=== PATIENT | female | born 1950 | race African-American/Black ===

== ENCOUNTER 2017-02-22 17:07 | Observation (INO) | payer MEDICAID ==
[~2017-02-22] VITALS: Ht 157.5 cm; Wt 71.4 kg
[~2017-02-22 17:07] MED LIST: IBUP-232 PO; LORT5TAB PO; PENI500T PO; Z.0.NO CURRENT MEDS
[2017-02-22 17:16] VITALS: BP 234/112; PULSE 64; RESP 14; TEMP 98.4; O2SAT 97
--- NOTE | 2017-02-22 17:51 | PD ---
HPI Chief Complaint: Neuro Symptoms/ Deficits Time Seen by Provider: 17:42 Travel History International Travel<30 days: No Contact w/Intl Traveler<30days: No Traveled to known affect area: No History of Present Illness HPI 66-year-old female came to the emergency room with history of various unrelated complaints. She speaks [place] only and her family member is giving the translated history. Patient since past 4 days has been experiencing some abdominal pain, on and off chest pain and left eye difficulty blinking when the wind blows along with some blurred vision from the left eye. Patient was hypertensive in triage. No history of vomiting or diarrhea. No history of fever or chills. Patient is concerned that she is having a stroke. Currently there is no pain from my understanding. The triage nurse's note says that patient fell down 4 days ago while she was working in her yard. This history has not been given to me by the family. PFSH Past Medical History Narrative Medical List of her past medical, surgical, social and family history is reviewed from the nursing note. Cardiovascular Problems: Yes (HTN) Diabetes: Yes Social History Tobacco Use: No Allergies-Medications (Allergen,Severity, Reaction): Coded Allergies: No Known Allergies (Verified Allergy, Unknown, 02/23/17) Comments No known drug allergies. Reported Meds & Prescriptions Reported Meds & Active Scripts Active Narrative Medication List of her home medications reviewed from the nursing note. Review of Systems Except as stated in HPI: all other systems reviewed are Neg Eyes: Positive: Drainage, Pain HENT: Positive: Headaches Cardiovascular: Positive: Chest Pain or Discomfort Physical Exam Narrative GENERAL: Awake, alert, moderate distress SKIN: Focused skin assessment warm/dry. HEAD: Atraumatic. Normocephalic. EYES: Pupils equal and round. No scleral icterus. No injection or drainage. ENT: No nasal bleeding or discharge. Mucous membranes pink and moist. NECK: Trachea midline. No JVD. CARDIOVASCULAR: Regular rate and rhythm. No murmur appreciated. RESPIRATORY: No accessory muscle use. Clear to auscultation. Breath sounds equal bilaterally. GASTROINTESTINAL: Abdomen soft, non-tender, nondistended. Hepatic and splenic margins not palpable. MUSCULOSKELETAL: No obvious deformities. No clubbing. No cyanosis. No edema. NEUROLOGICAL: Awake and alert. No obvious cranial nerve deficits. Motor grossly within normal limits. Normal speech. PSYCHIATRIC: Appropriate mood and affect; insight and judgment normal. Data Data Last Documented VS Orders Orders Electrocardiogram (02/22/17:) Prothrombin Time / Inr (Pt) (02/22/17:) Act Partial Throm Time (Ptt) (02/22/17) Complete Blood Count With Diff (02/22/17:) Comprehensive Metabolic Panel (02/22/17:) Creatine Kinase (Cpk) (02/22/17:) Troponin I (02/22/17) Urinalysis - C+S If Indicated (02/22/17) Ct Brain W/O Iv Contrast(Rout) (02/22/17:) Chest, Single Ap (02/22/17) Urine Culture (02/22/17 19:20) Aspirin (Aspirin) (02/22/17 21:00) Sodium Chlor 0.9% 1000 Ml Inj (Ns 1000 M (02/22/17 21:00) [place] (02/22/17 20:58) Admit Order (Ed Use Only) (02/22/17 21:19) Labs Laboratory Tests Test 02/22/17 19:05 02/22/17 19:20 White Blood Count 6.1 TH/MM3 Red Blood Count 5.17 MIL/MM3 Hemoglobin 14.9 GM/DL Hematocrit 43.5 % Mean Corpuscular Volume 84.2 FL Mean Corpuscular Hemoglobin 28.8 PG Mean Corpuscular Hemoglobin Concent 34.2 % Red Cell Distribution Width 13.4 % Platelet Count 197 TH/MM3 Mean Platelet Volume 9.7 FL Neutrophils (%) (Auto) 40.9 % Lymphocytes (%) (Auto) 47.2 % Monocytes (%) (Auto) 6.0 % Eosinophils (%) (Auto) 4.9 % Basophils (%) (Auto) 1.0 % Neutrophils # (Auto) 2.5 TH/MM3 Lymphocytes # (Auto) 2.9 TH/MM3 Monocytes # (Auto) 0.4 TH/MM3 Eosinophils # (Auto) 0.3 TH/MM3 Basophils # (Auto) 0.1 TH/MM3 CBC Comment DIFF FINAL Differential Comment Prothrombin Time 10.3 SEC Prothromb Time International Ratio 0.9 RATIO Activated Partial Thromboplast Time 28.7 SEC Blood Urea Nitrogen 13 MG/DL Creatinine 0.58 MG/DL Random Glucose 164 MG/DL Total Protein 7.1 GM/DL Albumin 3.6 GM/DL Calcium Level 9.1 MG/DL Alkaline Phosphatase 135 U/L Aspartate Amino Transf (AST/SGOT) 26 U/L Alanine Aminotransferase (ALT/SGPT) 41 U/L Total Bilirubin 0.3 MG/DL Sodium Level 139 MEQ/L Potassium Level 3.8 MEQ/L Chloride Level 105 MEQ/L Carbon Dioxide Level 25.6 MEQ/L Anion Gap 8 MEQ/L Estimat Glomerular Filtration Rate 126 ML/MIN Total Creatine Kinase 94 U/L Troponin I LESS THAN 0.02 NG/ML Urine Color LIGHT-YELLOW Urine Turbidity CLEAR Urine pH 5.5 Urine Specific [place] 1.004 Urine Protein NEG mg/dL Urine Glucose (UA) NEG mg/dL Urine Ketones NEG mg/dL Urine Occult Blood NEG Urine Nitrite NEG Urine Bilirubin NEG Urine Urobilinogen LESS THAN 2.0 MG/DL Urine Leukocyte Esterase SMALL Urine RBC LESS THAN 1 /hpf Urine WBC 2 /hpf Urine Squamous Epithelial Cells 1 /hpf Urine Bacteria OCC /hpf Microscopic Urinalysis Comment CATH-CULTURE IND MDM Medical Decision Making Medical Screen Exam Complete: Yes Emergency Medical Condition: Yes Medical Record Reviewed: Yes Interpretation(s) Lead EKG was reviewed by me. Normal sinus rhythm, normal axis, nonspecific ST- T wave changes. Heart rate of 69 bpm. Differential Diagnosis Intracranial bleed, ACS, non-STEMI Narrative Course 7:[address] scan of the head and chest x-ray that was ordered from the triage was done and resulted as normal. Awaiting for the blood test results. Case has been signed over to the oncoming ER physician. The current blood pressure is 162 systolic. Procedures EKG Prior to Arrival: No Scripts Ibuprofen (Ibuprofen) 600 Mg Tab 600 MG PO Q8HR Y for PAIN, #20 TAB 0 Refills Prov: Alejandro Shanks DO 02/25/17 Lxxfldqjih-Czvxody-Gpdbfjuw (Fiorinal) 50-325-40 Mg Cap 1 CAP PO Q4H Y for HEADACHE, #10 CAP 0 Refills Do not exceed 6 capsules/day. Prov: Alejandro Shanks DO 02/25/17 Divalproex ER (Depakote ER) 250 Mg [place] 250 MG PO DAILY for Headaches, #30 TAB Prov: Alejandro Shanks DO 02/25/17 Aspirin (Px Aspirin) 325 Mg Tab 325 MG PO DAILY for Weakness, #30 TAB Prov: Alejandro Shanks DO 02/25/17 Lisinopril (Lisinopril) 20 Mg Tab 20 MG PO DAILY for Blood Pressure Management, #30 TAB 0 Refills Prov: Alejandro Shanks DO 02/25/17 Glipizide (Glipizide) 5 Mg Tab 5 MG PO DAILY for Blood Sugar Management, #30 TAB 0 Refills Take 30 minutes before a meal Prov: Alejandro Shanks DO 02/25/17 Metformin (Metformin) 500 Mg Tab 500 MG PO QID for Blood Sugar Management, #30 TAB 0 Refills With a meal Prov: Alejandro Shanks DO 02/25/17 Kat Vaz MD Feb 22, 2017 17:51
--- NOTE | 2017-02-22 17:54 | RADRPT ---
EXAM DATE/TIME: 02/22/2017 17:40 [facility] COMPARISON: No previous studies available for comparison. INDICATIONS : Chest pain, CVA. MEDICAL HISTORY : None. SURGICAL HISTORY : None. ENCOUNTER: Initial ACUITY: 1 day PAIN SCORE: 5/10 LOCATION: Left chest FINDINGS: The lungs are under aerated but clear. There is no pneumothorax.. The cardiomediastinal contours ar e unremarkable. Osseous structures are intact. Mild degenerative changes about both EC joints. CONCLUSION: Under aerated but clear. Dejan Linn MD FACR on February 22, 2017 at 17:52 Board Certified Radiologist. This report was verified electronically.
--- NOTE | 2017-02-22 17:55 | RADRPT ---
EXAM DATE/TIME: 02/22/2017 17:43 [facility] COMPARISON: No previous studies available for comparison. INDICATIONS : Trauma; fall five days ago. RADIATION DOSE: 29.37 CTDIvol (mGy) MEDICAL HISTORY : Hypertension. SURGICAL HISTORY : None. ENCOUNTER: Initial ACUITY: 4 - 6 days PAIN SCALE: 4/10 LOCATION: cranial TECHNIQUE: Multiple contiguous axial images were obtained of the head. Using automated exposure control and adj ustment of the mA and/or kV according to patient size, radiation dose was kept as low as reasonably a chievable to obtain optimal diagnostic quality images. DICOM format image data is available electro nically for review and comparison. FINDINGS: CEREBRUM: The ventricles are normal for age. No evidence of midline shift, mass lesion, hemorrhage or acute in farction. No extra-axial fluid collections are seen. POSTERIOR FOSSA: The cerebellum and brainstem are intact. The 4th ventricle is midline. The cerebellopontine angle i s unremarkable. EXTRACRANIAL: The visualized portion of the orbits is intact. SKULL: The calvaria is intact. No evidence of skull fracture. CONCLUSION: Negative. Dejan Linn MD FACR on February 22, 2017 at 17:52 Board Certified Radiologist. This report was verified electronically.
[2017-02-22] MEDS ORDERED: LISI-515 PO (18:11)
[2017-02-22] MEDS ORDERED: GLIP5TAB8 PO (18:11)
[2017-02-22] MEDS ORDERED: METF500T PO (18:11)
[2017-02-22 19:00] VITALS: BP 163/78; PULSE 69; RESP 16; O2SAT 99
--- NOTE | 2017-02-22 19:36 | PD ---
Physical Exam Narrative General: The patient is a well-developed well-nourished female in no acute distress. Head and Neck exam: Head is normocephalic atraumatic. Eyes: EOMI, pupils are equal round and reactive to light. Nose: Midline septum with pink mucous membranes Mouth: Dentition unremarkable. Moist mucus membranes. Posterior oropharynx is not erythematous. No tonsillar hypertrophy. Uvula midline. Airway patent. Neck: No palpable lymphadenopathy. No nuchal rigidity. No thyromegaly. Cardiovascular: Regular rate and rhythm without murmurs, gallops, or rubs. Lungs: Clear to auscultation bilaterally. No wheezes, rhonchi, or rales. Abdomen: Soft, without tenderness to palpation in all 4 quadrants of the abdomen. No guarding, rebound, or rigidity. Normal bowel sounds are audible. No tenderness on palpation of McBurney's point. Extremities: No clubbing, cyanosis, or edema. 2+ pulses in all 4 extremities. Back: No spinous process tenderness to palpation. No costovertebral angle tenderness to palpation. Neurologic Exam: Cranial nerves 2-12 were intact on exam. Strength is 5/5 in all 4 extremities. No sensory deficits noted. Skin Exam: No rash noted. Intact skin that is warm and dry. Data Data Last Documented VS Vital Signs Date Time Temp Pulse Resp B/P (MAP) Pulse Ox O2 Delivery O2 Flow Rate FiO2 02/22/17 19:00 69 16 163/78 (106) 99 Room Air 02/22/17 17:16 98.4 Orders Orders Electrocardiogram (02/22/17 17:26) Prothrombin Time / Inr (Pt) (02/22/17 17:26) Act Partial Throm Time (Ptt) (02/22/17 17:26) Complete Blood Count With Diff (02/22/17 17:) Comprehensive Metabolic Panel (02/22/17 17:) Creatine Kinase (Cpk) (02/22/17 17:) Troponin I (02/22/17:) Urinalysis - C+S If Indicated (02/22/17 17:) Ct Brain W/O Iv Contrast(Rout) (02/22/17 17:26) Chest, Single Ap (02/22/17 17:26) Urine Culture (02/22/17 19:20) Aspirin (Aspirin) (02/22/17 21:00) Sodium Chlor 0.9% 1000 Ml Inj (Ns 1000 M (02/22/17 21:00) [place] (02/22/17 20:58) Admit Order (Ed Use Only) (02/22/17 21:19) Labs Laboratory Tests Test 02/22/17 19:05 02/22/17 19:20 White Blood Count 6.1 TH/MM3 Red Blood Count 5.17 MIL/MM3 Hemoglobin 14.9 GM/DL Hematocrit 43.5 % Mean Corpuscular Volume 84.2 FL Mean Corpuscular Hemoglobin 28.8 PG Mean Corpuscular Hemoglobin Concent 34.2 % Red Cell Distribution Width 13.4 % Platelet Count 197 TH/MM3 Mean Platelet Volume 9.7 FL Neutrophils (%) (Auto) 40.9 % Lymphocytes (%) (Auto) 47.2 % Monocytes (%) (Auto) 6.0 % Eosinophils (%) (Auto) 4.9 % Basophils (%) (Auto) 1.0 % Neutrophils # (Auto) 2.5 TH/MM3 Lymphocytes # (Auto) 2.9 TH/MM3 Monocytes # (Auto) 0.4 TH/MM3 Eosinophils # (Auto) 0.3 TH/MM3 Basophils # (Auto) 0.1 TH/MM3 CBC Comment DIFF FINAL Differential Comment Prothrombin Time 10.3 SEC Prothromb Time International Ratio 0.9 RATIO Activated Partial Thromboplast Time 28.7 SEC Blood Urea Nitrogen 13 MG/DL Creatinine 0.58 MG/DL Random Glucose 164 MG/DL Total Protein 7.1 GM/DL Albumin 3.6 GM/DL Calcium Level 9.1 MG/DL Alkaline Phosphatase 135 U/L Aspartate Amino Transf (AST/SGOT) 26 U/L Alanine Aminotransferase (ALT/SGPT) 41 U/L Total Bilirubin 0.3 MG/DL Sodium Level 139 MEQ/L Potassium Level 3.8 MEQ/L Chloride Level 105 MEQ/L Carbon Dioxide Level 25.6 MEQ/L Anion Gap 8 MEQ/L Estimat Glomerular Filtration Rate 126 ML/MIN Total Creatine Kinase 94 U/L Troponin I LESS THAN 0.02 NG/ML Urine Color LIGHT-YELLOW Urine Turbidity CLEAR Urine pH 5.5 Urine Specific [place] 1.004 Urine Protein NEG mg/dL Urine Glucose (UA) NEG mg/dL Urine Ketones NEG mg/dL Urine Occult Blood NEG Urine Nitrite NEG Urine Bilirubin NEG Urine Urobilinogen LESS THAN 2.0 MG/DL Urine Leukocyte Esterase SMALL Urine RBC LESS THAN 1 /hpf Urine WBC 2 /hpf Urine Squamous Epithelial Cells 1 /hpf Urine Bacteria OCC /hpf Microscopic Urinalysis Comment CATH-CULTURE IND MDM Medical Record Reviewed: Yes Supervised Visit with NITIN: No Interpretation(s) Last Impressions Head CT 02/22/176 Signed Impressions: Service Date/Time: Wednesday, February 22, 2017 17:43 - CONCLUSION: Negative. Dejan Linn MD FACR Chest X-Ray 02/22/176 Signed Impressions: Service Date/Time: Wednesday, February 22, 2017 17:40 - CONCLUSION: Under aerated but clear. Dejan Linn MD FACR Carotid Artery Ultrasound 02/22/17 0000 Signed Impressions: Service Date/Time: Wednesday, February 22, 2017 21:47 - CONCLUSION: 1. No significant atherosclerotic disease or stenosis is identified within either internal carotid artery. 2. There is antegrade flow within both vertebral arteries. Dennys Moreau MD Narrative Course During the course of the patients emergency department visit, the patients history, examination, and differential diagnosis were reviewed with the patient. The patient was placed on a patient monitor with oximetry and frequent blood pressure monitoring. The patient had IV access obtained and blood work sent for analysis. The patient's case was checked out to me by Dr. Vaz. Please see her initial history and physical. The patient's case was checked out to me at the conclusion of her shift. The patient reports a history of having left-sided upper and lower extremity weakness with difficulty ambulating since Wednesday, 2 days ago. The patient was seen by her chiropractor today and was sent to the emergency department for evaluation. The patient reports having an associated headache. The patient reports having a history of hypertension and diabetes mellitus. The patient is on losartan and metformin. The patient reports that her primary care physician is in [place], [place]. She denies having any prior history of stroke. She denies taking any aspirin daily. The patient was initially provided normal saline at 70 mL per hour, aspirin 325 mg by mouth 1. The patient was placed with the head of the bed flat. The patients laboratory studies were reviewed and remarkable for a CMP that is remarkable for glucose of 164, alkaline phosphatase 135, CPK 94, troponin I less than 0.02, CBC is remarkable for a white count of 6.1, hemoglobin 14.9, platelets 197 with 47.2 lymphocytes, eosinophils 4.9, PT PTT within normal limits. Urinalysis is unremarkable Radiology studies were reviewed and remarkable for a chest x-ray that shows no cardiopulmonary disease, under aerated x-ray. CT scan of the brain shows no acute abnormality. The Patient was given aspirin 325 mg by mouth 1. The patient will be admitted to the hospital for evaluation of TIA versus CVA. The patients results were discussed with the patient, including the plan of care. I explained that further testing and/ or monitoring is indicated based on the patients history, examination, and/ or laboratory findings. Therefore, I recommended admission for additional evaluation. The patient expressed understanding and was agreeable with this plan. The patient was admitted to the hospital in stable condition and sent to a bed under the care of the [facility] service. Physician Communication Physician Communication The patient's case including history, pertinent physical examination findings, and laboratory studies were discussed with Dr. Gonzalez. It was agreed that the patient would be admitted to the [facility] service. Diagnosis Primary Impression: Neurological symptoms Admitting Information Admitting Physician Requests: Observation Mandy Triana MD Feb 22, 2017 19:36
[2017-02-22 19:43] LABS: AUTOMATED NEUTROPHIL # 2.5 TH/MM3 (1.8-7.7); BASOPHIL # 0.1 TH/MM3 (0-0.2); EOSINOPHIL # 0.3 TH/MM3 (0-0.4); EOSINOPHIL % 4.9 % (0.0-4.0); HEMATOCRIT 43.5 % (35.0-46.0); HEMO FLAGS DIFF FINAL; LYMPH % 47.2 % (9.0-44.0); LYMPHOCYTE # 2.9 TH/MM3 (1.0-4.8); MEAN CELL VOLUME 84.2 FL (80.0-100.0); MEAN CORPUSCULAR HEMOGLOBIN 28.8 PG (27.0-34.0); MEAN CORPUSCULAR HGB CONC 34.2 % (32.0-36.0); NEUT % 40.9 % (16.0-70.0); PLATELET COUNT 197 TH/MM3 (150-450); RED BLOOD COUNT 5.17 MIL/MM3 (4.00-5.30); RED CELL DISTRIBUTION WIDTH 13.4 % (11.6-17.2); WHITE BLOOD COUNT 6.1 TH/MM3 (4.0-11.0)
[2017-02-22 20:06] LABS: BACTERIA, URINE OCC /hpf; BLOOD, URINE NEG (NEG); GLUCOSE,URINE NEG (NEG); KETONE, URINE NEG (NEG); NITRITE,URINE NEG (NEG); PH, URINE 5.5 (5.0-8.5); SQUAMOUS EPITHELIAL CELL URINE 1 /hpf (0-5); URINE COLOR LIGHT-YELLOW (YELLW/STRAW)
[2017-02-22 20:10] LABS: ALKALINE PHOSPHATASE 135 U/L (45-117); ALT (GPT) 41 U/L (10-53); ANION GAP 8 MEQ/L (5-15); AST (GOT) 26 U/L (15-37); BICARBONATE 25.6 MEQ/L (21.0-32.0); BLOOD UREA NITROGEN 13 MG/DL (7-18); CHLORIDE 105 MEQ/L (98-107); GLOMERULAR FILTRATION RATE 126 ML/MIN (>89); POTASSIUM 3.8 MEQ/L (3.5-5.1); SODIUM (NA) 139 MEQ/L (136-145); TOTAL BILIRUBIN ADULT 0.3 MG/DL (0.2-1.0)
[2017-02-22 20:19] LABS: COMMENT (UR) CATH-CULTURE IND; CULTURE IF INDICATED CATH CULTURE IND
[2017-02-22 20:24] LABS: CREATINE KINASE 94 U/L (26-192)
[2017-02-22 20:48] LABS: APTT (PATIENT) 28.7 SEC (24.3-30.1); INTERNATIONAL NORMALIZED RATIO 0.9 RATIO; PROTHROMBIN TIME - PATIENT 10.3 SEC (9.8-11.6)
[2017-02-22] MEDS ORDERED: ASPIRIN 325 MG TAB PO ONE (21:00)
[2017-02-22] MEDS: SODIUM CHLOR 0.9% 1000 ML INJ 1,000 ML IV SCH (21:17)
[2017-02-22] MEDS ORDERED: GADODIAMIDE PF 287 MG/ML 20 ML VIAL (for RAD MRI) IV PUSH ONE (21:21)
--- NOTE | 2017-02-22 22:54 | RADRPT ---
EXAM DATE/TIME: 02/22/2017 21:47 [facility] COMPARISON: No previous studies available for comparison. INDICATIONS : Transient ischemic attack. MEDICAL HISTORY : Hypertension. Diabetes. SURGICAL HISTORY : None. ENCOUNTER: Initial ACUITY: 1 day PAIN SCORE: 0/10 LOCATION: Bilateral neck PEAK SYSTOLIC VELOCITIES (cm/sec): ICA/CCA RATIO: Right: 0.9 Left: 1.2 ICA: Right: 72 Left: 111 CCA: Right: 83 Left: 94 ECA: Right: 106 Left: 79 VERTEBRAL: Right: 68 antegrade Left: 56 antegrade Elevated flow velocities and ICA/CCA ratios have been found to correlate with increased degrees of vessel stenosis, calculated as percentage of diameter relative to a normal segment of distal ICA/CCA FINDINGS: RIGHT CAROTID: No significant stenosis is visualized. The waveforms are within normal limits. LEFT CAROTID: No significant stenosis is visualized. The distal left internal carotid artery is not visualized. Th e waveforms are within normal limits. VERTEBRAL ARTERIES: Antegrade flow is seen in both vertebral arteries. MISCELLANEOUS: None. CONCLUSION: 1. No significant atherosclerotic disease or stenosis is identified within either internal carotid ar delvin. 2. There is antegrade flow within both vertebral arteries. Dennys Moreau MD on February 22, 2017 at 22:50 Board Certified Radiologist. This report was verified electronically.
[2017-02-23] VITALS (7 sets, daily range): BP systolic 146–183; BP diastolic 67–79; PULSE 60–72; RESP 16–18; TEMP 98–98.5; O2SAT 92–97
[2017-02-23] MEDS: ACETAMINOPHEN 325 MG TAB PO PRN ×2 (01:18→10:47)
[2017-02-23 08:01] LABS: AUTOMATED NEUTROPHIL # 1.9 TH/MM3 (1.8-7.7); BASOPHIL # 0.1 TH/MM3 (0-0.2); BASOPHIL % 1.1 % (0.0-2.0); EOSINOPHIL # 0.3 TH/MM3 (0-0.4); EOSINOPHIL % 5.6 % (0.0-4.0); HEMATOCRIT 42.5 % (35.0-46.0); HEMO FLAGS DIFF FINAL; LYMPH % 47.3 % (9.0-44.0); LYMPHOCYTE # 2.3 TH/MM3 (1.0-4.8); MEAN CELL VOLUME 84.7 FL (80.0-100.0); MEAN CORPUSCULAR HEMOGLOBIN 28.5 PG (27.0-34.0); MEAN CORPUSCULAR HGB CONC 33.7 % (32.0-36.0); PLATELET COUNT 194 TH/MM3 (150-450); RED BLOOD COUNT 5.01 MIL/MM3 (4.00-5.30); RED CELL DISTRIBUTION WIDTH 13.3 % (11.6-17.2); WHITE BLOOD COUNT 4.8 TH/MM3 (4.0-11.0)
[2017-02-23 08:25] LABS: BICARBONATE 24.5 MEQ/L (21.0-32.0); POTASSIUM 3.9 MEQ/L (3.5-5.1)
[2017-02-23 08:36] LABS: LDL CHOLESTEROL 60 MG/DL (0-99)
[2017-02-23] MEDS ORDERED: LISINOPRIL 20 MG TAB PO SCH (10:00)
[2017-02-23] MEDS ORDERED: ENALAPRILAT 1.25 MG/ML VIAL IV PUSH PRN (10:15)
[2017-02-23] MEDS ORDERED: GLUCAGON 1 MG/ML VIAL OTHER PRN (10:15)
[2017-02-23] MEDS ORDERED: DEXTROSE 50% IN WATER 50 ML VIAL(D50) IV PUSH PRN (10:15)
--- NOTE | 2017-02-23 10:18 | HHI.HP ---
[facility] Primary [facility] Physician Unknown Admission Diagnosis TIA versus CVA Diagnoses: Chief Complaint: Weakness, left eye pain, chest pain Travel History International Travel<30 Days: No Contact w/Intl Traveler <30 Da: No Traveled to Known Affected Are: No History of Present Illness The patient is a 66-year-old female with a past medical history of hypertension and diabetes who is presenting to the hospital with multiple complaints including weakness, headache, eye pain and chest pain. The patient said that on Wednesday she started to develop a headache and left eye pain. She said that she also had chest pain. She described the chest pain as a sensation of her heart puffing up. She also says it's like a stabbing/stinging sensation. She went to the chiropractor yesterday and the chiropractor asked how she was feeling. The patient said that she had all of the aforementioned symptoms. The chiropractor checked her eye pressure and recommended she come to the emergency department to be evaluated for a possible stroke. The patient says that her symptoms continue. She also describes some abdominal discomfort. She says she is currently nauseous. She does want to eat something. She denies any shortness of breath. She says she goes to a chiropractor because she recently fell on her back after tripping over something. Review of Systems Except as stated in HPI: all other systems reviewed are Neg Past Family Social History Past Medical History Diabetes Hypertension Past Surgical History Appendectomy Allergies: Coded Allergies: No Known Allergies (Verified Allergy, Unknown, 02/23/17) Active Ordered Medications Current Medications Medications (Trade) Dose Ordered Sig/Aguila Route Start Time Stop Time Status Last Admin Sodium Chloride 1,000 ml @ 70 mls/hr [id number] IV 02/22/17 21:00 02/22/17 21:17 (Tylenol) 650 mg Q4H PRN PO 02/23/17 00:15 02/23/17 01:18 (NovoLOG SUPPLEMENTAL SCALE) 1 ACHS SLIDING SCALE SQ 02/23/17 12:00 (D50w (Vial) Inj) 50 ml UNSCH PRN IV PUSH 02/23/17 10:15 (Glucagon Inj) 1 mg UNSCH PRN OTHER 02/23/17 10:15 Family History Hypertension Cardiac arrest Social History The patient does not smoke or drink Physical Exam Vital Signs Vital Signs Date Time Temp Pulse Resp B/P (MAP) Pulse Ox O2 Delivery O2 Flow Rate FiO2 02/23/17 08:05 98.2 60 16 146/71 (96) 94 02/23/17 02:53 18 02/23/17 02:19 98.1 67 18 149/67 (94) 96 02/22/17 22:37 02/22/17 19:00 69 16 163/78 (106) 99 Room Air 02/22/17 17:16 98.4 64 14 234/112 (152) 97 Physical Exam GENERAL: Resting comfortably. SKIN: Focused skin assessment warm/dry. HEAD: Atraumatic. Normocephalic. EYES: Pupils equal and round. No scleral icterus. No injection or drainage. ENT: No nasal bleeding or discharge. Mucous membranes pink and moist. NECK: Trachea midline. No JVD. CARDIOVASCULAR: Regular rate and rhythm. No murmur appreciated. RESPIRATORY: No accessory muscle use. Clear to auscultation. Breath sounds equal bilaterally. GASTROINTESTINAL: Abdomen soft, slightly tender in the left lower quadrant. Hepatic and splenic margins not palpable. MUSCULOSKELETAL: Chest wall tender to palpation. No obvious deformities. No clubbing. No cyanosis. No edema. NEUROLOGICAL: Awake and alert. No obvious cranial nerve deficits. Motor 5 out of 5 on the right side, 4 out of 5 on the left side. Pupils are equal and reactive. Normal speech. Laboratory Laboratory Tests Test 02/22/17 19:05 02/22/17 19:20 02/23/17 06:15 White Blood Count 6.1 4.8 Red Blood Count 5.17 5.01 Hemoglobin 14.9 14.3 Hematocrit 43.5 42.5 Mean Corpuscular Volume 84.2 84.7 Mean Corpuscular Hemoglobin 28.8 28.5 Mean Corpuscular Hemoglobin Concent 34.2 33.7 Red Cell Distribution Width 13.4 13.3 Platelet Count 197 194 Mean Platelet Volume 9.7 10.0 Neutrophils (%) (Auto) 40.9 40.0 Lymphocytes (%) (Auto) 47.2 47.3 Monocytes (%) (Auto) 6.0 6.0 Eosinophils (%) (Auto) 4.9 5.6 Basophils (%) (Auto) 1.0 1.1 Neutrophils # (Auto) 2.5 1.9 Lymphocytes # (Auto) 2.9 2.3 Monocytes # (Auto) 0.4 0.3 Eosinophils # (Auto) 0.3 0.3 Basophils # (Auto) 0.1 0.1 CBC Comment DIFF FINAL DIFF FINAL Differential Comment Prothrombin Time 10.3 Prothromb Time International Ratio 0.9 Activated Partial Thromboplast Time 28.7 Blood Urea Nitrogen 13 13 Creatinine 0.58 0.61 Random Glucose 164 242 Total Protein 7.1 Albumin 3.6 Calcium Level 9.1 9.3 Alkaline Phosphatase 135 Aspartate Amino Transf (AST/SGOT) 26 Alanine Aminotransferase (ALT/SGPT) 41 Total Bilirubin 0.3 Sodium Level 139 138 Potassium Level 3.8 3.9 Chloride Level 105 104 Carbon Dioxide Level 25.6 24.5 Anion Gap 8 10 Estimat Glomerular Filtration Rate 126 119 Total Creatine Kinase 94 Troponin I LESS THAN 0.02 Urine Color LIGHT-YELLOW Urine Turbidity CLEAR Urine pH 5.5 Urine Specific [place] 1.004 Urine Protein NEG Urine Glucose (UA) NEG Urine Ketones NEG Urine Occult Blood NEG Urine Nitrite NEG Urine Bilirubin NEG Urine Urobilinogen LESS THAN 2.0 Urine Leukocyte Esterase SMALL Urine RBC LESS THAN 1 Urine WBC 2 Urine Squamous Epithelial Cells 1 Urine Bacteria OCC Microscopic Urinalysis Comment CATH-CULTURE IND Triglycerides Level 206 Cholesterol Level 149 LDL Cholesterol 60 HDL Cholesterol 48.0 Cholesterol/HDL Ratio 3.10 Date/Time Source Procedure Growth Status 02/22/17 19:20 Urine Catheterized Urine Urine Culture Pending Received Result Diagram: 02/23/1761402/23/17614 Imaging Last Impressions Head CT 02/22/171725 Signed Impressions: Service Date/Time: Wednesday, February 22, 2017 17:43 - CONCLUSION: Negative. Dejan Linn MD FACR Chest X-Ray 02/22/171725 Signed Impressions: Service Date/Time: Wednesday, February 22, 2017 17:40 - CONCLUSION: Under aerated but clear. Dejan Linn MD FACR Carotid Artery Ultrasound 02/22/17 0000 Signed Impressions: Service Date/Time: Wednesday, February 22, 2017 21:47 - CONCLUSION: 1. No significant atherosclerotic disease or stenosis is identified within either internal carotid artery. 2. There is antegrade flow within both vertebral arteries. Dennys Moreau MD Caprini VTE Risk Assessment Caprini VTE Risk Assessment: Mod/High Risk (score >= 2) Caprini Risk Assessment Model Point Value = 1 Point Value = 2 Point Value = 3 Point Value = 5 Age 41-60 Minor surgery BMI > 25 kg/m2 Swollen legs Varicose veins or History of unexplained or recurrent spontaneous Oral contraceptives or hormone replacement Sepsis (< 1 month) Serious lung disease, including pneumonia (< 1 month) Abnormal pulmonary function Acute myocardial infarction Congestive heart failure (< 1 month) History of inflammatory bowel disease Medical patient at bed rest Age 61-74 Arthroscopic surgery Major open surgery (> 45 min) Laparoscopic surgery (> 45 min) Malignancy Confined to bed (> 72 hours) Immobilizing plaster cast Central venous access Age >= 75 History of VTE Family history of VTE Factor V Leiden Prothrombin [id number] Lupus anticoagulant Anticardiolipin antibodies Elevated serum homocysteine Heparin-induced thrombocytopenia Other congenital or acquired thrombophilia Stroke (< 1 month) Elective arthroplasty Hip, pelvis, or leg fracture Acute spinal cord injury (< 1 month) Prophylaxis Regimen Total Risk Factor Score Risk Level Prophylaxis Regimen 0-1 Low Early ambulation 2 Moderate Order ONE of the following: *Sequential Compression Device (SCD) *Heparin 5000 units SQ BID 3-4 Higher Order ONE of the following medications: *Heparin 5000 units SQ TID *Enoxaparin/Lovenox 40 mg SQ daily (WT < 150 kg, CrCl > 30 mL/min) *Enoxaparin/Lovenox 30 mg SQ daily (WT < 150 kg, CrCl > 10-29 mL/min) *Enoxaparin/Lovenox 30 mg SQ BID (WT < 150 kg, CrCl > 30 mL/min) AND/OR *Sequential Compression Device (SCD) 5 or more Highest Order ONE of the following medications: *Heparin 5000 units SQ TID (Preferred with Epidurals) *Enoxaparin/Lovenox 40 mg SQ daily (WT < 150 kg, CrCl > 30 mL/min) *Enoxaparin/Lovenox 30 mg SQ daily (WT < 150 kg, CrCl > 10-29 mL/min) *Enoxaparin/Lovenox 30 mg SQ BID (WT < 150 kg, CrCl > 30 mL/min) AND *Sequential Compression Device (SCD) Assessment and Plan Assessment and Plan Left sided weakness The patient has weakness in the left upper and lower extremities. CT of the brain was unremarkable. Carotid ultrasound without significant abnormality. - MRI of the brain and echocardiogram pending. - Neurology consult requested. - Monitor on telemetry. - Neuro checks. - PT/OT/ST. Accelerated hypertension Blood pressure was 234/112 on admission. August because of many of her symptoms. - Permissive hypertension for now. - Vasotec as needed. - Resume lisinopril in the morning. Chest pain Chest wall is tender to palpation. Likely costochondritis. EKG was normal sinus rhythm. Initial troponin negative. - Trend troponins and EKGs. - Pain control as needed. - Telemetry. Left eye pain Exam is unremarkable. Possibly secondary to uncontrolled high blood pressure. - MRI of the brain pending. Diabetes The patient is on metformin as an outpatient. - Hold metformin and place on an insulin sliding scale. - Diabetic diet. PPx: Adonis Discussed Condition With Pt, pt's family Alejandro Shanks DO Feb 23, 2017 10:18
[2017-02-23] MEDS: ENOXAPARIN SODIUM 40 MG/0.4 ML SYRINGE SQ SCH (10:48)
[2017-02-23] MEDS: SODIUM CHLOR 0.9% 1000 ML INJ 1,000 ML IV SCH (10:48)
--- NOTE | 2017-02-23 13:00 | RADRPT ---
EXAM DATE/TIME: 02/23/2017 12:24 [facility] COMPARISON: CT BRAIN W/O CONTRAST, February 22, 2017, 17:43. INDICATIONS : Left sided weakness. MEDICAL HISTORY : Diabetes mellitus type 2. SURGICAL HISTORY : Appendectomy. ENCOUNTER: Subsequent ACUITY: 2 day PAIN SCORE: 0/10 LOCATION: cranial TECHNIQUE: Multiplanar, multisequence MRI of the brain was performed without contrast. FINDINGS: CEREBRUM: The ventricles are normal for age. No evidence of midline shift, mass lesion, hemorrhage or acute in farction. No extraaxial fluid collections are seen. The pituitary gland and suprasellar cistern are normal in configuration. WHITE MATTER: No significant signal abnormalities are seen in the white matter. POSTERIOR FOSSA: The cerebellum and brainstem are intact. The 4th ventricle is midline. The cerebellopontine angle is unremarkable. The cerebellar tonsils are normal in position. DIFFUSION IMAGING: No focal areas of restricted diffusion are seen. No evidence of acute infarction. EXTRACRANIAL: The visualized portions of the orbits and paranasal sinuses are unremarkable. CONCLUSION: Negative exam. Mariano Miranda MD on February 23, 2017 at 12:55 Board Certified Radiologist. This report was verified electronically.
[2017-02-23] MEDS: INSULIN ASPART SUPPLEMENTAL SCALE SQ SCH ×3 (13:19→21:16)
--- NOTE | 2017-02-23 16:03 | PD.CONS ---
History of Present Illness Service Neurology Consult Requested By medical Reason for Consult weakness Primary Care Physician Unknown History of Present Illness 66-year-old female admitted for c/o of headache, vision changes? feels left eye vision a little blurry but able to watch t.v. pt with photophobia/phonophobia, throbbing headache better this afternoon. maria r po. has had it before several years ago. denies fever, jaw claudication. not on any meds 2/2 insurance. noted to have elevated glucose. Review of Systems Except as stated in HPI: and per admit hp Past Family Social History Past Medical History Diabetes Hypertension Past Surgical History Appendectomy Allergies: Coded Allergies: No Known Allergies (Verified Allergy, Unknown, 02/23/17) Family History Hypertension Cardiac arrest Social History The patient does not smoke or drink Review of Systems All other ROS: ROS reviewed as documented in chart Past Family Social History Allergies: Coded Allergies: No Known Allergies (Verified Allergy, Unknown, 02/23/17) Active Ordered Medications Current Medications Medications (Trade) Dose Ordered Sig/Aguila Route Start Time Stop Time Status Last Admin Sodium Chloride 1,000 ml @ 70 mls/hr [id number] IV 02/22/17 21:00 02/22/17 21:17 (Tylenol) 650 mg Q4H PRN PO 02/23/17 00:15 02/23/17 10:47 (NovoLOG SUPPLEMENTAL SCALE) 1 ACHS SLIDING SCALE SQ 02/23/17 12:00 02/23/17 13:19 (D50w (Vial) Inj) 50 ml UNSCH PRN IV PUSH 02/23/17 10:15 (Glucagon Inj) 1 mg UNSCH PRN OTHER 02/23/17 10:15 (Vasotec Inj) 1.25 mg Q6H PRN IV PUSH 02/23/17 10:15 (Lovenox Inj) 40 mg Q24H SQ 02/23/17 11:00 02/23/17 10:48 Exam I&O / VS 02/23/17 02/23/17 02/24/17 15:00 23:00 07:00 Intake Total 240 ml Balance 240 ml Intake Oral 240 ml Vital Signs Date Time Temp Pulse Resp B/P (MAP) Pulse Ox O2 Delivery O2 Flow Rate FiO2 02/23/17 15:46 98.5 68 16 155/72 (99) 96 02/23/17 15:05 68 11/7/17 13:50 98.0 72 183/79 (113) 96 02/23/17 08:05 98.2 60 16 146/71 (96) 94 02/23/17 02:53 18 02/23/17 02:19 98.1 67 18 149/67 (94) 96 02/22/17 22:37 02/22/17 19:00 69 16 163/78 (106) 99 Room Air 02/22/17 17:16 98.4 64 14 234/112 (152) 97 General: Alert and Oriented, No acute distress Eye: EOMI Respiratory: Non-labored respirations Neurologic: Alert, Oriented, Normal motor, No focal defects, CN II-XII intact, Normal DTR's Psychiatric: Cooperative Exam Comments alert, neck supple, no temporal tenderness, ox 3, spoke with gas fitter helper , eomi, vff ou 3-2mm, able to name objects and see time on watch, no apd, face sym, no focal weakness, no drift Review/Management Diagnosis/Plan: (1) Migraines ICD Codes: G43.909 - Migraine, unspecified, not intractable, without status migrainosus Status: Acute Plan: possible migraine vs hyperglycemia mri brain nml rec check mra/mrv esr/crp f/u hba1c suggest optho eval d/c planning after above (2) Neurological symptoms ICD Codes: R29.90 - Unspecified symptoms and signs involving the nervous system Status: Acute Abel Weston MD Feb 23, 2017 16:03
[2017-02-23 16:38] LABS: HEMOGLOBIN A1b 2.6 %; HEMOGLOBIN Ao 78.2 %; HEMOGLOBIN LA1C 3.2 %; HEMOGLOBIN P3 4.7 %
--- NOTE | 2017-02-23 18:40 | EKG ---
Date Performed: 02/22/2017 Time Performed: 18:08:59 PTAGE: 66 years EKG: Sinus rhythm NORMAL ECG NO PREVIOUS TRACING DOCTOR: [place] Interpretating Date/Time 02/23/2017 18:35:58
--- NOTE | 2017-02-23 20:00 | RADRPT ---
EXAM DATE/TIME: 02/23/2017 18:58 [facility] COMPARISON: MRI BRAIN W/O CONTRAST, February 23, 2017, 12:24. INDICATIONS : CVA. MEDICAL HISTORY : Diabetes mellitus type 2. SURGICAL HISTORY : Appendectomy. ENCOUNTER: Subsequent ACUITY: 2 day PAIN SCORE: 3/10 LOCATION: cranial Please note a normal MRA of the brain does not entirely exclude the possibility of a small aneurysm, nor the possibility of distal intracranial vessel disease. TECHNIQUE: 3D time of flight MRA was performed. Source images, multiplanar STS MIP, and 3D volume MIP reconstru ctions were reviewed. FINDINGS: There is excellent visualization of the major intracranial arteries out to the second-order branch ve ssels. There is variant anatomy with persistent circulation on the left. There is no evidence f or aneurysm, vessel truncation or stenosis, and no evidence for vascular malformation. CONCLUSION: No acute disease. Wing Armando Jr., MD on February 23, 2017 at 19:56 Board Certified Radiologist. This report was verified electronically.
--- NOTE | 2017-02-23 21:02 | RADRPT ---
EXAM DATE/TIME: 02/23/2017 18:58 COMPARISON: No previous studies available for comparison. INDICATIONS : CVA. CONTRAST: 20 cc Omniscan (gadodiamide) IV MEDICAL HISTORY : Diabetes mellitus type 2. SURGICAL HISTORY : Appendectomy. ENCOUNTER: Subsequent ACUITY: 2 day PAIN SCORE: 3/10 LOCATION: cranial FINDINGS: The major venous structures show normal signal. No filling defects appreciated. CONCLUSION: Normal exam. Wing Armando Jr., MD on February 23, 2017 at 20:58 Board Certified Radiologist. This report was verified electronically.
[2017-02-23] MEDS: INSULIN DETEMIR 100 UNITS/ML VIAL SQ SCH (21:16)
[2017-02-24] VITALS (11 sets, daily range): BP systolic 124–172; BP diastolic 66–74; PULSE 58–84; RESP 16–20; TEMP 97.7–98.6; O2SAT 94–99
[2017-02-24] MEDS: SODIUM CHLOR 0.9% 1000 ML INJ 1,000 ML IV SCH (03:35)
--- NOTE | 2017-02-24 07:52 | HHI.PR ---
Review/Management Diagnosis/Plan: (1) Migraines ICD Codes: G43.909 - Migraine, unspecified, not intractable, without status migrainosus Status: Acute Plan: probable migraine vs hyperglycemia-related, dm retinopathy hba1c 10 mri brain nml rec neuro stable uncontrolled DM- per medical/pcp/pt compliance mra/mrv-nml esr/crp-pending suggest optho eval-can be done outpatient d/c planning today from neuro outpatient f/u (2) Neurological symptoms ICD Codes: R29.90 - Unspecified symptoms and signs involving the nervous system Status: Acute Subjective Subjective Comments No acute events reported mild headache; feels better, slept well, ready for breakfast No chest pain No dyspnea Active Medications Current Medications Medications (Trade) Dose Ordered Sig/Aguila Route Start Time Stop Time Status Last Admin Sodium Chloride 1,000 ml @ 70 mls/hr [id number] IV 02/22/17 21:00 02/24/17 03:35 (Tylenol) 650 mg Q4H PRN PO 02/23/17 00:15 02/23/17 10:47 (NovoLOG SUPPLEMENTAL SCALE) 1 ACHS SLIDING SCALE SQ 02/23/17 12:00 02/23/17 21:16 (D50w (Vial) Inj) 50 ml UNSCH PRN IV PUSH 02/23/17 10:15 (Glucagon Inj) 1 mg UNSCH PRN OTHER 02/23/17 10:15 (Vasotec Inj) 1.25 mg Q6H PRN IV PUSH 02/23/17 10:15 (Lovenox Inj) 40 mg Q24H SQ 02/23/17 11:00 02/23/17 10:48 (Aspirin) 325 mg DAILY PO 02/24/17 09:00 (Levemir Inj) 10 units BID SQ 02/23/17 21:00 02/23/17 21:16 Allergies Allergies Coded Allergies No Known Allergies (Verified Allergy, Unknown, 02/23/17) Review of Systems All other ROS: ROS reviewed as documented in chart Exam I&O / VS 02/24/17 02/24/17 02/25/17 15:00 23:00 07:00 Intake Total 200 ml Balance 200 ml Intake Oral 200 ml Vital Signs Date Time Temp Pulse Resp B/P (MAP) Pulse Ox O2 Delivery O2 Flow Rate FiO2 02/24/17 07:19 98.1 63 18 163/73 (103) 95 02/24/17 05:11 77 02/24/17 05:10 58 02/24/17 03:10 98.0 84 18 169/70 (103) 99 02/23/17 23:27 98.5 60 18 147/67 (93) 97 02/23/17 21:04 98.1 70 18 171/77 (108) 92 02/23/17 15:46 98.5 68 16 155/72 (99) 96 02/23/17 15:05 68 02/23/17 13:50 98.0 72 183/79 (113) 96 02/23/17 08:05 98.2 60 16 146/71 (96) 94 General: Alert and Oriented, No acute distress Eye: EOMI Respiratory: Non-labored respirations Neurologic: Alert, Oriented, Normal motor, No focal defects, CN II-XII intact, Normal DTR's Psychiatric: Cooperative Exam Comments alert, neck supple, no temporal tenderness, ox 3, eomi, vff ou 3-2mm, , no apd, face sym, no focal weakness, no drift Objective Micro and Labs Laboratory Tests Test 02/23/17 11:00 02/23/17 15:40 02/24/17 07:30 Troponin I LESS THAN 0.02 LESS THAN 0.02 Date/Time Source Procedure Growth Status 02/22/17 19:20 Urine Catheterized Urine Urine Culture - Preliminary IMMATURE GROWTH - REINCUBATE Resulted Abel Weston MD Feb 24, 2017 07:52
[2017-02-24] MEDS ORDERED: ACETAMIN 325 MG/BUTALBITAL 50 MG/CAFFEINE 40 MG TAB PO PRN (08:00)
[2017-02-24] MEDS: INSULIN ASPART SUPPLEMENTAL SCALE SQ SCH ×4 (09:49→22:29)
[2017-02-24] MEDS: INSULIN DETEMIR 100 UNITS/ML VIAL SQ SCH ×2 (09:49→22:30)
[2017-02-24] MEDS: ASPIRIN 325 MG TAB PO SCH (09:49)
[2017-02-24] MEDS: DIVALPROEX SODIUM E.R. 250 MG TAB PO SCH (09:53)
--- NOTE | 2017-02-24 10:04 | EKG ---
Date Performed: 02/23/2017 Time Performed: 12:12:10 PTAGE: 66 years EKG: Sinus rhythm WITH FIRST DEGREE AV BLOCK NONSPECIFIC T-WAVE ABNORMALITY ABNORMAL ECG PREVIOUS TRACING : 02/22/2017 18.08 DOCTOR: Maco Carreno Interpretating Date/Time 02/24/2017 10:02:57
[2017-02-24] MEDS: ENOXAPARIN SODIUM 40 MG/0.4 ML SYRINGE SQ SCH (11:00)
--- NOTE | 2017-02-24 13:39 | HHI.PR ---
Subjective Remarks The pt was complaining of chest pain. She said there was a dull ache and sharp pain. She said she had a headache. Discussed with nursing. Objective Vitals Vital Signs Date Time Temp Pulse Resp B/P (MAP) Pulse Ox O2 Delivery O2 Flow Rate FiO2 02/24/17 11:16 97.7 67 20 152/73 (99) 96 02/24/17 09:50 70 02/24/17 07:19 98.1 63 18 163/73 (103) 95 02/24/17 05:11 77 02/24/17 05:10 58 02/24/17 03:10 98.0 84 18 169/70 (103) 99 02/23/17 23:27 98.5 60 18 147/67 (93) 97 02/23/17 21:04 98.1 70 18 171/77 (108) 92 02/23/17 15:46 98.5 68 16 155/72 (99) 96 02/23/17 15:05 68 02/23/17 13:50 98.0 72 183/79 (113) 96 I/O 02/23/17 02/23/17 02/23/17 02/24/17 02/24/17 02/24/17 06:59 14:59 22:59 06:59 14:59 22:59 Intake Total 200 ml 240 ml 785 ml 1160 ml Balance 200 ml 240 ml 785 ml 1160 ml Intake Oral 200 ml 240 ml 785 ml 1160 ml # Voids 3 # Bowel Movements 0 Result Diagram: 02/23/17 0615 02/23/17 0615 Imaging Last Impressions Head/Brain Mag Res Venography 02/23/17 0000 Signed Impressions: Service Date/Time: Thursday, February 23, 2017 18:58 - CONCLUSION: Normal exam. Wing Armando Jr., MD Head Magnetic Resonance Angiography 02/23/17 0000 Signed Impressions: Service Date/Time: Thursday, February 23, 2017 18:58 - CONCLUSION: No acute disease. Wing Armando Jr., MD Brain MRI 02/23/17 0000 Signed Impressions: Service Date/Time: Thursday, February 23, 2017 12:24 - CONCLUSION: Negative exam. Mariano Miranda MD Head CT 02/22/17 [id number] Signed Impressions: Service Date/Time: Wednesday, February 22, 2017 17:43 - CONCLUSION: Negative. Dejan Linn MD FACR Chest X-Ray 02/22/17 1726 Signed Impressions: Service Date/Time: Wednesday, February 22, 2017 17:40 - CONCLUSION: Under aerated but clear. Dejan Linn MD FACR Carotid Artery Ultrasound 02/22/17 0000 Signed Impressions: Service Date/Time: Wednesday, February 22, 2017 21:47 - CONCLUSION: 1. No significant atherosclerotic disease or stenosis is identified within either internal carotid artery. 2. There is antegrade flow within both vertebral arteries. Dennys Moreau MD Objective Remarks GENERAL: Resting comfortably. SKIN: Focused skin assessment warm/dry. HEAD: Atraumatic. Normocephalic. EYES: Pupils equal and round. No scleral icterus. No injection or drainage. ENT: No nasal bleeding or discharge. Mucous membranes pink and moist. NECK: Trachea midline. No JVD. CARDIOVASCULAR: Regular rate and rhythm. No murmur appreciated. RESPIRATORY: No accessory muscle use. Clear to auscultation. Breath sounds equal bilaterally. GASTROINTESTINAL: Abdomen soft, slightly tender in the left lower quadrant. Hepatic and splenic margins not palpable. MUSCULOSKELETAL: No obvious deformities. No clubbing. No cyanosis. No edema. NEUROLOGICAL: Awake and alert. No obvious cranial nerve deficits. Motor 5 out of 5 on the right side, 4 out of 5 on the left side. Pupils are equal and reactive. Normal speech. PSYCH: Mood and affect appropriate. Medications and IVs Current Medications Medications (Trade) Dose Ordered Sig/Aguila Route Start Time Stop Time Status Last Admin (Tylenol) 650 mg Q4H PRN PO 02/23/17 00:15 02/23/17 10:47 (NovoLOG SUPPLEMENTAL SCALE) 1 ACHS SLIDING SCALE SQ 02/23/17 12:00 02/24/17 13:20 (D50w (Vial) Inj) 50 ml UNSCH PRN IV PUSH 02/23/17 10:15 (Glucagon Inj) 1 mg UNSCH PRN OTHER 02/23/17 10:15 (Vasotec Inj) 1.25 mg Q6H PRN IV PUSH 02/23/17 10:15 (Lovenox Inj) 40 mg Q24H SQ 02/23/17 11:00 02/23/17 10:48 (Aspirin) 325 mg DAILY PO 02/24/17 09:00 02/24/17 09:49 (Levemir Inj) 10 units BID SQ 02/23/17 21:00 02/24/17 09:49 (Fioricet 325-50-40) 1 tab Q8H PRN PO 02/24/17 08:00 02/24/17 09:48 (Depakote Er) 250 mg DAILY PO 02/24/17 09:00 02/24/17 09:53 (Prinivil) 20 mg DAILY PO 02/24/17 13:15 UNV A/P Assessment and Plan Left sided weakness/ Migraine The patient has weakness in the left upper and lower extremities. CT of the brain was unremarkable. Carotid ultrasound without significant abnormality. LDL 60. Neurology consult appreciated. MRI/MRA negative. Likely migraine. - echocardiogram pending. - Neurology following. - divalproex, Fioricet. - Monitor on telemetry. - Neuro checks. - PT/OT/ST. Accelerated hypertension Blood pressure was 234/112 on admission. May be cause of many of her symptoms. Improved. - Vasotec as needed. - Resume lisinopril. Chest pain EKG was normal sinus rhythm. Troponins were negative. Chest wall no longer tender to palpation. - Pain control as needed. - Telemetry. - cardiology consult requested. Left eye pain Exam is unremarkable. Possibly secondary to uncontrolled high blood pressure. - ophthalmology consult placed. Diabetes The patient is on metformin as an outpatient. A1c 10%. - Hold metformin and place on an insulin sliding scale. Add Levemir. - Diabetic diet. PPx: Lovenox Discharge Planning D/c home following cardiology eval. Alejandro Shanks DO Feb 24, 2017 13:39
--- NOTE | 2017-02-24 15:25 | MB ---
cc: OLYA NASCIMENTO DATE OF CONSULTATION: 02/24/2017 HISTORY OF PRESENT ILLNESS Ms. García is a pleasant 66-year-old female with history of hypertension, diabetes mellitus. She presented with headache, eye pain and weakness. She was evaluated for possible stroke. She complains of left upper and lower extremity weakness. She is being evaluated by neurology. She has been severely hypertensive. She complains of sharp anterior chest discomfort for the last 4 or 5 days. Cardiac enzymes have been unremarkable. PAST MEDICAL HISTORY Past medical history is positive for: 1. Diabetes mellitus. 2. Hypertension. No history of dyslipidemia, coronary artery disease or previous CVA. MEDICATIONS Medications include: 1. Lisinopril. 2. Aspirin. 3. Depakote. 4. Insulin. 5. Lovenox. ALLERGIES None. SOCIAL HISTORY The patient smokes. She does not drink alcohol. FAMILY HISTORY Negative for coronary disease. Positive for hypertension. REVIEW OF SYSTEMS Otherwise negative. PHYSICAL EXAMINATION VITAL SIGNS: Blood pressure 172/74, pulse 69 and regular. HEENT: Negative. NECK: 2+ carotid upstrokes. No bruits. LUNGS: Clear. HEART: Regular with no murmur, gallop or rub. ABDOMEN: Soft, no bruits. EXTREMITIES: Without edema. 2+ distal pulses. NEUROLOGIC: Grossly nonfocal. EKG EKG was reviewed and showed normal sinus rhythm with normal axis intervals, no acute changes. LABORATORY DATA Hemoglobin 14.3, potassium 3.9, creatinine 0.6 and cardiac enzymes negative. AST and ALT normal. DIAGNOSIS 1. Unspecified angina. 2. Hypertension. 3. Diabetes mellitus. 4. Left-sided weakness. 5. Migraine headache. DISPOSITION Ms. García will be monitored on telemetry. We will obtain echocardiogram to evaluate her left ventricular function. She will be scheduled for adenosine myocardial perfusion study tomorrow to evaluate for ischemia. She is evaluated by neurology for possible migraine. Her MRI of the brain was normal. I recommend to continue therapy for hypertension and diabetes mellitus. I will follow her for cardiology during her hospitalization. Olya Nascimento MD OQ/TLL /2:55 PM /3:16 PM KATELIN
[2017-02-24] MEDS: LISINOPRIL 20 MG TAB PO SCH (15:59)
--- NOTE | 2017-02-24 19:03 | ECHRPT ---
Indication: cva/tia CONCLUSIONS Normal left ventricular size. Wall thickness is normal. The left ventricular systolic function is normal with an estimated ejection fraction in the range of 55-60%. BP: / HR: Rhythm: MEASUREMENTS (Male / Female) Normal Values Technical Quality:Good 2D ECHO LV Diastolic Diameter PLAX 4.1 cm 4.2 - 5.9 / 3.9 - 5.3 cm LV Systolic Diameter PLAX 3.1 cm IVS Diastolic Thickness 0.9 cm 0.6 - 1.0 / 0.6 - 0.9 cm LVPW Diastolic Thickness 0.8 cm 0.6 - 1.0 / 0.6 - 0.9 cm LV Relative Wall Thickness 0.4 LA Systolic Diameter LX 3.1 cm 3.0 - 4.0 / 2.7 - 3.8 cm M-MODE Aortic Root Diameter MM 2.7 cm AV Cusp Separation MM 2.0 cm DOPPLER Mitral E Point Velocity 83.4 cm/s Mitral A Point Velocity 71.1 cm/s Mitral E to A Ratio 1.2 TR Peak Velocity 190.0 cm/s TR Peak Gradient 14.4 mmHg FINDINGS LEFT VENTRICLE Normal left ventricular size. Wall thickness is normal. The left ventricular systolic function is normal with an estimated ejection fraction in the range of 55-60%. RIGHT VENTRICLE Normal right ventricular size and systolic function. LEFT ATRIUM The left atrial size is normal. RIGHT ATRIUM The right atrial size is normal. ATRIAL SEPTUM Normal atrial septal thickness without atrial level shunting by limited color doppler interrogation. AORTA The aortic root and proximal ascending aorta are normal in size on limited imaging. MITRAL VALVE Structurally normal mitral valve. No mitral valve stenosis or regurgitation. AORTIC VALVE Trileaflet aortic valve. No aortic valve stenosis or regurgitation. TRICUSPID VALVE Structurally normal tricuspid valve. No tricuspid valve stenosis or regurgitation. PULMONARY VALVE The pulmonary valve is not well visualized. VESSELS The inferior vena cava is normal in size. PERICARDIUM No pericardial effusion. Olya Nascimento MD, FACC (Electronically Signed) Final Date:24 February 2017 19:02
[2017-02-25 00:30] VITALS: PULSE 62
[2017-02-25 03:28] VITALS: BP 140/74; PULSE 60; RESP 17; TEMP 98.7; O2SAT 94
[2017-02-25 04:03] VITALS: PULSE 61
[2017-02-25 07:17] VITALS: BP 132/68; PULSE 71; RESP 20; TEMP 96; O2SAT 95
[2017-02-25] MEDS: INSULIN ASPART SUPPLEMENTAL SCALE SQ SCH ×2 (08:00→12:00)
--- NOTE | 2017-02-25 08:51 | HHI.PR ---
Review/Management Diagnosis/Plan: (1) Migraines ICD Codes: G43.909 - Migraine, unspecified, not intractable, without status migrainosus Status: Acute Plan: probable migraine vs hyperglycemia-related, dm retinopathy hba1c 10 mri brain nml esr nml rec neuro stable uncontrolled DM- per medical/pcp/pt compliance d/w pt/granddaughter to get pcp and dm control suggest optho eval-can be done outpatient (2) Neurological symptoms ICD Codes: R29.90 - Unspecified symptoms and signs involving the nervous system Status: Acute Subjective Subjective Comments No acute events reported reduced headache No chest pain No dyspnea Active Medications Current Medications Medications (Trade) Dose Ordered Sig/Aguila Route Start Time Stop Time Status Last Admin (Tylenol) 650 mg Q4H PRN PO 02/23/17 00:15 02/23/17 10:47 (NovoLOG SUPPLEMENTAL SCALE) 1 ACHS SLIDING SCALE SQ 02/23/17 12:00 02/24/17 22:29 (D50w (Vial) Inj) 50 ml UNSCH PRN IV PUSH 02/23/17 10:15 (Glucagon Inj) 1 mg UNSCH PRN OTHER 02/23/17 10:15 (Vasotec Inj) 1.25 mg Q6H PRN IV PUSH 02/23/17 10:15 (Lovenox Inj) 40 mg Q24H SQ 02/23/17 11:00 02/23/17 10:48 (Aspirin) 325 mg DAILY PO 02/24/17 09:00 02/24/17 09:49 (Levemir Inj) 10 units BID SQ 02/23/17 21:00 02/24/17 22:30 (Fioricet 325-50-40) 1 tab Q8H PRN PO 02/24/17 08:00 02/24/17 09:48 (Depakote Er) 250 mg DAILY PO 02/24/17 09:00 02/24/17 09:53 (Prinivil) 20 mg DAILY PO 02/24/17 13:15 02/24/17 15:59 Allergies Allergies Coded Allergies No Known Allergies (Verified Allergy, Unknown, 02/23/17) Review of Systems All other ROS: ROS reviewed as documented in chart Exam I&O / VS Vital Signs Date Time Temp Pulse Resp B/P (MAP) Pulse Ox O2 Delivery O2 Flow Rate FiO2 02/25/17 07:17 96.0 71 20 132/68 (89) 95 02/25/17 04:03 61 02/25/17 03:28 98.7 60 17 140/74 (96) 94 02/25/17 00:30 62 02/24/17 23:56 98.6 67 16 124/66 (85) 94 02/24/17 21:52 98.6 64 16 163/74 (103) 95 02/24/17 20:00 73 02/24/17 18:00 68 02/24/17 14:38 97.7 69 20 172/74 (106) 96 02/24/17 11:16 97.7 67 20 152/73 (99) 96 02/24/17 09:50 70 General: Alert and Oriented, No acute distress Eye: EOMI Respiratory: Non-labored respirations Neurologic: Alert, Oriented, Normal motor, No focal defects, CN II-XII intact, Normal DTR's Psychiatric: Cooperative Exam Comments alert, neck supple, no temporal tenderness, ox 3, eomi, vff ou 3-2mm, , no apd, face sym, no focal weakness, no drift Objective Micro and Labs Laboratory Tests Test 02/24/17 21:05 Total Triiodothyronine 121 Date/Time Source Procedure Growth Status 02/22/17 19:20 Urine Catheterized Urine Urine Culture - Final 50-100,000 CFU/ML MIXED ELIN... Complete Abel Weston MD Feb 25, 2017 08:51
[2017-02-25] MEDS: INSULIN DETEMIR 100 UNITS/ML VIAL SQ SCH (09:00)
[2017-02-25] MEDS: ASPIRIN 325 MG TAB PO SCH (09:54)
[2017-02-25] MEDS: LISINOPRIL 20 MG TAB PO SCH (09:54)
[2017-02-25] MEDS: DIVALPROEX SODIUM E.R. 250 MG TAB PO SCH (09:54)
[2017-02-25] MEDS: ENOXAPARIN SODIUM 40 MG/0.4 ML SYRINGE SQ SCH (11:00)
[2017-02-25] MEDS ORDERED: REGADENOSON INJ 0.4 MG/5 ML SYR ONE (12:26)
[2017-02-25 13:39] VITALS: BP 122/58; PULSE 69; RESP 21; TEMP 98.2; O2SAT 93
--- NOTE | 2017-02-25 13:51 | RADRPT ---
EXAM DATE/TIME: 02/25/2017 11:12 [facility] COMPARISON: No previous studies available for comparison. INDICATIONS : Chest pain. Angina. DOSE: 25.5 mCi Tc99m Myoview at stress. 8.3 mCi Tc99m Myoview at rest. 0.4 mg Lexiscan STRESS SYMPTOMS: None noted. EJECTION FRACTION: > 70% MEDICAL HISTORY : Hypertension. Diabetes mellitus type 2. SURGICAL HISTORY : Appendectomy. ENCOUNTER: Initial ACUITY: 4 - 6 days PAIN SCALE: 4/10 LOCATION: Bilateral chest TECHNIQUE: The patient underwent pharmacologic stress with infusion of prescribed dose. Continuous ECG tracing was monitored during stress. Gated SPECT imaging was performed after stress and conventional SPECT i maging was performed at rest. The examination was performed on a SPECT/CT scanner, both attenuation and non-corrected datasets were reviewed. FINDINGS: DISTRIBUTION: The maximum perfused segment at stress is in the posterobasal wall. PERFUSION STUDY: The pattern of perfusion at stress is within normal limits. GATED STUDY: There is intact wall motion and thickening without hypokinetic or dyskinetic segments. CONCLUSION: Normal examination. RISK CATEGORY: Low (<1% Annual Mortality Rate) Dennys Wilkinson MD on February 25, 2017 at 13:48 Board Certified Radiologist. This report was verified electronically.
[2017-02-25] MEDS ORDERED: GLIP5TAB8 PO (14:17)
[2017-02-25] MEDS ORDERED: LISI-515 PO (14:17)
[2017-02-25] MEDS ORDERED: DIVA250ER PO (14:17)
[2017-02-25] MEDS ORDERED: FIORINAL2 PO (14:17)
[2017-02-25] MEDS ORDERED: ASA325 PO (14:17)
[2017-02-25] MEDS ORDERED: IBUP-232 PO (14:17)
[2017-02-25] MEDS ORDERED: METF500T PO (14:17)
--- NOTE | 2017-02-25 14:18 | HHI.DCPOC ---
Discharge Care Plan Diagnosis: (1) Angina pectoris, unspecified (2) HTN (hypertension) (3) Diabetes (4) Migraines (5) Neurological symptoms Goals to Promote Your Health * To prevent worsening of your condition and complications * To maintain your health at the optimal level Directions to Meet Your Goals Take your medications as prescribed Follow your dietary instruction Follow activity as directed Keep your appointments as scheduled Take your immunizations and boosters as scheduled If your symptoms worsen call your PCP, if no PCP go to Urgent Care Center or Emergency Room Smoking is Dangerous to Your Health. Avoid second hand smoke Call the 24-hour hour crisis hotline for domestic abuse at Alejandro Shanks DO Feb 25, 2017 14:18
--- NOTE | 2017-02-25 14:18 | PD.CARD.PN ---
Subjective Subjective Remarks No CP or SOB today, feels better, c/o FERNANDEZ Objective Medications Current Medications Medications (Trade) Dose Ordered Sig/Aguila Route Start Time Stop Time Status Last Admin (Tylenol) 650 mg Q4H PRN PO 02/23/17 00:15 02/23/17 10:47 (NovoLOG SUPPLEMENTAL SCALE) 1 ACHS SLIDING SCALE SQ 02/23/17 12:00 02/24/17 22:29 (D50w (Vial) Inj) 50 ml UNSCH PRN IV PUSH 02/23/17 10:15 (Glucagon Inj) 1 mg UNSCH PRN OTHER 02/23/17 10:15 (Vasotec Inj) 1.25 mg Q6H PRN IV PUSH 02/23/17 10:15 (Lovenox Inj) 40 mg Q24H SQ 02/23/17 11:00 02/23/17 10:48 (Aspirin) 325 mg DAILY PO 02/24/17 09:00 02/25/17 09:54 (Levemir Inj) 10 units BID SQ 02/23/17 21:00 02/25/17 09:00 (Fioricet 325-50-40) 1 tab Q8H PRN PO 02/24/17 08:00 02/24/17 09:48 (Depakote Er) 250 mg DAILY PO 02/24/17 09:00 02/25/17 09:54 (Prinivil) 20 mg DAILY PO 02/24/17 13:15 02/25/17 09:54 Vital Signs / I&O Vital Signs Date Time Temp Pulse Resp B/P (MAP) Pulse Ox O2 Delivery O2 Flow Rate FiO2 02/25/17 13:39 98.2 69 21 122/58 (79) 93 02/25/17 07:17 96.0 71 20 132/68 (89) 95 02/25/17 04:03 61 02/25/17 03:28 98.7 60 17 140/74 (96) 94 02/25/17 00:30 62 02/24/17 23:56 98.6 67 16 124/66 (85) 94 02/24/17 21:52 98.6 64 16 163/74 (103) 95 02/24/17 20:00 73 02/24/17 18:00 68 02/24/17 14:38 97.7 69 20 172/74 (106) 96 I/O 02/24/17 02/24/17 02/24/17 02/25/17 02/25/17 02/25/17 07:00 15:00 23:00 07:00 15:00 23:00 Intake Total 1885 ml 825 ml Balance 1885 ml 825 ml Intake Oral 1160 ml 825 ml IV Total 725 ml # Voids 3 # Bowel Movements 0 Physical Exam GENERAL: In NAD SKIN: Warm and dry. HEAD: Normocephalic. EYES: No scleral icterus. No injection or drainage. NECK: Supple, trachea midline. No JVD or lymphadenopathy. CARDIOVASCULAR: Regular rate and rhythm without murmurs, gallops, or rubs. RESPIRATORY: Breath sounds equal bilaterally. No accessory muscle use. GASTROINTESTINAL: Abdomen soft, non-tender, nondistended. MUSCULOSKELETAL: No cyanosis, or edema. Laboratory Laboratory Tests Test 02/24/17 21:05 Total Triiodothyronine 121 NG/DL Imaging Last 24 hours Impressions Myocardial Perfusion Scan Nuc Med 02/25/17 0800 Signed Impressions: Service Date/Time: February 11:12 - CONCLUSION: Normal examination. RISK CATEGORY: Low (<1%% Annual Mortality Rate) Dennys Wilkinson MD Assessment and Plan Problem List: (1) Angina pectoris, unspecified ICD Codes: I20.9 - Angina pectoris, unspecified (2) Diabetes ICD Codes: E11.9 - Type 2 diabetes mellitus without complications (3) HTN (hypertension) ICD Codes: I10 - Essential (primary) hypertension (4) Migraines ICD Codes: G43.909 - Migraine, unspecified, not intractable, without status migrainosus Status: Acute (5) Neurological symptoms ICD Codes: R29.90 - Unspecified symptoms and signs involving the nervous system Status: Acute Assessment and Plan Adenosine stress test normal, no evidence of ischemia. Echo with nl LV systolic fx. Chest pain is likely of noncardiac origin. Neurology eval in progress. Olya Nascimento MD Feb 25, 2017 14:18
--- NOTE | 2017-02-25 14:20 | HHI.FF ---
Face to Face Verification Diagnosis: (1) Neurological symptoms (2) Migraines (3) Diabetes (4) HTN (hypertension) (5) Angina pectoris, unspecified Physical Therapy Order: Evaluate and Treat, Improve ambulation, Strength and gait training Occupational Therapy Order: Evaluate and Treat, Improve ADL, Gross motor coordination, Fine motor coordination Home Health Nursing Order: Medical education Signs/symptoms of disease process Diabetic education Medication education-adverse effect Nursing assessment with vital signs I have seen patient Julianna García on 02/25/17. My clinical findings support the need for the requested home health care services because: Deconditioned w/ increased weakness High risk of falls I certify that my clinical findings support that this patient is homebound because: Unsafe to leave home unassisted Alejandro Shanks DO Feb 25, 2017 14:20
--- NOTE | 2017-02-25 14:25 | HHI.DS ---
Discharge Summary Admission Date Feb 22, 2017 at 21:20 Discharge Date: Feb 25, 2017 Admitting Diagnosis TIA versus CVA (1) Neurological symptoms ICD Code: R29.90 - Unspecified symptoms and signs involving the nervous system Diagnosis: Principal Status: Acute (2) Migraines ICD Code: G43.909 - Migraine, unspecified, not intractable, without status migrainosus Diagnosis: Principal Status: Acute (3) Diabetes ICD Code: E11.9 - Type 2 diabetes mellitus without complications (4) HTN (hypertension) ICD Code: I10 - Essential (primary) hypertension (5) Angina pectoris, unspecified ICD Code: I20.9 - Angina pectoris, unspecified Diagnosis: Principal Procedures None Brief History - From Admission The patient is a 66-year-old female with a past medical history of hypertension and diabetes who is presenting to the hospital with multiple complaints including weakness, headache, eye pain and chest pain. The patient said that on Wednesday she started to develop a headache and left eye pain. She said that she also had chest pain. She described the chest pain as a sensation of her heart puffing up. She also says it's like a stabbing/stinging sensation. She went to the chiropractor yesterday and the chiropractor asked how she was feeling. The patient said that she had all of the aforementioned symptoms. The chiropractor checked her eye pressure and recommended she come to the emergency department to be evaluated for a possible stroke. The patient says that her symptoms continue. She also describes some abdominal discomfort. She says she is currently nauseous. She does want to eat something. She denies any shortness of breath. She says she goes to a chiropractor because she recently fell on her back after tripping over something. CBC/BMP: 02/23/17 0615 02/23/17 0615 Significant Findings Laboratory Tests Test 02/22/17 19:05 02/22/17 19:20 02/23/17 06:15 02/23/17 11:00 Lymphocytes (%) (Auto) 47.2 % (9.0-44.0) 47.3 % (9.0-44.0) Eosinophils (%) (Auto) 4.9 % (0.0-4.0) 5.6 % (0.0-4.0) Random Glucose 164 MG/DL (74-106) 242 MG/DL (74-106) Alkaline Phosphatase 135 U/L (45-117) Troponin I LESS THAN 0.02 NG/ML LESS THAN 0.02 NG/ML Urine Leukocyte Esterase SMALL (NEG) Urine Bacteria OCC /hpf (NONE) Hemoglobin A1c 10.0 % (4.3-6.0) Triglycerides Level 206 MG/DL (42-150) Test 02/23/17 15:40 02/24/17 07:30 02/24/17 21:05 Troponin I LESS THAN 0.02 NG/ML C-Reactive Protein 0.36 MG/DL (0.00-0.30) Thyroid Stimulating Hormone 3rd Gen 0.267 uIU/ML (0.358-3.740) Imaging Last Impressions Myocardial Perfusion Scan Nuc Med 02/25/17 0800 Signed Impressions: Service Date/Time: February 11:12 - CONCLUSION: Normal examination. RISK CATEGORY: Low (<1%% Annual Mortality Rate) Dennys Wilkinson MD Head/Brain Mag Res Venography 02/23/17 0000 Signed Impressions: Service Date/Time: Thursday, February 23, 2017 18:58 - CONCLUSION: Normal exam. Wing Armando Jr., MD Head Magnetic Resonance Angiography 02/23/17 0000 Signed Impressions: Service Date/Time: Thursday, February 23, 2017 18:58 - CONCLUSION: No acute disease. Wing Armando Jr., MD Brain MRI 02/23/17 0000 Signed Impressions: Service Date/Time: Thursday, February 23, 2017 12:24 - CONCLUSION: Negative exam. Mariano Miranda MD Head CT 02/22/17 1726 Signed Impressions: Service Date/Time: Wednesday, February 22, 2017 17:43 - CONCLUSION: Negative. Dejan Linn MD FACR Chest X-Ray 02/22/17 1726 Signed Impressions: Service Date/Time: Wednesday, February 22, 2017 17:40 - CONCLUSION: Under aerated but clear. Dejan Linn MD FACR Carotid Artery Ultrasound 02/22/17 0000 Signed Impressions: Service Date/Time: Wednesday, February 22, 2017 21:47 - CONCLUSION: 1. No significant atherosclerotic disease or stenosis is identified within either internal carotid artery. 2. There is antegrade flow within both vertebral arteries. Dennys Moreau MD PE at Discharge GENERAL: Resting comfortably. SKIN: Focused skin assessment warm/dry. HEAD: Atraumatic. Normocephalic. EYES: Pupils equal and round. No scleral icterus. No injection or drainage. ENT: No nasal bleeding or discharge. Mucous membranes pink and moist. NECK: Trachea midline. No JVD. CARDIOVASCULAR: Regular rate and rhythm. No murmur appreciated. RESPIRATORY: No accessory muscle use. Clear to auscultation. Breath sounds equal bilaterally. GASTROINTESTINAL: Abdomen soft, slightly tender in the left lower quadrant. Hepatic and splenic margins not palpable. MUSCULOSKELETAL: No obvious deformities. No clubbing. No cyanosis. No edema. NEUROLOGICAL: Awake and alert. No obvious cranial nerve deficits. Motor 5 out of 5 on the right side, 4 out of 5 on the left side. Pupils are equal and reactive. Normal speech. PSYCH: Mood and affect appropriate. Pt update on day of discharge The pt was feeling well and wanted to go home. No acute concerns. Discussed with family. Hospital Course Left sided weakness/ Migraine The patient had weakness in the left upper and lower extremities. CT of the brain was unremarkable. Carotid ultrasound without significant abnormality. LDL 60. Neurology was consulted. MRI/MRA negative. Echo with normal EF. Started on ASA and divalproex by neurology. She received Fioricet as needed. She worked with PT/OT/ST. She will be discharged with home health care services. She will follow up with neurology. Accelerated hypertension Blood pressure was 234/112 on admission. Improved with home lisinopril and Vasotec as needed. Chest pain EKG was normal sinus rhythm. Troponins were negative. Echo with normal EF. She was monitored on telemetry. Cardiology was consulted. Stress test was negative. Chest pain resolved. She will follow up with her PCP. She will continue ASA. Left eye pain Exam is unremarkable. She will follow up with ophthalmology as an outpt. Diabetes A1c 10%. The pt will resume her home metformin and glipizide upon discharge and will follow up with her PCP. Pt Condition on Discharge: Stable Discharge Disposition: Disch w/ Home Health Serv Discharge Time: > 30 minutes Discharge Instructions DIET: Follow Instructions for: Diabetic Diet Speech Therapy-Diet Recommends: Regular Activities you can perform: Weight Bearing as Horacio Follow up Referrals: Neurology - 1 Week Ophthalmology - 2-3 Days with Miley Ferrer MD PCP Follow-up - 1 Week New Medications: Jpoqidbntx-Qeqjypk-Ddhomvzc (Fiorinal) 50-325-40 Mg Cap 1 CAP PO Q4H PRN for HEADACHE, #10 CAP 0 Refills Do not exceed 6 capsules/day. Ibuprofen (Ibuprofen) 600 Mg Tab 600 MG PO Q8HR PRN for PAIN, #20 TAB 0 Refills Aspirin (Px Aspirin) 325 Mg Tab 325 MG PO DAILY for Weakness, #30 TAB Divalproex ER (Depakote ER) 250 Mg Hansa 250 MG PO DAILY for Headaches, #30 TAB Continued Medications: Glipizide (Glipizide) 5 Mg Tab 5 MG PO DAILY for Blood Sugar Management, #30 TAB 0 Refills (This prescription has been renewed) Take 30 minutes before a meal Lisinopril (Lisinopril) 20 Mg Tab 20 MG PO DAILY for Blood Pressure Management, #30 TAB 0 Refills (This prescription has been renewed) Metformin (Metformin) 500 Mg Tab 500 MG PO QID for Blood Sugar Management, #30 TAB 0 Refills (This prescription has been renewed) With a meal Alejandro Shanks DO Feb 25, 2017 14:25
--- NOTE | 2017-02-25 14:39 | HHI.FF ---
Face to Face Verification Diagnosis: (1) Neurological symptoms (2) Migraines (3) Diabetes (4) HTN (hypertension) (5) Angina pectoris, unspecified Home Health Nursing Order: Medical education Signs/symptoms of disease process Diabetic education Medication education-adverse effect Nursing assessment with vital signs I have seen patient Julianna García on 02/25/17. My clinical findings support the need for the requested home health care services because: Deconditioned w/ increased weakness Limited ability to care for self I certify that my clinical findings support that this patient is homebound because: Unsteady gait/balance Unsafe to leave home unassisted Alejandro Shanks DO Feb 25, 2017 14:39
== END 2017-02-25 16:52 | disposition home or self-care (01) ==
LOC: NEPC 17:07 → NEDA 21:20 → NEPGCP 22:31
PROVIDERS: ADMIT Hospitalist; ATTEND Hospitalist
DX: R53.1 Weakness (principal); R07.89 Other chest pain; H57.12 Ocular pain, left eye; R51 Headache; R10.9 Unspecified abdominal pain; H53.8 Other visual disturbances; I44.0 Atrioventricular block, first degree; R94.31 Abnormal electrocardiogram [ECG] [EKG]; E11.65 Type 2 diabetes mellitus with hyperglycemia; E11.319 Type 2 diabetes mellitus with unspecified diabetic retinopathy without macular edema; I10 Essential (primary) hypertension; I20.9 Angina pectoris, unspecified; G43.909 Migraine, unspecified, not intractable, without status migrainosus; F17.200 Nicotine dependence, unspecified, uncomplicated; Z79.899 Other long term (current) drug therapy; Z79.84 Long term (current) use of oral hypoglycemic drugs; Z79.82 Long term (current) use of aspirin
CPT/HCPCS: 70450; 70544; 70546; 70551; 71010; 78452; 80048; 80053; 80061; 81001; 82140; 82550; 82607; 82948; 83036; 84439; 84443; 84480; 84484; 85025; 85610; 85652; 85730; 86140; 87086; 93005; 93017; 93306; 93880; 96360; 96361; 96372; A9502; A9579; G0378; G8987-GO; G8987-GP; G8988-GO; G8988-GP; G8996-GN; G8997-GN; G8998-GN; J1650; J1815; J2785; J7030

== ENCOUNTER 2017-05-12 18:02 | Emergency (ER) | payer MEDICAID, OTHER ==
[~2017-05-12] VITALS: Ht 152.4 cm; Wt 78.2 kg
[~2017-05-12 18:02] MED LIST changes: +ASA325 PO; +DIVA250ER PO; +FIORINAL2 PO; +GLIP5TAB8 PO; +LISI-515 PO; -LORT5TAB PO; +METF500T PO; -PENI500T PO; -Z.0.NO CURRENT MEDS
[2017-05-12 18:03] VITALS: BP 162/100; PULSE 97; RESP 16; TEMP 100; O2SAT 95
--- NOTE | 2017-05-12 18:45 | RADRPT ---
EXAM DATE/TIME: 05/12/2017 18:25 [facility] COMPARISON: No previous studies available for comparison. INDICATIONS : Fever, cough, flu-like symptoms for 2 days MEDICAL HISTORY : None. SURGICAL HISTORY : None. ENCOUNTER: Initial ACUITY: 2 days PAIN SCORE: 5/10 LOCATION: Bilateral chest FINDINGS: There is patchy basilar perihilar airspace disease with peribronchial thickening. No effusion. No pne umothorax. CONCLUSION: 1. Bronchitis with mild bronchopneumonia bilaterally. No effusion. Chavo Turner MD on May 12, 2017 at 18:41 Board Certified Radiologist. This report was verified electronically.
[2017-05-12] MEDS ORDERED: GABA300C5 PO (20:07)
[2017-05-12] MEDS ORDERED: CYCL10TA PO (20:07)
[2017-05-12] MEDS ORDERED: MELO15TA20 PO (20:07)
[2017-05-12] MEDS ORDERED: cefTRIAXone INJ 1,000 MG in SODIUM CHLORIDE 0.9% INJ 100 ML IV ONE (20:15)
[2017-05-12] MEDS ORDERED: ACETAMINOPHEN 325 MG TAB PO ONE (20:15)
[2017-05-12] MEDS ORDERED: RESP: ALBUTEROL 2.5 MG/IPRATROPIUM 0.5 MG NEB (SCH) INH ONE (20:15)
[2017-05-12] MEDS ORDERED: SODIUM CHLORIDE 0.9% FLUSH 10 ML FLUSH IVF PRN (20:15)
[2017-05-12] MEDS ORDERED: AZITHROMYCIN INJ 500 MG in SODIUM CHLOR 0.9% 250 ML INJ 250 ML IV ONE (20:15)
[2017-05-12 20:25] LABS: AUTOMATED NEUTROPHIL # 1.4 TH/MM3 (1.8-7.7); EOSINOPHIL # 0.1 TH/MM3 (0-0.4); EOSINOPHIL % 2.3 % (0.0-4.0); HEMOGLOBIN 14.8 GM/DL (11.6-15.3); LYMPHOCYTE # 1.1 TH/MM3 (1.0-4.8); MEAN CELL VOLUME 84.1 FL (80.0-100.0); MEAN CORPUSCULAR HEMOGLOBIN 28.9 PG (27.0-34.0); MEAN CORPUSCULAR HGB CONC 34.4 % (32.0-36.0); MEAN PLATELET VOLUME 9.6 FL (7.0-11.0); MONOCYTE # 0.3 TH/MM3 (0-0.9); NEUT % 47.7 % (16.0-70.0); PLATELET COUNT 160 TH/MM3 (150-450); RED BLOOD COUNT 5.12 MIL/MM3 (4.00-5.30)
--- NOTE | 2017-05-12 20:26 | PD ---
HPI Chief Complaint: Cold / Flu Symptoms Time Seen by Provider: 19:59 Travel History International Travel<30 days: No Contact w/Intl Traveler<30days: No Traveled to known affect area: No History of Present Illness HPI Patient comes in to see department complaining: Flulike symptoms ongoing for approximately 48 hours. Patient grandson was sick with influenza and got better. Patient denies any known sick contacts. Patient reports occasionally productive cough, chest tightness, abdominal pain, subjective fevers, sore throat, and generalized body aches. Patient's been using home remedies for symptomatic relief. Denies anything making symptoms better or worse. Denies any radiation of pain. Denies any nausea, vomiting, diarrhea, loss or change in bowel or bladder, or numbness or tingling anywhere. H&P was obtained with the assistance of David Santo PA-C as patient is primarily Venezuelan-speaking. PFSH Past Medical History Asthma: No Blood Disorders: No Anxiety: No Depression: No Heart Rhythm Problems: No Cancer: No Cardiovascular Problems: Yes (HTN) High Cholesterol: No Chemotherapy: No Chest Pain: No Congestive Heart Failure: No COPD: No Diabetes: Yes Patient Takes Glucophage: Yes Endocrine: No Genitourinary: No Immune Disorder: No Musculoskeletal: Yes (right toes tingling today) Neurologic: No Psychiatric: No Reproductive: No Respiratory: No Radiation Therapy: No Sleep Apnea: No Thyroid Disease: No Past Surgical History Other Surgery: Yes (appendix removed in past) Social History Alcohol Use: No Tobacco Use: No Substance Use: No Allergies-Medications (Allergen,Severity, Reaction): Coded Allergies: No Known Allergies (Verified Allergy, Unknown, 05/14/17) Reported Meds & Prescriptions Reported Meds & Active Scripts Active Zofran Odt (Ondansetron Odt) 4 Mg Tab 4 Mg SL Q6HR PRN Cipro (Ciprofloxacin HCl) 500 Mg Tab 500 Mg PO BID 5 Days Reported Metformin (Metformin HCl) 500 Mg Tab 500 Mg PO BIDPC Review of Systems Except as stated in HPI: all other systems reviewed are Neg Physical Exam Narrative GENERAL: Well-developed, overly nourished, in no acute distress, and non-ill appearing. SKIN: Focused skin assessment warm and dry. HEAD: Atraumatic. Normocephalic. EYES: Pupils equal and round. EOMI. No scleral icterus. No injection or drainage. ENT: No nasal bleeding or discharge. Mucous membranes pink and moist. NECK: Trachea midline. Supple. No nuclear rigidity. CARDIOVASCULAR: Regular rate and rhythm. No murmur appreciated. RESPIRATORY: No accessory muscle use. No respiratory distress. Rhonchi noted throughout. Breath sounds equal bilaterally. Dry cough noted on exam. Patient speaking in full sentences without difficulty. GASTROINTESTINAL: Abdomen soft, non-tender, nondistended, and no guarding. Hepatic and splenic margins not palpable. Normal bowel sounds 4. No pulsatile mass. MUSCULOSKELETAL: No obvious deformities. No clubbing. No cyanosis. No edema. Full range of motion. NEUROLOGICAL: Awake and alert. No obvious cranial nerve deficits. Motor grossly within normal limits. Normal speech. PSYCHIATRIC: Appropriate mood and affect; insight and judgment normal. Data Data Last Documented VS Vital Signs Date Time Temp Pulse Resp B/P (MAP) Pulse Ox O2 Delivery O2 Flow Rate FiO2 05/12/17 23:12 05/12/17 19:56 20 96 Room Air 05/12/17 18:03 100.0 97 Orders Orders Electrocardiogram (05/12/17 18:09) Complete Blood Count With Diff (05/12/17 18:09) Comprehensive Metabolic Panel (05/12/17 18:09) Prothrombin Time / Inr (Pt) (05/12/17 18:09) Act Partial Throm Time (Ptt) (05/12/17 18:09) Lactic Acid Sepsis Protocol (05/12/17 18:09) Magnesium (Mg) (05/12/17 18:09) Lipase (05/12/17 18:09) Ckmb (Isoenzyme) Profile (05/12/17 18:09) Troponin I (05/12/17 18:09) Urinalysis - C+S If Indicated (05/12/17 18:09) Influenzae A/B Antigen (05/12/17 18:09) Chest, Pa & Lat (05/12/17 18:09) Blood Culture (05/12/17 20:15) Sodium Chloride 0.9% Flush (Ns Flush) (05/12/17 20:15) Ceftriaxone Inj (Rocephin Inj) (05/12/17 20:15) Azithromycin Inj (Zithromax Inj) (05/12/17 20:15) Acetaminophen (Tylenol) (05/12/17 20:15) Albuterol-Ipratropium Neb (Duoneb Neb) (05/12/17 20:15) Sodium Chlor 0.9% 1000 Ml Inj (Ns 1000 M (05/12/17 20:30) CKMB (05/12/17 19:45) CKMB% (05/12/17 19:45) Urine Culture (05/12/17 19:47) Oseltamivir (Tamiflu) (05/12/17 21:00) Ed Discharge Order (05/12/17 21:45) Resp Mdi/Instruction (05/12/17 21:45) Labs Laboratory Tests Test 05/12/17 19:45 05/12/17 19:47 White Blood Count 3.0 TH/MM3 Red Blood Count 5.12 MIL/MM3 Hemoglobin 14.8 GM/DL Hematocrit 43.0 % Mean Corpuscular Volume 84.1 FL Mean Corpuscular Hemoglobin 28.9 PG Mean Corpuscular Hemoglobin Concent 34.4 % Red Cell Distribution Width 14.0 % Platelet Count 160 TH/MM3 Mean Platelet Volume 9.6 FL Neutrophils (%) (Auto) 47.7 % Lymphocytes (%) (Auto) 38.0 % Monocytes (%) (Auto) 11.0 % Eosinophils (%) (Auto) 2.3 % Basophils (%) (Auto) 1.0 % Neutrophils # (Auto) 1.4 TH/MM3 Lymphocytes # (Auto) 1.1 TH/MM3 Monocytes # (Auto) 0.3 TH/MM3 Eosinophils # (Auto) 0.1 TH/MM3 Basophils # (Auto) 0.0 TH/MM3 CBC Comment DIFF FINAL Differential Comment Prothrombin Time 10.5 SEC Prothromb Time International Ratio 1.0 RATIO Activated Partial Thromboplast Time 32.3 SEC Blood Urea Nitrogen 9 MG/DL Creatinine 0.60 MG/DL Random Glucose 135 MG/DL Total Protein 7.8 GM/DL Albumin 3.9 GM/DL Calcium Level 8.7 MG/DL Magnesium Level 1.8 MG/DL Alkaline Phosphatase 99 U/L Aspartate Amino Transf (AST/SGOT) 63 U/L Alanine Aminotransferase (ALT/SGPT) 59 U/L Total Bilirubin 0.3 MG/DL Sodium Level 136 MEQ/L Potassium Level 3.9 MEQ/L Chloride Level 102 MEQ/L Carbon Dioxide Level 27.4 MEQ/L Anion Gap 7 MEQ/L Estimat Glomerular Filtration Rate 121 ML/MIN Lactic Acid Level 1.1 mmol/L Total Creatine Kinase 343 U/L Creatine Kinase MB 1.6 NG/ML Creatine Kinase MB % 0.5 % Troponin I LESS THAN 0.02 NG/ML Lipase 171 U/L Urine Color YELLOW Urine Turbidity HAZY Urine pH 5.5 Urine Specific [place] 1.020 Urine Protein TRACE mg/dL Urine Glucose (UA) NEG mg/dL Urine Ketones NEG mg/dL Urine Occult Blood NEG Urine Nitrite NEG Urine Bilirubin NEG Urine Urobilinogen LESS THAN 2.0 MG/DL Urine Leukocyte Esterase MOD Urine RBC 5 /hpf Urine WBC 17 /hpf Urine Squamous Epithelial Cells 30 /hpf Urine Bacteria FEW /hpf Urine Mucus FEW /lpf Microscopic Urinalysis Comment CATH-CULTURE IND MDM Medical Decision Making Medical Screen Exam Complete: Yes Emergency Medical Condition: Yes Interpretation(s) EKG reviewed by Dr. Rasmussen shows sinus rhythm with ventricular rate of 85. No STEMI. Last Impressions Chest X-Ray 05/12/17 1312 Signed Impressions: Service Date/Time: Friday, May 12, 2017 18:25 - CONCLUSION: 1. Bronchitis with mild bronchopneumonia bilaterally. No effusion. Chavo Turner MD Differential Diagnosis Influenza, URI, viral syndrome, pneumonia, bronchitis Narrative Course Patient looks great. Patients symptom complex is consistent with Influenza, or flu-like illness. The patient is tolerating fluids and is well hydrated. There is no evidence to suggest secondary infection (pneumonia, sepsis/bacteremia, etc.) at this time. I discussed with the patient, diagnosis, and plan of care and to follow up with the patients primary physician. Flu prep is positive. I discussed with the patient initiating Tamiflu and the patient agreed with plan. The patient was instructed to return if the worsens in anyway, especially if not tolerating fluids, increased pain or swelling, difficulty swallowing or breathing, or as needed. The patient agreed with plan. Chest x-ray showed bronchial pneumonia with bronchitis will treat patient for this as well. This was discussed with the patient. Patient in no obvious distress upon re-evaluation. All pertinent laboratory/ Radiology result(s) discussed with patient. Discussed patient with Dr. Rasmussen prior to discharge, who is in agreement with plan of care and disposition. Any questions/concerns in reference to patient diagnosis/condition discussed and clarified prior to patient's discharge. Reinforced sheer importance of close follow up with patient's primary physician or primary care clinic. Instructed patient to return to ED immediately, if symptoms return/worsen. Patient showed understanding of above instructions. Further instructions and recommendations were detailed in discharge paperwork. Patient ambulated without difficulty out of ED at discharge. Diagnosis Primary Impression: Influenza A Additional Impression: Bronchial pneumonia Referrals: [facility] Patient Instructions: Acute Bronchitis (GEN), Community Acquired Pneumonia (DC) , General Instructions, Influenza (ED) Additional Instructions: Follow-up with your primary care physician in 3-5 days for reevaluation. Take all medication as prescribed. Use [id number] Tylenol as needed for pain and/or fevers. Follow instructions on the packaging. Drink plenty of non- caffeinated and nonalcoholic fluids. Return to the emergency department if symptoms get worse. Med/Other Pt SpecificInfo: Prescription(s) given Disposition: 01 DISCHARGE HOME Condition: Stable Antoine Christianson May 12, 2017 20:26
[2017-05-12] MEDS ORDERED: SODIUM CHLOR 0.9% 1000 ML INJ 1,000 ML IV ONE (20:30)
[2017-05-12 20:38] LABS: ALBUMIN 3.9 GM/DL (3.4-5.0); ALT (GPT) 59 U/L (10-53); AST (GOT) 63 U/L (15-37); BICARBONATE 27.4 MEQ/L (21.0-32.0); BLOOD UREA NITROGEN 9 MG/DL (7-18); CALCIUM 8.7 MG/DL (8.5-10.1); CHLORIDE 102 MEQ/L (98-107); GLOMERULAR FILTRATION RATE 121 ML/MIN (>89); GLUCOSE,RANDOM 135 MG/DL (74-106); LIPASE 171 U/L (73-393); MAGNESIUM 1.8 MG/DL (1.5-2.5); SODIUM (NA) 136 MEQ/L (136-145)
[2017-05-12 20:43] LABS: ALKALINE PHOSPHATASE 99 U/L (45-117); TOTAL BILIRUBIN ADULT 0.3 MG/DL (0.2-1.0); TOTAL PROTEIN 7.8 GM/DL (6.4-8.2); TROPONIN I LESS THAN 0.02 NG/ML (0.02-0.05)
--- NOTE | 2017-05-12 20:47 | PD ---
Physical Exam Date Seen by Provider: May 12, 2017 Narrative This patient presents with cough and fever. Data Data Last Documented VS Vital Signs Date Time Temp Pulse Resp B/P (MAP) Pulse Ox O2 Delivery O2 Flow Rate FiO2 05/12/17 19:56 20 96 Room Air 05/12/17 18:03 100.0 97 162/100 (120) Orders Orders Electrocardiogram (05/12/17 18:09) Complete Blood Count With Diff (05/12/17 18:09) Comprehensive Metabolic Panel (05/12/17 18:09) Prothrombin Time / Inr (Pt) (05/12/17 18:09) Act Partial Throm Time (Ptt) (05/12/17 18:09) Lactic Acid Sepsis Protocol (05/12/17 18:09) Magnesium (Mg) (05/12/17 18:09) Lipase (05/12/17 18:09) Ckmb (Isoenzyme) Profile (05/12/17 18:09) Troponin I (05/12/17 18:09) Urinalysis - C+S If Indicated (05/12/17 18:09) Influenzae A/B Antigen (05/12/17 18:09) Chest, Pa & Lat (05/12/17 18:09) Blood Culture (05/12/17 20:15) Sodium Chloride 0.9% Flush (Ns Flush) (05/12/17 20:15) Ceftriaxone Inj (Rocephin Inj) (05/12/17 20:15) Azithromycin Inj (Zithromax Inj) (05/12/17 20:15) Acetaminophen (Tylenol) (05/12/17 20:15) Albuterol-Ipratropium Neb (Duoneb Neb) (05/12/17 20:15) Sodium Chlor 0.9% 1000 Ml Inj (Ns 1000 M (05/12/17 20:30) CKMB (05/12/17 19:45) CKMB% (05/12/17 19:45) Labs Laboratory Tests Test 05/12/17 19:45 05/12/17 19:47 White Blood Count 3.0 TH/MM3 Red Blood Count 5.12 MIL/MM3 Hemoglobin 14.8 GM/DL Hematocrit 43.0 % Mean Corpuscular Volume 84.1 FL Mean Corpuscular Hemoglobin 28.9 PG Mean Corpuscular Hemoglobin Concent 34.4 % Red Cell Distribution Width 14.0 % Platelet Count 160 TH/MM3 Mean Platelet Volume 9.6 FL Neutrophils (%) (Auto) 47.7 % Lymphocytes (%) (Auto) 38.0 % Monocytes (%) (Auto) 11.0 % Eosinophils (%) (Auto) 2.3 % Basophils (%) (Auto) 1.0 % Neutrophils # (Auto) 1.4 TH/MM3 Lymphocytes # (Auto) 1.1 TH/MM3 Monocytes # (Auto) 0.3 TH/MM3 Eosinophils # (Auto) 0.1 TH/MM3 Basophils # (Auto) 0.0 TH/MM3 CBC Comment DIFF FINAL Differential Comment Blood Urea Nitrogen 9 MG/DL Creatinine 0.60 MG/DL Random Glucose 135 MG/DL Total Protein 7.8 GM/DL Albumin 3.9 GM/DL Calcium Level 8.7 MG/DL Magnesium Level 1.8 MG/DL Alkaline Phosphatase 99 U/L Aspartate Amino Transf (AST/SGOT) 63 U/L Alanine Aminotransferase (ALT/SGPT) 59 U/L Total Bilirubin 0.3 MG/DL Sodium Level 136 MEQ/L Potassium Level 3.9 MEQ/L Chloride Level 102 MEQ/L Carbon Dioxide Level 27.4 MEQ/L Anion Gap 7 MEQ/L Estimat Glomerular Filtration Rate 121 ML/MIN Lactic Acid Level 1.1 mmol/L Total Creatine Kinase 343 U/L Troponin I LESS THAN 0.02 NG/ML Lipase 171 U/L MDM Supervised Visit with NITIN: Yes Narrative Course I, Dr. Rasmussen, have reviewed the advance practice practitioner's documentation and am in agreement, met with the patient face to face, made the diagnosis, and the medical decision making was done by me. *My assessment and Findings: Patient is lying on the stretcher receiving a nebulizer treatment. She had full and equal breath sounds. She did have coarse rhonchi throughout. Please see Hayden Christianson PA-C's note for results of laboratory and radiographic evaluation, ED course, final diagnosis and disposition Lana Rasmussen MD May 12, 2017 20:47
[2017-05-12 20:50] LABS: BACTERIA, URINE FEW /hpf; BILIRUBIN, URINE NEG (NEG); BLOOD, URINE NEG (NEG); GLUCOSE,URINE NEG (NEG); KETONE, URINE NEG (NEG); MUCUS URINE FEW /lpf (OCC); NITRITE,URINE NEG (NEG); PH, URINE 5.5 (5.0-8.5); SQUAMOUS EPITHELIAL CELL URINE 30 /hpf (0-5); URINE COLOR YELLOW (YELLW/STRAW); URINE LEUKOCYTE ESTERASE MOD (NEG)
[2017-05-12 20:55] LABS: PROTHROMBIN TIME - PATIENT 10.5 SEC (9.8-11.6)
[2017-05-12] MEDS ORDERED: OSELTAMIVIR PHOSPHATE 75 MG CAP PO ONE (21:00)
[2017-05-12] MEDS ORDERED: ZITH250T PO (21:47)
[2017-05-12] MEDS ORDERED: VENTAER INH (21:47)
[2017-05-12] MEDS ORDERED: OSEL75 PO (21:47)
--- NOTE | 2017-05-13 00:29 | EKG ---
Date Performed: 05/12/2017 Time Performed: 19:20:07 PTAGE: 66 years EKG: Sinus rhythm NORMAL ECG Compared to prior tracing, no significant change DOCTOR: Margarito Galindo Interpretating Date/Time 05/13/2017 00:27:36
== END 2017-05-12 23:13 | disposition home or self-care (01) ==
LOC: NEPC 18:02
DX: J09.X2 Influenza due to identified novel influenza A virus with other respiratory manifestations (principal); J18.0 Bronchopneumonia, unspecified organism; I10 Essential (primary) hypertension; E11.9 Type 2 diabetes mellitus without complications; Z79.899 Other long term (current) drug therapy
CPT/HCPCS: 71046; 80053; 81001; 82550; 82552; 83605; 83690; 83735; 84484; 85025; 85610; 85730; 87040; 87086; 87804; 93005; 94664; 96365; 96366; 96367; 99285; J0456; J0696; J7030; J7050

== ENCOUNTER 2017-05-14 07:25 | Emergency (ER) | payer OTHER ==
[~2017-05-14] VITALS: Ht 152.4 cm; Wt 74.0 kg
[~2017-05-14 07:25] MED LIST changes: +CYCL10TA PO; +GABA300C5 PO; +MELO15TA20 PO; +OSEL75 PO; +VENTAER INH; +ZITH250T PO
[2017-05-14 07:27] VITALS: BP 157/73; PULSE 71; RESP 18; TEMP 98.5; O2SAT 96
[2017-05-14] MEDS ORDERED: METF500T PO (07:49)
[2017-05-14] MEDS ORDERED: CIPR-9 PO (07:57)
[2017-05-14] MEDS ORDERED: ZOFR4TAB3 SL (07:57)
--- NOTE | 2017-05-14 07:57 | PD ---
HPI Chief Complaint: Cold / Flu Symptoms Time Seen by Provider: 07:43 Travel History International Travel<30 days: No Contact w/Intl Traveler<30days: No Traveled to known affect area: No History of Present Illness HPI patient is a ukrainian speaking lady who was here on may 12 when she presented with similar symptoms of cough/runny nose/body aches and was diagnosed with flu and pneumonia. placed on tamiflu, zpak and d/c home....patient now returns because she developed nausea/vomiting and occasional diarrhea which is new today , she previously was not prescribed any anti emetic....also patient made me aware that since her son went to work, she has not filled any of her prescriptions. PFSH Past Medical History Asthma: No Blood Disorders: No Anxiety: No Depression: No Heart Rhythm Problems: No Cancer: No Cardiovascular Problems: Yes (HTN) High Cholesterol: No Chemotherapy: No Chest Pain: No Congestive Heart Failure: No COPD: No Diabetes: Yes Patient Takes Glucophage: No Endocrine: No Genitourinary: No Immune Disorder: No Musculoskeletal: Yes (right toes tingling today) Neurologic: No Psychiatric: No Reproductive: No Respiratory: No Radiation Therapy: No Sleep Apnea: No Thyroid Disease: No Tetanus Vaccination: Unknown Influenza Vaccination: No ?: Not Past Surgical History Appendectomy: Yes Other Surgery: Yes (appendix removed in past) Social History Alcohol Use: No Tobacco Use: No Substance Use: No Allergies-Medications (Allergen,Severity, Reaction): Coded Allergies: No Known Allergies (Verified Allergy, Unknown, 05/14/17) Reported Meds & Prescriptions Reported Meds & Active Scripts Active Zofran Odt (Ondansetron Odt) 4 Mg Tab 4 Mg SL Q6HR PRN Cipro (Ciprofloxacin HCl) 500 Mg Tab 500 Mg PO BID 5 Days Reported Metformin (Metformin HCl) 500 Mg Tab 500 Mg PO BIDPC Review of Systems General / Constitutional: Positive: Fever Eyes: No: Visual changes HENT: Positive: Rhinorrhea Cardiovascular: No: Chest Pain or Discomfort Respiratory: Positive: Cough Gastrointestinal: Positive: Nausea, Vomiting, Diarrhea Genitourinary: No: Dysuria Musculoskeletal: No: Pain Skin: No Rash Neurologic: No: Weakness Psychiatric: No: Depression Endocrine: No: Polydipsia Hematologic/Lymphatic: No: Easy Bruising Physical Exam Narrative GENERAL: SKIN: Warm and dry. HEAD: Atraumatic. Normocephalic. EYES: Pupils equal and round. No scleral icterus. No injection or drainage. ENT: No nasal bleeding or discharge. Mucous membranes pink and moist. NECK: Trachea midline. No JVD. CARDIOVASCULAR: Regular rate and rhythm. RESPIRATORY: No accessory muscle use. Clear to auscultation. Breath sounds equal bilaterally. GASTROINTESTINAL: Abdomen soft, non-tender, nondistended. MUSCULOSKELETAL: Extremities without clubbing, cyanosis, or edema. No obvious deformities. NEUROLOGICAL: Awake and alert. No obvious cranial nerve deficits. Motor grossly within normal limits. Five out of 5 muscle strength in the arms and legs. Normal speech. PSYCHIATRIC: Appropriate mood and affect; insight and judgment normal. Data Data Last Documented VS Vital Signs Date Time Temp Pulse Resp B/P (MAP) Pulse Ox O2 Delivery O2 Flow Rate FiO2 05/14/17 07:27 98.5 71 18 157/73 (101) 96 Orders Orders Influenzae A/B Antigen (05/14/17 08:01) Ketorolac Inj (Toradol Inj) (05/14/17 08:45) Ondansetron Odt (Zofran Odt) (05/14/17 08:45) Oseltamivir (Tamiflu) (05/14/17 08:45) Ciprofloxacin (Cipro) (05/14/17 08:45) MDM Medical Decision Making Medical Screen Exam Complete: Yes Emergency Medical Condition: Yes Medical Record Reviewed: Yes Differential Diagnosis progression of flu with gi sx v viral gastroenteritis v uti Narrative Course during last visit patient also had ua c/w uti, that was not listed on diagnosis , although patient on zpak, it does not cover urine elaine as well.....so today i will switch to cipro and add zofran rx, patient tolerated po challenge...patient and son were educated as to the change in abx, and also about tamiflu helping to shortened course of flu but it will not make it go away. Diagnosis Primary Impression: vomiting (due to flu) Additional Impression: UTI Patient Instructions: General Instructions, Influenza (DC), Urinary Tract Infection in Women (DC) Scripts Ondansetron Odt (Zofran Odt) 4 Mg Tab 4 MG SL Q6HR Y for Nausea/Vomiting, #20 TAB 0 Refills Prov: Darryl Clemente MD 05/14/17 Ciprofloxacin (Cipro) 500 Mg Tab 500 MG PO BID for Infection for 5 Days, #10 TAB 0 Refills Prov: Darryl Clemente MD 05/14/17 Disposition: 01 DISCHARGE HOME Condition: Stable Darryl Clemente MD May 14, 2017 07:57
[2017-05-14] MEDS ORDERED: ONDANSETRON ODT 4 MG TAB PO ONE (08:45)
[2017-05-14] MEDS ORDERED: OSELTAMIVIR PHOSPHATE 75 MG CAP PO ONE (08:45)
[2017-05-14] MEDS ORDERED: CIPROFLOXACIN 500 MG TAB PO ONE (08:45)
[2017-05-14] MEDS ORDERED: KETOROLAC TROMETHAMINE 60 MG/2 ML (IM) VIAL IM ONE (08:45)
[2017-05-14 09:49] VITALS: BP 134/64; PULSE 70; RESP 18; O2SAT 95
== END 2017-05-14 10:45 | disposition home or self-care (01) ==
LOC: NEPC 07:25
DX: J11.1 Influenza due to unidentified influenza virus with other respiratory manifestations (principal); R11.2 Nausea with vomiting, unspecified; R19.7 Diarrhea, unspecified; I10 Essential (primary) hypertension; E11.9 Type 2 diabetes mellitus without complications
CPT/HCPCS: 87804; 96372; 99284; J1885

== ENCOUNTER → 2017-06-29 | Outpatient (CLI) | payer OTHER ==
[~2017-06-29] MED LIST changes: -ASA325 PO; +CIPR-9 PO; -CYCL10TA PO; -DIVA250ER PO; -FIORINAL2 PO; -GABA300C5 PO; -GLIP5TAB8 PO; -IBUP-232 PO; -LISI-515 PO; -MELO15TA20 PO; -OSEL75 PO; -VENTAER INH; -ZITH250T PO; +ZOFR4TAB3 SL
--- NOTE | 2017-06-29 17:20 | RADRPT ---
EXAM DATE/TIME: 06/29/2017 16:47 [place] COMPARISON: None. INDICATIONS : <<Right shoulder pain.>> MEDICAL HISTORY : Hypertension. Diabetes mellitus type 2. SURGICAL HISTORY : Appendectomy. ENCOUNTER: Initial ACUITY: 2 months PAIN SCORE: 7/10 LOCATION: Right Shoulder. TECHNIQUE: Multiplanar, multisequence MRI examination was performed without contrast. FINDINGS: There is moderate osteoarthritis at the shoulder joint with articular cartilage thinning and early os teophytes. Also moderate osteoarthritis of the a.c. joint with hypertrophic change. No full-thickness rotator cuff tear is identified. There is a partial-thickness tear distal supraspin atus tendon near the insertion site. Non-attending rupture. No significant joint effusion. Small amou nt of fluid in subacromial/subdeltoid bursa and subcoracoid bursa. CONCLUSION: 1. Moderate osteoarthritis of the shoulder joint and acromioclavicular joint with hypertrophic change s at the a.c. joint. 2. Small partial-thickness distal supraspinatus tendon insertion. No full-thickness rotator cuff tear identified. 3. Small amount fluid in the subcoracoid bursa and to a lesser extent the sub-deltoid bursa. Chavo Turner MD on June 29, 2017 at 17:14 Board Certified Radiologist. This report was verified electronically.
== END ==
LOC: HRAD 16:03
PROVIDERS: ATTEND Family Medicine
DX: M25.511 Pain in right shoulder (principal)
CPT/HCPCS: 73221

== ENCOUNTER 2018-01-21 09:56 | Inpatient (IN) ==
[2018-01-21] MEDS ORDERED: Azithromycin Inj 500 MG in Sodium Chlor 0.9% Inj 250 ML IV.SIG STA (10:37)
[2018-01-21 11:33] LABS: Baso # (Auto) 0.1 th/mm3 (0.0-0.2); Baso % (Auto) 0.9 % (0.0-2.0); Eos # (Auto) 0.5 th/mm3 (0.0-0.4); Eos % (Auto) 7.6 % (0.0-4.0); Hematocrit 41.4 % (35.0-46.0); Hemoglobin 14.1 gm/dL (11.6-15.3); Lymph # (Auto) 3.2 th/mm3 (1.0-4.8); Mean Corpuscular Hemoglobin 29.2 pg (27.0-34.0); Mean Corpuscular Volume 85.9 fL (80.0-100.0); Mean Platelet Volume 9.9 fL (7.0-11.0); Mono # (Auto) 0.4 th/mm3 (0.0-0.9); Mono % (Auto) 5.9 % (0.0-8.0); Neut # (Auto) 2.8 th/mm3 (1.8-7.7); Neut % (Auto) 39.6 % (16.0-70.0); Platelet Count 203 th/mm3 (150-450); Red Blood Count 4.83 mil/mm3 (4.00-5.30); Red Cell Distribution Width 13.6 % (11.6-17.2)
--- NOTE | 2018-01-21 11:45 | XR ---
EXAM DATE: 01/21/2018 10:37 AM EDT AGE/SEX: 67 years / Female INDICATIONS: . Cough. CLINICAL DATA: This is the patient's initial encounter. Patient reports that signs and symptoms have been present for 4 - 6 days and indicates a pain score of 0/10. MEDICAL/SURGICAL HISTORY: Diabetes mellitus type II. Hypertension. Appendectomy. COMPARISON: [facility] [place], CHEST PA & LAT, 05/12/2017. . FINDINGS: Heart is enlarged. Mild interstitial prominence is evident. Minimal parental changes right base There is no, pleural effusion or pneumothorax. Degenerative changes are present about both shoulders. CONCLUSION: Cardiomegaly with mild interstitial prominence. Failure would be a consideration. Very minimal parenchymal changes right base new from comparison study. Electronically signed by: Dejan Linn MD 01/21/2018 11:43 AM EDT
[2018-01-21 11:57] LABS: Alanine Aminotransferase 26 U/L (10-53); Albumin 3.5 g/dL (3.4-5.0); Anion Gap 8 meq/L (5-15); Aspartate Aminotransferase 17 U/L (15-37); Blood Urea Nitrogen 16 mg/dL (7-18); Calcium 8.1 mg/dL (8.5-10.1); Carbon Dioxide 25.9 meq/L (21.0-32.0); Chloride 109 meq/L (98-107); Glomerular Filtration Rate 89 mL/min (>89); Glucose,Random 204 mg/dL (74-106); Sodium 143 meq/L (136-145)
[2018-01-21 12:01] LABS: Alkaline Phosphatase 107 U/L (45-117); Creatine Kinase 112 U/L (26-192)
[2018-01-21 12:14] LABS: Creatine Kinase MB 2.1 ng/mL (0.5-3.6)
--- NOTE | 2018-01-21 12:50 | ED ---
HPI General Chief Complaint: Respiratory Symptoms Stated Complaint: cough Time Seen by Provider: 01/21/18 10:24 Source: patient and RN notes reviewed Mode of arrival: ambulatory Limitations: no limitations History of Present Illness HPI Narrative: The patient is a 67-year-old female with diabetes and hypertension presenting with complaint of cough and congestion since mid December. She stated that her shortness of breath has been increasing and she has been experiencing chest wall pain with coughing. Patient stated that she was on Cipro oral for the past 10 days without any improvement. MD Complaint: Reports cough, sore throat and nasal congestion Onset (ago): week(s) (3) Duration: progressively worsening Severity: moderate Relieving factors: nothing Exacerbating factors: exertion Description of mucous: Reports clear Able to tolerate fluids by mouth: Yes Associated symptoms: Reports chills, myalgias, nasal congestion, sore throat and shortness of breath Treatments prior to arrival: Reports none Related Data Home Medications Medication Instructions Recorded Confirmed amitriptyline 25 mg PO DAILY 01/21/18 01/21/18 gabapentin 300 mg PO DAILY 01/21/18 01/21/18 lisinopril [Prinivil] 20 mg PO DAILY 01/21/18 01/21/18 meloxicam 15 mg PO DAILY 01/21/18 01/21/18 Allergies Allergy/AdvReac Type Severity Reaction Status Date / Time No Known Allergies Allergy Unverified 01/21/18 10:55 Review of Systems ROS: all other systems reviewed are negative [facility] Medical History Medical History Diabetes (Acute) Hypertension (Acute) Surgical History Surgical History History of appendectomy (Acute) Social History Social History Substance History: No History of Abuse Smoking Status: Former smoker How Often Do You Have a Drink Containing Alcohol: Never Recent Travel in [facility] within the Last 8 Weeks: No Recent Out of Country Travel within the Last 8 Weeks: No Immunization History Tetanus Immunization: Unsure Exam Narrative Exam Narrative: GENERAL: Alert and oriented in no distress SKIN: Focused skin assessment warm/dry. HEAD: Atraumatic. Normocephalic. EYES: Pupils equal and round. No scleral icterus. No injection or drainage. ENT: No nasal bleeding or discharge. Mucous membranes pink and moist. NECK: Trachea midline. No JVD. CARDIOVASCULAR: Regular rate and rhythm. No murmur appreciated. RESPIRATORY: No accessory muscle use. Crackles and inspiratory expiratory wheezing throughout all lung long coarse. GASTROINTESTINAL: Abdomen soft, non-tender, nondistended. Hepatic and splenic margins not palpable. MUSCULOSKELETAL: No obvious deformities. No clubbing. No cyanosis. No edema. NEUROLOGICAL: Awake and alert. No obvious cranial nerve deficits. Motor grossly within normal limits. Normal speech. PSYCHIATRIC: Appropriate mood and affect; insight and judgment normal. Course Hospital Course: Patient with symptoms suggestive of a URI negative serologies and WBC with in normal limits. She does have a lactic acidosis of 2.5. Received fluids and IV antibiotics as well as SL NTG for elevated BP and possible pulmonary congestion. . Will cover with Rocephin and Zithromax for community-acquired pneumonia. She has failed outpatient treatment markedly elevated blood pressure that improved with nitroglycerin. No signs of CHF with p.o. as well as nitro sublingual for elevated BP Reevaluation(s) Reevaluation #1: pt recieving Breathing Treatment at this time. Still hypertensive. No neurologic symptoms. No chest pain Time: 12:15 Time: 13:38 Reevaluation #3: Patient still hypertensive 180/98. Nitroglycerin has not been given yet. Will reassess after is administered. She does feel better. Time: 14:29 Additional Reevaluation(s): Blood pressure is improving 163/84 the patient states she feels much better at this time. Will be admitted for upper respiratory infection likely left upper lobe pneumonia failed outpatient treatment. Initial Documented Vital Signs Temperature 98.4 F 01/21/18 10:01 Pulse Rate 88 01/21/18 10:01 Respiratory Rate 20 01/21/18 10:01 Blood Pressure 221/92 H 01/21/18 10:01 Pulse Oximetry 96 01/21/18 10:01 Last Documented Vital Signs Temperature 97.8 F 01/21/18 11:08 Pulse Rate 78 01/21/18 13:00 Respiratory Rate 20 01/21/18 13:00 Blood Pressure 163/84 H 01/21/18 13:00 Pulse Oximetry 98 01/21/18 13:00 Critical Care Time Critical Care Time: Yes Total Critical Care Time: 30 Attestation: Aggregate critical care time was 30 minutes. Time to perform other separately billable procedures was not included in the critical care time. My time did not include minutes spent treating any other patients simultaneously or on activities that did not directly contribute to the patient's treatment. The services I provided to this patient were to treat and/or prevent clinically significant deterioration that could result in: respiratory failure, I provided critical care services requiring my management, as noted below: Chart data review, documentation time, medication orders and management, vital sign assessments/reviewing monitor data, ordering and reviewing lab tests, ordering and interpreting/reviewing x-rays and diagnostic studies, care of the patient and discussion of the patient with the admitting physicians. Medical Decision Making MDM Narrative Medical decision making narrative: Patient with equivocal findings on chest x- ray that may suggest a right lower lobe pneumonia. She does have respiratory symptoms for several weeks now and has failed outpatient treatment with Oral antibiotics. BNP is not elevated she does have a history of COPD. She did receive Duonebs with marked improvement, IV antibiotics and fluids per sepsis protocol and she will be admitted for further evaluation. Medical Screen Exam Complete: Yes Emergency Medical Condition: Yes Medical Records Medical records reviewed: Yes I reviewed the patient's medical records. Lab Data Lab results reviewed: Yes I reviewed the patient's lab results. Result diagrams: 01/21/18 11:12 01/21/18 11:12 Lab Results 01/21/18 01/21/18 01/21/18 Range/Units 11:00 11:03 11:12 WBC 7.0 (4.0-11.0) th/mm3 RBC 4.83 (4.00-5.30) mil/mm3 Hgb 14.1 (11.6-15.3) gm/dL Hct 41.4 (35.0-46.0) % MCV 85.9 (80.0-100.0) fL MCH 29.2 (27.0-34.0) pg MCHC 34.0 (32.0-36.0) % RDW 13.6 (11.6-17.2) % Plt Count 203 (150-450) th/mm3 MPV 9.9 (7.0-11.0) fL Neut % (Auto) 39.6 (16.0-70.0) % Lymph % (Auto) 46.0 H (9.0-44.0) % [place] % (Auto) 5.9 (0.0-8.0) % Eos % (Auto) 7.6 H (0.0-4.0) % Baso % (Auto) 0.9 (0.0-2.0) % Neut # (Auto) 2.8 (1.8-7.7) th/mm3 Lymph # (Auto) 3.2 (1.0-4.8) th/mm3 [place] # (Auto) 0.4 (0.0-0.9) th/mm3 Eos # (Auto) 0.5 H (0.0-0.4) th/mm3 Baso # (Auto) 0.1 (0.0-0.2) th/mm3 WBC Differential . Differential Comment Auto diff final Sodium (136-145) meq/L Potassium (3.5-5.1) meq/L Chloride (98-107) meq/L Carbon Dioxide (21.0-32.0) meq/L Anion Gap (5-15) meq/L BUN (7-18) mg/dL Creatinine (0.50-1.00) mg/dL Estimated GFR (>89) mL/min POC Glucose 207 H (68-110) mg/dl Random Glucose (74-106) mg/dL Lactic Acid 2.5 H (0.4-2.0) mmol/L Calcium (8.5-10.1) mg/dL Total Bilirubin (0.2-1.0) mg/dL AST (15-37) U/L ALT (10-53) U/L Alkaline Phosphatase (45-117) U/L Total Creatine Kinase (26-192) U/L CK-MB (CK-2) (0.5-3.6) ng/mL Troponin I (0.02-0.05) ng/mL B-Natriuretic Peptide (0-100) pg/mL Total Protein (6.4-8.2) g/dL Albumin (3.4-5.0) g/dL 01/21/18 01/21/18 Range/Units 11:12 11:12 WBC (4.0-11.0) th/mm3 RBC (4.00-5.30) mil/mm3 Hgb (11.6-15.3) gm/dL Hct (35.0-46.0) % MCV (80.0-100.0) fL MCH (27.0-34.0) pg MCHC (32.0-36.0) % RDW (11.6-17.2) % Plt Count (150-450) th/mm3 MPV (7.0-11.0) fL Neut % (Auto) (16.0-70.0) % Lymph % (Auto) (9.0-44.0) % [place] % (Auto) (0.0-8.0) % Eos % (Auto) (0.0-4.0) % Baso % (Auto) (0.0-2.0) % Neut # (Auto) (1.8-7.7) th/mm3 Lymph # (Auto) (1.0-4.8) th/mm3 [place] # (Auto) (0.0-0.9) th/mm3 Eos # (Auto) (0.0-0.4) th/mm3 Baso # (Auto) (0.0-0.2) th/mm3 WBC Differential Differential Comment Sodium 143 (136-145) meq/L Potassium 4.0 (3.5-5.1) meq/L Chloride 109 H (98-107) meq/L Carbon Dioxide 25.9 (21.0-32.0) meq/L Anion Gap 8 (5-15) meq/L BUN 16 (7-18) mg/dL Creatinine 0.78 (0.50-1.00) mg/dL Estimated GFR 89 (>89) mL/min POC Glucose (68-110) mg/dl Random Glucose 204 H (74-106) mg/dL Lactic Acid (0.4-2.0) mmol/L Calcium 8.1 L (8.5-10.1) mg/dL Total Bilirubin 0.4 (0.2-1.0) mg/dL AST 17 (15-37) U/L ALT 26 (10-53) U/L Alkaline Phosphatase 107 (45-117) U/L Total Creatine Kinase 112 (26-192) U/L CK-MB (CK-2) 2.1 (0.5-3.6) ng/mL Troponin I Less than 0.02 L (0.02-0.05) ng/mL B-Natriuretic Peptide 66 (0-100) pg/mL Total Protein 7.0 (6.4-8.2) g/dL Albumin 3.5 (3.4-5.0) g/dL Imaging Data Radiologist's impression: Chest X-Ray 01/21/18 10:37 CONCLUSION: Cardiomegaly with mild interstitial prominence. Failure would be a consideration. Very minimal parenchymal changes right base new from comparison study. ECG Data Interpretation: Normal sinus rhythm 70 bpm OH interval [address]-T wave abnormalities no signs of acute ischemia Discharge Plan Physicians Team ED Provider: Silver Mendes Primary Care Provider: Primary Care Physici,Yesy Rxs /Orders / Referrals /Forms Prescriptions: No Action meloxicam 15 mg Tablet 15 mg PO DAILY RF: 0 lisinopril [Prinivil] 20 mg Tablet 20 mg PO DAILY RF: 0 gabapentin 300 mg Capsule 300 mg PO DAILY RF: 0 amitriptyline 25 mg Tablet 25 mg PO DAILY RF: 0 Discharge Interventions Interventions: Vital Signs Last Done: 01/21/18 11:08 Status ED Status: With Doctor
[2018-01-21] MEDS ORDERED: Bisacodyl 10 MG Supp RECTAL PRN (13:06)
[2018-01-21] MEDS: amLODIPine 10 MG Tablet PO SCH (13:58)
[2018-01-21] MEDS: predniSONE 20 MG Tablet PO SCH (14:44)
[2018-01-21] MEDS ORDERED: guaiFENesin/Dextromethorphan 200 MG/20 MG 10 ML UDC PO PRN (17:48)
--- NOTE | 2018-01-21 17:58 | P.HP ---
History of Present Illness Service: [facility] Primary Care Physician: No Primary Care Physician Chief Complaint: cough History of Present Illness: Mrs Ricky Keating is a pleasant 67-year-old female of [place] descent, significant past medical history hypertension, diabetes, TIA, peripheral neuropathy. Presents with complaint of cough and congestion since January 01. She went to see her primary care physician who prescribed her Cipro 750 mg p.o. twice daily for 10 days/ She completed antibiotics. Indicates that her symptoms have continued to worsen, she has had increased cough with gamez sputum associated with wheezing, chest pain secondary to coughing. She has had some shortness of breath, denies any nasal congestion, complains of a sore throat. Indicates that the cough is keeping her up at night. She has had chills and subjective fevers. Patient was evaluated in the emergency room, CBC was unremarkable. BMP essentially unremarkable. Lactic acid was 2.5. Troponin was negative. B natruretic peptide 66. Chest x-ray with findings concerning for pneumonia. Blood pressure was noted elevated, 221/92. She was given nitroglycerin, blood pressure has been trending down. She received IV fluids, cultures were obtained and she was started on Rocephin and Zithromax. Patient is now examined, continues to cough. Denies any chest pain at this time. She is complaining of left bicep pain, denies any injury. Feels that there is a bulge on the left bicep. She complains of pain when lifting her arm, more on the bicep than joint. Denies any nausea, no vomiting, has some constipation at this time. No urinary symptoms. Patient is admitted for further evaluation and treatment. - Diagnosis (1) Pneumonia (2) Acidosis, lactic (3) Hypertensive crisis (4) Left arm pain (5) Peripheral neuropathy (6) Diabetes 1.5, managed as type 2 (7) COPD (chronic obstructive pulmonary disease) with acute bronchitis Inpatient Certification: I certify that the inpatient services were ordered in accordance with Medicare regulations governing the order. This includes certification that hospital inpatient services are reasonable and necessary and in the case of services not specified as inpatient-only under 42 CFR 419.22(n), that they are appropriately provided as inpatient services in accordance to with the 2-midnight benchmark under 43 CFR 412.3(e) Review of Systems All other systems reviewed negative except as stated in HPI [facility] - History History Provided By: Patient - Medical History Medical History: Medical History (Last Reviewed 01/21/18 @ 17:57 by SG Bryant) Diabetes Hypertension Peripheral neuropathy Stroke - Surgical History Surgical History: Surgical History (Last Reviewed 01/21/18 @ 17:57 by SG Bryant) History of appendectomy - Family History Family History: Family History (Last Updated 01/21/18 @ 17:58 by SG Bryant) Other Family history non-contributory - Tobacco History Second Hand Smoke Exposure: No Smoking Status: Former smoker (as a teenager, very little.) - Alcohol History How Often Do You Have a Drink Containing Alcohol: Never - Substance Use History Substance History: No History of Abuse - Travel History Recent Travel in the [place] Within the Last 8 Weeks: No Recent Travel Out of the Country Within the Last 8 Weeks: No - Immunization History Tetanus Immunization: Unsure Medications and Allergies Active Medications: Active Medications Al Hydroxide/Mg Hydroxide (Milk Of Magnesia Liq) 30 ml PO Q12H PRN PRN Reason: Mild Constipation Albuterol (Duoneb Neb (Aguila)) 1 ampul NEB Q6HR NEB [facility] Amitriptyline HCl (Elavil) 25 mg PO DAILY [facility] Amlodipine Besylate (Norvasc) 10 mg PO DAILY [facility] Last Admin: 01/21/18 13:58 Dose: 10 mg Bisacodyl (Dulcolax Supp) 10 mg RECTAL DAILY PRN PRN Reason: SEVERE CONSITIPATION Budesonide/Formoterol Fumarate (Symbicort 160/4.5 Mcg Inh) 2 puff INH BID [facility] Enalaprilat (Vasotec Inj) 1.25 mg IV.PUSH Q6H PRN PRN Reason: SBP>180, DBP>100, HR>65 Gabapentin (Neurontin) 300 mg PO DAILY [facility] Guaifenesin/Dextromethorphan (Robitussin Dm 200/20 Mg/10 Ml Liq) 10 ml PO Q6H PRN PRN Reason: COUGH Azithromycin 500 mg/ Sodium (Chloride) 250 mls @ 250 mls/hr IV.SIG Q24H AGUILA Ceftriaxone Sodium 1,000 mg/ (Sodium Chloride) 100 mls @ 200 mls/hr IV.SIG Q24H AGUILA Lactulose (Lactulose Liq) 30 ml PO DAILY PRN PRN Reason: SEVERE CONSITIPATION Lisinopril (Prinivil) 20 mg PO DAILY [facility] Prednisone (Deltasone) 40 mg PO DAILY [facility] Last Admin: 01/21/18 14:44 Dose: 40 mg Sennosides (Senokot) 17.2 mg PO Q12H PRN PRN Reason: Moderate Constipation Sodium Chloride (Ns Flush) 2 ml IV.FLUSH BID AGUILA Sodium Chloride (Ns Flush) 2 ml IV.FLUSH PRN PRN PRN Reason: FLUSH AFTER USING IV ACCESS Allergies Allergy/AdvReac Type Severity Reaction Status Date / Time No Known Allergies Allergy Unverified 01/21/18 10:55 Home Medications Medication Instructions Recorded Confirmed Type amitriptyline 25 mg PO DAILY 01/21/18 01/21/18 History gabapentin 300 mg PO DAILY 01/21/18 01/21/18 History lisinopril [Prinivil] 20 mg PO DAILY 01/21/18 01/21/18 History meloxicam 15 mg PO DAILY 01/21/18 01/21/18 History Exam Vital signs: Vital Signs 01/21/18 10:01 01/21/18 10:20 01/21/18 10:37 Temperature 98.4 F Pulse Rate 88 85 83 Respiratory Rate 20 22 Blood Pressure 221/92 H 196/88 H Pulse Oximetry 96 95 98 01/21/18 10:48 01/21/18 11:08 01/21/18 12:51 Temperature 97.8 F Pulse Rate 81 74 74 Respiratory Rate 18 20 17 Blood Pressure 188/72 H Pulse Oximetry 99 01/21/18 13:00 01/21/18 15:00 01/21/18 16:27 Temperature 97.7 F Pulse Rate 78 77 68 Respiratory Rate 20 18 18 Blood Pressure 163/84 H 170/88 H 143/65 H Pulse Oximetry 98 96 97 Intake & Output 01/20/18 01/21/18 01/21/18 18:59 06:59 18:59 Intake Total 350 / 350 Balance 350 / 350 Weight 72.575 kg Intake: IV 350 / 350 Azithromycin Inj 500 MG In NS 250 / 250 Inj 250 ML @ 250 mls/hr IV.SIG STAT STA Rx#:[id number] Rocephin Inj 2,000 MG In NS Inj 100 / 100 100 ML @ 200 mls/hr IV.SIG STAT STA Rx#:[id number] Other: Weight On Admission 72.575 kg Narrative: GENERAL: Well-nourished, well-developed patient in no apparent distress. SKIN: Warm and dry. HEAD: Atraumatic. Normocephalic. EYES: Pupils equal and round. No scleral icterus. No injection or drainage. ENT: No nasal bleeding or discharge. Mucous membranes pink and moist. NECK: Trachea midline. No JVD. CARDIOVASCULAR: Regular rate and rhythm. RESPIRATORY: Diffuse expiratory wheezing and rhonchi. No productive cough GASTROINTESTINAL: Abdomen soft, non-tender, nondistended. Hepatic and splenic margins not palpable. MUSCULOSKELETAL: Extremities without clubbing, cyanosis, or edema. No obvious deformities. Pedal pulses 2+ bilateral. Left bicep tenderness, no erythema noted. Complains of pain with lifting left arm. No crepitus noted to shoulder joint NEUROLOGICAL: Awake and alert. No obvious cranial nerve deficits. Motor grossly within normal limits. Five out of 5 muscle strength in the arms and legs. Normal speech. PSYCHIATRIC: Appropriate mood and affect; insight and judgment normal. Results - Labs CBC & Chem 7: 01/21/18 11:12 01/21/18 11:12 Labs: Laboratory Results - last 24 hr 01/21/18 01/21/18 01/21/18 11:00 11:03 11:12 WBC 7.0 RBC 4.83 Hgb 14.1 Hct 41.4 MCV 85.9 MCH 29.2 MCHC 34.0 RDW 13.6 Plt Count 203 MPV 9.9 Neut % (Auto) 39.6 Lymph % (Auto) 46.0 H [place] % (Auto) 5.9 Eos % (Auto) 7.6 H Baso % (Auto) 0.9 Neut # (Auto) 2.8 Lymph # (Auto) 3.2 [place] # (Auto) 0.4 Eos # (Auto) 0.5 H Baso # (Auto) 0.1 WBC Differential . Differential Comment Auto diff final Sodium Potassium Chloride Carbon Dioxide Anion Gap BUN Creatinine Estimated GFR POC Glucose 207 H Random Glucose Lactic Acid 2.5 H Calcium Total Bilirubin AST ALT Alkaline Phosphatase Total Creatine Kinase CK-MB (CK-2) Troponin I B-Natriuretic Peptide Total Protein Albumin 01/21/18 01/21/18 01/21/18 11:12 11:12 15:00 WBC RBC Hgb Hct MCV MCH MCHC RDW Plt Count MPV Neut % (Auto) Lymph % (Auto) [place] % (Auto) Eos % (Auto) Baso % (Auto) Neut # (Auto) Lymph # (Auto) [place] # (Auto) Eos # (Auto) Baso # (Auto) WBC Differential Differential Comment Sodium 143 Potassium 4.0 Chloride 109 H Carbon Dioxide 25.9 Anion Gap 8 BUN 16 Creatinine 0.78 Estimated GFR 89 POC Glucose Random Glucose 204 H Lactic Acid Calcium 8.1 L Total Bilirubin 0.4 AST 17 ALT 26 Alkaline Phosphatase 107 Total Creatine Kinase 112 CK-MB (CK-2) 2.1 Troponin I Less than 0.02 L Less than 0.02 L B-Natriuretic Peptide 66 Total Protein 7.0 Albumin 3.5 01/21/18 15:00 WBC RBC Hgb Hct MCV MCH MCHC RDW Plt Count MPV Neut % (Auto) Lymph % (Auto) [place] % (Auto) Eos % (Auto) Baso % (Auto) Neut # (Auto) Lymph # (Auto) [place] # (Auto) Eos # (Auto) Baso # (Auto) WBC Differential Differential Comment Sodium Potassium Chloride Carbon Dioxide Anion Gap BUN Creatinine Estimated GFR POC Glucose Random Glucose Lactic Acid 2.5 H Calcium Total Bilirubin AST ALT Alkaline Phosphatase Total Creatine Kinase CK-MB (CK-2) Troponin I B-Natriuretic Peptide Total Protein Albumin - Imaging Impressions Chest X-Ray 01/21/18 10:37 CONCLUSION: Cardiomegaly with mild interstitial prominence. Failure would be a consideration. Very minimal parenchymal changes right base new from comparison study. Caprini VTE Risk Assessment Caprini VTE Risk Assessment: Moderate/High Risk (score >= 2) Caprini Risk Assessment Model: Point Value = 1 Point Value = 2 Point Value = 3 Point Value = 5 Age 41-60 Minor surgery BMI > 25 kg/m2 Swollen legs Varicose veins or History of unexplained or recurrent spontaneous Oral contraceptives or hormone replacement Sepsis (< 1 month) Serious lung disease, including pneumonia (< 1 month) Abnormal pulmonary function Acute myocardial infarction Congestive heart failure (< 1 month) History of inflammatory bowel disease Medical patient at bed rest Age 61-74 Arthroscopic surgery Major open surgery (> 45 min) Laparoscopic surgery (> 45 min) Malignancy Confined to bed (> 72 hours) Immobilizing plaster cast Central venous access Age >= 75 History of VTE Family history of VTE Factor V Leiden Prothrombin [id number] Lupus anticoagulant Anticardiolipin antibodies Elevated serum homocysteine Heparin-induced thrombocytopenia Other congenital or acquired thrombophilia Stroke (< 1 month) Elective arthroplasty Hip, pelvis, or leg fracture Acute spinal cord injury (< 1 month) Prophylaxis Regimen: Total Risk Factor Score Risk Level Prophylaxis Regimen 0-1 Low Early ambulation 2 Moderate Order ONE of the following: *Sequential Compression Device (SCD) *Heparin 5000 units SQ BID 3-4 Higher Order ONE of the following medications: *Heparin 5000 units SQ TID *Enoxaparin/Lovenox 40 mg SQ daily (WT < 150 kg, CrCl > 30 mL/min) *Enoxaparin/Lovenox 30 mg SQ daily (WT < 150 kg, CrCl > 10-29 mL/min) *Enoxaparin/Lovenox 30 mg SQ BID (WT < 150 kg, CrCl > 30 mL/min) AND/OR *Sequential Compression Device (SCD) 5 or more Highest Order ONE of the following medications: *Heparin 5000 units SQ TID (Preferred with Epidurals) *Enoxaparin/Lovenox 40 mg SQ daily (WT < 150 kg, CrCl > 30 mL/min) *Enoxaparin/Lovenox 30 mg SQ daily (WT < 150 kg, CrCl > 10-29 mL/min) *Enoxaparin/Lovenox 30 mg SQ BID (WT < 150 kg, CrCl > 30 mL/min) AND *Sequential Compression Device (SCD) Assessment and Plan - Assessment (1) Pneumonia Code(s): J18.9 - Pneumonia, unspecified organism Status: Acute (2) Acidosis, lactic Code(s): E87.2 - Acidosis Status: Acute (3) Hypertensive crisis Code(s): I16.9 - Hypertensive crisis, unspecified Status: Acute (4) Left arm pain Code(s): M79.602 - Pain in left arm Status: Acute (5) Peripheral neuropathy Code(s): G62.9 - Polyneuropathy, unspecified Status: Chronic (6) Diabetes 1.5, managed as type 2 Code(s): E10.9 - Type 1 diabetes mellitus without complications Status: Chronic (7) COPD (chronic obstructive pulmonary disease) with acute bronchitis Code(s): J44.0 - Chronic obstructive pulmonary disease with acute lower respiratory infection; J20.9 - Acute bronchitis, unspecified Status: Acute - Plan 67-year-old female presented to the emergency room with complaints of cough, subjective fever, chills, wheezing, increased chest congestion. Symptoms have been ongoing since January 01, was given Cipro 750 mg p.o. twice daily for 10 days which she completed. Symptoms have been worsening. Pneumonia, community-acquired Failure of outpatient therapy Lactic acid 2.5 -Received IV fluids in the emergency room -Continue with Zithromax and ceftriaxone -follow cultures COPD exacerbation Continue with DuoNeb's as needed Continue with Symbicort 2 puffs twice daily -Continue prednisone 40 mg p.o. daily Antitussives as needed Accelerated hypertension, will pressure initially 221/92, most recent blood pressure 143/65 Patient does not appear to be in overt heart failure. Was given nitroglycerin in the emergency room -Continue Prinivil 20 mg p.o. daily -Norvasc 10 mg p.o. daily -Vasotec 1.25 mg IVP q 6 as needed for systolic greater than 180 and diastolic greater than 100 Left bicep pain, c/o pain to palpation -we will check ultrasound rule out DVT Type 2 diabetes Patient on metformin and glipizide at home, does not know dosages. Accu-Cheks before meals and at bedtime with insulin therapy Peripheral neuropathy, complains of significant pain Continue with Elavil 25 mg p.o. daily Continue with gabapentin 300 mg p.o. daily Constipation Patient will be put on bowel regimen SCDs for DVT prophylaxis Plan of care discussed with patient and family, RN. Further management of the patient will be dependent on hospital course Code Status: Full code Discussed Condition With: Patient and family, senior professional services consultant Planning: Discharge planning, likely home in 2 days. (1) Pneumonia Qualifiers: Pneumonia type: due to unspecified organism Laterality: right (5) Peripheral neuropathy Qualifiers: Peripheral neuropathy type: polyneuropathy, unspecified Qualified Code(s): G62.9 - Polyneuropathy, unspecified
[2018-01-21] MEDS ORDERED: Dextrose 50% in Water 50 ML Vial IV.PUSH PRN (18:00)
--- NOTE | 2018-01-21 19:02 | US ---
EXAM DATE: 01/21/2018 12:00 AM EDT AGE/SEX: 67 years / Female INDICATIONS: Left arm pain. CLINICAL DATA: This is the patient's initial encounter. Patient reports that signs and symptoms have been present for 1 day and indicates a pain score of 9/10. MEDICAL/SURGICAL HISTORY: Diabetes. Hypertension. Stroke. Peripheral neuropathy. Appendecto my. COMPARISON: No prior exams available for comparison. FINDINGS: The vessels are compressible and augmentation response is documented. No filling defects a re seen. The flow is phasic with respiration. Other: None. CONCLUSION: 1. No venous thrombosis of the left upper extremity. Electronically signed by: Dennys Her MD 01/21/2018 7:00 PM EDT
[2018-01-21] MEDS: Insulin NovoLOG Aspart Correctional Sugar Inj SQ SCH (20:22)
[2018-01-21] MEDS: Budesonide-Formoterol 160/4.5 MCG 6 GM Inhaler INH SCH (20:25)
[2018-01-22 00:04] LABS: Amphetamine Screen,Urine Neg (Neg); Barbiturate Screen,Urine Neg (Neg); Cannabinoid Screen,Urine Neg (Neg); Cocaine Screen,Urine Neg (Neg)
[2018-01-22 00:22] LABS: Opiate Screen,Urine Neg (Neg)
[2018-01-22] MEDS: Sod Chloride 0.9% Inj 1,000 ML IV.CONT SCH ×3 (06:09→22:51)
[2018-01-22 07:57] LABS: Baso # (Auto) 0.1 th/mm3 (0.0-0.2); Baso % (Auto) 0.9 % (0.0-2.0); Eos # (Auto) 0.1 th/mm3 (0.0-0.4); Eos % (Auto) 1.5 % (0.0-4.0); Hematocrit 40.2 % (35.0-46.0); Hemoglobin 13.6 gm/dL (11.6-15.3); Lymph # (Auto) 2.1 th/mm3 (1.0-4.8); Lymph % (Auto) 30.4 % (9.0-44.0); Mean Corpuscular HGB Conc 33.8 % (32.0-36.0); Mean Corpuscular Hemoglobin 29.1 pg (27.0-34.0); Mean Corpuscular Volume 86.1 fL (80.0-100.0); Mean Platelet Volume 10.7 fL (7.0-11.0); Mono # (Auto) 0.4 th/mm3 (0.0-0.9); Mono % (Auto) 6.4 % (0.0-8.0); Neut # (Auto) 4.2 th/mm3 (1.8-7.7); Neut % (Auto) 60.8 % (16.0-70.0); Platelet Count 201 th/mm3 (150-450); Red Blood Count 4.67 mil/mm3 (4.00-5.30); Red Cell Distribution Width 13.6 % (11.6-17.2)
[2018-01-22 08:48] LABS: Alanine Aminotransferase 24 U/L (10-53); Albumin 3.4 g/dL (3.4-5.0); Alkaline Phosphatase 92 U/L (45-117); Anion Gap 12 meq/L (5-15); Aspartate Aminotransferase 12 U/L (15-37); Blood Urea Nitrogen 10 mg/dL (7-18); Carbon Dioxide 21.3 meq/L (21.0-32.0); Chloride 110 meq/L (98-107); Glomerular Filtration Rate Greater Than 89 mL/min (>89); Glucose,Random 189 mg/dL (74-106); Potassium 3.6 meq/L (3.5-5.1); Sodium 143 meq/L (136-145)
[2018-01-22] MEDS: Insulin NovoLOG Aspart Correctional Sugar Inj SQ SCH ×5 (09:43→20:31)
[2018-01-22] MEDS: Amitriptyline 25 MG Tablet PO SCH (09:45)
[2018-01-22] MEDS: Gabapentin 300 MG Capsule PO SCH (09:45)
[2018-01-22] MEDS: predniSONE 20 MG Tablet PO SCH (09:45)
[2018-01-22] MEDS: amLODIPine 10 MG Tablet PO SCH (09:46)
[2018-01-22] MEDS: Lisinopril 20 MG Tablet PO SCH (09:46)
--- NOTE | 2018-01-22 10:46 | P.PNIM ---
Subjective Interval history: f/u; copd exacerbation/ pneumonia in no acute distress. but still with cough and pleuritic chest pain. no fever. has some pain to the left arm. Physical Exam Vital signs: Vital Signs 01/21/18 10:48 01/21/18 11:08 01/21/18 12:51 Temperature 97.8 F Pulse Rate 81 74 74 Respiratory Rate 18 20 17 Blood Pressure 188/72 H Pulse Oximetry 99 01/21/18 13:00 01/21/18 15:00 01/21/18 16:27 Temperature 97.7 F Pulse Rate 78 77 68 Respiratory Rate 20 18 18 Blood Pressure 163/84 H 170/88 H 143/65 H Pulse Oximetry 98 96 97 01/21/18 20:00 01/22/18 00:00 01/22/18 03:24 Temperature 97.7 F 97.9 F Pulse Rate 86 81 74 Respiratory Rate 16 15 18 Blood Pressure 175/79 H 167/74 H Pulse Oximetry 95 95 01/22/18 04:00 01/22/18 07:49 01/22/18 08:00 Temperature 97.8 F 98.2 F Pulse Rate 73 61 60 Respiratory Rate 16 14 16 Blood Pressure 164/73 H 136/71 Pulse Oximetry 94 L 95 Intake & Output 01/21/18 01/22/18 01/22/18 18:59 06:59 18:59 Intake Total 1030 / 1030 Balance 1030 / 1030 Weight 72.575 kg 72.575 kg Intake: IV 350 / 350 Azithromycin Inj 500 MG In NS 250 / 250 Inj 250 ML @ 250 mls/hr IV.SIG STAT STA Rx#:[id number] Rocephin Inj 2,000 MG In NS Inj 100 / 100 100 ML @ 200 mls/hr IV.SIG STAT STA Rx#:[id number] Oral 680 / 680 Other: # Voids 1 # Bowel Movements 0 Weight On Admission 72.575 kg - Constitutional no acute distress - Routine Respiratory Exam Present: CTA bilaterally, wheezes (bilaterally.) - Routine Cardiovascular Exam Present: RRR - Routine Abdominal Exam Present: soft - Routine Extremities Exam Comments: no pedal edema. - Routine Neurological Exam Present: alert, oriented X3 Results - Labs CBC & Chem 7: 01/22/18 05:40 01/22/18 05:40 Laboratory Results - last 24 hr 01/21/18 01/21/18 01/21/18 11:00 11:03 11:12 WBC 7.0 RBC 4.83 Hgb 14.1 Hct 41.4 MCV 85.9 MCH 29.2 MCHC 34.0 RDW 13.6 Plt Count 203 MPV 9.9 Neut % (Auto) 39.6 Lymph % (Auto) 46.0 H Becker % (Auto) 5.9 Eos % (Auto) 7.6 H Baso % (Auto) 0.9 Neut # (Auto) 2.8 Lymph # (Auto) 3.2 Becker # (Auto) 0.4 Eos # (Auto) 0.5 H Baso # (Auto) 0.1 WBC Differential . Differential Comment Auto diff final Sodium Potassium Chloride Carbon Dioxide Anion Gap BUN Creatinine Estimated GFR POC Glucose 207 H Random Glucose Lactic Acid 2.5 H Calcium Total Bilirubin AST ALT Alkaline Phosphatase Total Creatine Kinase CK-MB (CK-2) Troponin I B-Natriuretic Peptide Total Protein Albumin Urine Opiates Screen Ur Barbiturates Screen Ur Amphetamines Screen U Benzodiazepines Scrn Urine Cocaine Screen U Cannabinoids Screen 01/21/18 01/21/18 01/21/18 11:12 11:12 15:00 WBC RBC Hgb Hct MCV MCH MCHC RDW Plt Count MPV Neut % (Auto) Lymph % (Auto) Becker % (Auto) Eos % (Auto) Baso % (Auto) Neut # (Auto) Lymph # (Auto) Becker # (Auto) Eos # (Auto) Baso # (Auto) WBC Differential Differential Comment Sodium 143 Potassium 4.0 Chloride 109 H Carbon Dioxide 25.9 Anion Gap 8 BUN 16 Creatinine 0.78 Estimated GFR 89 POC Glucose Random Glucose 204 H Lactic Acid Calcium 8.1 L Total Bilirubin 0.4 AST 17 ALT 26 Alkaline Phosphatase 107 Total Creatine Kinase 112 CK-MB (CK-2) 2.1 Troponin I Less than 0.02 L Less than 0.02 L B-Natriuretic Peptide 66 Total Protein 7.0 Albumin 3.5 Urine Opiates Screen Ur Barbiturates Screen Ur Amphetamines Screen U Benzodiazepines Scrn Urine Cocaine Screen U Cannabinoids Screen 01/21/18 01/21/18 01/21/18 15:00 17:16 20:10 WBC RBC Hgb Hct MCV MCH MCHC RDW Plt Count MPV Neut % (Auto) Lymph % (Auto) Becker % (Auto) Eos % (Auto) Baso % (Auto) Neut # (Auto) Lymph # (Auto) Becker # (Auto) Eos # (Auto) Baso # (Auto) WBC Differential Differential Comment Sodium Potassium Chloride Carbon Dioxide Anion Gap BUN Creatinine Estimated GFR POC Glucose 110 305 H Random Glucose Lactic Acid 2.5 H Calcium Total Bilirubin AST ALT Alkaline Phosphatase Total Creatine Kinase CK-MB (CK-2) Troponin I B-Natriuretic Peptide Total Protein Albumin Urine Opiates Screen Ur Barbiturates Screen Ur Amphetamines Screen U Benzodiazepines Scrn Urine Cocaine Screen U Cannabinoids Screen 01/21/18 01/21/18 01/21/18 23:20 23:20 23:20 WBC RBC Hgb Hct MCV MCH MCHC RDW Plt Count MPV Neut % (Auto) Lymph % (Auto) Becker % (Auto) Eos % (Auto) Baso % (Auto) Neut # (Auto) Lymph # (Auto) Becker # (Auto) Eos # (Auto) Baso # (Auto) WBC Differential Differential Comment Sodium Potassium Chloride Carbon Dioxide Anion Gap BUN Creatinine Estimated GFR POC Glucose Random Glucose Lactic Acid 3.1 H Calcium Total Bilirubin AST ALT Alkaline Phosphatase Total Creatine Kinase CK-MB (CK-2) Troponin I Less than 0.02 L B-Natriuretic Peptide Total Protein Albumin Urine Opiates Screen Neg Ur Barbiturates Screen Neg Ur Amphetamines Screen Neg U Benzodiazepines Scrn Neg Urine Cocaine Screen Neg U Cannabinoids Screen Neg 01/22/18 01/22/18 01/22/18 03:55 05:40 05:40 WBC 7.0 RBC 4.67 Hgb 13.6 Hct 40.2 MCV 86.1 MCH 29.1 MCHC 33.8 RDW 13.6 Plt Count 201 MPV 10.7 Neut % (Auto) 60.8 Lymph % (Auto) 30.4 Becker % (Auto) 6.4 Eos % (Auto) 1.5 Baso % (Auto) 0.9 Neut # (Auto) 4.2 Lymph # (Auto) 2.1 Becker # (Auto) 0.4 Eos # (Auto) 0.1 Baso # (Auto) 0.1 WBC Differential . Differential Comment Auto diff final Sodium 143 Potassium 3.6 Chloride 110 H Carbon Dioxide 21.3 Anion Gap 12 BUN 10 Creatinine 0.52 Estimated GFR Greater than 89 POC Glucose 172 H Random Glucose 189 H Lactic Acid Calcium 9.0 D Total Bilirubin 0.4 AST 12 L ALT 24 Alkaline Phosphatase 92 Total Creatine Kinase CK-MB (CK-2) Troponin I B-Natriuretic Peptide Total Protein 7.0 Albumin 3.4 Urine Opiates Screen Ur Barbiturates Screen Ur Amphetamines Screen U Benzodiazepines Scrn Urine Cocaine Screen U Cannabinoids Screen 01/22/18 01/22/18 07:50 09:38 WBC RBC Hgb Hct MCV MCH MCHC RDW Plt Count MPV Neut % (Auto) Lymph % (Auto) Becker % (Auto) Eos % (Auto) Baso % (Auto) Neut # (Auto) Lymph # (Auto) Becker # (Auto) Eos # (Auto) Baso # (Auto) WBC Differential Differential Comment Sodium Potassium Chloride Carbon Dioxide Anion Gap BUN Creatinine Estimated GFR POC Glucose 104 Random Glucose Lactic Acid 2.1 H Calcium Total Bilirubin AST ALT Alkaline Phosphatase Total Creatine Kinase CK-MB (CK-2) Troponin I B-Natriuretic Peptide Total Protein Albumin Urine Opiates Screen Ur Barbiturates Screen Ur Amphetamines Screen U Benzodiazepines Scrn Urine Cocaine Screen U Cannabinoids Screen Microbiology 01/21/18 10:53 Sputum - Expectorated Sputum Gram Stain - Final 01/21/18 10:53 Nasal Wash Influenza Types A,B Antigen - Final Negative for FLU A and B antigen Infection due to influenza A or B cannot be ruled out since the antigen present in the sample may be below the detection limit of the test. - Imaging Impressions Venous Doppler Study 01/21/18 00:00 CONCLUSION: 1. No venous thrombosis of the left upper extremity. Chest X-Ray 01/21/18 10:37 CONCLUSION: Cardiomegaly with mild interstitial prominence. Failure would be a consideration. Very minimal parenchymal changes right base new from comparison study. Assessment and Plan - Assessment (1) Pneumonia Code(s): J18.9 - Pneumonia, unspecified organism Status: Acute (2) Acidosis, lactic Code(s): E87.2 - Acidosis Status: Acute (3) Hypertensive crisis Code(s): I16.9 - Hypertensive crisis, unspecified Status: Acute (4) Left arm pain Code(s): M79.602 - Pain in left arm Status: Acute (5) Peripheral neuropathy Code(s): G62.9 - Polyneuropathy, unspecified Status: Chronic (6) Diabetes 1.5, managed as type 2 Code(s): E10.9 - Type 1 diabetes mellitus without complications Status: Chronic (7) COPD (chronic obstructive pulmonary disease) with acute bronchitis Code(s): J44.0 - Chronic obstructive pulmonary disease with acute lower respiratory infection; J20.9 - Acute bronchitis, unspecified Status: Acute - Plan Pneumonia, community-acquired Failure of outpatient therapy -Received IV fluids in the emergency room -Continue with Zithromax and ceftriaxone -follow cultures COPD exacerbation Continue with neb treatment; scheduled and prn. Continue with Symbicort 2 puffs twice daily -stop prednisone and start on IV Solumedrol Antitussives as needed Accelerated hypertension- BP improved. Patient does not appear to be in overt heart failure. Was given nitroglycerin in the emergency room -Continue Prinivil 20 mg p.o. daily -Norvasc 10 mg p.o. daily -Vasotec 1.25 mg IVP q 6 as needed for systolic greater than 180 and diastolic greater than 100 Left bicep pain, c/o pain to palpation -venous doppler negative for DVT Type 2 diabetes Patient on metformin and glipizide at home, does not know dosages. Accu-Cheks before meals and at bedtime with insulin therapy Peripheral neuropathy, complains of significant pain Continue with Elavil 25 mg p.o. daily Continue with gabapentin 300 mg p.o. daily Constipation laxatives as needed. SCDs for DVT prophylaxis Discharge Planning: in one-two days if improves. (1) Pneumonia Qualifiers: Pneumonia type: due to unspecified organism Laterality: right (5) Peripheral neuropathy Qualifiers: Peripheral neuropathy type: polyneuropathy, unspecified Qualified Code(s): G62.9 - Polyneuropathy, unspecified
[2018-01-22] MEDS: Budesonide-Formoterol 160/4.5 MCG 6 GM Inhaler INH SCH ×2 (12:40→20:28)
--- NOTE | 2018-01-22 13:07 | ECG ---
Date Performed: 01/22/2018 Time Performed: 05:08:05 PTAGE: 67 years EKG: Sinus rhythm NONSPECIFIC T-WAVE ABNORMALITY BORDERLINE ECG PREVIOUS TRACING : 01/21/2018 15.11 DOCTOR: Brandie Mixon Interpretating Date/Time 01/22/2018 13:04:11
--- NOTE | 2018-01-22 13:19 | ECG ---
Date Performed: 01/21/2018 Time Performed: 15:11:14 PTAGE: 67 years EKG: Sinus rhythm NONSPECIFIC T-WAVE ABNORMALITY BORDERLINE ECG PREVIOUS TRACING : 01/21/2018 11.00 DOCTOR: Brandie Mixon Interpretating Date/Time 01/22/2018 13:13:19
--- NOTE | 2018-01-22 13:28 | ECG ---
Date Performed: 01/21/2018 Time Performed: 11:00:08 PTAGE: 67 years EKG: Sinus rhythm NORMAL ECG PREVIOUS TRACING : 05/12/2017 19.20 DOCTOR: Brandie Mixon Interpretating Date/Time 01/22/2018 13:17:18
[2018-01-22] MEDS: MethylPREDNISolone Sod Succinate Inj 40 MG/ML Vial IV.PUSH SCH ×2 (16:26→22:48)
[2018-01-22] MEDS: Azithromycin Inj 500 MG in Sodium Chlor 0.9% Inj 250 ML IV.SIG SCH (18:38)
[2018-01-22] MEDS: Acetaminophen 325 MG Tablet PO PRN (20:28)
[2018-01-23] MEDS: Sod Chloride 0.9% Inj 1,000 ML IV.CONT SCH ×4 (04:07→21:16)
[2018-01-23] MEDS: MethylPREDNISolone Sod Succinate Inj 40 MG/ML Vial IV.PUSH SCH ×2 (05:08→14:41)
[2018-01-23] MEDS: Lisinopril 20 MG Tablet PO SCH (08:07)
[2018-01-23] MEDS: Amitriptyline 25 MG Tablet PO SCH (08:12)
[2018-01-23] MEDS: Insulin NovoLOG Aspart Correctional Sugar Inj SQ SCH ×3 (08:14→18:16)
[2018-01-23] MEDS: amLODIPine 10 MG Tablet PO SCH (08:15)
[2018-01-23] MEDS: Gabapentin 300 MG Capsule PO SCH (08:15)
[2018-01-23] MEDS: Budesonide-Formoterol 160/4.5 MCG 6 GM Inhaler INH SCH ×3 (08:16→21:28)
[2018-01-23] MEDS: Acetaminophen 325 MG Tablet PO PRN ×2 (08:21→21:28)
--- NOTE | 2018-01-23 09:55 | ECG ---
Date Performed: 01/22/2018 Time Performed: 21:59:56 PTAGE: 67 years EKG: SINUS TACHYCARDIA NONSPECIFIC ST & T-WAVE ABNORMALITY ABNORMAL RHYTHM ECG NO PREVIOUS TRACING DOCTOR: Brandie Mixon Interpretating Date/Time 01/23/2018 09:53:23
--- NOTE | 2018-01-23 11:34 | P.PNIM ---
Subjective Interval history: f/u; copd exacerbation in no acute distress. says that she's overall improving however still with cough and wheezing. no fever. Physical Exam Vital signs: Vital Signs 01/22/18 12:00 01/22/18 16:00 01/22/18 16:48 Temperature 98.0 F 98.5 F Pulse Rate 73 98 H 60 Respiratory Rate 18 15 14 Blood Pressure 150/66 H 143/67 H Pulse Oximetry 93 L 94 L 01/22/18 20:00 01/22/18 20:15 01/22/18 23:52 Temperature 98.3 F Pulse Rate 110 H 106 H 106 H Respiratory Rate 16 20 16 Blood Pressure 147/64 H 135/63 Pulse Oximetry 96 96 94 L 01/23/18 03:59 01/23/18 06:48 01/23/18 08:00 Temperature 98.1 F 99.1 F 98 F Pulse Rate 87 88 81 Respiratory Rate 16 17 20 Blood Pressure 136/64 187/84 H 171/69 H Pulse Oximetry 94 L 97 93 L 01/23/18 08:22 Temperature Pulse Rate 84 Respiratory Rate 16 Blood Pressure Pulse Oximetry 93 L Intake & Output 01/22/18 01/23/18 01/23/18 18:59 06:59 18:59 Intake Total 1800 / 1800 2350 / 2350 Output Total 840 / 840 Balance 1800 / 1800 1510 / 1510 Weight 72.586 kg Intake: IV 1000 / 1000 2350 / 2350 NS Inj 1,000 ML @ 125 mls/hr IV 1000 / 1000 2000 / 2000 .CONT .Q8H BRIAN Rx#:[id number] Azithromycin Inj 500 MG In NS 250 / 250 Inj 250 ML @ 250 mls/hr IV.SIG Q24H BRIAN Rx#:[id number] Rocephin Inj 1,000 MG In NS Inj 100 / 100 100 ML @ 200 mls/hr IV.SIG Q24H BRIAN Rx#:[id number] Oral 800 / 800 Output: Urine 840 / 840 - Constitutional no acute distress - Routine Respiratory Exam Present: prolonged expiratory phase, wheezes - Routine Cardiovascular Exam Present: RRR - Routine Abdominal Exam Present: soft - Routine Extremities Exam Comments: no pedal edema. - Routine Neurological Exam Present: alert, oriented X3 Results - Labs CBC & Chem 7: 01/22/18 05:40 01/22/18 05:40 Laboratory Results - last 24 hr 01/22/18 01/22/18 01/23/18 18:19 20:11 04:16 POC Glucose 298 H 367 H 269 H 01/23/18 07:44 POC Glucose 242 H Microbiology 01/21/18 10:41 Blood - Peripheral Aerobic Blood Culture - Preliminary No growth in 2 days 01/21/18 10:41 Blood - Peripheral Anaerobic Blood Culture - Preliminary No growth in 2 days 01/21/18 11:00 Blood - Peripheral Aerobic Blood Culture - Preliminary No growth in 2 days 01/21/18 11:00 Blood - Peripheral Anaerobic Blood Culture - Preliminary No growth in 2 days 01/21/18 10:53 Sputum - Expectorated Sputum Gram Stain - Final 01/21/18 10:53 Sputum - Expectorated Sputum Sputum Culture - Preliminary Heavy growth normal respiratory elaine at 24 hours Assessment and Plan - Assessment (1) Pneumonia Code(s): J18.9 - Pneumonia, unspecified organism Status: Acute (2) Acidosis, lactic Code(s): E87.2 - Acidosis Status: Acute (3) Hypertensive crisis Code(s): I16.9 - Hypertensive crisis, unspecified Status: Acute (4) Left arm pain Code(s): M79.602 - Pain in left arm Status: Acute (5) Peripheral neuropathy Code(s): G62.9 - Polyneuropathy, unspecified Status: Chronic (6) Diabetes 1.5, managed as type 2 Code(s): E10.9 - Type 1 diabetes mellitus without complications Status: Chronic (7) COPD (chronic obstructive pulmonary disease) with acute bronchitis Code(s): J44.0 - Chronic obstructive pulmonary disease with acute lower respiratory infection; J20.9 - Acute bronchitis, unspecified Status: Acute - Plan Pneumonia, community-acquired Failure of outpatient therapy -Received IV fluids in the emergency room -Continue with Zithromax and ceftriaxone -blood cultures negative so far and sputum culture with normal respiratory elaine. COPD exacerbation Continue with neb treatment; scheduled and prn. Continue with Symbicort 2 puffs twice daily -continue IV Solumedrol Antitussives as needed Accelerated hypertension- BP improved. Patient does not appear to be in overt heart failure. Was given nitroglycerin in the emergency room -Continue Prinivil 20 mg p.o. daily -Norvasc 10 mg p.o. daily -Vasotec 1.25 mg IVP q 6 as needed for systolic greater than 180 and diastolic greater than 100 -will check echo Left bicep pain, c/o pain to palpation -venous doppler negative for DVT -continue with pain control Type 2 diabetes Patient on metformin and glipizide at home, does not know dosages. will add levemir and continue with Accu-Cheks before meals and at bedtime with insulin therapy Peripheral neuropathy, complains of significant pain Continue with Elavil 25 mg p.o. daily Continue with gabapentin 300 mg p.o. daily Constipation laxatives as needed. SCDs for DVT prophylaxis Discharge Planning: dc planning; home within the next couple of days if clinically improves. will consult PT. (1) Pneumonia Qualifiers: Pneumonia type: due to unspecified organism Laterality: right (5) Peripheral neuropathy Qualifiers: Peripheral neuropathy type: polyneuropathy, unspecified Qualified Code(s): G62.9 - Polyneuropathy, unspecified
[2018-01-23] MEDS ORDERED: Morphine Inj 4 MG/ML Vial IV.PUSH PRN (15:34)
--- NOTE | 2018-01-23 16:00 | P.PNADD ---
Addendum to Inpatient Note Reason for Addendum: Additional Documentation (was notified by the RN that the patient started to have chest pain and later on left sided weakness.patient was reexamined. she was complaining of weakness to left upper and lower extremities - but more on the left leg- stroke alert was called; CT head along with serial troponin ordered- awaiting neurology evaluation. EKG was reviewed at the time which showed sinus tachycardia with no acute ST-T changes. patient will be taken to radiology and later to ICU for close monitoring.d/w the RN and Delmy nurse at the bedside; plan was d/w the patient as well.)
--- NOTE | 2018-01-23 16:09 | CT ---
EXAM DATE: 01/23/2018 3:48 PM EDT AGE/SEX: 67 years / Female INDICATIONS: Stroke alert, left lower extremity weakness. CLINICAL DATA: This is the patient's initial encounter. Patient reports that signs and symptoms have been present for 1 day and indicates a pain score of 0/10. MEDICAL/SURGICAL HISTORY: Cerebrovascular disease. Hypertension. Diabetes. Appendectomy. RADIATION DOSE: 33.98 CTDI (mGy) COMPARISON: No prior exams available for comparison. TECHNIQUE: CT of the head without contrast. Using automated exposure control and adjustment of the mA and/or kV according to patient size, radiation dose was kept as low as reasonably achievable to ob tain optimal diagnostic quality images. DICOM format image data is available electronically for revi ew and comparison. FINDINGS: Cerebrum: The ventricles are normal for age. No evidence of midline shift, mass lesion, hemorrhage or acute infarction. No extraaxial fluid collections are seen. Posterior Fossa: The cerebellum and brainstem are intact. The 4th ventricle is midline. The cerebe llopontine angle is unremarkable. Extracranial: The visualized portion of the orbits is intact. Skull: The calvaria is intact. No evidence of skull fracture. CONCLUSION: 1. Negative stroke alert CT brain. Report was called to Dr. Lees at 4:05 pm. The number provided went to voicemail and the results were provided. A critical value was also initiated in case the number provided for the stroke alert physic rubens is incorrect. Electronically signed by: Wing Mccauley MD 01/23/2018 4:08 PM EDT
[2018-01-23 16:16] LABS: Baso % (Auto) 0.1 % (0.0-2.0); Hematocrit 41.2 % (35.0-46.0); Hemoglobin 13.9 gm/dL (11.6-15.3); Lymph % (Auto) 8.4 % (9.0-44.0); Mean Corpuscular HGB Conc 33.7 % (32.0-36.0); Mean Corpuscular Hemoglobin 29.3 pg (27.0-34.0); Mean Corpuscular Volume 86.8 fL (80.0-100.0); Mono # (Auto) 0.3 th/mm3 (0.0-0.9); Mono % (Auto) 2.8 % (0.0-8.0); Neut # (Auto) 10.9 th/mm3 (1.8-7.7); Neut % (Auto) 88.7 % (16.0-70.0); Platelet Count 209 th/mm3 (150-450); Red Blood Count 4.75 mil/mm3 (4.00-5.30); Red Cell Distribution Width 13.8 % (11.6-17.2); White Blood Count 12.3 th/mm3 (4.0-11.0)
[2018-01-23 16:26] LABS: Activated Partial Thrombo Time 27.1 sec (24.3-30.1); INR 1.1 Ratio; Prothrombin Time 10.8 sec (9.8-11.6)
[2018-01-23 16:37] LABS: Troponin I 0.06 ng/mL (0.02-0.05)
--- NOTE | 2018-01-23 17:04 | CT ---
EXAM DATE: 01/23/2018 4:30 PM EDT AGE/SEX: 67 years / Female INDICATIONS: Stroke alert, left leg weakness. CLINICAL DATA: This is the patient's initial encounter. Patient reports that signs and symptoms have been present for 1 day and indicates a pain score of Nonresponsive. MEDICAL/SURGICAL HISTORY: Non-responsive. Non-responsive. RADIATION DOSE: 26.45 CTDI (mGy) ; Combined studies COMPARISON: [facility] [place], CT HEAD W/O CONTRAST, 01/23/2018. . TECHNIQUE: Volumetric scanning was performed using a multi-row detector CT scanner during bolus infu marshall of 75 ml Visipaque 320 (iodixanol) nonionic water-soluble contrast as a cumulative dose for mul tiple exams. The data was post processed with a variety of visualization algorithms including full volume maximum intensity projection, multi-planar sliding thin slab reformation, curved planar reform ation, and surface rendering techniques. Using automated exposure control and adjustment of the mA a nd/or kV according to patient size, radiation dose was kept as low as reasonably achievable to obtain optimal diagnostic quality images. DICOM format image data is available electronically for review a nd comparison. FINDINGS: There is excellent visualization of the major intracranial arteries out to the second-order branch ve ssels. There is no evidence for aneurysm, vessel truncation or stenosis, and no evidence for vascula r malformation. CONCLUSION: 1. Negative CTA of the elem of [place]. Electronically signed by: Wing Mccauley MD 01/23/2018 5:02 PM EDT
--- NOTE | 2018-01-23 17:20 | CT ---
EXAM DATE: 01/23/2018 4:42 PM EDT AGE/SEX: 67 years / Female INDICATIONS: Stroke alert, left leg weakness. CLINICAL DATA: This is the patient's initial encounter. Patient reports that signs and symptoms have been present for 1 day and indicates a pain score of Nonresponsive. MEDICAL/SURGICAL HISTORY: Non-responsive. Non-responsive. RADIATION DOSE: 26.45 CTDI (mGy) ; Combined studies COMPARISON: No prior exams available for comparison. TECHNIQUE: Volumetric scanning was performed using a multirow detector CT scanner during bolus infus ion of 75 ml Visipaque 320 (iodixanol) nonionic water-soluble contrast as a cumulative dose for mult iple exams. The data was postprocessed with a variety of visualization algorithms including full-vo lume maximum intensity projection, multiplanar sliding thin-slab reformation, curved-planar reformati on, and surface-rendering techniques. Using automated exposure control and adjustment of the mA and/ or kV according to patient size, radiation dose was kept as low as reasonably achievable to obtain op timal diagnostic quality images. DICOM format image data is available electronically for review and comparison. FINDINGS: Aortic Arch: There is a three-vessel origin of the great vessels from the aorta. No evidence of ost ial narrowing. There is some mild apical scarring plaquing along the thoracic aortic arch. Right Carotid: The common carotid artery is intact. The carotid bulb has a normal configuration wit hout ulceration or narrowing. The internal carotid artery lumen is smooth without stenosis. The ext ernal carotid artery is intact. Left Carotid: The common carotid artery is intact. The carotid bulb has a normal configuration with out ulceration or narrowing. The internal carotid artery lumen is smooth without stenosis. The exte rnal carotid artery is intact. Vertebrals: The vertebral arteries have a symmetric diameter. No stenotic lesions are seen. Percent stenosis is calculated using the diameter of the stenotic region over the diameter of the nor mal distal internal carotid artery. CONCLUSION: 1. Unremarkable CTA of the carotids for patient's age. Electronically signed by: Jeff Mai MD 01/23/2018 5:19 PM EDT
[2018-01-23] MEDS: Azithromycin Inj 500 MG in Sodium Chlor 0.9% Inj 250 ML IV.SIG SCH (17:33)
[2018-01-23] MEDS ORDERED: Aspirin 325 MG Tablet PO ONE (18:15)
--- NOTE | 2018-01-23 20:05 | MR ---
EXAM DATE: 01/23/2018 7:06 PM EDT AGE/SEX: 67 years / Female INDICATIONS: Left sided weakness. CLINICAL DATA: This is the patient's initial encounter. Patient reports that signs and symptoms have been present for 1 day and indicates a pain score of 0/10. MEDICAL/SURGICAL HISTORY: Diabetes mellitus type II. Hypertension. Appendectomy. [place] [facility] [place]2017. [facility] [place]. . TECHNIQUE: Multiplanar, multisequence examination of the brain was performed without contrast. FINDINGS: Cerebrum: The ventricles are normal for age. No evidence of midline shift, mass lesion, hemorrhage or acute infarction. No extraaxial fluid collections are seen. The pituitary gland and suprasellar cistern are normal in configuration. White Matter: No significant signal abnormalities are seen in the white matter. Posterior Fossa: The cerebellum and brainstem are intact. The 4th ventricle is midline. The cerebel lopontine angle is unremarkable. The cerebellar tonsils are normal in position. Diffusion Imaging: No focal areas of restricted diffusion are seen. No evidence of acute infarction . Extracranial: The visualized portions of the orbits and paranasal sinuses are unremarkable. CONCLUSION: 1. Negative noncontrast MRI of the brain. No evidence of acute stroke. Electronically signed by: Wing Mccauley MD 01/23/2018 8:04 PM EDT
[2018-01-23] MEDS ORDERED: Insulin Detemir Inj 1,000 UNIT/10 ML Vial SQ SCH (21:00)
--- NOTE | 2018-01-23 22:17 | MB ---
cc: Nick Lees MD DATE: 01/23/2018 REASON FOR CONSULTATION: Stroke code. HISTORY OF PRESENT ILLNESS: The patient is a [place]-speaking person and a stroke code was called on the medical jefferson. History is obtained from registered nurse, injection maintenance technician who speaks [place]adian and from medical records. This is a 67-year-old female of [place] descent with a past medical history of hypertension, diabetes, TIA, peripheral neuropathy, who presented with a complaint of cough and congestion since 01/01/2018. The symptoms continued to worsen with wheezes in the chest, shortness of breath and congestion. Admitted for treatment of pneumonia. During the rounds today, the nurse found the patient with a sudden change in status, weakness of the left lower extremity and a stroke code was called. I evaluated the patient in the head CT scan unit and there was significant weakness of the left lower extremity with slight movement of the lower extremity of 1+ throughout with plantar flexion and dorsiflexion of 2+. Other extremities with full range of movement. Cranials were intact. No facial asymmetry was noted. No nystagmus. No sensory changes. Thus, NIH stroke scale was 3. However, a CTA head and neck was ordered which came back inconclusive. The patient was deemed not a candidate for tPA because of a low NIH score stroke scale. I reassessed the patient in the intensive care unit. The same symptoms persist. No new change in her neurologic status. REVIEW OF SYSTEMS: A 12-point review of system was negative except for as stated in the HPI. PAST MEDICAL HISTORY: Diabetes, hypertension, peripheral neuropathy and stroke. PAST SURGICAL HISTORY: Appendectomy. FAMILY HISTORY: Noncontributory. SOCIAL HISTORY: Former smoker, never alcohol, never drug abuse. ALLERGIES: NO KNOWN ALLERGIES. MEDICATIONS: 1. Albuterol. 2. Amitriptyline. 3. Amlodipine. 5. Bisacodyl. 5. Enalaprilat. 6. Gabapentin. 7. Azithromycin. 8. Lactulose. 9. Lisinopril. 10. Prednisone. LABORATORY INVESTIGATIONS: Blood work revealed hemoglobin 13.6, white BC 7, platelets 201. Sodium 143, potassium 3.6, glucose 110. RADIOLOGIC INVESTIGATIONS: Head CT scan without contrast done stat was negative for an acute intracranial abnormality. CTA head and neck was unremarkable for intracranial or extracranial stenosis. ASSESSMENT: 1. Stroke code. 2. Uniplegia, left lower extremity. 3. NIH stroke scale is low. The patient is not a candidate for intravenous tPA. 4. Hypertension. 5. Peripheral neuropathy. 6. Diabetes mellitus. 7. Chronic obstructive pulmonary disease. 8. Pneumonia. PLAN: 1. Neuro checks q.1 hourly in the ICU. 2. Aspirin 325 mg tonight. 3. Aspirin 81 mg starting tomorrow. 4. Carotid ultrasound. 5. Cardiac echo. 6. MRI of the brain. 7. DVT prophylaxis. 8. GI prophylaxis. 9. Bedside swallow evaluation. The case was discussed with the registered nurse and plan of care was set. Thank you for the pleasure to participate in the care of your patient. MD PZA Stroud/nathalia , 09:39 PM , 09:49 PM
[2018-01-24] MEDS: Insulin NovoLOG Aspart Correctional Sugar Inj SQ SCH ×5 (01:39→22:34)
[2018-01-24] MEDS: MethylPREDNISolone Sod Succinate Inj 40 MG/ML Vial IV.PUSH SCH ×4 (01:40→22:12)
[2018-01-24] MEDS: Heparin Drip 25,000 UNIT/250 ML BAG IV.CONT PRN (02:55)
[2018-01-24 03:44] LABS: Activated Partial Thrombo Time 23.2 sec (24.3-30.1); INR 1.1 Ratio; Prothrombin Time 11.1 sec (9.8-11.6)
[2018-01-24] MEDS: Sod Chloride 0.9% Inj 1,000 ML IV.CONT SCH ×6 (04:18→22:27)
[2018-01-24 06:07] LABS: Hematocrit 37.7 % (35.0-46.0); Hemoglobin 12.9 gm/dL (11.6-15.3); Mean Corpuscular HGB Conc 34.1 % (32.0-36.0); Mean Corpuscular Hemoglobin 29.2 pg (27.0-34.0); Mean Corpuscular Volume 85.7 fL (80.0-100.0); Platelet Count 189 th/mm3 (150-450); Red Cell Distribution Width 13.7 % (11.6-17.2); White Blood Count 12.6 th/mm3 (4.0-11.0)
--- NOTE | 2018-01-24 08:03 | P.PNIM ---
Subjective Interval history: f/u; stroke alert/ NSTEMI in no acute distress. looks and feels much more comfortable today. denies chest pain and sob is better. still with some left-sided weakness. Physical Exam Vital signs: Vital Signs 01/23/18 08:00 01/23/18 08:22 01/23/18 12:00 Temperature 98 F 98.0 F Pulse Rate 81 84 82 Respiratory Rate 20 16 18 Blood Pressure 171/69 H 143/66 H Pulse Oximetry 93 L 93 L 93 L 01/23/18 14:38 01/23/18 17:52 01/23/18 20:00 Temperature 98.2 F 98.4 F Pulse Rate 98 H 108 H 96 H Respiratory Rate 16 21 Blood Pressure 147/65 H 149/70 H Pulse Oximetry 96 96 01/24/18 00:00 01/24/18 04:00 Temperature 98.3 F 98.6 F Pulse Rate 69 64 Respiratory Rate 17 Blood Pressure 121/60 130/65 Pulse Oximetry 95 98 Intake & Output 01/23/18 01/24/18 01/24/18 18:59 06:59 18:59 Intake Total 1700 / 1700 2060 / 2060 Output Total 1100 / 1100 Balance 1700 / 1700 960 / 960 Weight 76.3 kg Intake: IV 1100 / 1100 1999 / 1999 NS Inj 1,000 ML @ 70 mls/hr IV. 1000 / 1000 1999 / 2000 CONT .[id number] [facility] Rx#:[id number] Rocephin Inj 1,000 MG In NS Inj 100 / 100 100 ML @ 200 mls/hr IV.SIG Q24H [facility] Rx#:[id number] Oral 600 / 600 60 / 60 Output: Urine 1000 / 1000 Stool 0 / 0 Urine Amount (Catheter) 100 / 100 Female External 100 / 100 Other: # Voids 2 3 # Incontinent Voids 3 # Urine Diapers 3 - Constitutional no acute distress - Routine Respiratory Exam Present: CTA bilaterally (improved wheezing.) - Routine Cardiovascular Exam Present: RRR - Routine Abdominal Exam Present: soft - Routine Extremities Exam Comments: no pedal edema. - Routine Neurological Exam Present: alert, oriented X3 (left sided weakness; left lower extremity more then left upper extremity.) - Urinary Catheter Management Female External Cath placed during this visit: no Results - Labs CBC & Chem 7: 01/24/18 05:32 01/22/18 05:40 Laboratory Results - last 24 hr 01/23/18 01/23/18 01/23/18 07:44 11:19 15:26 WBC RBC Hgb POC Hgb (Calc) Hct POC Hct MCV MCH MCHC RDW Plt Count MPV Neut % (Auto) Lymph % (Auto) [place] % (Auto) Eos % (Auto) Baso % (Auto) Neut # (Auto) Lymph # (Auto) [place] # (Auto) Eos # (Auto) Baso # (Auto) WBC Differential Differential Comment PT INR APTT Fibrinogen POC Sodium POC Potassium POC Chloride POC BUN POC Creatinine POC Glucose 242 H 347 H Total Creatine Kinase Troponin I 0.06 H Nasal Screen MRSA (PCR) Blood Type Blood Type Recheck Antibody Screen 01/23/18 01/23/18 01/23/18 15:41 15:52 15:52 WBC 12.3 H RBC 4.75 Hgb 13.9 POC Hgb (Calc) Hct 41.2 POC Hct MCV 86.8 MCH 29.3 MCHC 33.7 RDW 13.8 Plt Count 209 MPV 10.0 Neut % (Auto) 88.7 H Lymph % (Auto) 8.4 L [place] % (Auto) 2.8 Eos % (Auto) 0.0 Baso % (Auto) 0.1 Neut # (Auto) 10.9 H Lymph # (Auto) 1.0 [place] # (Auto) 0.3 Eos # (Auto) 0.0 Baso # (Auto) 0.0 WBC Differential . Differential Comment Auto diff final PT 10.8 INR 1.1 APTT 27.1 Fibrinogen 232 POC Sodium POC Potassium POC Chloride POC BUN POC Creatinine POC Glucose 330 H Total Creatine Kinase Troponin I Nasal Screen MRSA (PCR) Blood Type Blood Type Recheck Antibody Screen 01/23/18 01/23/18 01/23/18 15:52 15:52 18:56 WBC RBC Hgb POC Hgb (Calc) 13.9 Hct POC Hct 41.0 MCV MCH MCHC RDW Plt Count MPV Neut % (Auto) Lymph % (Auto) [place] % (Auto) Eos % (Auto) Baso % (Auto) Neut # (Auto) Lymph # (Auto) [place] # (Auto) Eos # (Auto) Baso # (Auto) WBC Differential Differential Comment PT INR APTT Fibrinogen POC Sodium 140 POC Potassium 3.7 POC Chloride 106 POC BUN 18 POC Creatinine 0.6 POC Glucose 345 H Total Creatine Kinase 101 Troponin I 0.06 H 0.08 H Nasal Screen MRSA (PCR) Blood Type O Positive Blood Type Recheck Required Antibody Screen Negative 01/23/18 01/23/18 01/24/18 21:20 21:57 00:47 WBC RBC Hgb POC Hgb (Calc) Hct POC Hct MCV MCH MCHC RDW Plt Count MPV Neut % (Auto) Lymph % (Auto) [place] % (Auto) Eos % (Auto) Baso % (Auto) Neut # (Auto) Lymph # (Auto) [place] # (Auto) Eos # (Auto) Baso # (Auto) WBC Differential Differential Comment PT INR APTT Fibrinogen POC Sodium POC Potassium POC Chloride POC BUN POC Creatinine POC Glucose 293 H Total Creatine Kinase Troponin I 0.95 H* D Nasal Screen MRSA (PCR) Not detected Blood Type Blood Type Recheck Antibody Screen 01/24/18 01/24/18 01/24/18 03:15 03:17 05:32 WBC 12.6 H RBC 4.40 Hgb 12.9 POC Hgb (Calc) Hct 37.7 POC Hct MCV 85.7 MCH 29.2 MCHC 34.1 RDW 13.7 Plt Count 189 MPV 10.0 Neut % (Auto) Lymph % (Auto) [place] % (Auto) Eos % (Auto) Baso % (Auto) Neut # (Auto) Lymph # (Auto) [place] # (Auto) Eos # (Auto) Baso # (Auto) WBC Differential Differential Comment PT 11.1 INR 1.1 APTT 23.2 L Fibrinogen POC Sodium POC Potassium POC Chloride POC BUN POC Creatinine POC Glucose 262 H Total Creatine Kinase Troponin I Nasal Screen MRSA (PCR) Blood Type Blood Type Recheck Antibody Screen Microbiology 01/21/18 10:53 Sputum - Expectorated Sputum Gram Stain - Final 01/21/18 10:53 Sputum - Expectorated Sputum Sputum Culture - Preliminary gram negative rods 01/21/18 10:41 Blood - Peripheral Aerobic Blood Culture - Preliminary No growth in 2 days 01/21/18 10:41 Blood - Peripheral Anaerobic Blood Culture - Preliminary No growth in 2 days 01/21/18 11:00 Blood - Peripheral Aerobic Blood Culture - Preliminary No growth in 2 days 01/21/18 11:00 Blood - Peripheral Anaerobic Blood Culture - Preliminary No growth in 2 days - Imaging Impressions Head CT 01/23/18 00:00 CONCLUSION: 1. Negative stroke alert CT brain. Report was called to Dr. Lees at 4:05 pm. The number provided went to voicemail and the results were provided. A critical value was also initiated in case the number provided for the stroke alert physician is incorrect. Head CTA 01/23/18 00:00 CONCLUSION: 1. Negative CTA of the [place]. Head MRI 01/23/18 00:00 CONCLUSION: 1. Negative noncontrast MRI of the brain. No evidence of acute stroke. Neck CTA 01/23/18 00:00 CONCLUSION: 1. Unremarkable CTA of the carotids for patient's age. Assessment and Plan - Assessment (1) Pneumonia Code(s): J18.9 - Pneumonia, unspecified organism Status: Acute (2) Acidosis, lactic Code(s): E87.2 - Acidosis Status: Acute (3) Hypertensive crisis Code(s): I16.9 - Hypertensive crisis, unspecified Status: Acute (4) Left arm pain Code(s): M79.602 - Pain in left arm Status: Acute (5) Peripheral neuropathy Code(s): G62.9 - Polyneuropathy, unspecified Status: Chronic (6) Diabetes 1.5, managed as type 2 Code(s): E10.9 - Type 1 diabetes mellitus without complications Status: Chronic (7) COPD (chronic obstructive pulmonary disease) with acute bronchitis Code(s): J44.0 - Chronic obstructive pulmonary disease with acute lower respiratory infection; J20.9 - Acute bronchitis, unspecified Status: Acute - Plan Pneumonia, community-acquired Failure of outpatient therapy -Received IV fluids in the emergency room -Continue with Zithromax and ceftriaxone -blood cultures negative so far and sputum culture with normal respiratory elaine. COPD exacerbation- improving. Continue with neb treatment; scheduled and prn. Continue with Symbicort 2 puffs twice daily -continue IV Solumedrol; will start to taper down. Antitussives as needed Accelerated hypertension- BP improved. Patient does not appear to be in overt heart failure. Was given nitroglycerin in the emergency room -Continue Prinivil 20 mg p.o. daily -Norvasc 10 mg p.o. daily -Vasotec 1.25 mg IVP q 6 as needed for systolic greater than 180 and diastolic greater than 100 -will check echo Stroke alert ( 01/23) - imaging studies including MRI brain/ CTA neck and CTA head with no acute abnormality - echo pending - continue aspirin. -neurology following. -PT/ST consulted. NSTEMI - currently chest pain free - started on Heparin drip- continue Aspirin -check lipid panel and echo pending. -will consult Cardiology. Left bicep pain, c/o pain to palpation -venous doppler negative for DVT -continue with pain control Type 2 diabetes Patient on metformin and glipizide at home, does not know dosages. continue with Accu-Cheks before meals and at bedtime with insulin therapy -will resume Levemir- when back on diet - blood sugar levels expected to improve as steroids being tapered off. Peripheral neuropathy, complains of significant pain Continue with Elavil 25 mg p.o. daily Continue with gabapentin 300 mg p.o. daily Constipation laxatives as needed. DVT prophylaxis; Heparin Drip GI prophylaxis with Protonix will keep in ICU today for close monitoring; awaiting cardiology/ neurology evaluation. Discharge Planning: transfer to telemetry tomorrow if stable. (1) Pneumonia Qualifiers: Pneumonia type: due to unspecified organism Laterality: right (5) Peripheral neuropathy Qualifiers: Peripheral neuropathy type: polyneuropathy, unspecified Qualified Code(s): G62.9 - Polyneuropathy, unspecified
[2018-01-24] MEDS: amLODIPine 10 MG Tablet PO SCH (09:30)
[2018-01-24] MEDS: Gabapentin 300 MG Capsule PO SCH (09:30)
[2018-01-24] MEDS: Lisinopril 20 MG Tablet PO SCH (09:30)
[2018-01-24] MEDS: Amitriptyline 25 MG Tablet PO SCH (09:30)
[2018-01-24] MEDS: Pantoprazole Inj 40 MG Vial IV.PUSH SCH (09:30)
[2018-01-24] MEDS: Budesonide-Formoterol 160/4.5 MCG 6 GM Inhaler INH SCH ×2 (09:31→22:27)
[2018-01-24] MEDS: Acetaminophen 325 MG Tablet PO PRN (09:31)
--- NOTE | 2018-01-24 10:56 | P.PN ---
Subjective Interval history: still coughing ?mild left leg weakness some low back pain. Physical Exam Vital signs: Vital Signs 01/23/18 12:00 01/23/18 14:38 01/23/18 17:52 Temperature 98.0 F 98.2 F Pulse Rate 82 98 H 108 H Respiratory Rate 18 16 21 Blood Pressure 143/66 H 147/65 H Pulse Oximetry 93 L 96 01/23/18 20:00 01/24/18 00:00 01/24/18 04:00 Temperature 98.4 F 98.3 F 98.6 F Pulse Rate 96 H 69 64 Respiratory Rate 17 Blood Pressure 149/70 H 121/60 130/65 Pulse Oximetry 96 95 98 01/24/18 08:39 Temperature Pulse Rate 82 Respiratory Rate 20 Blood Pressure Pulse Oximetry 94 L Intake & Output 01/23/18 01/24/18 01/24/18 18:59 06:59 18:59 Intake Total 1700 / 1700 2060 / 2060 Output Total 1100 / 1100 Balance 1700 / 1700 960 / 960 Weight 76.3 kg Intake: IV 1100 / 1100 1999 / 1999 NS Inj 1,000 ML @ 70 mls/hr IV. 1000 / 1000 1999 / 2000 CONT .[id number] [facility] Rx#:[id number] Rocephin Inj 1,000 MG In NS Inj 100 / 100 100 ML @ 200 mls/hr IV.SIG Q24H [facility] Rx#:[id number] Oral 600 / 600 60 / 60 Output: Urine 1000 / 1000 Stool 0 / 0 Urine Amount (Catheter) 100 / 100 Female External 100 / 100 Other: # Voids 2 3 # Incontinent Voids 3 # Urine Diapers 3 Narrative: awake alert no facial droop speech intact motor ue nl lle ?mild weakness with possible pain referred to lower back toe down bilaterally. - Urinary Catheter Management Female External Cath placed during this visit: no Results - Labs CBC & Chem 7: 01/24/18 05:32 01/22/18 05:40 Laboratory Results - last 24 hr 01/23/18 01/23/18 01/23/18 11:19 15:26 15:41 WBC RBC Hgb POC Hgb (Calc) Hct POC Hct MCV MCH MCHC RDW Plt Count MPV Neut % (Auto) Lymph % (Auto) [place] % (Auto) Eos % (Auto) Baso % (Auto) Neut # (Auto) Lymph # (Auto) [place] # (Auto) Eos # (Auto) Baso # (Auto) WBC Differential Differential Comment PT INR APTT Fibrinogen POC Sodium POC Potassium POC Chloride POC BUN POC Creatinine POC Glucose 347 H 330 H Total Creatine Kinase Troponin I 0.06 H Nasal Screen MRSA (PCR) Blood Type Blood Type Recheck Antibody Screen 01/23/18 01/23/18 01/23/18 15:52 15:52 15:52 WBC 12.3 H RBC 4.75 Hgb 13.9 POC Hgb (Calc) 13.9 Hct 41.2 POC Hct 41.0 MCV 86.8 MCH 29.3 MCHC 33.7 RDW 13.8 Plt Count 209 MPV 10.0 Neut % (Auto) 88.7 H Lymph % (Auto) 8.4 L [place] % (Auto) 2.8 Eos % (Auto) 0.0 Baso % (Auto) 0.1 Neut # (Auto) 10.9 H Lymph # (Auto) 1.0 [place] # (Auto) 0.3 Eos # (Auto) 0.0 Baso # (Auto) 0.0 WBC Differential . Differential Comment Auto diff final PT 10.8 INR 1.1 APTT 27.1 Fibrinogen 232 POC Sodium 140 POC Potassium 3.7 POC Chloride 106 POC BUN 18 POC Creatinine 0.6 POC Glucose 345 H Total Creatine Kinase 101 Troponin I 0.06 H Nasal Screen MRSA (PCR) Blood Type Blood Type Recheck Antibody Screen 01/23/18 01/23/18 01/23/18 15:52 18:56 21:20 WBC RBC Hgb POC Hgb (Calc) Hct POC Hct MCV MCH MCHC RDW Plt Count MPV Neut % (Auto) Lymph % (Auto) [place] % (Auto) Eos % (Auto) Baso % (Auto) Neut # (Auto) Lymph # (Auto) [place] # (Auto) Eos # (Auto) Baso # (Auto) WBC Differential Differential Comment PT INR APTT Fibrinogen POC Sodium POC Potassium POC Chloride POC BUN POC Creatinine POC Glucose Total Creatine Kinase Troponin I 0.08 H Nasal Screen MRSA (PCR) Not detected Blood Type O Positive Blood Type Recheck Required Antibody Screen Negative 01/23/18 01/24/18 01/24/18 21:57 00:47 03:15 WBC RBC Hgb POC Hgb (Calc) Hct POC Hct MCV MCH MCHC RDW Plt Count MPV Neut % (Auto) Lymph % (Auto) [place] % (Auto) Eos % (Auto) Baso % (Auto) Neut # (Auto) Lymph # (Auto) [place] # (Auto) Eos # (Auto) Baso # (Auto) WBC Differential Differential Comment PT 11.1 INR 1.1 APTT 23.2 L Fibrinogen POC Sodium POC Potassium POC Chloride POC BUN POC Creatinine POC Glucose 293 H Total Creatine Kinase Troponin I 0.95 H* D Nasal Screen MRSA (PCR) Blood Type Blood Type Recheck Antibody Screen 01/24/18 01/24/18 01/24/18 03:17 05:32 09:40 WBC 12.6 H RBC 4.40 Hgb 12.9 POC Hgb (Calc) Hct 37.7 POC Hct MCV 85.7 MCH 29.2 MCHC 34.1 RDW 13.7 Plt Count 189 MPV 10.0 Neut % (Auto) Lymph % (Auto) [place] % (Auto) Eos % (Auto) Baso % (Auto) Neut # (Auto) Lymph # (Auto) [place] # (Auto) Eos # (Auto) Baso # (Auto) WBC Differential Differential Comment PT INR APTT Fibrinogen POC Sodium POC Potassium POC Chloride POC BUN POC Creatinine POC Glucose 262 H 246 H Total Creatine Kinase Troponin I Nasal Screen MRSA (PCR) Blood Type Blood Type Recheck Antibody Screen Microbiology 01/21/18 10:53 Sputum - Expectorated Sputum Gram Stain - Final 01/21/18 10:53 Sputum - Expectorated Sputum Sputum Culture - Preliminary gram negative rods 01/21/18 10:41 Blood - Peripheral Aerobic Blood Culture - Preliminary No growth in 2 days 01/21/18 10:41 Blood - Peripheral Anaerobic Blood Culture - Preliminary No growth in 2 days 01/21/18 11:00 Blood - Peripheral Aerobic Blood Culture - Preliminary No growth in 2 days 01/21/18 11:00 Blood - Peripheral Anaerobic Blood Culture - Preliminary No growth in 2 days - Imaging Impressions Head CT 01/23/18 00:00 CONCLUSION: 1. Negative stroke alert CT brain. Report was called to Dr. Lees at 4:05 pm. The number provided went to voicemail and the results were provided. A critical value was also initiated in case the number provided for the stroke alert physician is incorrect. Head CTA 01/23/18 00:00 CONCLUSION: 1. Negative CTA of the [place]. Head MRI 01/23/18 00:00 CONCLUSION: 1. Negative noncontrast MRI of the brain. No evidence of acute stroke. Neck CTA 01/23/18 00:00 CONCLUSION: 1. Unremarkable CTA of the carotids for patient's age. Assessment and Plan - Plan cont heparin and baby asa w/u per cardiology eval. oob chair as able if stable check flp risk factor control.
--- NOTE | 2018-01-24 10:59 | ECG ---
Date Performed: 01/23/2018 Time Performed: 15:14:09 PTAGE: 67 years EKG: SINUS TACHYCARDIA NONSPECIFIC ST & T-WAVE ABNORMALITY ABNORMAL RHYTHM ECG Since the PREVIOUS TRACING , no significant change noted PREVIOUS TRACIN01/22/2018 21.59 DOCTOR: [place] Interpretating Date/Time 01/24/2018 10:57:06
--- NOTE | 2018-01-24 10:59 | ECG ---
Date Performed: 01/23/2018 Time Performed: 19:06:15 PTAGE: 67 years EKG: Sinus rhythm NONSPECIFIC T-WAVE ABNORMALITY Compared to previous tracing the patient is no longer tachycardic BOR DERLINE ECG PREVIOUS TRACING : 01/23/2018 15.14 DOCTOR: [place] Interpretating Date/Time 01/24/2018 10:57:24
--- NOTE | 2018-01-24 10:59 | ECG ---
Date Performed: 01/23/2018 Time Performed: 22:51:23 PTAGE: 67 years EKG: Sinus rhythm NONSPECIFIC T-WAVE ABNORMALITY BORDERLINE ECG Since the PREVIOUS TRACING , no significant change noted PREVIOUS TRACIN01/23/2018 19.06 DOCTOR: [place] Interpretating Date/Time 01/24/2018 10:57:32
[2018-01-24 12:27] LABS: Chol/HDL Ratio 2.94 Ratio; HDL Cholesterol 48.9 mg/dL (40.0-60.0)
--- NOTE | 2018-01-24 13:24 | ECHRPT ---
Indication: Heart Failure CONCLUSIONS Normal left ventricular size. Mild concentric left ventricular hypertrophy. The left ventricular systolic function is normal with an estimated ejection fraction in the range of 55-60%. Trace mitral valve regurgitation. There is trace tricuspid valve regurgitation. The estimated pulmonary arterial pressure is 46 mmHg. BP: / HR: Rhythm: MEASUREMENTS (Male / Female) Normal Values Technical Quality:Fair 2D ECHO LV Diastolic Diameter PLAX 4.6 cm 4.2 - 5.9 / 3.9 - 5.3 cm LV Systolic Diameter PLAX 3.1 cm IVS Diastolic Thickness 1.2 cm 0.6 - 1.0 / 0.6 - 0.9 cm LVPW Diastolic Thickness 1.2 cm 0.6 - 1.0 / 0.6 - 0.9 cm LV Relative Wall Thickness 0.5 RV Internal Dim ED PLAX 2.5 cm LVOT Diameter 2.0 cm Aortic Root Diameter 2.4 cm LA Systolic Diameter LX 3.6 cm 3.0 - 4.0 / 2.7 - 3.8 cm M-MODE AV Cusp Separation MM 2.0 cm DOPPLER AV Peak Velocity 150.0 cm/s AV Peak Gradient 9.0 mmHg LVOT Peak Velocity 128.0 cm/s LVOT Peak Gradient 6.6 mmHg AV Area Cont Eq pk 2.7 cm Mitral E Point Velocity 109.0 cm/s Mitral A Point Velocity 77.5 cm/s Mitral E to A Ratio 1.4 LV E' Lateral Velocity 10.1 cm/s Mitral E to LV E' Lateral Ratio 10.8 LV E' Septal Velocity 6.5 cm/s Mitral E to LV E' Septal Ratio 16.7 TR Peak Velocity 299.0 cm/s TR Peak Gradient 35.8 mmHg Right Atrial Pressure 10.0 mmHg Pulmonary Artery Systolic Pressu 45.8 mmHg Right Ventricular Systolic Press 45.8 mmHg PV Peak Velocity 99.1 cm/s PV Peak Gradient 3.9 mmHg FINDINGS LEFT VENTRICLE Normal left ventricular size. Mild concentric left ventricular hypertrophy. The left ventricular systolic function is normal with an estimated ejection fraction in the range of 55-60%. RIGHT VENTRICLE Normal right ventricular size and systolic function. LEFT ATRIUM The left atrial size is normal. RIGHT ATRIUM The right atrial size is normal. ATRIAL SEPTUM Normal atrial septal thickness without atrial level shunting by limited color doppler interrogation. AORTA The aortic root and proximal ascending aorta are normal in size on limited imaging. MITRAL VALVE Trace mitral valve regurgitation. AORTIC VALVE Trileaflet aortic valve. TRICUSPID VALVE There is trace tricuspid valve regurgitation. The estimated pulmonary arterial pressure is 46 mmHg. PULMONARY VALVE No pulmonary valve regurgitation or stenosis. VESSELS The inferior vena cava is normal in size. PERICARDIUM No pericardial effusion. Leah Ferrer MD (Electronically Signed) Final Date:24 January 2018 13:22
[2018-01-24] MEDS: Azithromycin Inj 500 MG in Sodium Chlor 0.9% Inj 250 ML IV.SIG SCH (13:28)
[2018-01-25] MEDS: Acetaminophen 325 MG Tablet PO PRN (03:26)
[2018-01-25] MEDS: Sod Chloride 0.9% Inj 1,000 ML IV.CONT SCH ×4 (05:21→22:02)
[2018-01-25] MEDS: Heparin Drip 25,000 UNIT/250 ML BAG IV.CONT PRN (05:22)
[2018-01-25 06:24] LABS: Baso % (Auto) 0.1 % (0.0-2.0); Hematocrit 39.5 % (35.0-46.0); Hemoglobin 13.2 gm/dL (11.6-15.3); Lymph # (Auto) 0.8 th/mm3 (1.0-4.8); Mean Corpuscular HGB Conc 33.3 % (32.0-36.0); Mean Corpuscular Hemoglobin 29.3 pg (27.0-34.0); Mean Corpuscular Volume 87.9 fL (80.0-100.0); Mean Platelet Volume 10.9 fL (7.0-11.0); Mono # (Auto) 0.2 th/mm3 (0.0-0.9); Mono % (Auto) 2.5 % (0.0-8.0); Neut # (Auto) 8.3 th/mm3 (1.8-7.7); Neut % (Auto) 88.4 % (16.0-70.0); Platelet Count 176 th/mm3 (150-450); Red Blood Count 4.49 mil/mm3 (4.00-5.30); Red Cell Distribution Width 13.7 % (11.6-17.2); White Blood Count 9.4 th/mm3 (4.0-11.0)
[2018-01-25 06:52] LABS: Anion Gap 8 meq/L (5-15); Blood Urea Nitrogen 22 mg/dL (7-18); Calcium 8.5 mg/dL (8.5-10.1); Chloride 106 meq/L (98-107); Chol/HDL Ratio 2.56 Ratio; Cholesterol 150 mg/dL (120-200); Glomerular Filtration Rate Greater Than 89 mL/min (>89); Glucose,Random 294 mg/dL (74-106); HDL Cholesterol 58.5 mg/dL (40.0-60.0); LDL Cholesterol,Calculated 76 mg/dL (0-99); Potassium 4.2 meq/L (3.5-5.1); Sodium 139 meq/L (136-145); Triglycerides 77 mg/dL (42-150)
--- NOTE | 2018-01-25 06:55 | P.CONCA ---
History of Present Illness Service: Cardiology Primary Care Provider: No Primary Care Physician Family Provider: No Primary Care Physician Chief Complaint: cough History of Present Illness: Pleasant 67 year old female. I obtained the history via a lighthouse keeper. She has been experiencing a cough and shortness of breath. Associated factors would include fatigue. Aside from HTN and DM2, no CV risk factors. She had sharp chest pain last night that self resolved. She reports this same occasional sensation at rest. No PND/Orhtopnea/LE/Syncope. Review of Systems All other systems reviewed negative except as stated in HPI [facility] - History History Provided By: Patient - Medical History Medical History: Medical History (Last Reviewed 01/24/18 @ 08:59 by Jacqui Bishop Functional Architect, LIDAR SCIENTIST) Diabetes Hypertension Peripheral neuropathy Stroke - Surgical History Surgical History: Surgical History (Last Reviewed 01/24/18 @ 07:52 by Lupe Trinidad) History of appendectomy - Family History Family History: Family History (Last Updated 01/21/18 @ 17:58 by SG Bryant) Other Family history non-contributory - Tobacco History Second Hand Smoke Exposure: No Smoking Status: Former smoker (as a teenager, very little.) - Alcohol History How Often Do You Have a Drink Containing Alcohol: Never - Substance Use History Substance History: No History of Abuse - Travel History Recent Travel in the [place] Within the Last 8 Weeks: No Recent Travel Out of the Country Within the Last 8 Weeks: No - Immunization History Tetanus Immunization: Unsure Medications and Allergies Active Medications: Active Medications Acetaminophen (Tylenol) 650 mg PO Q4H PRN PRN Reason: temp > 100.4/FERNANDEZ Last Admin: 01/25/18 03:26 Dose: 650 mg Al Hydroxide/Mg Hydroxide (Milk Of Magnitalo Liq) 30 ml PO Q12H PRN PRN Reason: Mild Constipation Albuterol (Albuterol Neb (Prn)) 1.25 mg NEB Q2HR NEB PRN PRN Reason: sob Albuterol (Duoneb Neb (Aguila)) 1 ampul NEB Q6HR WHILE AWAKE NEB [facility] Last Admin: 01/24/18 20:19 Dose: 1 ampul Amitriptyline HCl (Elavil) 25 mg PO DAILY [facility] Last Admin: 01/24/18 09:30 Dose: 25 mg Amlodipine Besylate (Norvasc) 10 mg PO DAILY [facility] Last Admin: 01/24/18 09:30 Dose: 10 mg Aspirin (Aspirin Chew) 81 mg PO DAILY [facility] Last Admin: 01/24/18 09:30 Dose: 81 mg Bisacodyl (Dulcolax Supp) 10 mg RECTAL DAILY PRN PRN Reason: SEVERE CONSITIPATION Budesonide/Formoterol Fumarate (Symbicort 160/4.5 Mcg Inh) 2 puff INH BID [facility] Last Admin: 01/24/18 22:27 Dose: 2 puff Dextrose (D50w Vial) 50 ml IV.PUSH UNSCH PRN PRN Reason: PER HYPOGLYCEMIA PROTOCOL Enalaprilat (Vasotec Inj) 1.25 mg IV.PUSH Q6H PRN PRN Reason: SBP>180, DBP>100, HR>65 Gabapentin (Neurontin) 300 mg PO DAILY [facility] Last Admin: 01/24/18 09:30 Dose: 300 mg Glucagon (Glucagon Inj) 1 mg OTHER PRN PRN PRN Reason: for Hypoglycemia Protocol Guaifenesin/Dextromethorphan (Robitussin Dm 200/20 Mg/10 Ml Liq) 10 ml PO Q6H PRN PRN Reason: COUGH Last Admin: 01/22/18 03:54 Dose: 10 ml Azithromycin 500 mg/ Sodium (Chloride) 250 mls @ 250 mls/hr IV.SIG Q24H [facility] Last Infusion: 01/24/18 14:28 Dose: Infused Ceftriaxone Sodium 1,000 mg/ (Sodium Chloride) 100 mls @ 200 mls/hr IV.SIG Q24H [facility] Last Infusion: 01/24/18 14:29 Dose: Infused Sodium Chloride (Ns Inj) 1,000 mls @ 125 mls/hr IV.CONT .Q8H [facility] Last Admin: 01/25/18 05:21 Dose: Not Given Sodium Chloride (Ns Inj) 1,000 mls @ 70 mls/hr IV.CONT .[id number] [facility] Last Admin: 01/24/18 22:13 Dose: 70 mls/hr Heparin Sodium/Dextrose (Heparin/D5w 25,000 U/250 Ml) 25,000 unit in 250 mls @ 9 mls/hr IV.CONT TITRATE PRN; Protocol PRN Reason: Per Protocol Last Admin: 01/25/18 05:22 Dose: 900 units/hr, 9 mls/hr Insulin Aspart (Novolog Insulin Correctional Sugar Inj) 0 unit SQ ACHS [facility]; Protocol Last Admin: 01/24/18 22:34 Dose: 7 unit Insulin Detemir (Levemir Inj) 5 unit SQ [facility] Lactulose (Lactulose Liq) 30 ml PO DAILY PRN PRN Reason: SEVERE CONSITIPATION Lisinopril (Prinivil) 20 mg PO DAILY [facility] Last Admin: 01/24/18 09:30 Dose: 20 mg Methylprednisolone Sodium Succinate (Solumedrol Inj) 40 mg IV.PUSH Q12H [facility] Last Admin: 01/24/18 22:12 Dose: 40 mg Morphine Sulfate (Morphine Inj) 2 mg IV.PUSH Q4H PRN PRN Reason: PAIN SCALE 1 TO 10 Pantoprazole Sodium (Protonix Inj) 40 mg IV.PUSH Q24H [facility] Last Admin: 01/24/18 09:30 Dose: 40 mg Sennosides (Senokot) 17.2 mg PO Q12H PRN PRN Reason: Moderate Constipation Sodium Chloride (Ns Flush) 2 ml IV.FLUSH BID [facility] Last Admin: 01/24/18 22:12 Dose: 2 ml Sodium Chloride (Ns Flush) 2 ml IV.FLUSH PRN PRN PRN Reason: FLUSH AFTER USING IV ACCESS Allergies Allergy/AdvReac Type Severity Reaction Status Date / Time No Known Allergies Allergy Unverified 01/21/18 10:55 Home Medications Medication Instructions Recorded Confirmed Type amitriptyline 25 mg PO DAILY 01/21/18 01/21/18 History gabapentin 300 mg PO DAILY 01/21/18 01/21/18 History lisinopril [Prinivil] 20 mg PO DAILY 01/21/18 01/21/18 History meloxicam 15 mg PO DAILY 01/21/18 01/21/18 History Exam Vital signs: Vital Signs 01/24/18 08:00 01/24/18 08:39 01/24/18 12:00 Temperature 98.5 F 98.7 F Pulse Rate 84 82 92 H Respiratory Rate 22 20 20 Blood Pressure 149/74 H 164/73 H Pulse Oximetry 96 94 L 96 01/24/18 13:41 01/24/18 14:00 01/24/18 16:00 Temperature 98.5 F Pulse Rate 76 106 H 100 H Respiratory Rate 20 20 Blood Pressure 126/58 L Pulse Oximetry 95 01/24/18 18:00 01/24/18 18:56 01/24/18 20:00 Temperature 98.5 F Pulse Rate 86 76 Respiratory Rate 23 Blood Pressure 134/63 Pulse Oximetry 98 95 01/24/18 20:19 01/24/18 22:00 01/25/18 00:00 Temperature 98.8 F Pulse Rate 72 107 H 66 Respiratory Rate 16 18 Blood Pressure 142/64 H Pulse Oximetry 95 95 01/25/18 02:00 01/25/18 04:00 01/25/18 06:00 Temperature 98.5 F Pulse Rate 66 65 65 Respiratory Rate 18 Blood Pressure 147/67 H Pulse Oximetry 95 Intake & Output 01/24/18 01/24/18 01/25/18 06:59 18:59 06:59 Intake Total 2060 / 2060 900 / 900 1730 / 1730 Output Total 1100 / 1100 800 / 800 Balance 960 / 960 900 / 900 930 / 930 Weight 76.3 kg 76.8 kg Intake: IV 1999 350 / 350 1250 / 1250 Heparin/D5W 25,000 U/250 mL 25, 250 / 250 000 unit In 250 ml @ 900 UNITS/ HR 9 mls/hr IV.CONT TITRATE PRN Rx#:[id number] NS Inj 1,000 ML @ 70 mls/hr IV. 1999 1000 / 1000 CONT .[id number] [facility] Rx#:[id number] Azithromycin Inj 500 MG In NS 250 / 250 Inj 250 ML @ 250 mls/hr IV.SIG Q24H [facility] Rx#:[id number] Rocephin Inj 1,000 MG In NS Inj 100 / 100 100 ML @ 200 mls/hr IV.SIG Q24H [facility] Rx#:[id number] Oral 60 / 60 550 / 550 480 / 480 Output: Urine 1000 / 1000 800 / 800 Stool 0 / 0 Urine Amount (Catheter) 100 / 100 Female External 100 / 100 Other: # Voids 3 3 2 # Incontinent Voids 3 # Urine Diapers 3 Date of Last Bowel Movement 01/24/18 01/24/18 # Bowel Movements 1 - Constitutional no acute distress - Routine Neck Exam Present: supple. Absent: JVD - Routine Respiratory Exam Absent: CTA bilaterally - Routine Cardiovascular Exam Present: RRR, S1, S2 - Routine Abdominal Exam Present: soft, normoactive bowel sounds - Routine Extremities Exam Absent: cyanosis - Routine Skin Exam Present: intact - Routine Neurological Exam Present: alert, oriented X3 - Routine Psychiatric Exam Present: normal affect Results 01/25/18 05:09 01/22/18 05:40 Cardiac Enzymes 01/23/18 01/23/18 01/23/18 Range/Units 15:26 15:52 18:56 Troponin I 0.06 H 0.06 H 0.08 H (0.02-0.05) ng/mL 01/24/18 Range/Units 00:47 Troponin I 0.95 H* D (0.02-0.05) ng/mL Coagulation 01/23/18 01/24/18 01/24/18 Range/Units 15:52 03:15 11:05 PT 10.8 11.1 (9.8-11.6) sec APTT 27.1 23.2 L 39.5 H D (24.3-30.1) sec 01/24/18 Range/Units 18:00 PT (9.8-11.6) sec APTT 59.4 H D (24.3-30.1) sec Lipids 01/24/18 Range/Units 11:47 Triglycerides 81 (42-150) mg/dL Cholesterol 144 (120-200) mg/dL HDL Cholesterol 48.9 (40.0-60.0) mg/dL Cholesterol/HDL Ratio 2.94 Ratio CBC 01/23/18 01/24/18 01/25/18 Range/Units 15:52 05:32 05:09 WBC 12.3 H 12.6 H 9.4 (4.0-11.0) th/mm3 RBC 4.75 4.40 4.49 (4.00-5.30) mil/mm3 Hgb 13.9 12.9 13.2 (11.6-15.3) gm/dL Hct 41.2 37.7 39.5 (35.0-46.0) % Plt Count 209 189 176 (150-450) th/mm3 Neut # (Auto) 10.9 H 8.3 H (1.8-7.7) th/mm3 Lymph # (Auto) 1.0 0.8 L (1.0-4.8) th/mm3 [place] # (Auto) 0.3 0.2 (0.0-0.9) th/mm3 Eos # (Auto) 0.0 0.0 (0.0-0.4) th/mm3 Baso # (Auto) 0.0 0.0 (0.0-0.2) th/mm3 Intake and Output 01/24/18 01/24/18 01/25/18 14:59 22:59 06:59 Intake Total 350 / 350 1550 / 1550 730 / 730 Output Total 800 / 800 Balance 350 / 350 1550 / 1550 -70 / -70 Intake: IV 350 / 350 1000 / 1000 250 / 250 Heparin/D5W 25,000 U/250 mL 25, 250 / 250 000 unit In 250 ml @ 900 UNITS/ HR 9 mls/hr IV.CONT TITRATE PRN Rx#:[id number] NS Inj 1,000 ML @ 70 mls/hr IV. 1000 / 1000 CONT .[id number] [facility] Rx#:[id number] Azithromycin Inj 500 MG In NS 250 / 250 Inj 250 ML @ 250 mls/hr IV.SIG Q24H [facility] Rx#:[id number] Rocephin Inj 1,000 MG In NS Inj 100 / 100 100 ML @ 200 mls/hr IV.SIG Q24H [facility] Rx#:[id number] Oral 550 / 550 480 / 480 Output: Urine 800 / 800 Other: # Voids 3 2 Date of Last Bowel Movement 01/24/18 01/24/18 01/24/18 # Bowel Movements 1 Weight 76.8 kg Patient Weight 01/25/18 06:59 Weight 76.8 kg - Imaging and Cardiology Imaging: Impressions Head CT 01/23/18 00:00 CONCLUSION: 1. Negative stroke alert CT brain. Report was called to Dr. Lees at 4:05 pm. The number provided went to voicemail and the results were provided. A critical value was also initiated in case the number provided for the stroke alert physician is incorrect. Head CTA 01/23/18 00:00 CONCLUSION: 1. Negative CTA of the [place]. Head MRI 01/23/18 00:00 CONCLUSION: 1. Negative noncontrast MRI of the brain. No evidence of acute stroke. Neck CTA 01/23/18 00:00 CONCLUSION: 1. Unremarkable CTA of the carotids for patient's age. Assessment and Plan - Plan Type 2 NSTEMI No RWMA on echo. Treat underlying PNA. Continue current meds. Thank you for allowing me participate. Call with any questions.
[2018-01-25] MEDS: amLODIPine 10 MG Tablet PO SCH (09:45)
[2018-01-25] MEDS: Gabapentin 300 MG Capsule PO SCH (09:45)
[2018-01-25] MEDS: Lisinopril 20 MG Tablet PO SCH (09:45)
[2018-01-25] MEDS: MethylPREDNISolone Sod Succinate Inj 40 MG/ML Vial IV.PUSH SCH ×2 (09:46→22:02)
[2018-01-25] MEDS: Amitriptyline 25 MG Tablet PO SCH (09:46)
[2018-01-25] MEDS: Pantoprazole Inj 40 MG Vial IV.PUSH SCH (09:46)
[2018-01-25] MEDS: Budesonide-Formoterol 160/4.5 MCG 6 GM Inhaler INH SCH ×2 (09:47→22:01)
[2018-01-25] MEDS: Insulin NovoLOG Aspart Correctional Sugar Inj SQ SCH ×4 (09:52→22:22)
[2018-01-25] MEDS: Azithromycin Inj 500 MG in Sodium Chlor 0.9% Inj 250 ML IV.SIG SCH (13:53)
--- NOTE | 2018-01-25 18:08 | P.PN ---
Subjective Interval history: complains of left sided headache, good po, n nausea or vomiting parosymal cough-sputum- "nanci" confirmed by staff afebrile left sided weakness- per patient same from admission exam with few expiratory wheezes Physical Exam Vital signs: Vital Signs 01/24/18 18:56 01/24/18 20:00 01/24/18 20:19 Temperature 98.5 F Pulse Rate 76 72 Respiratory Rate 23 16 Blood Pressure 134/63 Pulse Oximetry 98 95 95 01/24/18 22:00 01/25/18 00:00 01/25/18 02:00 Temperature 98.8 F Pulse Rate 107 H 66 66 Respiratory Rate 18 Blood Pressure 142/64 H Pulse Oximetry 95 01/25/18 04:00 01/25/18 06:00 01/25/18 08:13 Temperature 98.5 F Pulse Rate 65 65 74 Respiratory Rate 18 18 Blood Pressure 147/67 H Pulse Oximetry 95 95 01/25/18 13:33 Temperature Pulse Rate 67 Respiratory Rate 22 Blood Pressure Pulse Oximetry Intake & Output 01/24/18 01/25/18 01/25/18 18:59 06:59 18:59 Intake Total 900 / 900 1730 / 1730 Output Total 800 / 800 Balance 900 / 900 930 / 930 Weight 76.8 kg Intake: IV 350 / 350 1250 / 1250 Heparin/D5W 25,000 U/250 mL 25, 250 / 250 000 unit In 250 ml @ 900 UNITS/ HR 9 mls/hr IV.CONT TITRATE PRN Rx#:[id number] NS Inj 1,000 ML @ 70 mls/hr IV. 1000 / 1000 CONT .[id number] [facility] Rx#:[id number] Azithromycin Inj 500 MG In NS 250 / 250 Inj 250 ML @ 250 mls/hr IV.SIG Q24H [facility] Rx#:[id number] Rocephin Inj 1,000 MG In NS Inj 100 / 100 100 ML @ 200 mls/hr IV.SIG Q24H [facility] Rx#:[id number] Oral 550 / 550 480 / 480 Output: Urine 800 / 800 Other: # Voids 3 2 Date of Last Bowel Movement 01/24/18 01/24/18 01/24/18 # Bowel Movements 1 Narrative: awake alert no facial droop speech intact lungs- with few exopiratory wheezes regular rhythm abdomensoft nontender extremities- no edema, no calf tenderness motor- left sided weakness 3-4/5 grossly no sensory deficits - Urinary Catheter Management Female External Cath placed during this visit: no Results - Labs CBC & Chem 7: 01/25/18 05:09 01/25/18 05:09 Laboratory Results - last 24 hr 01/24/18 01/24/18 01/24/18 18:00 18:01 22:25 WBC RBC Hgb Hct MCV MCH MCHC RDW Plt Count MPV Neut % (Auto) Lymph % (Auto) [place] % (Auto) Eos % (Auto) Baso % (Auto) Neut # (Auto) Lymph # (Auto) [place] # (Auto) Eos # (Auto) Baso # (Auto) WBC Differential Differential Comment APTT 59.4 H D Sodium Potassium Chloride Carbon Dioxide Anion Gap BUN Creatinine Estimated GFR POC Glucose 333 H 310 H Random Glucose Calcium Triglycerides Cholesterol LDL Cholesterol, Calc HDL Cholesterol Cholesterol/HDL Ratio 01/25/18 01/25/18 01/25/18 03:18 05:09 05:09 WBC 9.4 RBC 4.49 Hgb 13.2 Hct 39.5 MCV 87.9 MCH 29.3 MCHC 33.3 RDW 13.7 Plt Count 176 MPV 10.9 Neut % (Auto) 88.4 H Lymph % (Auto) 9.0 [place] % (Auto) 2.5 Eos % (Auto) 0.0 Baso % (Auto) 0.1 Neut # (Auto) 8.3 H Lymph # (Auto) 0.8 L [place] # (Auto) 0.2 Eos # (Auto) 0.0 Baso # (Auto) 0.0 WBC Differential . Differential Comment Auto diff final APTT Sodium 139 Potassium 4.2 Chloride 106 Carbon Dioxide 25.0 Anion Gap 8 BUN 22 H Creatinine 0.66 Estimated GFR Greater than 89 POC Glucose 255 H Random Glucose 294 H Calcium 8.5 Triglycerides 77 Cholesterol 150 LDL Cholesterol, Calc 76 HDL Cholesterol 58.5 Cholesterol/HDL Ratio 2.56 01/25/18 01/25/18 01/25/18 05:09 08:42 09:04 WBC RBC Hgb Hct MCV MCH MCHC RDW Plt Count MPV Neut % (Auto) Lymph % (Auto) [place] % (Auto) Eos % (Auto) Baso % (Auto) Neut # (Auto) Lymph # (Auto) [place] # (Auto) Eos # (Auto) Baso # (Auto) WBC Differential Differential Comment APTT 126.2 H* D 80.1 H D Sodium Potassium Chloride Carbon Dioxide Anion Gap BUN Creatinine Estimated GFR POC Glucose 274 H Random Glucose Calcium Triglycerides Cholesterol LDL Cholesterol, Calc HDL Cholesterol Cholesterol/HDL Ratio 01/25/18 01/25/18 12:53 17:48 WBC RBC Hgb Hct MCV MCH MCHC RDW Plt Count MPV Neut % (Auto) Lymph % (Auto) [place] % (Auto) Eos % (Auto) Baso % (Auto) Neut # (Auto) Lymph # (Auto) [place] # (Auto) Eos # (Auto) Baso # (Auto) WBC Differential Differential Comment APTT Sodium Potassium Chloride Carbon Dioxide Anion Gap BUN Creatinine Estimated GFR POC Glucose 270 H 324 H Random Glucose Calcium Triglycerides Cholesterol LDL Cholesterol, Calc HDL Cholesterol Cholesterol/HDL Ratio Microbiology 01/21/18 10:41 Blood - Peripheral Aerobic Blood Culture - Preliminary No growth in 4 days 01/21/18 10:41 Blood - Peripheral Anaerobic Blood Culture - Preliminary No growth in 4 days 01/21/18 11:00 Blood - Peripheral Aerobic Blood Culture - Preliminary No growth in 4 days 01/21/18 11:00 Blood - Peripheral Anaerobic Blood Culture - Preliminary No growth in 4 days Assessment and Plan - Assessment (1) Pneumonia Code(s): J18.9 - Pneumonia, unspecified organism Status: Acute (2) Acidosis, lactic Code(s): E87.2 - Acidosis Status: Acute (3) Hypertensive crisis Code(s): I16.9 - Hypertensive crisis, unspecified Status: Acute (4) Left arm pain Code(s): M79.602 - Pain in left arm Status: Acute (5) Peripheral neuropathy Code(s): G62.9 - Polyneuropathy, unspecified Status: Chronic (6) Diabetes 1.5, managed as type 2 Code(s): E10.9 - Type 1 diabetes mellitus without complications Status: Chronic (7) COPD (chronic obstructive pulmonary disease) with acute bronchitis Code(s): J44.0 - Chronic obstructive pulmonary disease with acute lower respiratory infection; J20.9 - Acute bronchitis, unspecified Status: Acute - Plan 67 yers old right handed female Pneumonia, community-acquired Failure of outpatient therapy -Received IV fluids in the emergency room -Continue with Zithromax and ceftriaxone -blood cultures negative so far and sputum culture with normal respiratory elaine. COPD exacerbation- improving.- but still with wheezes Continue with neb treatment; scheduled and prn. Continue with Symbicort 2 puffs twice daily -continue IV Solumedrol 40 mg q 12 Antitussives as needed Accelerated hypertension- BP improved. Patient does not appear to be in overt heart failure. Was given nitroglycerin in the emergency room -Continue Prinivil 20 mg p.o. daily -Norvasc 10 mg p.o. daily -Vasotec 1.25 mg IVP q 6 as needed for systolic greater than 180 and diastolic greater than 100 -will check echo Stroke alert ( 01/23) with left sided weakness - imaging studies including MRI brain/ CTA neck and CTA head with no acute abnormality - echo pending - continue aspirin. -neurology following. -PT/ST daily NSTEMI - currently chest pain free - started on Heparin drip- continue Aspirin -check lipid panel and echo pending. - seen by Cardiology Left bicep pain, c/o pain to palpation- improved but weakness on exam -venous doppler negative for DVT -continue with pain control Type 2 diabetes Patient on metformin and glipizide at home, does not know dosages. continue with Accu-Cheks before meals and at bedtime with insulin therapy -will resume Levemir- at 10 units hs and adjust - blood sugar levels expected to improve as steroids being tapered off. Peripheral neuropathy, complains of significant pain Continue with Elavil 25 mg p.o. daily Continue with gabapentin 300 mg p.o. daily Constipation laxatives as needed. DVT prophylaxis; Heparin Drip GI prophylaxis with Protonix Increae activity- out of bed to [facility]hab (1) Pneumonia Qualifiers: Pneumonia type: due to unspecified organism Laterality: right (5) Peripheral neuropathy Qualifiers: Peripheral neuropathy type: polyneuropathy, unspecified Qualified Code(s): G62.9 - Polyneuropathy, unspecified
[2018-01-25] MEDS ORDERED: Insulin Detemir Inj 1,000 UNIT/10 ML Vial SQ SCH (21:00)
[2018-01-26] MEDS: Sod Chloride 0.9% Inj 1,000 ML IV.CONT SCH ×4 (02:50→18:59)
[2018-01-26] MEDS: Insulin NovoLOG Aspart Correctional Sugar Inj SQ SCH ×5 (03:00→21:50)
[2018-01-26 05:06] LABS: Hematocrit 40.8 % (35.0-46.0); Hemoglobin 13.7 gm/dL (11.6-15.3); Mean Corpuscular HGB Conc 33.5 % (32.0-36.0); Mean Corpuscular Hemoglobin 29.3 pg (27.0-34.0); Mean Corpuscular Volume 87.5 fL (80.0-100.0); Mean Platelet Volume 10.7 fL (7.0-11.0); Platelet Count 173 th/mm3 (150-450); Red Blood Count 4.66 mil/mm3 (4.00-5.30); Red Cell Distribution Width 13.7 % (11.6-17.2); White Blood Count 8.6 th/mm3 (4.0-11.0)
[2018-01-26] MEDS: Pantoprazole Inj 40 MG Vial IV.PUSH SCH (09:31)
[2018-01-26] MEDS: Lisinopril 20 MG Tablet PO SCH (09:31)
[2018-01-26] MEDS: amLODIPine 10 MG Tablet PO SCH (09:32)
[2018-01-26] MEDS: Gabapentin 300 MG Capsule PO SCH (09:32)
[2018-01-26] MEDS: MethylPREDNISolone Sod Succinate Inj 40 MG/ML Vial IV.PUSH SCH ×3 (09:32→22:56)
[2018-01-26] MEDS: Budesonide-Formoterol 160/4.5 MCG 6 GM Inhaler INH SCH ×2 (09:32→22:55)
[2018-01-26] MEDS: Amitriptyline 25 MG Tablet PO SCH (09:32)
[2018-01-26] MEDS ORDERED: Naproxen 250 MG Tablet PO ONE ×2 (10:51→12:00)
--- NOTE | 2018-01-26 10:59 | P.PNIM ---
Subjective Interval history: Patient still has a productive cough. She still has complaints of left-sided lower extremity weakness. She also complains of a burning sensation at the left occipital scalp and eye. Physical Exam Vital signs: Vital Signs 01/25/18 12:00 01/25/18 13:33 01/25/18 14:00 Temperature 98.7 F Pulse Rate 68 67 92 H Respiratory Rate 17 22 Blood Pressure 150/68 H Pulse Oximetry 91 L 01/25/18 16:00 01/25/18 18:00 01/25/18 20:00 Temperature 98.7 F 98.0 F Pulse Rate 75 86 91 H Respiratory Rate 18 28 H Blood Pressure 125/59 L 163/79 H Pulse Oximetry 94 L 95 01/25/18 20:37 01/25/18 22:00 01/26/18 00:00 Temperature 98.9 F Pulse Rate 84 103 H 84 Respiratory Rate 36 H 24 Blood Pressure 177/79 H Pulse Oximetry 96 93 L 01/26/18 02:00 01/26/18 04:00 01/26/18 06:00 Temperature 98.7 F Pulse Rate 72 71 63 Respiratory Rate 22 Blood Pressure 173/74 H Pulse Oximetry 94 L 01/26/18 08:04 01/26/18 08:06 Temperature Pulse Rate 65 Respiratory Rate 14 Blood Pressure Pulse Oximetry 97 Intake & Output 01/25/18 01/26/18 01/26/18 18:59 06:59 18:59 Intake Total 480 / 480 1720 / 1720 Output Total 1200 / 1200 2000 / 2000 Balance -720 / -720 -280 / -280 Weight 76.5 kg Intake: IV 1000 / 1000 NS Inj 1,000 ML @ 70 mls/hr IV. 1000 / 1000 CONT .[id number] [facility] Rx#:[id number] Oral 480 / 480 720 / 720 Output: Urine 1200 / 1200 2000 / 2000 Other: # Voids 3 # Incontinent Voids 1 Date of Last Bowel Movement 01/24/18 01/24/18 Narrative: GENERAL: NAD, A&Ox3 HEAD: Normocephalic. NECK: Supple, trachea midline. No lymphadenopathy. EYES: No scleral icterus. No injection or drainage. CARDIOVASCULAR: Regular rate and rhythm without murmurs, gallops, or rubs. RESPIRATORY: Breath sounds equal bilaterally. No accessory muscle use. GASTROINTESTINAL: Abdomen soft, non-tender, nondistended. MUSCULOSKELETAL: No cyanosis, or edema. SKIN: Warm and dry. NEURO: No focal neurological deficits. Left leg weak compared to right. - Urinary Catheter Management Female External Cath placed during this visit: no Results - Labs CBC & Chem 7: 01/26/18 03:36 01/25/18 05:09 Laboratory Results - last 24 hr 01/25/18 01/25/18 01/25/18 12:53 17:48 20:31 WBC RBC Hgb Hct MCV MCH MCHC RDW Plt Count MPV APTT 43.3 H D POC Glucose 270 H 324 H 01/25/18 01/26/18 01/26/18 22:05 03:33 03:36 WBC 8.6 RBC 4.66 Hgb 13.7 Hct 40.8 MCV 87.5 MCH 29.3 MCHC 33.5 RDW 13.7 Plt Count 173 MPV 10.7 APTT POC Glucose 330 H 284 H 01/26/18 01/26/18 03:36 08:51 WBC RBC Hgb Hct MCV MCH MCHC RDW Plt Count MPV APTT 40.4 H POC Glucose 276 H Microbiology 01/21/18 10:41 Blood - Peripheral Aerobic Blood Culture - Preliminary No growth in 4 days 01/21/18 10:41 Blood - Peripheral Anaerobic Blood Culture - Preliminary No growth in 4 days 01/21/18 11:00 Blood - Peripheral Aerobic Blood Culture - Preliminary No growth in 4 days 01/21/18 11:00 Blood - Peripheral Anaerobic Blood Culture - Preliminary No growth in 4 days Assessment and Plan - Assessment (1) Pneumonia Code(s): J18.9 - Pneumonia, unspecified organism Status: Acute (2) Acidosis, lactic Code(s): E87.2 - Acidosis Status: Acute (3) Hypertensive crisis Code(s): I16.9 - Hypertensive crisis, unspecified Status: Acute (4) Left arm pain Code(s): M79.602 - Pain in left arm Status: Acute (5) Peripheral neuropathy Code(s): G62.9 - Polyneuropathy, unspecified Status: Chronic (6) Diabetes 1.5, managed as type 2 Code(s): E10.9 - Type 1 diabetes mellitus without complications Status: Chronic (7) COPD (chronic obstructive pulmonary disease) with acute bronchitis Code(s): J44.0 - Chronic obstructive pulmonary disease with acute lower respiratory infection; J20.9 - Acute bronchitis, unspecified Status: Acute - Plan 67 yers old right handed female admitted secondary to pneumonia with left-sided weakness. Pneumonia, community-acquired Failure of outpatient therapy Continue azithromycin Continue Rocephin COPD exacerbation Improving Follow clinically Wean steroids slowly Continue Symbicort Continue duo nebs Continue as needed albuterol Continue antitussives Accelerated hypertension BP improved. Continue to monitor blood pressures Continue Prinivil Continue Norvasc Continue visit Patient does not appear to be in overt heart failure. Was given nitroglycerin in the emergency room Left-sided weakness Slightly improved Negative CVA workup Etiology may be inflammatory or reactive, such as peripheral neuritis Continue aspirin Physical therapy Continue speech therapy NSAIDs Anticipate intermediate facility at discharge NSTEMI (type II) Continue aspirin Stop heparin drip Follow clinically next on cardiology following Left bicep pain, c/o pain to palpation Pain control Negative DVT workup Diabetes mellitus type 2 Follow blood sugars Insulin sliding scale Diabetic diet Levemir Wean steroids Peripheral neuropathy Continue with Elavil 25 mg p.o. daily Continue with gabapentin 300 mg p.o. daily Constipation As needed laxatives DVT prophylaxis Heparin Discharge planning [facility] evaluation pending (1) Pneumonia Qualifiers: Pneumonia type: due to unspecified organism Laterality: right (5) Peripheral neuropathy Qualifiers: Peripheral neuropathy type: polyneuropathy, unspecified Qualified Code(s): G62.9 - Polyneuropathy, unspecified
[2018-01-26] MEDS: Azithromycin Inj 500 MG in Sodium Chlor 0.9% Inj 250 ML IV.SIG SCH (18:59)
[2018-01-26] MEDS: Heparin - SQ 10,000 UNITS/ML Vial SQ SCH (21:48)
[2018-01-26] MEDS: Naproxen 250 MG Tablet PO SCH (21:49)
[2018-01-27] MEDS: Sod Chloride 0.9% Inj 1,000 ML IV.CONT SCH ×4 (04:25→13:10)
[2018-01-27] MEDS: Acetaminophen 325 MG Tablet PO PRN ×2 (04:32→22:00)
[2018-01-27] MEDS: Insulin NovoLOG Aspart Correctional Sugar Inj SQ SCH ×4 (08:44→22:02)
[2018-01-27] MEDS: Heparin - SQ 10,000 UNITS/ML Vial SQ SCH ×2 (08:45→22:00)
[2018-01-27] MEDS: Pantoprazole Inj 40 MG Vial IV.PUSH SCH (08:45)
[2018-01-27] MEDS: Budesonide-Formoterol 160/4.5 MCG 6 GM Inhaler INH SCH ×2 (08:47→22:09)
[2018-01-27] MEDS: Gabapentin 300 MG Capsule PO SCH (08:47)
[2018-01-27] MEDS: Naproxen 250 MG Tablet PO SCH ×2 (08:47→22:00)
[2018-01-27] MEDS: Amitriptyline 25 MG Tablet PO SCH (08:47)
[2018-01-27] MEDS: Lisinopril 20 MG Tablet PO SCH (08:47)
[2018-01-27] MEDS: amLODIPine 10 MG Tablet PO SCH (08:47)
[2018-01-27] MEDS: MethylPREDNISolone Sod Succinate Inj 40 MG/ML Vial IV.PUSH SCH ×2 (10:39→22:09)
[2018-01-27] MEDS: Azithromycin Inj 500 MG in Sodium Chlor 0.9% Inj 250 ML IV.SIG SCH (13:11)
--- NOTE | 2018-01-27 13:36 | P.PNIM ---
Subjective Interval history: Complaint of flank pain today. Etiology for this could be related to the neuropathic symptoms she is having at her head and left leg. No other complaints. Physical Exam Vital signs: Vital Signs 01/26/18 14:00 01/26/18 16:00 01/26/18 16:01 Temperature Pulse Rate 90 99 H 104 H Respiratory Rate 17 33 H Blood Pressure 133/58 L Pulse Oximetry 86 L 01/26/18 20:00 01/26/18 20:45 01/27/18 00:00 Temperature 98.3 F 98.1 F Pulse Rate 70 64 Respiratory Rate 24 21 Blood Pressure 168/76 H 153/72 H Pulse Oximetry 94 L 96 93 L 01/27/18 04:00 01/27/18 08:00 01/27/18 08:17 Temperature 98.4 F 98.5 F Pulse Rate 60 66 Respiratory Rate 18 Blood Pressure 170/88 H 179/77 H Pulse Oximetry 93 L 94 L 98 Intake & Output 01/26/18 01/27/18 01/27/18 18:59 06:59 18:59 Intake Total 1480 / 1480 1830 / 1830 Output Total 2350 / 2350 2100 / 2100 Balance -870 / -870 -270 / -270 Weight 75.5 kg Intake: IV 1000 / 1000 1350 / 1350 NS Inj 1,000 ML @ 70 mls/hr IV. 1000 / 1000 1000 / 1000 CONT .[id number] [facility] Rx#:[id number] Azithromycin Inj 500 MG In NS 250 / 250 Inj 250 ML @ 250 mls/hr IV.SIG Q24H [facility] Rx#:[id number] Rocephin Inj 1,000 MG In NS Inj 100 / 100 100 ML @ 200 mls/hr IV.SIG Q24H [facility] Rx#:[id number] Oral 480 / 480 480 / 480 Output: Urine 2350 / 2350 2100 / 2100 Stool 0 / 0 Other: # Voids 3 Date of Last Bowel Movement 01/24/18 01/24/18 01/24/18 # Bowel Movements 0 0 Narrative: GENERAL: NAD, A&Ox3 HEAD: Normocephalic. NECK: Supple, trachea midline. No lymphadenopathy. EYES: No scleral icterus. No injection or drainage. CARDIOVASCULAR: Regular rate and rhythm without murmurs, gallops, or rubs. RESPIRATORY: Breath sounds equal bilaterally. No accessory muscle use. GASTROINTESTINAL: Abdomen soft, non-tender, nondistended. MUSCULOSKELETAL: No cyanosis, or edema. SKIN: Warm and dry. NEURO: No focal neurological deficits. Left leg weak compared to right. - Urinary Catheter Management Female External Cath placed during this visit: no Results - Labs CBC & Chem 7: 01/26/18 03:36 01/25/18 05:09 Laboratory Results - last 24 hr 01/26/18 01/26/18 01/26/18 14:04 18:49 21:19 POC Glucose 294 H 342 H 322 H 01/27/18 01/27/18 01/27/18 04:13 08:28 12:56 POC Glucose 254 H 245 H 274 H Microbiology 01/21/18 10:41 Blood - Peripheral Aerobic Blood Culture - Final No growth in 5 days 01/21/18 10:41 Blood - Peripheral Anaerobic Blood Culture - Final No growth in 5 days 01/21/18 11:00 Blood - Peripheral Aerobic Blood Culture - Final No growth in 5 days 01/21/18 11:00 Blood - Peripheral Anaerobic Blood Culture - Final No growth in 5 days Assessment and Plan - Assessment (1) Pneumonia Code(s): J18.9 - Pneumonia, unspecified organism Status: Acute (2) Acidosis, lactic Code(s): E87.2 - Acidosis Status: Acute (3) Hypertensive crisis Code(s): I16.9 - Hypertensive crisis, unspecified Status: Acute (4) Left arm pain Code(s): M79.602 - Pain in left arm Status: Acute (5) Peripheral neuropathy Code(s): G62.9 - Polyneuropathy, unspecified Status: Chronic (6) Diabetes 1.5, managed as type 2 Code(s): E10.9 - Type 1 diabetes mellitus without complications Status: Chronic (7) COPD (chronic obstructive pulmonary disease) with acute bronchitis Code(s): J44.0 - Chronic obstructive pulmonary disease with acute lower respiratory infection; J20.9 - Acute bronchitis, unspecified Status: Acute - Plan 67 yers old right handed female admitted secondary to pneumonia with left-sided weakness. Discontinue IV fluids. Change Protonix to p.o. Workup flank pain as below. Continue pain management. Continue following clinically. Continue physical therapy. Flank pain Obtain urinalysis Obtain kidney ultrasound Follow clinically Pneumonia, community-acquired Failure of outpatient therapy Continue azithromycin Continue Rocephin COPD exacerbation Improving Follow clinically Wean steroids slowly Continue Symbicort Continue duo nebs Continue as needed albuterol Continue antitussives Accelerated hypertension BP improved. Continue to monitor blood pressures Continue Prinivil Continue Norvasc Continue visit Patient does not appear to be in overt heart failure. Was given nitroglycerin in the emergency room Left-sided weakness Slightly improved Negative CVA workup Etiology may be inflammatory or reactive, such as peripheral neuritis Continue aspirin Physical therapy Continue speech therapy NSAIDs Anticipate long-term facility at discharge NSTEMI (type II) Continue aspirin Stop heparin drip Follow clinically next on cardiology following Left bicep pain, c/o pain to palpation Pain control Negative DVT workup Diabetes mellitus type 2 Follow blood sugars Insulin sliding scale Diabetic diet Levemir Wean steroids Peripheral neuropathy Continue with Elavil 25 mg p.o. daily Continue with gabapentin 300 mg p.o. daily Constipation As needed laxatives DVT prophylaxis Heparin Discharge planning [facility] evaluation pending (1) Pneumonia Qualifiers: Pneumonia type: due to unspecified organism Laterality: right (5) Peripheral neuropathy Qualifiers: Peripheral neuropathy type: polyneuropathy, unspecified Qualified Code(s): G62.9 - Polyneuropathy, unspecified
--- NOTE | 2018-01-27 14:47 | US ---
EXAM DATE: 01/27/2018 12:00 AM EDT AGE/SEX: 67 years / Female INDICATIONS: Flank pain. CLINICAL DATA: This is the patient's initial encounter. Patient reports that signs and symptoms have been present for 1 day and indicates a pain score of 2/10. MEDICAL/SURGICAL HISTORY: Hypertension. Diabetes. Chronic obstructive pulmonary disease. Pne umonia. Peripheral neuropathy. Stoke. Appendectomy. COMPARISON: No prior exams available for comparison. MEASUREMENTS: Right Kidney:__10.1 x 5.8 x 5.3 cm Left Kidney:__11.1 x 5.4 x 6.3 cm FINDINGS: Right Kidney: Normal echotexture and cortical thickness. No mass or hydronephrosis. Left Kidney: Normal echotexture and cortical thickness. No mass or hydronephrosis. Bladder: Within normal limits given the degree of distension. Other: None. CONCLUSION: 1. Normal renal sonogram. Electronically signed by: Noel Hardy MD 01/27/2018 2:45 PM EDT
--- NOTE | 2018-01-27 16:02 | P.HPIM ---
History of Present Illness Primary Care Physician: No Primary Care Physician History of Present Illness: Mrs Ricky Keating is a pleasant 67-year-old female of [place] descent, significant past medical history hypertension, diabetes, TIA, peripheral neuropathy. Presents with complaint of cough and congestion since January 01. She went to see her primary care physician who prescribed her Cipro 750 mg p.o. twice daily for 10 days/ She completed antibiotics. Indicates that her symptoms have continued to worsen, she has had increased cough with gamez sputum associated with wheezing, chest pain secondary to coughing. She has had some shortness of breath, denies any nasal congestion , complains of a sore throat. Indicates that the cough is keeping her up at night. She has had chills and subjective fevers. Patient was evaluated in the emergency room, CBC was unremarkable. BMP essentially unremarkable. Lactic acid was 2.5. Troponin was negative. B natruretic peptide 66. Chest x-ray with findings concerning for pneumonia. Blood pressure was noted elevated, 221/ 92. She was given nitroglycerin, blood pressure has been trending down. She received IV fluids, cultures were obtained and she was started on Rocephin and Zithromax. Patient is now examined, continues to cough. Denies any chest pain at this time. She is complaining of left bicep pain, denies any injury. Feels that there is a bulge on the left bicep. She complains of pain when lifting her arm, more on the bicep than joint. Denies any nausea, no vomiting, has some constipation at this time. No urinary symptoms. Patient is admitted for further evaluation and treatment. Diagnosis (1) Pneumonia: (2) Acidosis, lactic: (3) Hypertensive crisis: (4) Left arm pain: (5) Peripheral neuropathy: (6) Diabetes 1.5, managed as type 2: (7) COPD (chronic obstructive pulmonary disease) with acute bronchitis: Inpatient Certification Inpatient Certification: I certify that the inpatient services were ordered in accordance with Medicare regulations governing the order. This includes certification that hospital inpatient services are reasonable and necessary and in the case of services not specified as inpatient-only under 42 CFR 419.22(n), that they are appropriately provided as inpatient services in accordance to with the 2-midnight benchmark under 43 CFR 412.3(e) Estimated Total Length of Stay (Days): 2 Plans for Post Hospital Care: Home Medications and Allergies Allergies Allergy/AdvReac Type Severity Reaction Status Date / Time No Known Allergies Allergy Unverified 01/21/18 10:55 Home Medications Medication Instructions Recorded Confirmed Type amitriptyline 25 mg PO DAILY 01/21/18 01/21/18 History gabapentin 300 mg PO DAILY 01/21/18 01/21/18 History lisinopril [Prinivil] 20 mg PO DAILY 01/21/18 01/21/18 History meloxicam 15 mg PO DAILY 01/21/18 01/21/18 History Active Medications: Active Medications Acetaminophen (Tylenol) 650 mg PO Q4H PRN PRN Reason: temp > 100.4/FERNANDEZ Last Admin: 01/27/18 04:32 Dose: 650 mg Al Hydroxide/Mg Hydroxide (Milk Of [place]i [place]) 30 ml PO Q12H PRN PRN Reason: Mild Constipation Last Admin: 01/26/18 19:16 Dose: 30 ml Albuterol (Albuterol Neb (Prn)) 1.25 mg NEB Q2HR NEB PRN PRN Reason: sob Amitriptyline HCl (Elavil) 25 mg PO DAILY [facility] Last Admin: 01/27/18 08:47 Dose: 25 mg Amlodipine Besylate (Norvasc) 10 mg PO DAILY [facility] Last Admin: 01/27/18 08:47 Dose: 10 mg Aspirin (Aspirin Chew) 81 mg PO DAILY [facility] Last Admin: 01/27/18 08:47 Dose: 81 mg Bisacodyl (Dulcolax Supp) 10 mg RECTAL DAILY PRN PRN Reason: SEVERE CONSITIPATION Budesonide/Formoterol Fumarate (Symbicort 160/4.5 Mcg Inh) 2 puff INH BID [facility] Last Admin: 01/27/18 08:47 Dose: 2 puff Dextrose (D50w Vial) 50 ml IV.PUSH UNSCH PRN PRN Reason: PER HYPOGLYCEMIA PROTOCOL Enalaprilat (Vasotec Inj) 1.25 mg IV.PUSH Q6H PRN PRN Reason: SBP>180, DBP>100, HR>65 Last Admin: 01/27/18 10:37 Dose: 1.25 mg Gabapentin (Neurontin) 300 mg PO DAILY [facility] Last Admin: 01/27/18 08:47 Dose: 300 mg Glucagon (Glucagon Inj) 1 mg OTHER PRN PRN PRN Reason: for Hypoglycemia Protocol Guaifenesin/Dextromethorphan (Robitussin Dm 200/20 Mg/10 Ml Liq) 10 ml PO Q6H PRN PRN Reason: COUGH Last Admin: 01/22/18 03:54 Dose: 10 ml Heparin Sodium (Porcine) (Heparin Inj) 5,000 units SQ Q12HR [facility] Last Admin: 01/27/18 08:45 Dose: 5,000 units Azithromycin 500 mg/ Sodium (Chloride) 250 mls @ 250 mls/hr IV.SIG Q24H [facility] Last Admin: 01/27/18 13:11 Dose: 250 mls/hr Ceftriaxone Sodium 1,000 mg/ (Sodium Chloride) 100 mls @ 200 mls/hr IV.SIG Q24H [facility] Last Admin: 01/27/18 13:10 Dose: 200 mls/hr Insulin Aspart (Novolog Insulin Correctional Sugar Inj) 0 unit SQ ACHS [facility]; Protocol Last Admin: 01/27/18 13:19 Dose: 5 unit Insulin Detemir (Levemir Inj) 10 unit SQ HS [facility] Lactulose (Lactulose Liq) 30 ml PO DAILY PRN PRN Reason: SEVERE CONSITIPATION Lisinopril (Prinivil) 20 mg PO DAILY [facility] Last Admin: 01/27/18 08:47 Dose: 20 mg Methylprednisolone Sodium Succinate (Solumedrol Inj) 20 mg IV.PUSH Q12H [facility] Last Admin: 01/27/18 10:39 Dose: 20 mg Morphine Sulfate (Morphine Inj) 2 mg IV.PUSH Q4H PRN PRN Reason: PAIN SCALE 1 TO 10 Naproxen (Naprosyn) 250 mg PO BID [facility] Last Admin: 01/27/18 08:47 Dose: 250 mg Pantoprazole Sodium (Protonix) 40 mg PO DAILY [facility] Sennosides (Senokot) 17.2 mg PO Q12H PRN PRN Reason: Moderate Constipation Sodium Chloride (Ns Flush) 2 ml IV.FLUSH BID [facility] Last Admin: 01/27/18 08:45 Dose: 2 ml Sodium Chloride (Ns Flush) 2 ml IV.FLUSH PRN PRN PRN Reason: FLUSH AFTER USING IV ACCESS Physical Exam Vital signs: Last Vital Signs Temp 98.6 F 01/27/18 12:00 Pulse 64 01/27/18 12:00 Resp 19 01/27/18 12:00 BP 149/71 H 01/27/18 12:00 Pulse Ox 95 01/27/18 12:00 Results Labs CBC & Chem 7: 01/26/18 03:36 01/25/18 05:09 Dwaine VTE Risk Assessment Dwaine VTE Risk Assessment: Moderate/High Risk (score >= 2) Dwaine Risk Assessment Model: Point Value = 1 Point Value = 2 Point Value = 3 Point Value = 5 Age 41-60 Minor surgery BMI > 25 kg/m2 Swollen legs Varicose veins or History of unexplained or recurrent spontaneous Oral contraceptives or hormone replacement Sepsis (< 1 month) Serious lung disease, including pneumonia (< 1 month) Abnormal pulmonary function Acute myocardial infarction Congestive heart failure (< 1 month) History of inflammatory bowel disease Medical patient at bed rest Age 61-74 Arthroscopic surgery Major open surgery (> 45 min) Laparoscopic surgery (> 45 min) Malignancy Confined to bed (> 72 hours) Immobilizing plaster cast Central venous access Age >= 75 History of VTE Family history of VTE Factor V Leiden Prothrombin [id number] Lupus anticoagulant Anticardiolipin antibodies Elevated serum homocysteine Heparin-induced thrombocytopenia Other congenital or acquired thrombophilia Stroke (< 1 month) Elective arthroplasty Hip, pelvis, or leg fracture Acute spinal cord injury (< 1 month) Prophylaxis Regimen: Total Risk Factor Score Risk Level Prophylaxis Regimen 0-1 Low Early ambulation 2 Moderate Order ONE of the following: *Sequential Compression Device (SCD) *Heparin 5000 units SQ BID 3-4 Higher Order ONE of the following medications: *Heparin 5000 units SQ TID *Enoxaparin/Lovenox 40 mg SQ daily (WT < 150 kg, CrCl > 30 mL/min) *Enoxaparin/Lovenox 30 mg SQ daily (WT < 150 kg, CrCl > 10-29 mL/min) *Enoxaparin/Lovenox 30 mg SQ BID (WT < 150 kg, CrCl > 30 mL/min) AND/OR *Sequential Compression Device (SCD) 5 or more Highest Order ONE of the following medications: *Heparin 5000 units SQ TID (Preferred with Epidurals) *Enoxaparin/Lovenox 40 mg SQ daily (WT < 150 kg, CrCl > 30 mL/min) *Enoxaparin/Lovenox 30 mg SQ daily (WT < 150 kg, CrCl > 10-29 mL/min) *Enoxaparin/Lovenox 30 mg SQ BID (WT < 150 kg, CrCl > 30 mL/min) AND *Sequential Compression Device (SCD) Assessment and Plan Assessment (1) Pneumonia: Code(s): J18.9 - Pneumonia, unspecified organism Status: Acute (2) Acidosis, lactic: Code(s): E87.2 - Acidosis Status: Acute (3) Hypertensive crisis: Code(s): I16.9 - Hypertensive crisis, unspecified Status: Acute (4) Left arm pain: Code(s): M79.602 - Pain in left arm Status: Acute (5) Peripheral neuropathy: Code(s): G62.9 - Polyneuropathy, unspecified Status: Chronic (6) Diabetes 1.5, managed as type 2: Code(s): E10.9 - Type 1 diabetes mellitus without complications Status: Chronic (7) COPD (chronic obstructive pulmonary disease) with acute bronchitis: Code(s): J44.0 - Chronic obstructive pulmonary disease with acute lower respiratory infection; J20.9 - Acute bronchitis, unspecified Status: Acute H&P: Quality VTE Deep Vein Thrombosis/Pulmonary Embolism Present on Admission: No _ (1) Pneumonia Qualifiers: Pneumonia type: due to unspecified organism Aspiration pneumonia type: Laterality: right Lung location: (2) Peripheral neuropathy Qualifiers: Peripheral neuropathy type: polyneuropathy, unspecified Qualified Code(s): G62.9 - Polyneuropathy, unspecified
[2018-01-28] MEDS: Acetaminophen 325 MG Tablet PO PRN ×2 (04:36→21:37)
[2018-01-28 05:07] LABS: Bilirubin,Urine Negative (Negative); Clarity,Urine Clear (Clear); Color,Urine Yellow (Yellw/Straw); Glucose,Urine (UA) 500 or Greater mg/dL (Negative); Leukocyte Esterase,Urine Negative (Negative); Nitrite,Urine Negative (Negative); Specific Gravity,Urine 1.027 (1.002-1.035); Squamous Epithelial Cell,Urine 1 /hpf (0-5)
[2018-01-28] MEDS: Heparin - SQ 10,000 UNITS/ML Vial SQ SCH ×2 (08:32→21:36)
[2018-01-28] MEDS: Lisinopril 20 MG Tablet PO SCH (08:32)
[2018-01-28] MEDS: Gabapentin 300 MG Capsule PO SCH (08:33)
[2018-01-28] MEDS: Naproxen 250 MG Tablet PO SCH ×2 (08:33→21:37)
[2018-01-28] MEDS: Amitriptyline 25 MG Tablet PO SCH (08:33)
[2018-01-28] MEDS: amLODIPine 10 MG Tablet PO SCH (08:33)
[2018-01-28] MEDS: Budesonide-Formoterol 160/4.5 MCG 6 GM Inhaler INH SCH ×2 (08:40→21:39)
[2018-01-28] MEDS: Insulin NovoLOG Aspart Correctional Sugar Inj SQ SCH ×4 (08:42→21:38)
[2018-01-28] MEDS ORDERED: Influenza (Quadrivalent) Vaccine 0.5 ML Syringe IM ONE (09:30)
[2018-01-28] MEDS: MethylPREDNISolone Sod Succinate Inj 40 MG/ML Vial IV.PUSH SCH ×2 (10:17→23:38)
[2018-01-28] MEDS: Azithromycin Inj 500 MG in Sodium Chlor 0.9% Inj 250 ML IV.SIG SCH (13:00)
--- NOTE | 2018-01-28 15:38 | P.PN ---
Subjective Interval history: The patient is in bed she is sleeping appears tired. Has a nonproductive cough. No fever or chills. No chest pain. Physical Exam Vital signs: Vital Signs 01/27/18 16:00 01/27/18 18:36 01/27/18 20:00 Temperature 98.2 F 98.4 F 97.3 F L Pulse Rate 69 71 68 Respiratory Rate 21 22 18 Blood Pressure 176/79 H 185/90 H 189/84 H Pulse Oximetry 98 97 01/27/18 23:29 01/27/18 23:40 01/28/18 00:00 Temperature 98.6 F Pulse Rate 60 65 56 L Respiratory Rate 18 Blood Pressure 151/73 H Pulse Oximetry 98 01/28/18 04:00 01/28/18 08:55 01/28/18 12:00 Temperature 97.6 F 97.7 F 97.4 F L Pulse Rate 58 L 62 65 Respiratory Rate 18 16 17 Blood Pressure 163/80 H 157/79 H 156/74 H Pulse Oximetry 94 L 98 100 Intake & Output 01/27/18 01/28/18 01/28/18 18:59 06:59 18:59 Intake Total 1770 / 1770 350 / 350 Output Total 1800 / 1800 1700 / 1700 Balance -30 / -30 -1700 / -1700 350 / 350 Weight 76.9 kg 76.8 kg Intake: IV 1050 / 1050 350 / 350 NS Inj 1,000 ML @ 70 mls/hr IV. 700 / 700 CONT .[id number] [facility] Rx#:[id number] Azithromycin Inj 500 MG In NS 250 / 250 250 / 250 Inj 250 ML @ 250 mls/hr IV.SIG Q24H [facility] Rx#:[id number] Rocephin Inj 1,000 MG In NS Inj 100 / 100 100 / 100 100 ML @ 200 mls/hr IV.SIG Q24H [facility] Rx#:[id number] Oral 720 / 720 Output: Urine 1800 / 1800 1700 / 1700 Other: # Voids 1 Date of Last Bowel Movement 01/24/18 # Bowel Movements 0 Narrative: GENERAL: Pleasant female, obese, appears in NAD, A&Ox3 HEAD: Normocephalic. NECK: Supple, trachea midline. No lymphadenopathy. EYES: No scleral icterus. No injection or drainage. CARDIOVASCULAR: Regular rate and rhythm without murmurs, gallops, or rubs. RESPIRATORY: Breath sounds equal bilaterally. No accessory muscle use. GASTROINTESTINAL: Abdomen soft, non-tender, nondistended. MUSCULOSKELETAL: No cyanosis, or edema. SKIN: Warm and dry. NEURO: No focal neurological deficits. Left leg weak compared to right. - Urinary Catheter Management Female External Cath placed during this visit: no Results - Labs CBC & Chem 7: 01/26/18 03:36 01/25/18 05:09 Laboratory Results - last 24 hr 01/27/18 01/27/18 01/28/18 16:05 20:52 04:45 POC Glucose 332 H 236 H Urine Color Yellow Urine Clarity Clear Urine pH 6.0 Ur Specific [place] 1.027 Urine Protein Negative Urine Glucose (UA) 500 or greater Urine Ketones Trace H Urine Occult Blood Negative Urine Nitrate Negative Urine Bilirubin Negative Urine Urobilinogen Less than 2 Ur Leukocyte Esterase Negative Urine RBC Less than 1 Urine WBC 1 Ur Squamous Epith Cells 1 Micro UA Comment Culture not ind Ur Microscopic Review Not Reportable Urine Culture Comments Culture not ind 01/28/18 07:38 POC Glucose 273 H Urine Color Urine Clarity Urine pH Ur Specific [place] Urine Protein Urine Glucose (UA) Urine Ketones Urine Occult Blood Urine Nitrate Urine Bilirubin Urine Urobilinogen Ur Leukocyte Esterase Urine RBC Urine WBC Ur Squamous Epith Cells Micro UA Comment Ur Microscopic Review Urine Culture Comments Assessment and Plan - Assessment (1) Pneumonia Code(s): J18.9 - Pneumonia, unspecified organism Status: Acute (2) Acidosis, lactic Code(s): E87.2 - Acidosis Status: Acute (3) Hypertensive crisis Code(s): I16.9 - Hypertensive crisis, unspecified Status: Acute (4) Left arm pain Code(s): M79.602 - Pain in left arm Status: Acute (5) Peripheral neuropathy Code(s): G62.9 - Polyneuropathy, unspecified Status: Chronic (6) Diabetes 1.5, managed as type 2 Code(s): E10.9 - Type 1 diabetes mellitus without complications Status: Chronic (7) COPD (chronic obstructive pulmonary disease) with acute bronchitis Code(s): J44.0 - Chronic obstructive pulmonary disease with acute lower respiratory infection; J20.9 - Acute bronchitis, unspecified Status: Acute - Plan 67 years old right handed female admitted secondary to pneumonia with left- sided weakness. Discontinue IV fluids. Change Protonix to p.o. Workup flank pain as below. Continue pain management. Continue following clinically. Continue physical therapy. [place] [facility] evaluating patient for [place] Flank pain Obtain urinalysis Obtain kidney ultrasound Follow clinically Pneumonia, community-acquired Failure of outpatient therapy Continue azithromycin Continue Rocephin COPD exacerbation Improving Follow clinically Wean steroids slowly Continue Symbicort Continue duo nebs Continue as needed albuterol Continue antitussives Accelerated hypertension BP improved. Continue to monitor blood pressures Continue Prinivil Continue Norvasc Continue visit Patient does not appear to be in overt heart failure. Was given nitroglycerin in the emergency room Left-sided weakness Slightly improved Negative CVA workup Etiology may be inflammatory or reactive, such as peripheral neuritis Continue aspirin Physical therapy Continue speech therapy NSAIDs Anticipate [facility] facility at discharge NSTEMI (type II) Continue aspirin Stop heparin drip Follow clinically next on cardiology following Left bicep pain, c/o pain to palpation Pain control Negative DVT workup Diabetes mellitus type 2 Follow blood sugars Insulin sliding scale Diabetic diet Levemir Wean steroids Peripheral neuropathy Continue with Elavil 25 mg p.o. daily Continue with gabapentin 300 mg p.o. daily Constipation As needed laxatives DVT prophylaxis Heparin Discharge planning [place] evaluation pending Needs rehab at [place] Discussed with the patient, nurse. (1) Pneumonia Qualifiers: Pneumonia type: due to unspecified organism Laterality: right (5) Peripheral neuropathy Qualifiers: Peripheral neuropathy type: polyneuropathy, unspecified Qualified Code(s): G62.9 - Polyneuropathy, unspecified
[2018-01-29] MEDS: amLODIPine 10 MG Tablet PO SCH (09:12)
[2018-01-29] MEDS: Heparin - SQ 10,000 UNITS/ML Vial SQ SCH ×2 (09:12→21:26)
[2018-01-29] MEDS: Gabapentin 300 MG Capsule PO SCH (09:12)
[2018-01-29] MEDS: Amitriptyline 25 MG Tablet PO SCH (09:12)
[2018-01-29] MEDS: Naproxen 250 MG Tablet PO SCH ×2 (09:12→21:26)
[2018-01-29] MEDS: Lisinopril 20 MG Tablet PO SCH (09:13)
[2018-01-29] MEDS: Budesonide-Formoterol 160/4.5 MCG 6 GM Inhaler INH SCH ×2 (09:14→21:27)
[2018-01-29] MEDS: Insulin NovoLOG Aspart Correctional Sugar Inj SQ SCH ×4 (09:16→21:15)
[2018-01-29] MEDS: Acetaminophen 325 MG Tablet PO PRN ×2 (10:18→21:26)
[2018-01-29] MEDS: MethylPREDNISolone Sod Succinate Inj 40 MG/ML Vial IV.PUSH SCH ×2 (10:19→22:23)
--- NOTE | 2018-01-29 10:46 | P.PN ---
Subjective Interval history: The patient is in the chair she is still with some shortness of breath and coughing nonproductive cough. With wheezing on and off however improving. No fever or chills overnight. No nausea or vomiting no diarrhea. Complains of constipation. Physical Exam Vital signs: Vital Signs 01/28/18 12:00 01/28/18 16:00 01/28/18 20:00 Temperature 97.4 F L 98.6 F 98.2 F Pulse Rate 69 64 73 Respiratory Rate 17 18 21 Blood Pressure 156/74 H 146/71 H 184/79 H Pulse Oximetry 100 95 94 L 01/29/18 00:00 01/29/18 04:00 01/29/18 08:00 Temperature 98.2 F 98 F 98.2 F Pulse Rate 63 55 L 60 Respiratory Rate 18 17 16 Blood Pressure 166/76 H 162/75 H 155/74 H Pulse Oximetry 95 95 99 Intake & Output 01/28/18 01/29/18 01/29/18 18:59 06:59 18:59 Intake Total 830 / 830 980 / 980 Output Total 1075 / 1075 Balance 830 / 830 -95 / -95 Intake: IV 350 / 350 Azithromycin Inj 500 MG In NS 250 / 250 Inj 250 ML @ 250 mls/hr IV.SIG Q24H [facility] Rx#:[id number] Rocephin Inj 1,000 MG In NS Inj 100 / 100 100 ML @ 200 mls/hr IV.SIG Q24H [facility] Rx#:[id number] Oral 480 / 480 980 / 980 Output: Urine 1075 / 1075 Other: # Voids 3 Narrative: GENERAL: Pleasant female, obese, appears in NAD, A&Ox3 HEAD: Normocephalic. NECK: Supple, trachea midline. No lymphadenopathy. EYES: No scleral icterus. No injection or drainage. CARDIOVASCULAR: Regular rate and rhythm without murmurs, gallops, or rubs. RESPIRATORY: Breath sounds equal bilaterally. No accessory muscle use. GASTROINTESTINAL: Abdomen soft, non-tender, nondistended. MUSCULOSKELETAL: No cyanosis, or edema. SKIN: Warm and dry. NEURO: No focal neurological deficits. Left leg weak compared to right. - Urinary Catheter Management Female External Cath placed during this visit: no Results - Labs CBC & Chem 7: 01/26/18 03:36 10/09/18 05:09 Laboratory Results - last 24 hr 01/28/18 01/28/18 01/29/18 17:19 21:24 09:11 POC Glucose 343 H 297 H 260 H Assessment and Plan - Assessment (1) Pneumonia Code(s): J18.9 - Pneumonia, unspecified organism Status: Acute (2) Acidosis, lactic Code(s): E87.2 - Acidosis Status: Acute (3) Hypertensive crisis Code(s): I16.9 - Hypertensive crisis, unspecified Status: Acute (4) Left arm pain Code(s): M79.602 - Pain in left arm Status: Acute (5) Peripheral neuropathy Code(s): G62.9 - Polyneuropathy, unspecified Status: Chronic (6) Diabetes 1.5, managed as type 2 Code(s): E10.9 - Type 1 diabetes mellitus without complications Status: Chronic (7) COPD (chronic obstructive pulmonary disease) with acute bronchitis Code(s): J44.0 - Chronic obstructive pulmonary disease with acute lower respiratory infection; J20.9 - Acute bronchitis, unspecified Status: Acute - Plan 67 years old right handed female admitted secondary to pneumonia with left- sided weakness. Discontinue IV fluids. Change Protonix to p.o. Workup flank pain as below. Continue pain management. Continue following clinically. Continue physical therapy. [place] inpatient [facility] evaluating patient for DC Flank pain Obtain urinalysis Obtain kidney ultrasound Follow clinically Pneumonia, community-acquired Failure of outpatient therapy Continue azithromycin Continue Rocephin COPD exacerbation Improving Follow clinically Wean steroids slowly Continue Symbicort Continue duo nebs Continue as needed albuterol Continue antitussives Accelerated hypertension BP improved. Continue to monitor blood pressures Continue Prinivil Continue Norvasc Continue visit Patient does not appear to be in overt heart failure. Was given nitroglycerin in the emergency room Left-sided weakness Slightly improved Negative CVA workup Etiology may be inflammatory or reactive, such as peripheral neuritis Continue aspirin Physical therapy Continue speech therapy NSAIDs Anticipate [facility] facility at discharge NSTEMI (type II) Continue aspirin Stop heparin drip Follow clinically next on cardiology following Left bicep pain, c/o pain to palpation Pain control Negative DVT workup Diabetes mellitus type 2 Follow blood sugars Insulin sliding scale Diabetic diet Levemir Wean steroids Peripheral neuropathy Continue with Elavil 25 mg p.o. daily Continue with gabapentin 300 mg p.o. daily Constipation As needed laxatives DVT prophylaxis Heparin Discharge planning [facility] evaluation pending Needs rehab at [place] Discussed with the patient, nurse. poss DC to inpatient rehab (1) Pneumonia Qualifiers: Pneumonia type: due to unspecified organism Laterality: right (5) Peripheral neuropathy Qualifiers: Peripheral neuropathy type: polyneuropathy, unspecified Qualified Code(s): G62.9 - Polyneuropathy, unspecified
[2018-01-29] MEDS: Azithromycin Inj 500 MG in Sodium Chlor 0.9% Inj 250 ML IV.SIG SCH (13:57)
[2018-01-30] MEDS: amLODIPine 10 MG Tablet PO SCH (09:58)
[2018-01-30] MEDS: Amitriptyline 25 MG Tablet PO SCH (09:58)
[2018-01-30] MEDS: Gabapentin 300 MG Capsule PO SCH (09:58)
[2018-01-30] MEDS: Insulin NovoLOG Aspart Correctional Sugar Inj SQ SCH ×5 (09:58→20:34)
[2018-01-30] MEDS: Budesonide-Formoterol 160/4.5 MCG 6 GM Inhaler INH SCH ×2 (10:02→20:35)
[2018-01-30] MEDS: MethylPREDNISolone Sod Succinate Inj 40 MG/ML Vial IV.PUSH SCH ×2 (10:07→23:19)
[2018-01-30] MEDS: Naproxen 250 MG Tablet PO SCH ×2 (10:08→20:33)
[2018-01-30] MEDS: Lisinopril 20 MG Tablet PO SCH (10:08)
[2018-01-30] MEDS: Heparin - SQ 10,000 UNITS/ML Vial SQ SCH ×2 (10:08→20:33)
[2018-01-30] MEDS: Azithromycin Inj 500 MG in Sodium Chlor 0.9% Inj 250 ML IV.SIG SCH (14:21)
--- NOTE | 2018-01-30 16:36 | P.PN ---
Subjective Interval history: The patient is in bed says she has some left lower quadrant abdominal pain patient complains of constipation did not receive any medications for constipation. Discussed with the nurse. Otherwise no fever or chills. She also complains of headaches and pain in her left eye. Denies chest pain or shortness of breath at this time. She is saturating fairly well on 2 L by nasal cannula. No nausea or vomiting. Physical Exam Vital signs: Vital Signs 01/29/18 20:00 01/30/18 00:00 01/30/18 03:59 Temperature 98.1 F 98.4 F 98 F Pulse Rate 80 64 70 Respiratory Rate 18 17 15 Blood Pressure 150/68 H 155/70 H 146/67 H Pulse Oximetry 97 94 L 93 L 01/30/18 04:00 01/30/18 08:00 01/30/18 12:00 Temperature 97.5 F L 98.5 F Pulse Rate 68 67 64 Respiratory Rate 21 22 Blood Pressure 135/67 140/60 Pulse Oximetry 98 98 Intake & Output 01/29/18 01/30/18 01/30/18 18:59 06:59 18:59 Intake Total 1310 / 1310 240 / 240 Output Total 900 / 900 850 / 850 Balance 410 / 410 -610 / -610 Weight 77.1 kg Intake: IV 350 / 350 Azithromycin Inj 500 MG In NS 250 / 250 Inj 250 ML @ 250 mls/hr IV.SIG Q24H [facility] Rx#:[id number] Rocephin Inj 1,000 MG In NS Inj 100 / 100 100 ML @ 200 mls/hr IV.SIG Q24H [facility] Rx#:[id number] Oral 960 / 960 240 / 240 Output: Urine 900 / 900 850 / 850 Other: # Voids 1 # Bowel Movements 0 Narrative: GENERAL: Pleasant female, obese, appears in NAD, A&Ox3 HEAD: Normocephalic. NECK: Supple, trachea midline. No lymphadenopathy. EYES: No scleral icterus. No injection or drainage. CARDIOVASCULAR: Regular rate and rhythm without murmurs, gallops, or rubs. RESPIRATORY: Breath sounds equal bilaterally. No accessory muscle use. GASTROINTESTINAL: Abdomen soft, mild tenderness to palpation left lower quadrant , nondistended. MUSCULOSKELETAL: No cyanosis, or edema. SKIN: Warm and dry. NEURO: No focal neurological deficits. Left leg weak compared to right. - Urinary Catheter Management Female External Cath placed during this visit: no Results - Labs CBC & Chem 7: 01/26/18 03:36 01/25/18 05:09 Laboratory Results - last 24 hr 01/29/18 01/29/18 01/30/18 17:29 20:37 04:57 POC Glucose 279 H 297 H 316 H 01/30/18 01/30/18 08:02 12:52 POC Glucose 293 H 265 H Assessment and Plan - Assessment (1) Pneumonia Code(s): J18.9 - Pneumonia, unspecified organism Status: Acute (2) Acidosis, lactic Code(s): E87.2 - Acidosis Status: Acute (3) Hypertensive crisis Code(s): I16.9 - Hypertensive crisis, unspecified Status: Acute (4) Left arm pain Code(s): M79.602 - Pain in left arm Status: Acute (5) Peripheral neuropathy Code(s): G62.9 - Polyneuropathy, unspecified Status: Chronic (6) Diabetes 1.5, managed as type 2 Code(s): E10.9 - Type 1 diabetes mellitus without complications Status: Chronic (7) COPD (chronic obstructive pulmonary disease) with acute bronchitis Code(s): J44.0 - Chronic obstructive pulmonary disease with acute lower respiratory infection; J20.9 - Acute bronchitis, unspecified Status: Acute - Plan 67 years old right handed female admitted secondary to pneumonia with left- sided weakness. Discontinue IV fluids. Change Protonix to p.o. Workup flank pain as below. Continue pain management. Continue following clinically. Continue physical therapy. [place] inpatient [facility] evaluating patient for DC Flank pain Obtain urinalysis Obtain kidney ultrasound Follow clinically Pneumonia, community-acquired Failure of outpatient therapy Continue azithromycin Continue Rocephin COPD exacerbation Improving Follow clinically Wean steroids slowly Continue Symbicort Continue duo nebs Continue as needed albuterol Continue antitussives Accelerated hypertension BP improved. Continue to monitor blood pressures Continue Prinivil Continue Norvasc Continue visit Patient does not appear to be in overt heart failure. Was given nitroglycerin in the emergency room Left-sided weakness Slightly improved Negative CVA workup Etiology may be inflammatory or reactive, such as peripheral neuritis Continue aspirin Physical therapy Continue speech therapy NSAIDs Anticipate care home facility at discharge NSTEMI (type II) Continue aspirin Stop heparin drip Follow clinically next on cardiology following Left bicep pain, c/o pain to palpation Pain control Negative DVT workup Diabetes mellitus type 2 Follow blood sugars Insulin sliding scale Diabetic diet Levemir Wean steroids Peripheral neuropathy Continue with Elavil 25 mg p.o. daily Continue with gabapentin 300 mg p.o. daily Constipation As needed laxatives DVT prophylaxis Heparin Discharge planning [facility] evaluation pending Needs rehab at [facility] Discussed with the patient, nurse. poss DC to inpatient rehab Case management following for discharge plan (1) Pneumonia Qualifiers: Pneumonia type: due to unspecified organism Laterality: right (5) Peripheral neuropathy Qualifiers: Peripheral neuropathy type: polyneuropathy, unspecified Qualified Code(s): G62.9 - Polyneuropathy, unspecified
[2018-01-31] MEDS: amLODIPine 10 MG Tablet PO SCH (09:29)
[2018-01-31] MEDS: Lisinopril 20 MG Tablet PO SCH (09:29)
[2018-01-31] MEDS: Naproxen 250 MG Tablet PO SCH ×2 (09:29→21:50)
[2018-01-31] MEDS: Gabapentin 300 MG Capsule PO SCH (09:30)
[2018-01-31] MEDS: Amitriptyline 25 MG Tablet PO SCH (09:30)
[2018-01-31] MEDS: Insulin NovoLOG Aspart Correctional Sugar Inj SQ SCH ×4 (09:31→21:50)
[2018-01-31] MEDS: Heparin - SQ 10,000 UNITS/ML Vial SQ SCH ×2 (09:32→22:19)
[2018-01-31] MEDS: Budesonide-Formoterol 160/4.5 MCG 6 GM Inhaler INH SCH ×2 (09:34→21:44)
--- NOTE | 2018-01-31 10:27 | P.PN ---
Subjective Interval history: Patient is resting comfortably in bed. She says that her breathing is much better today. No other concerns. Denies nausea, vomiting, fever, chest pain, SOB. Physical Exam Vital signs: Vital Signs 01/30/18 12:00 01/30/18 16:00 01/30/18 20:00 Temperature 98.5 F 97.6 F 98.1 F Pulse Rate 92 H 80 65 Respiratory Rate 22 22 14 Blood Pressure 140/60 145/70 H 121/62 Pulse Oximetry 98 97 93 L 01/31/18 00:00 01/31/18 04:00 01/31/18 08:00 Temperature 98.7 F 97.9 F 98.1 F Pulse Rate 74 59 L 68 Respiratory Rate 18 16 17 Blood Pressure 128/61 132/70 150/72 H Pulse Oximetry 97 95 99 Intake & Output 01/30/18 01/31/18 01/31/18 18:59 06:59 18:59 Intake Total 810 / 810 240 / 240 Output Total 850 / 850 Balance 810 / 810 -610 / -610 Weight 76.1 kg Intake: IV 350 / 350 Azithromycin Inj 500 MG In NS 250 / 250 Inj 250 ML @ 250 mls/hr IV.SIG Q24H [facility] Rx#:[id number] Rocephin Inj 1,000 MG In NS Inj 100 / 100 100 ML @ 200 mls/hr IV.SIG Q24H [facility] Rx#:[id number] Oral 460 / 460 240 / 240 Output: Urine 850 / 850 Other: # Voids 4 1 # Bowel Movements 1 Narrative: GENERAL: Pleasant 67 year old female in NAD, alert and oriented x3 HEAD: Normocephalic. NECK: Supple, trachea midline. No lymphadenopathy. EYES: No scleral icterus. No injection or drainage. CARDIOVASCULAR: Regular rate and rhythm without murmurs, gallops, or rubs. RESPIRATORY: Breath sounds equal bilaterally. No accessory muscle use. GASTROINTESTINAL: Abdomen soft, mild tenderness to palpation left lower quadrant , nondistended. MUSCULOSKELETAL: No cyanosis, or edema. SKIN: Warm and dry. NEURO: CNII - XII grossly intact. No focal neurological deficits. 4/5 LLE strength compared to 5/5 on RLE. - Urinary Catheter Management Female External Cath placed during this visit: no Results - Labs CBC & Chem 7: 01/26/18 03:36 01/25/18 05:09 Laboratory Results - last 24 hr 01/30/18 01/30/18 01/30/18 12:52 18:06 20:05 POC Glucose 265 H 305 H 336 H 01/31/18 01/31/18 02:18 09:28 POC Glucose 286 H 282 H Assessment and Plan - Assessment (1) Acidosis, lactic Code(s): E87.2 - Acidosis Status: Acute (2) COPD (chronic obstructive pulmonary disease) with acute bronchitis Code(s): J44.0 - Chronic obstructive pulmonary disease with acute lower respiratory infection; J20.9 - Acute bronchitis, unspecified Status: Acute (3) Hypertensive crisis Code(s): I16.9 - Hypertensive crisis, unspecified Status: Acute (4) Hypertensive crisis without congestive heart failure Code(s): I16.9 - Hypertensive crisis, unspecified Status: Acute (5) Left arm pain Code(s): M79.602 - Pain in left arm Status: Acute (6) Pneumonia Code(s): J18.9 - Pneumonia, unspecified organism Status: Acute (7) URI (upper respiratory infection) Code(s): J06.9 - Acute upper respiratory infection, unspecified Status: Acute (8) Diabetes 1.5, managed as type 2 Code(s): E10.9 - Type 1 diabetes mellitus without complications Status: Chronic (9) Peripheral neuropathy Code(s): G62.9 - Polyneuropathy, unspecified Status: Chronic - Plan The patient is a 67 years old right-handed female who was admitted secondary to pneumonia with left-sided weakness on 01/21. Flank pain UA - negative Kidney ultrasound - normal Follow clinically Pneumonia, community-acquired Failure of outpatient therapy d/c IV azithromycin, Rocephin, switch to PO abx COPD exacerbation Improving Follow clinically Wean steroids slowly, d/c today Continue Symbicort Continue duo nebs Continue as needed albuterol Continue antitussives Accelerated hypertension BP improved. Continue to monitor blood pressures Continue Prinivil Continue Norvasc Continue visit Patient does not appear to be in overt heart failure. Was given nitroglycerin in the emergency room Left-sided weakness Slightly improved Negative CVA workup Etiology may be inflammatory or reactive, such as peripheral neuritis Continue aspirin Physical therapy Continue speech therapy NSAIDs [facility] NSTEMI (type II) Continue aspirin D/Pal heparin drip Follow clinically next on cardiology following Left bicep pain, c/o pain to palpation Pain control Negative DVT workup Diabetes mellitus type 2 Follow blood sugars Insulin sliding scale Diabetic diet Levemir Wean steroids Peripheral neuropathy Continue with Elavil 25 mg p.o. daily Continue with gabapentin 300 mg p.o. daily Constipation As needed laxatives DVT prophylaxis SCD's/Heparin Discharge planning Discontinue IV fluids. Change Protonix to p.o. [facility] evaluation pending Needs rehab at [facility] to inpatient rehab Case management following for discharge plan (9) Peripheral neuropathy Qualifiers: Qualified Code(s): G62.9 - Polyneuropathy, unspecified
--- NOTE | 2018-01-31 11:50 | P.PN ---
Subjective Interval history: Feels cold patient with chills. No fever Some cough and also with chest pain intermittent. Complaints of headache. No change in vision or motor deficit. Had a BM Physical Exam Vital signs: Vital Signs 01/30/18 12:00 01/30/18 16:00 01/30/18 20:00 Temperature 98.5 F 97.6 F 98.1 F Pulse Rate 92 H 80 65 Respiratory Rate 22 22 14 Blood Pressure 140/60 145/70 H 121/62 Pulse Oximetry 98 97 93 L 01/31/18 00:00 01/31/18 04:00 01/31/18 08:00 Temperature 98.7 F 97.9 F 98.1 F Pulse Rate 74 59 L 68 Respiratory Rate 18 16 17 Blood Pressure 128/61 132/70 150/72 H Pulse Oximetry 97 95 99 Intake & Output 01/30/18 01/31/18 01/31/18 18:59 06:59 18:59 Intake Total 810 / 810 240 / 240 Output Total 850 / 850 Balance 810 / 810 -610 / -610 Weight 76.1 kg Intake: IV 350 / 350 Azithromycin Inj 500 MG In NS 250 / 250 Inj 250 ML @ 250 mls/hr IV.SIG Q24H [facility] Rx#:[id number] Rocephin Inj 1,000 MG In NS Inj 100 / 100 100 ML @ 200 mls/hr IV.SIG Q24H [facility] Rx#:[id number] Oral 460 / 460 240 / 240 Output: Urine 850 / 850 Other: # Voids 4 1 # Bowel Movements 1 Narrative: GENERAL: Pleasant 67 year old female in NAD, alert and oriented x3 HEAD: Normocephalic. CARDIOVASCULAR: Regular rate and rhythm without murmurs, gallops, or rubs. RESPIRATORY: Breath sounds equal bilaterally. No accessory muscle use. GASTROINTESTINAL: Abdomen soft, mild tenderness to palpation left lower quadrant , nondistended. MUSCULOSKELETAL: No cyanosis, or edema. SKIN: Warm and dry. NEURO: CNII - XII grossly intact. No focal neurological deficits. 4/5 LLE strength compared to 5/5 on RLE. - Urinary Catheter Management Female External Cath placed during this visit: no Results - Labs CBC & Chem 7: 01/26/18 03:36 01/25/18 05:09 Laboratory Results - last 24 hr 01/30/18 01/30/1818 12:52 18:06 20:05 POC Glucose 265 H 305 H 336 H 01/31/18 01/31/18 02:18 09:28 POC Glucose 286 H 282 H Assessment and Plan - Assessment (1) Pneumonia Code(s): J18.9 - Pneumonia, unspecified organism Status: Acute (2) Acidosis, lactic Code(s): E87.2 - Acidosis Status: Acute (3) Hypertensive crisis Code(s): I16.9 - Hypertensive crisis, unspecified Status: Acute (4) Left arm pain Code(s): M79.602 - Pain in left arm Status: Acute (5) Peripheral neuropathy Code(s): G62.9 - Polyneuropathy, unspecified Status: Chronic (6) Diabetes 1.5, managed as type 2 Code(s): E10.9 - Type 1 diabetes mellitus without complications Status: Chronic (7) COPD (chronic obstructive pulmonary disease) with acute bronchitis Code(s): J44.0 - Chronic obstructive pulmonary disease with acute lower respiratory infection; J20.9 - Acute bronchitis, unspecified Status: Acute - Plan 67 years old right handed female admitted secondary to pneumonia with left- sided weakness. Discontinue IV fluids. Change Protonix to p.o. Workup flank pain as below. Continue pain management. Continue following clinically. Continue physical therapy. [place] inpatient rehab evaluating patient for DC Treated with iv abx Flank pain Obtain urinalysis Obtain kidney ultrasound Follow clinically Pneumonia, community-acquired Failure of outpatient therapy Treated with antibiotics azithromycin, Rocephin COPD exacerbation Improving Follow clinically Wean steroids slowly Continue Symbicort Continue duo nebs Continue as needed albuterol Continue antitussives Accelerated hypertension BP improved. Continue to monitor blood pressures Continue Prinivil Continue Norvasc Continue visit Patient does not appear to be in overt heart failure. Was given nitroglycerin in the emergency room Left-sided weakness Slightly improved Negative CVA workup Etiology may be inflammatory or reactive, such as peripheral neuritis Continue aspirin Physical therapy Continue speech therapy NSAIDs [facility]ticip[facility] discharge NSTEMI (type II) Continue aspirin Stop heparin drip Follow clinically next on cardiology following Left bicep pain, c/o pain to palpation Pain control Negative DVT workup Diabetes mellitus type 2 Follow blood sugars Insulin sliding scale Diabetic diet Levemir Wean steroids Peripheral neuropathy Continue with Elavil 25 mg p.o. daily Continue with gabapentin 300 mg p.o. daily Constipation As needed laxatives DVT prophylaxis Heparin Discharge planning [facility] evaluation pending Needs rehab at [place] Discussed with the patient, nurse. poss DC to inpatient rehab Case management following for discharge plan (1) Pneumonia Qualifiers: Pneumonia type: due to unspecified organism Laterality: right (5) Peripheral neuropathy Qualifiers: Peripheral neuropathy type: polyneuropathy, unspecified Qualified Code(s): G62.9 - Polyneuropathy, unspecified
[2018-01-31] MEDS ORDERED: Ibuprofen 400 MG Tablet PO ONE (13:30)
[2018-01-31] MEDS: MethylPREDNISolone Sod Succinate Inj 40 MG/ML Vial IV.PUSH SCH ×2 (13:37→22:19)
[2018-01-31] MEDS: Azithromycin Inj 500 MG in Sodium Chlor 0.9% Inj 250 ML IV.SIG SCH (14:44)
[2018-02-01] MEDS: Gabapentin 300 MG Capsule PO SCH (08:32)
[2018-02-01] MEDS: Lisinopril 20 MG Tablet PO SCH (08:33)
[2018-02-01] MEDS: Amitriptyline 25 MG Tablet PO SCH (08:33)
[2018-02-01] MEDS: amLODIPine 10 MG Tablet PO SCH (08:33)
[2018-02-01] MEDS: Naproxen 250 MG Tablet PO SCH ×2 (08:33→21:26)
[2018-02-01] MEDS: Heparin - SQ 10,000 UNITS/ML Vial SQ SCH ×2 (08:34→21:25)
[2018-02-01] MEDS: Insulin NovoLOG Aspart Correctional Sugar Inj SQ SCH ×4 (08:34→21:26)
[2018-02-01] MEDS: Budesonide-Formoterol 160/4.5 MCG 6 GM Inhaler INH SCH ×2 (08:36→23:03)
--- NOTE | 2018-02-01 10:31 | P.DS ---
Date of admission: 01/21/18 14:27 Primary care physician: No Primary Care Physician Brief History from admission: Mrs Ricky Keating is a pleasant 67-year-old female of [place] descent, significant past medical history hypertension, diabetes, TIA, peripheral neuropathy. Presents with complaint of cough and congestion since January 01. She went to see her primary care physician who prescribed her Cipro 750 mg p.o. twice daily for 10 days/ She completed antibiotics. Indicates that her symptoms have continued to worsen, she has had increased cough with gamez sputum associated with wheezing, chest pain secondary to coughing. She has had some shortness of breath, denies any nasal congestion, complains of a sore throat. Indicates that the cough is keeping her up at night. She has had chills and subjective fevers. Patient was evaluated in the emergency room, CBC was unremarkable. BMP essentially unremarkable. Lactic acid was 2.5. Troponin was negative. B natruretic peptide 66. Chest x-ray with findings concerning for pneumonia. Blood pressure was noted elevated, 221/92. She was given nitroglycerin, blood pressure has been trending down. She received IV fluids, cultures were obtained and she was started on Rocephin and Zithromax. Patient is now examined, continues to cough. Denies any chest pain at this time. She is complaining of left bicep pain, denies any injury. Feels that there is a bulge on the left bicep. She complains of pain when lifting her arm, more on the bicep than joint. Denies any nausea, no vomiting, has some constipation at this time. No urinary symptoms. Patient is admitted for further evaluation and treatment. DS: Diagnosis - Discharge Diagnosis (1) Pneumonia Status: Acute (2) Acidosis, lactic Status: Acute (3) Hypertensive crisis Status: Acute (4) Left arm pain Status: Acute (5) Peripheral neuropathy Status: Chronic (6) Diabetes 1.5, managed as type 2 Status: Chronic (7) COPD (chronic obstructive pulmonary disease) with acute bronchitis Status: Chronic DS: Medications - Discharge Medications Prescriptions: albuterol sulfate [Proventil HFA] 1 puff INHALATION Q4-6H PRN 30 Days g PRN Reason: sob/wheezing DS: Summary Hospital Course: 67 years old right handed female admitted secondary to pneumonia with left- sided weakness. Treated with iv abx Flank pain urinalysis no inf kidney ultrasound no obstruction Follow clinically Pneumonia, community-acquired Failure of outpatient therapy Treated with antibiotics azithromycin, Rocephin COPD exacerbation Improving Follow clinically Wean steroids Continue Symbicort Continue duo nebs Continue as needed albuterol Continue antitussives Accelerated hypertension BP improved. Continue to monitor blood pressures Continue Prinivil Continue Norvasc Continue visit Patient does not appear to be in overt heart failure. Was given nitroglycerin in the emergency room Left-sided weakness Slightly improved Negative CVA workup Etiology may be inflammatory or reactive, such as peripheral neuritis Continue aspirin Physical therapy Continue speech therapy NSAIDs NSTEMI (type II) Continue aspirin Stop heparin drip Follow clinically , cardiology following Left bicep pain, c/o pain to palpation Pain control Negative DVT workup Diabetes mellitus type 2 Follow blood sugars Insulin sliding scale Diabetic diet Levemir Wean steroids Peripheral neuropathy Continue with Elavil 25 mg p.o. daily Continue with gabapentin 300 mg p.o. daily Constipation As needed laxatives DVT prophylaxis Heparin Passed O2 walk test , was ambulating with pulm therapist she feels weak on 02/02 and patient needs rehab DC to [facility] in stable condition. - Time Spent with Patient Total time spent providing and/or coordinating discharge services: Greater than 30 minutes - Quality: Stroke Last date observed well: 01/23/18 Last time observed well: 15:00 - Quality: VTE Deep Vein Thrombosis/Pulmonary Embolism Present on Admission: No Exam Vital signs: Vital Signs 01/31/18 12:00 01/31/18 16:00 01/31/18 16:15 Temperature 98.2 F 97.8 F Pulse Rate 67 77 Respiratory Rate 17 17 Blood Pressure 146/74 H 137/58 L Pulse Oximetry 98 99 98 01/31/18 20:00 01/31/18 20:28 01/31/18 23:59 Temperature 98.3 F 98.7 F Pulse Rate 83 75 71 Respiratory Rate 20 16 Blood Pressure 144/67 H 158/74 H Pulse Oximetry 96 94 L 02/01/18 00:00 02/01/18 04:00 02/01/18 05:25 Temperature 97.3 F L Pulse Rate 68 63 66 Respiratory Rate 16 Blood Pressure 140/66 Pulse Oximetry 98 02/01/18 08:00 Temperature 98.3 F Pulse Rate 69 Respiratory Rate 20 Blood Pressure 144/67 H Pulse Oximetry 91 L Intake & Output 01/31/18 02/01/18 02/01/18 18:59 06:59 18:59 Intake Total 950 / 950 240 / 240 Output Total 600 / 600 Balance 950 / 950 -360 / -360 Weight 74.3 kg Intake: IV 350 / 350 Azithromycin Inj 500 MG In NS 250 / 250 Inj 250 ML @ 250 mls/hr IV.SIG Q24H BRIAN Rx#:[id number] Rocephin Inj 1,000 MG In NS Inj 100 / 100 100 ML @ 200 mls/hr IV.SIG Q24H BRIAN Rx#:[id number] Oral 600 / 600 240 / 240 Output: Urine 600 / 600 Other: # Voids 3 Date of Last Bowel Movement 01/31/18 # Bowel Movements 1 Narrative: GENERAL: Pleasant 67 year old female in NAD, alert and oriented x3 HEAD: Normocephalic. CARDIOVASCULAR: Regular rate and rhythm without murmurs, gallops, or rubs. RESPIRATORY: Breath sounds equal bilaterally. No accessory muscle use. GASTROINTESTINAL: Abdomen soft, mild tenderness to palpation left lower quadrant , nondistended. MUSCULOSKELETAL: No cyanosis, or edema. SKIN: Warm and dry. NEURO: CNII - XII grossly intact. No focal neurological deficits. 4/5 LLE strength compared to 5/5 on RLE. Results Procedures completed during hospitalization: no procedures Labs on day of discharge: Labs from last 24 hours 02/01/18 01/31/18 01/31/18 08:13 17:58 13:30 POC Glucose 293 H 341 H 268 H - Impressions ITS Impressions Venous Doppler Study 01/21/18 00:00 CONCLUSION: 1. No venous thrombosis of the left upper extremity. Chest X-Ray 01/21/18 10:37 CONCLUSION: Cardiomegaly with mild interstitial prominence. Failure would be a consideration. Very minimal parenchymal changes right base new from comparison study. Head CT 01/23/18 00:00 CONCLUSION: 1. Negative stroke alert CT brain. Report was called to Dr. Lees at 4:05 pm. The number provided went to [email or web address] and the results were provided. A critical value was also initiated in case the number provided for the stroke alert physician is incorrect. Head CTA 01/23/18 00:00 CONCLUSION: 1. Negative CTA of the [place] of [place]. Head MRI 01/23/18 00:00 CONCLUSION: 1. Negative noncontrast MRI of the brain. No evidence of acute stroke. Neck CTA 01/23/18 00:00 CONCLUSION: 1. Unremarkable CTA of the carotids for patient's age. Abdomen/Bladder Ultrasound 01/27/18 00:00 CONCLUSION: 1. Normal renal sonogram. Discharge Plan - Discharge Disposition Patient Disposition: 63 Re[facility] Inpatient - Discharge Condition Condition: Stable - Discharge Order Discharge Orders: Discharge Order (Routine); Ordered 02/01/18 Ordered By: Krystyna Pierce - Discharge Details Anticipated Discharge Date: 02/01/18 - Physicians Team Primary Care Provider: Primary Care Yesy Negro Attending Provider: Krystyna Pierce Other Providers: Leah Ferrer MD ; Nick Lees MD ; Dominique Robledo MD
[2018-02-01] MEDS: MethylPREDNISolone Sod Succinate Inj 40 MG/ML Vial IV.PUSH SCH ×2 (13:08→23:03)
[2018-02-01] MEDS: Azithromycin Inj 500 MG in Sodium Chlor 0.9% Inj 250 ML IV.SIG SCH (13:10)
--- NOTE | 2018-02-01 15:00 | P.PN ---
Subjective Interval history: In the chair With chills yesterday as room was cold, today no chills. No fever. With headache improved. No cp. No sob however require O2 no wheezing Some nausea, no vomiting. Had a BM , still constipated Physical Exam Vital signs: Vital Signs 01/31/18 16:00 01/31/18 16:15 01/31/18 20:00 Temperature 97.8 F Pulse Rate 77 83 Respiratory Rate 17 Blood Pressure 137/58 L Pulse Oximetry 99 98 01/31/18 20:28 01/31/18 23:59 02/01/18 00:00 Temperature 98.3 F 98.7 F Pulse Rate 75 71 68 Respiratory Rate 20 16 Blood Pressure 144/67 H 158/74 H Pulse Oximetry 96 94 L 02/01/18 04:00 02/01/18 05:25 02/01/18 08:00 Temperature 97.3 F L 98.3 F Pulse Rate 63 66 82 Respiratory Rate 16 20 Blood Pressure 140/66 144/67 H Pulse Oximetry 98 91 L 02/01/18 12:00 Temperature 98.4 F Pulse Rate 73 Respiratory Rate 20 Blood Pressure 135/65 Pulse Oximetry 99 Intake & Output 01/31/18 02/01/18 02/01/18 18:59 06:59 18:59 Intake Total 950 / 950 240 / 240 Output Total 600 / 600 Balance 950 / 950 -360 / -360 Weight 74.3 kg Intake: IV 350 / 350 Azithromycin Inj 500 MG In NS 250 / 250 Inj 250 ML @ 250 mls/hr IV.SIG Q24H BRIAN Rx#:[id number] Rocephin Inj 1,000 MG In NS Inj 100 / 100 100 ML @ 200 mls/hr IV.SIG Q24H BRIAN Rx#:[id number] Oral 600 / 600 240 / 240 Output: Urine 600 / 600 Other: # Voids 3 Date of Last Bowel Movement 01/31/18 # Bowel Movements 1 Narrative: GENERAL: Pleasant 67 year old female in NAD, alert and oriented x3 HEAD: Normocephalic. CARDIOVASCULAR: Regular rate and rhythm without murmurs, gallops, or rubs. RESPIRATORY: Breath sounds equal bilaterally. No accessory muscle use. GASTROINTESTINAL: Abdomen soft, mild tenderness to palpation left lower quadrant , nondistended. MUSCULOSKELETAL: No cyanosis, or edema. SKIN: Warm and dry. NEURO: CNII - XII grossly intact. No focal neurological deficits. 4/5 LLE strength compared to 5/5 on RLE. - Urinary Catheter Management Female External Cath placed during this visit: no Results - Labs CBC & Chem 7: 01/26/18 03:36 01/25/18 05:09 Laboratory Results - last 24 hr 01/31/18 02/01/18 17:58 08:13 POC Glucose 341 H 293 H Assessment and Plan - Assessment (1) Pneumonia Code(s): J18.9 - Pneumonia, unspecified organism Status: Acute (2) Acidosis, lactic Code(s): E87.2 - Acidosis Status: Acute (3) Hypertensive crisis Code(s): I16.9 - Hypertensive crisis, unspecified Status: Acute (4) Left arm pain Code(s): M79.602 - Pain in left arm Status: Acute (5) Peripheral neuropathy Code(s): G62.9 - Polyneuropathy, unspecified Status: Chronic (6) Diabetes 1.5, managed as type 2 Code(s): E10.9 - Type 1 diabetes mellitus without complications Status: Chronic (7) COPD (chronic obstructive pulmonary disease) with acute bronchitis Code(s): J44.0 - Chronic obstructive pulmonary disease with acute lower respiratory infection; J20.9 - Acute bronchitis, unspecified Status: Acute - Plan 67 years old right handed female admitted secondary to pneumonia with left- sided weakness. Discontinue IV fluids. Change Protonix to p.o. Workup flank pain as below. Continue pain management. Continue following clinically. Continue physical therapy. [place] inpatient rehab evaluating patient for DC Treated with iv abx Flank pain Obtain urinalysis Obtain kidney ultrasound Follow clinically Pneumonia, community-acquired Failure of outpatient therapy Treated with antibiotics azithromycin, Rocephin COPD exacerbation Improving Follow clinically Wean steroids slowly Continue Symbicort Continue duo nebs Continue as needed albuterol Continue antitussives Accelerated hypertension BP improved. Continue to monitor blood pressures Continue Prinivil Continue Norvasc Continue visit Patient does not appear to be in overt heart failure. Was given nitroglycerin in the emergency room Left-sided weakness Slightly improved Negative CVA workup Etiology may be inflammatory or reactive, such as peripheral neuritis Continue aspirin Physical therapy Continue speech therapy NSAIDs Anticipate nursing home facility at discharge NSTEMI (type II) Continue aspirin Stop heparin drip Follow clinically next on cardiology following Left bicep pain, c/o pain to palpation Pain control Negative DVT workup Diabetes mellitus type 2 Follow blood sugars Insulin sliding scale Diabetic diet Levemir Wean steroids Peripheral neuropathy Continue with Elavil 25 mg p.o. daily Continue with gabapentin 300 mg p.o. daily Constipation As needed laxatives DVT prophylaxis Heparin Discharge planning [place] evaluation pending Needs rehab at [place] Discussed with the patient, nurse. poss DC to inpatient rehab Case management following for discharge plan Poss DC to [place] pending approval. Or DC home with home health patient insurance doesnt cover SNF, discussed with the CM and patient and family (1) Pneumonia Qualifiers: Pneumonia type: due to unspecified organism Laterality: right (5) Peripheral neuropathy Qualifiers: Peripheral neuropathy type: polyneuropathy, unspecified Qualified Code(s): G62.9 - Polyneuropathy, unspecified
[2018-02-01] MEDS: Acetaminophen 325 MG Tablet PO PRN (21:30)
[2018-02-02 07:06] LABS: Baso % (Auto) 0.1 % (0.0-2.0); Hematocrit 44.1 % (35.0-46.0); Hemoglobin 14.6 gm/dL (11.6-15.3); Lymph # (Auto) 0.8 th/mm3 (1.0-4.8); Lymph % (Auto) 9.4 % (9.0-44.0); Mean Corpuscular HGB Conc 33.2 % (32.0-36.0); Mean Corpuscular Hemoglobin 28.8 pg (27.0-34.0); Mean Corpuscular Volume 86.8 fL (80.0-100.0); Mean Platelet Volume 10.2 fL (7.0-11.0); Mono # (Auto) 0.4 th/mm3 (0.0-0.9); Mono % (Auto) 4.3 % (0.0-8.0); Neut # (Auto) 7.3 th/mm3 (1.8-7.7); Neut % (Auto) 86.2 % (16.0-70.0); Platelet Count 174 th/mm3 (150-450); Red Blood Count 5.08 mil/mm3 (4.00-5.30); Red Cell Distribution Width 13.2 % (11.6-17.2); White Blood Count 8.5 th/mm3 (4.0-11.0)
[2018-02-02 07:24] LABS: Anion Gap 10 meq/L (5-15); Blood Urea Nitrogen 28 mg/dL (7-18); Calcium 8.9 mg/dL (8.5-10.1); Carbon Dioxide 25.4 meq/L (21.0-32.0); Chloride 99 meq/L (98-107); Glomerular Filtration Rate Greater Than 89 mL/min (>89); Glucose,Random 302 mg/dL (74-106); Potassium 4.4 meq/L (3.5-5.1); Sodium 134 meq/L (136-145)
[2018-02-02] MEDS: Gabapentin 300 MG Capsule PO SCH (09:32)
[2018-02-02] MEDS: MethylPREDNISolone Sod Succinate Inj 40 MG/ML Vial IV.PUSH SCH ×4 (09:32→23:12)
[2018-02-02] MEDS: Naproxen 250 MG Tablet PO SCH ×2 (09:32→20:56)
[2018-02-02] MEDS: Lisinopril 20 MG Tablet PO SCH (09:32)
[2018-02-02] MEDS: Amitriptyline 25 MG Tablet PO SCH (09:33)
[2018-02-02] MEDS: amLODIPine 10 MG Tablet PO SCH (09:33)
[2018-02-02] MEDS: Acetaminophen 325 MG Tablet PO PRN (09:33)
[2018-02-02] MEDS: Heparin - SQ 10,000 UNITS/ML Vial SQ SCH ×2 (09:36→20:54)
[2018-02-02] MEDS: Budesonide-Formoterol 160/4.5 MCG 6 GM Inhaler INH SCH ×2 (09:36→20:56)
[2018-02-02] MEDS: Insulin NovoLOG Aspart Correctional Sugar Inj SQ SCH ×4 (09:37→20:55)
--- NOTE | 2018-02-02 14:36 | P.DCO ---
- Diagnosis (1) Pneumonia Status: Acute (2) Hypertensive crisis Status: Acute (3) Acidosis, lactic Status: Acute (4) URI (upper respiratory infection) Status: Acute (5) Hypertensive crisis without congestive heart failure Status: Acute (6) Diabetes 1.5, managed as type 2 Status: Chronic (7) Peripheral neuropathy Status: Chronic (8) Left arm pain Status: Acute - Physical Therapy Order: Evaluate and treat - Home Health Nursing Order: Medical education, Signs/symptoms of disease process, Oxygen administration education, Medication education-adverse effect, Nursing assessment with vital signs - Case Management Consult Yes - Certification I have seen patient Julianna Gayle on 02/02/18. My clinical findings support the need for the requested home health care services because: Limited mobility due to disease progression, Patient has SOB I certify that my clinical findings support that this patient is homebound because: Post-op weakness, Hx COPD - exertion dyspnea/weakness (1) Pneumonia Qualifiers: Pneumonia type: due to unspecified organism Laterality: right (7) Peripheral neuropathy Qualifiers: Peripheral neuropathy type: polyneuropathy, unspecified Qualified Code(s): G62.9 - Polyneuropathy, unspecified
[2018-02-02] MEDS: Azithromycin Inj 500 MG in Sodium Chlor 0.9% Inj 250 ML IV.SIG SCH (16:07)
--- NOTE | 2018-02-02 17:13 | P.PN ---
Subjective Interval history: Patient feels very weak and needs more physical therapy. She passed oxygen walking test no need for oxygen at home. However she needs PT. She is not having headaches at this time. No nausea or vomiting no diarrhea or constipation. No fever or chills. No much cough. Physical Exam Vital signs: Vital Signs 02/01/18 20:00 02/01/18 23:03 02/02/18 00:00 Temperature 97.9 F 98.1 F Pulse Rate 77 71 Respiratory Rate Blood Pressure 158/72 H 143/73 H Pulse Oximetry 98 99 Pulse Oximetry [Exertion on Room Air] Pulse Oximetry [Resting on Room Air] 02/02/18 04:00 02/02/18 08:00 02/02/18 12:00 Temperature 98.3 F 97.8 F 98.8 F Pulse Rate 62 59 L 78 Respiratory Rate Blood Pressure 152/73 H 139/67 154/70 H Pulse Oximetry 100 96 96 Pulse Oximetry [Exertion on Room Air] Pulse Oximetry [Resting on Room Air] 02/02/18 15:26 Temperature Pulse Rate Respiratory Rate Blood Pressure Pulse Oximetry Pulse Oximetry [Exertion on Room Air] 98 Pulse Oximetry [Resting on Room Air] 99 Intake & Output 02/01/18 02/02/18 02/02/18 18:59 06:59 18:59 Intake Total 730 / 730 Output Total 1400 / 1400 Balance 730 / 730 -1400 / -1400 Weight 74.8 kg Intake: IV 250 / 250 Azithromycin Inj 500 MG In NS 250 / 250 Inj 250 ML @ 250 mls/hr IV.SIG Q24H BRIAN Rx#:[id number] Oral 480 / 480 Output: Urine 1400 / 1400 Other: # Voids 3 # Bowel Movements 0 Narrative: GENERAL: Pleasant 67 year old female in NAD, alert and oriented x3 HEAD: Normocephalic. CARDIOVASCULAR: Regular rate and rhythm without murmurs, gallops, or rubs. RESPIRATORY: Breath sounds equal bilaterally. No accessory muscle use. GASTROINTESTINAL: Abdomen soft, mild tenderness to palpation left lower quadrant , nondistended. MUSCULOSKELETAL: No cyanosis, or edema. SKIN: Warm and dry. NEURO: CNII - XII grossly intact. No focal neurological deficits. 4/5 LLE strength compared to 5/5 on RLE. - Urinary Catheter Management Female External Cath placed during this visit: no Results - Labs CBC & Chem 7: 02/02/18 05:50 02/02/18 05:50 Laboratory Results - last 24 hr 02/01/18 02/01/18 02/02/18 18:03 19:47 05:50 WBC 8.5 RBC 5.08 Hgb 14.6 Hct 44.1 MCV 86.8 MCH 28.8 MCHC 33.2 RDW 13.2 Plt Count 174 MPV 10.2 Neut % (Auto) 86.2 H Lymph % (Auto) 9.4 Meade % (Auto) 4.3 Eos % (Auto) 0.0 Baso % (Auto) 0.1 Neut # (Auto) 7.3 Lymph # (Auto) 0.8 L [place] # (Auto) 0.4 Eos # (Auto) 0.0 Baso # (Auto) 0.0 WBC Differential . Differential Comment Auto diff final Sodium Potassium Chloride Carbon Dioxide Anion Gap BUN Creatinine Estimated GFR POC Glucose 329 H 376 H Random Glucose Calcium 02/02/18 02/02/18 05:50 16:20 WBC RBC Hgb Hct MCV MCH MCHC RDW Plt Count MPV Neut % (Auto) Lymph % (Auto) Meade % (Auto) Eos % (Auto) Baso % (Auto) Neut # (Auto) Lymph # (Auto) Meade # (Auto) Eos # (Auto) Baso # (Auto) WBC Differential Differential Comment Sodium 134 L Potassium 4.4 Chloride 99 Carbon Dioxide 25.4 Anion Gap 10 BUN 28 H Creatinine 0.60 Estimated GFR Greater than 89 POC Glucose 399 H Random Glucose 302 H Calcium 8.9 Assessment and Plan - Assessment (1) Pneumonia Code(s): J18.9 - Pneumonia, unspecified organism Status: Acute (2) Hypertensive crisis Code(s): I16.9 - Hypertensive crisis, unspecified Status: Acute (3) Acidosis, lactic Code(s): E87.2 - Acidosis Status: Acute (4) URI (upper respiratory infection) Code(s): J06.9 - Acute upper respiratory infection, unspecified Status: Acute (5) Hypertensive crisis without congestive heart failure Code(s): I16.9 - Hypertensive crisis, unspecified Status: Acute (6) Diabetes 1.5, managed as type 2 Code(s): E10.9 - Type 1 diabetes mellitus without complications Status: Chronic (7) Peripheral neuropathy Code(s): G62.9 - Polyneuropathy, unspecified Status: Chronic (8) Left arm pain Code(s): M79.602 - Pain in left arm Status: Acute (9) COPD (chronic obstructive pulmonary disease) with acute bronchitis Code(s): J44.0 - Chronic obstructive pulmonary disease with acute lower respiratory infection; J20.9 - Acute bronchitis, unspecified Status: Acute - Plan 67 years old right handed female admitted secondary to pneumonia with left- sided weakness. Discontinue IV fluids. Change Protonix to p.o. Workup flank pain as below. Continue pain management. Continue following clinically. Continue physical therapy. [place] inpatient rehab evaluating patient for DC Treated with iv abx Flank pain Obtain urinalysis Obtain kidney ultrasound Follow clinically Pneumonia, community-acquired Failure of outpatient therapy Treated with antibiotics azithromycin, Rocephin COPD exacerbation Improving Follow clinically Wean steroids slowly Continue Symbicort Continue duo nebs Continue as needed albuterol Continue antitussives Accelerated hypertension BP improved. Continue to monitor blood pressures Continue Prinivil Continue Norvasc Continue visit Patient does not appear to be in overt heart failure. Was given nitroglycerin in the emergency room Left-sided weakness Slightly improved Negative CVA workup Etiology may be inflammatory or reactive, such as peripheral neuritis Continue aspirin Physical therapy Continue speech therapy NSAIDs Anticipate care home facility at discharge NSTEMI (type II) Continue aspirin Stop heparin drip Follow clinically next on cardiology following Left bicep pain, c/o pain to palpation Pain control Negative DVT workup Diabetes mellitus type 2 Follow blood sugars Insulin sliding scale Diabetic diet Levemir Wean steroids Peripheral neuropathy Continue with Elavil 25 mg p.o. daily Continue with gabapentin 300 mg p.o. daily Constipation As needed laxatives DVT prophylaxis Heparin Discharge planning [place] evaluation pending Needs rehab at [place] Discussed with the patient, nurse. poss DC to inpatient rehab Case management following for discharge plan [facility] DC to [place] pending approval. Or DC home with home health patient insurance doesn't cover SNF, discussed with the CM and patient and family Passed oxygen walking test. Patient is physical therapy and rehab. (1) Pneumonia Qualifiers: Pneumonia type: due to unspecified organism Laterality: right (7) Peripheral neuropathy Qualifiers: Peripheral neuropathy type: polyneuropathy, unspecified Qualified Code(s): G62.9 - Polyneuropathy, unspecified
[2018-02-03] MEDS: Lisinopril 20 MG Tablet PO SCH (09:45)
[2018-02-03] MEDS: Naproxen 250 MG Tablet PO SCH (09:45)
[2018-02-03] MEDS: Gabapentin 300 MG Capsule PO SCH (09:46)
[2018-02-03] MEDS: amLODIPine 10 MG Tablet PO SCH (09:46)
[2018-02-03] MEDS: Amitriptyline 25 MG Tablet PO SCH (09:47)
[2018-02-03] MEDS: Insulin NovoLOG Aspart Correctional Sugar Inj SQ SCH ×2 (09:47→12:14)
[2018-02-03] MEDS: Heparin - SQ 10,000 UNITS/ML Vial SQ SCH (09:49)
[2018-02-03] MEDS: Budesonide-Formoterol 160/4.5 MCG 6 GM Inhaler INH SCH (09:56)
[2018-02-03] MEDS: MethylPREDNISolone Sod Succinate Inj 40 MG/ML Vial IV.PUSH SCH (10:46)
[2018-02-03] MEDS: Acetaminophen 325 MG Tablet PO PRN (11:48)
[2018-02-03 13:46] VITALS: BP 145/80; RESP 16; TEMP 97.9; O2SAT 98
[2018-02-03 14:45] VITALS: PULSE 71
== END 2018-02-03 15:15 ==
LOC: NEPC 09:56 → NEDA 14:27 → NEPGCP 15:26 → N05 01-23 06:19 → N03 01-23 18:09 → N04 01-27 18:03
PROVIDERS: ADMIT Hospitalist; ATTEND Hospitalist

== ENCOUNTER 2018-02-03 18:23 | Inpatient (IN) ==
[2018-02-03] MEDS ORDERED: Bisacodyl 10 MG Supp RECTAL PRN (19:09)
[2018-02-03] MEDS ORDERED: Dextrose 50% in Water 50 ML Vial IV.PUSH PRN (19:13)
[2018-02-03] MEDS ORDERED: Potassium Chlor 20 mEq Premix 20 MEQ/100 ML PIGGYBACK IV.SIG PRN ×2 (19:17)
[2018-02-03] MEDS ORDERED: Potassium Chloride 25 MEQ Effervescent Tablet PO PRN (19:17)
[2018-02-03] MEDS ORDERED: Magnesium Sulfate Inj 4 GM in Sodium Chlor 0.9% Inj 92 ML IV.SIG PRN (19:17)
[2018-02-03] MEDS ORDERED: Magnesium Oxide 400 MG Tablet PO PRN (19:17)
[2018-02-03] MEDS ORDERED: Potassium Chlor 40 mEq Premix 40 MEQ/100 ML PIGGYBACK IV.SIG PRN ×2 (19:17)
[2018-02-03] MEDS ORDERED: Magnesium Sulfate Inj 2 GM in Sodium Chlor 0.9% Inj 96 ML IV.SIG PRN (19:17)
[2018-02-03] MEDS ORDERED: Potassium Phosphate Inj 30 MMOL in Sodium Chlor 0.9% Inj 250 ML IV.SIG PRN (19:17)
[2018-02-03] MEDS ORDERED: Sodium Phosphate Inj 30 MMOL in Sodium Chlor 0.9% Inj 250 ML IV.SIG PRN (19:17)
[2018-02-03] MEDS ORDERED: Potassium Phosphate 500 MG Soluble Tablet PO PRN ×2 (19:17)
--- NOTE | 2018-02-03 19:53 | XR ---
EXAM DATE: 02/03/2018 7:09 PM EDT AGE/SEX: 67 years / Female INDICATIONS: Chest pain. CLINICAL DATA: This is the patient's initial encounter. Patient reports that signs and symptoms have been present for 1 day and indicates a pain score of 5/10. MEDICAL/SURGICAL HISTORY: . Hypertension. Diabetes. Chronic obstructive pulmonary disease. Pne umonia. Peripheral neuropathy. [place]. . Appendectomy. COMPARISON: [facility] [place], CHEST 2V PA&LAT, 01/21/2018. . FINDINGS: Trace atelectasis both lung bases. No pneumonic infiltrate seen. No pleural effusion or pneumothorax. Heart size stable, within normal limits. CONCLUSION: Minimal bibasilar atelectasis. Electronically signed by: Dennys Her MD 02/03/2018 7:52 PM EDT
[2018-02-03] MEDS ORDERED: Morphine Inj 4 MG/ML Vial IV.PUSH PRN (20:00)
[2018-02-03] MEDS: Senna/Docusate Sodium 8.6/50 MG Tablet PO SCH (20:59)
[2018-02-03] MEDS: Insulin NovoLOG Aspart Correctional Sugar Inj SQ SCH (21:05)
--- NOTE | 2018-02-03 22:19 | P.HPCC ---
History of Present Illness Service: Critical care medicine Primary Care Physician: UNKNOWN Chief Complaint: Chest pain History of Present Illness: History of was obtained by discussion with patient and her daughter using video conference with spanish medical interpreter #[id number] 67-year-old Tamazight-speaking female with past medical history of hypertension, diabetes, TIA, peripheral neuropathy who was admitted to [facility] hospitalists 01/21 after presenting with cough and congestion for several weeks despite outpatient antibiotics. She was treated with azithromycin and with rocephin 01/22-01/31. During her hospital stay, she had intermittently complained of chest pain and troponin peaked at 0.95. She was seen by cardiology and impression that it was NSTEMI secondary to pneumonia/sepsis with no further workup recommended. She also had L hemiparesis and had negative imaging workup (CT, CTA brain and neck and MRI brain) and evaluation by neurology. She was discharged to [facility] 02/03 and then complained of chest pain and left chest tenderness. She was reportedly diaphoretic with SBP 180/7 and then 210, therefore she was transferred to [facility] and lining scrubber consult was placed. She received NTG 0.4 mg sublingual and BP decreased to 100/54 and patient states chest pain is gone. She demonstrates that she has reproducible pain when she presses on her left chest that she states has been sharp and intermittent since her admission for cough. States she overall feels her cough is improved and she is afebrile. Still occasional sputum production but it is now white/clear. Her initial EKG is unremarkable and troponin is negative. Ddimer also negative. Inpatient Certification: I certify that the inpatient services were ordered in accordance with Medicare regulations governing the order. This includes certification that hospital inpatient services are reasonable and necessary and in the case of services not specified as inpatient-only under 42 CFR 419.22(n), that they are appropriately provided as inpatient services in accordance to with the 2-midnight benchmark under 43 CFR 412.3(e) Estimated Total Length of Stay (Days): 5 Plans for Post Hospital Care: Not yet determined Review of Systems All other systems reviewed negative except as stated in HPI [facility] - History History Provided By: Patient, Family Member, Medical Record - Medical History Medical History: Medical History (Last Updated 02/03/18 @ 13:31 by Ladi Yoo) COPD (chronic obstructive pulmonary disease) Diabetes Hypertension Peripheral neuropathy Stroke TIA (transient ischemic attack) - Surgical History Surgical History: Surgical History (Last Reviewed 02/03/18 @ 13:30 by Ladi Yoo) History of appendectomy - Family History Family History: Family History (Last Updated 02/04/18 @ 09:44 by Dari Martinez MD) Father No significant family history - Tobacco History Second Hand Smoke Exposure: No Smoking Status: Former smoker Smoking End Date: 40 years ago - Alcohol History How Often Do You Have a Drink Containing Alcohol: Never - Substance Use History Substance History: No History of Abuse - Travel History History of Recent Travel: No Medications and Allergies Active Medications: Active Medications Acetaminophen (Tylenol) 650 mg PO Q6H PRN PRN Reason: PAIN 1-10 AND/OR FEVER >101F Al Hydroxide/Mg Hydroxide (Milk Of Margi Liq) 30 ml PO Q12H PRN PRN Reason: Mild Constipation Albuterol (Albuterol Neb (Prn)) 2.5 mg NEB Q2HR NEB PRN PRN Reason: SHORTNESS OF BREATH/WHEEZING Amitriptyline HCl (Elavil) 25 mg PO DAILY BRIAN Amlodipine Besylate (Norvasc) 10 mg PO DAILY BRIAN Bisacodyl (Dulcolax Supp) 10 mg RECTAL DAILY PRN PRN Reason: SEVERE CONSITIPATION Budesonide/Formoterol Fumarate (Symbicort 160/4.5 Mcg Inh) 2 puff INH BID BRIAN Chlorhexidine Gluconate (Chlorhexidine 2% Cloth) 3 pack TOPICAL DAILY@0400 BRIAN Stop: 02/09/18 03:59 Chlorhexidine Gluconate (Chlorhexidine 2% Cloth) 3 pack TOPICAL DAILY@0400 PRN PRN Reason: Extra cloth needed Stop: 02/09/18 03:59 Dextrose (D50w Vial) 50 ml IV.PUSH UNSCH PRN PRN Reason: PER HYPOGLYCEMIA PROTOCOL Gabapentin (Neurontin) 300 mg PO DAILY BRIAN Glucagon (Glucagon Inj) 1 mg OTHER PRN PRN PRN Reason: for Hypoglycemia Protocol Magnesium Sulfate 4 gm/ Sodium (Chloride) 100 mls @ 50 mls/hr IV.SIG UNSCH PRN PRN Reason: For Magnesium 0.9 - 1.1 mg/dL Magnesium Sulfate 2 gm/ Sodium (Chloride) 100 mls @ 50 mls/hr IV.SIG UNSCH PRN PRN Reason: For Magnesium 1.2 - 1.6 mg/dL Potassium Chloride (Kcl 40 Meq Premix Inj) 40 meq in 100 mls @ 25 mls/hr IV.SIG Q2H PRN PRN Reason: For Potassium 2.8 - 3.2 mEq/L Potassium Chloride (Kcl 20 Meq Premix Inj) 20 meq in 100 mls @ 50 mls/hr IV.SIG Q2H PRN PRN Reason: For Potassium 3.3 - 3.5 mEq/L Potassium Chloride (Kcl 40 Meq Premix Inj) 40 meq in 100 mls @ 25 mls/hr IV.SIG UNSCH PRN PRN Reason: For Potassium 3.3 - 3.5 mEq/L Potassium Chloride (Kcl 20 Meq Premix Inj) 20 meq in 100 mls @ 50 mls/hr IV.SIG Q2H PRN PRN Reason: For Potassium 2.8 - 3.2 mEq/L Potassium Phosphate 30 mmol/ (Sodium Chloride) 260 mls @ 42 mls/hr IV.SIG UNSCH PRN PRN Reason: SEE LABEL COMMENTS Sodium Phosphate 30 mmol/ (Sodium Chloride) 260 mls @ 42 mls/hr IV.SIG UNSCH PRN PRN Reason: For Phosphorus < 2.5 mg/dL Insulin Aspart (Novolog Insulin Correctional Sugar Inj) 0 unit SQ ACHS [facility]; Protocol Last Admin: 02/03/18 21:05 Dose: 10 unit Insulin Detemir (Levemir Inj) 10 unit SQ HS BRIAN Lactulose (Lactulose Liq) 30 ml PO DAILY PRN PRN Reason: SEVERE CONSITIPATION Lisinopril (Prinivil) 20 mg PO DAILY [facility] Magnesium Oxide (Mag-Ox) 800 mg PO UNSCH PRN PRN Reason: For Magnesium 1.2 - 1.6 mg/dL Meloxicam (Mobic) 15 mg PO DAILY [facility] Morphine Sulfate (Morphine Inj) 2 mg IV.PUSH Q2H PRN PRN Reason: BREAKTHROUGH PAIN Ondansetron HCl (Zofran Inj) 4 mg IV.PUSH Q6H PRN PRN Reason: NAUSEA OR VOMITING Pantoprazole Sodium (Protonix) 40 mg PO DAILY [facility] Potassium Bicarb/Potassium Chloride (K-Lyte Cl Eff) 50 meq PO UNSCH PRN PRN Reason: For Potassium 3.3 - 3.5 mEq/L Potassium Phosphate (K-Phos Original) 2,000 mg PO UNSCH PRN PRN Reason: SEE LABEL COMMENTS Potassium Phosphate (K-Phos Original) 2,000 mg PO Q4H PRN PRN Reason: Phosphorus Less Than 2.5 mg/dL Senna/Docusate Sodium (Shwetha-Colace) 1 tab PO BID [facility] Last Admin: 02/03/18 20:59 Dose: 1 tab Sennosides (Senokot) 17.2 mg PO Q12H PRN PRN Reason: Moderate Constipation Sodium Chloride (Ns Flush) 2 ml IV.FLUSH BID [facility] Last Admin: 02/03/18 21:00 Dose: 2 ml Sodium Chloride (Ns Flush) 2 ml IV.FLUSH PRN PRN PRN Reason: FLUSH AFTER USING IV ACCESS Allergies Allergy/AdvReac Type Severity Reaction Status Date / Time No Known Allergies Allergy Unverified 01/21/18 10:55 Home Medications Medication Instructions Recorded Confirmed Type amitriptyline 25 mg PO DAILY 01/21/18 02/03/18 History gabapentin 300 mg PO DAILY 01/21/18 02/03/18 History lisinopril [Prinivil] 20 mg PO DAILY 01/21/18 02/03/18 History meloxicam 15 mg PO DAILY 01/21/18 02/03/18 History amlodipine [Norvasc] 10 mg PO DAILY 02/03/18 02/03/18 History aspirin 81 mg PO DAILY 02/03/18 02/03/18 History budesonide-formoterol [Symbicort] 2 puff INH BID 02/03/18 02/03/18 History insulin detemir U-100 [Levemir 10 unit SUBCUT HS 02/03/18 02/03/18 History U-100 Insulin] ipratropium bromide [Atrovent HFA] 1 puff INHALATION Q6H 02/03/18 02/03/18 History Results - Labs CBC & Chem 7: 02/04/18 01:25 02/04/18 01:25 Labs: Cardiac Enzymes 02/03/18 Range/Units 19:40 Troponin I Less than 0.02 L (0.02-0.05) ng/mL - Imaging Impressions Chest X-Ray 02/03/18 19:09 CONCLUSION: Minimal bibasilar atelectasis. Exam Vital signs: Vital Signs 02/03/18 18:30 02/03/18 19:38 02/03/18 19:54 Pulse Rate 79 Pulse Oximetry 100 100 Intake & Output 02/03/18 02/03/18 02/04/18 06:59 18:59 06:59 Weight 74.5 kg Other: Weight On Admission 74.5 kg Narrative: GENERAL: Well-nourished, well-developed patient sitting up in [facility] bed, alert and conversant. SKIN: Warm and dry, well-perfused. HEAD: Atraumatic. Normocephalic. EYES: Pupils equal and round. No scleral icterus. No injection or drainage. ENT: No nasal bleeding or discharge. Mucous membranes pink and moist. NECK: Trachea midline. No JVD. CARDIOVASCULAR: Regular rate and rhythm. No murmurs rubs or gallops. RESPIRATORY: No accessory muscle use. Clear to auscultation. Breath sounds equal bilaterally. Chest is tender to palpation left peristernal region and lateral pec. No rash, specifically no shingles there. GASTROINTESTINAL: Abdomen soft, non-tender, nondistended. MUSCULOSKELETAL: Extremities without clubbing, cyanosis, or edema. No obvious deformities. No calf tenderness NEUROLOGICAL: Awake and alert. No obvious cranial nerve deficits. She has no pronator drift. She has full strength 5/5 throughout right side. She does not demonstrate symmetrical strength on LUE or LLE however exam is unusual in that she does not provide consistent effort against resistance, instead pushes and pulls back in a rhythmic way that appears may be purposeful. Sensation intact. Caprini VTE Risk Assessment Caprini VTE Risk Assessment: Moderate/High Risk (score >= 2) Caprini Risk Assessment Model: Point Value = 1 Point Value = 2 Point Value = 3 Point Value = 5 Age 41-60 Minor surgery BMI > 25 kg/m2 Swollen legs Varicose veins or History of unexplained or recurrent spontaneous Oral contraceptives or hormone replacement Sepsis (< 1 month) Serious lung disease, including pneumonia (< 1 month) Abnormal pulmonary function Acute myocardial infarction Congestive heart failure (< 1 month) History of inflammatory bowel disease Medical patient at bed rest Age 61-74 Arthroscopic surgery Major open surgery (> 45 min) Laparoscopic surgery (> 45 min) Malignancy Confined to bed (> 72 hours) Immobilizing plaster cast Central venous access Age >= 75 History of VTE Family history of VTE Factor V Leiden Prothrombin [id number] Lupus anticoagulant Anticardiolipin antibodies Elevated serum homocysteine Heparin-induced thrombocytopenia Other congenital or acquired thrombophilia Stroke (< 1 month) Elective arthroplasty Hip, pelvis, or leg fracture Acute spinal cord injury (< 1 month) Prophylaxis Regimen: Total Risk Factor Score Risk Level Prophylaxis Regimen 0-1 Low Early ambulation 2 Moderate Order ONE of the following: *Sequential Compression Device (SCD) *Heparin 5000 units SQ BID 3-4 Higher Order ONE of the following medications: *Heparin 5000 units SQ TID *Enoxaparin/Lovenox 40 mg SQ daily (WT < 150 kg, CrCl > 30 mL/min) *Enoxaparin/Lovenox 30 mg SQ daily (WT < 150 kg, CrCl > 10-29 mL/min) *Enoxaparin/Lovenox 30 mg SQ BID (WT < 150 kg, CrCl > 30 mL/min) AND/OR *Sequential Compression Device (SCD) 5 or more Highest Order ONE of the following medications: *Heparin 5000 units SQ TID (Preferred with Epidurals) *Enoxaparin/Lovenox 40 mg SQ daily (WT < 150 kg, CrCl > 30 mL/min) *Enoxaparin/Lovenox 30 mg SQ daily (WT < 150 kg, CrCl > 10-29 mL/min) *Enoxaparin/Lovenox 30 mg SQ BID (WT < 150 kg, CrCl > 30 mL/min) AND *Sequential Compression Device (SCD) Assessment and Plan - Assessment and Plan Plan: NEURO: Peripheral neuropathy Continue Neurontin 300 mg p.o. daily. Continue amitriptyline 25 mg p.o. daily ? L hemiparesis - patient states since 01/23, had negative CT brain, CTA and MRI brain at that time. RESP/ID: Prior tobacco abuse Recent pneumonia 2 L nasal cannula wean as tolerated She completed course of Rocephin and azithromycin. Of note sputum culture from 01/21 grew pansensitive Pseudomonas. At this point she feels clinically improved from the standpoint of her cough, is afebrile, has no leukocytosis, and has a clear chest x-ray. If it is felt that she was developing recurrent pneumonia would recommend empiric coverage to cover Pseudomonas however at this point will hold off on antibiotics since she appears improved. Continue Symbicort 2 puffs twice daily. Albuterol every 2 hours as needed. CV: Hypertension Chest pain Her chest pain appears reproducible and I suspect is related to costochondritis secondary to recent coughing and pneumonia. Will follow serial EKGs and troponin. D-dimer is negative. Noted that hospitalist has consulted Dr. Tucker Ferrer who said he would see the patient. Continue lisinopril 20 mg p.o. daily. Continue Norvasc 10 mg p.o. daily. May need to add additional agent for hypertensive control. Continue Mobic 15 mg p.o. daily Given aspirin 324 mg p.o. x1. Continue aspirin 81 mg p.o. daily. GI: 1800-calorie ADA diet FEN/RENAL: Normal creatinine. ENDO: Diabetes mellitus Continue Lantus 10 mg subcu nightly. Medium dose insulin sliding scale AC/hs. PROPH: SCD/Lovenox 40 mg subcu daily for DVT prophylaxis. Protonix 40 mg p.o. daily for stress ulcer prophylaxis. ACCESS: Peripheral IV Patient and her family updated at bedside. [employer] used throughout the communication. Level 2 H&P Consult hospitalist to assume care H&P: Quality - VTE Deep Vein Thrombosis/Pulmonary Embolism Present on Admission: No
[2018-02-04 01:35] LABS: Baso # (Auto) 0.1 th/mm3 (0.0-0.2); Baso % (Auto) 0.7 % (0.0-2.0); Eos % (Auto) 0.2 % (0.0-4.0); Hematocrit 43.2 % (35.0-46.0); Hemoglobin 14.9 gm/dL (11.6-15.3); Lymph # (Auto) 1.4 th/mm3 (1.0-4.8); Lymph % (Auto) 15.1 % (9.0-44.0); Mean Corpuscular HGB Conc 34.6 % (32.0-36.0); Mean Corpuscular Hemoglobin 29.3 pg (27.0-34.0); Mean Corpuscular Volume 84.7 fL (80.0-100.0); Mean Platelet Volume 9.1 fL (7.0-11.0); Mono # (Auto) 0.8 th/mm3 (0.0-0.9); Mono % (Auto) 8.4 % (0.0-8.0); Neut # (Auto) 7.2 th/mm3 (1.8-7.7); Neut % (Auto) 75.6 % (16.0-70.0); Platelet Count 152 th/mm3 (150-450); Red Cell Distribution Width 13.1 % (11.6-17.2); White Blood Count 9.5 th/mm3 (4.0-11.0)
[2018-02-04 01:59] LABS: Alanine Aminotransferase 46 U/L (10-53); Albumin 3.2 g/dL (3.4-5.0); Anion Gap 5 meq/L (5-15); Aspartate Aminotransferase 12 U/L (15-37); Blood Urea Nitrogen 25 mg/dL (7-18); Calcium 8.5 mg/dL (8.5-10.1); Carbon Dioxide 27.7 meq/L (21.0-32.0); Chloride 100 meq/L (98-107); Glomerular Filtration Rate 88 mL/min (>89); Glucose,Random 252 mg/dL (74-106); Potassium 4.4 meq/L (3.5-5.1); Sodium 133 meq/L (136-145)
[2018-02-04 02:03] LABS: Alkaline Phosphatase 73 U/L (45-117); Total Protein 6.2 g/dL (6.4-8.2)
[2018-02-04] MEDS ORDERED: Chlorhexidine Gluconate 2% 1 Pack (2 Cloths) TOPICAL PRN (04:00)
[2018-02-04] MEDS: Insulin NovoLOG Aspart Correctional Sugar Inj SQ SCH ×4 (08:02→22:02)
[2018-02-04] MEDS: Lisinopril 20 MG Tablet PO SCH (08:03)
[2018-02-04] MEDS: Gabapentin 300 MG Capsule PO SCH (08:03)
[2018-02-04] MEDS: Senna/Docusate Sodium 8.6/50 MG Tablet PO SCH ×2 (08:03→22:02)
[2018-02-04] MEDS: amLODIPine 10 MG Tablet PO SCH (08:03)
[2018-02-04] MEDS: Budesonide-Formoterol 160/4.5 MCG 6 GM Inhaler INH SCH ×2 (08:04→22:03)
[2018-02-04] MEDS: Amitriptyline 25 MG Tablet PO SCH (08:05)
[2018-02-04] MEDS: Chlorhexidine Gluconate 2% 1 Pack (2 Cloths) TOPICAL SCH (08:05)
[2018-02-04] MEDS: Meloxicam 15 MG Tablet PO SCH (08:05)
[2018-02-04] MEDS: Enoxaparin Inj 40 MG/0.4 ML Syringe SQ SCH (13:25)
--- NOTE | 2018-02-04 16:49 | P.CONCA ---
History of Present Illness Primary Care Provider: UNKNOWN Chief Complaint: Chest pain History of Present Illness: Very pleasant 67 year old [place] Islander speaking female with a past medical history of DM2, TIA, HTN who was recently admitted for CAP. During that hospitalization she had Type II NSTEMI relating to deman from her infectious process. She was discharged to [place] [facility] where yesterday she complained of severe substernal chest discomfort in the context of elevate SBP in the 210 range. She was given NTG and her SBP dropped to the 100 and her pain resolved. She did not have EKG changes and her troponins have been negative x 2. Currently she is chest pain free. She reports weakness and generalized fatigue. Her chest pain is somewhat reproducable. Her pain occurs also when she cough. No shortness of breath currently at rest. Of note her last TTE earlier this month showed normal LVEF, no regional wall motion abnormalities, and findings most consistent with HTN heart disease. Review of Systems All other systems reviewed negative except as stated in HPI [facility] - History History Provided By: Patient, Family Member, Medical Record - Medical History Medical History: Medical History (Last Reviewed 02/04/18 @ 12:47 by Lisandra Sharma) Diabetes Hypertension Peripheral neuropathy Stroke TIA (transient ischemic attack) - Surgical History Surgical History: Surgical History (Last Reviewed 02/04/18 @ 12:47 by Lisandra Sharma) History of appendectomy - Family History Family History: Family History (Last Updated 02/04/18 @ 09:44 by Dari Martinez MD) Father No significant family history - Tobacco History Second Hand Smoke Exposure: No Smoking Status: Former smoker Smoking End Date: 40 years ago - Alcohol History How Often Do You Have a Drink Containing Alcohol: Never - Substance Use History Substance History: No History of Abuse - Travel History History of Recent Travel: No Medications and Allergies Active Medications: Active Medications Acetaminophen (Tylenol) 650 mg PO Q6H PRN PRN Reason: PAIN 1-10 AND/OR FEVER >101F Al Hydroxide/Mg Hydroxide (Milk Of Margi Liq) 30 ml PO Q12H PRN PRN Reason: Mild Constipation Albuterol (Albuterol Neb (Prn)) 2.5 mg NEB Q2HR NEB PRN PRN Reason: SHORTNESS OF BREATH/WHEEZING Amitriptyline HCl (Elavil) 25 mg PO DAILY [facility] Last Admin: 10/19/18 08:05 Dose: 25 mg Amlodipine Besylate (Norvasc) 10 mg PO DAILY [facility] Last Admin: 02/04/18 08:03 Dose: 10 mg Bisacodyl (Dulcolax Supp) 10 mg RECTAL DAILY PRN PRN Reason: SEVERE CONSITIPATION Budesonide/Formoterol Fumarate (Symbicort 160/4.5 Mcg Inh) 2 puff INH BID [facility] Last Admin: 02/04/18 08:04 Dose: 2 puff Chlorhexidine Gluconate (Chlorhexidine 2% Cloth) 3 pack TOPICAL DAILY@0400 [facility] Stop: 02/09/18 03:59 Last Admin: 02/04/18 08:05 Dose: 3 pack Chlorhexidine Gluconate (Chlorhexidine 2% Cloth) 3 pack TOPICAL DAILY@0400 PRN PRN Reason: Extra cloth needed Stop: 02/09/18 03:59 Dextrose (D50w Vial) 50 ml IV.PUSH UNSCH PRN PRN Reason: PER HYPOGLYCEMIA PROTOCOL Enoxaparin Sodium (Lovenox Inj) 40 mg SQ DAILY [facility] Last Admin: 02/04/18 13:25 Dose: 40 mg Gabapentin (Neurontin) 300 mg PO DAILY [facility] Last Admin: 02/04/18 08:03 Dose: 300 mg Glucagon (Glucagon Inj) 1 mg OTHER PRN PRN PRN Reason: for Hypoglycemia Protocol Magnesium Sulfate 4 gm/ Sodium (Chloride) 100 mls @ 50 mls/hr IV.SIG UNSCH PRN PRN Reason: For Magnesium 0.9 - 1.1 mg/dL Magnesium Sulfate 2 gm/ Sodium (Chloride) 100 mls @ 50 mls/hr IV.SIG UNSCH PRN PRN Reason: For Magnesium 1.2 - 1.6 mg/dL Potassium Chloride (Kcl 40 Meq Premix Inj) 40 meq in 100 mls @ 25 mls/hr IV.SIG Q2H PRN PRN Reason: For Potassium 2.8 - 3.2 mEq/L Potassium Chloride (Kcl 20 Meq Premix Inj) 20 meq in 100 mls @ 50 mls/hr IV.SIG Q2H PRN PRN Reason: For Potassium 3.3 - 3.5 mEq/L Potassium Chloride (Kcl 40 Meq Premix Inj) 40 meq in 100 mls @ 25 mls/hr IV.SIG UNSCH PRN PRN Reason: For Potassium 3.3 - 3.5 mEq/L Potassium Chloride (Kcl 20 Meq Premix Inj) 20 meq in 100 mls @ 50 mls/hr IV.SIG Q2H PRN PRN Reason: For Potassium 2.8 - 3.2 mEq/L Potassium Phosphate 30 mmol/ (Sodium Chloride) 260 mls @ 42 mls/hr IV.SIG UNSCH PRN PRN Reason: SEE LABEL COMMENTS Sodium Phosphate 30 mmol/ (Sodium Chloride) 260 mls @ 42 mls/hr IV.SIG UNSCH PRN PRN Reason: For Phosphorus < 2.5 mg/dL Insulin Aspart (Novolog Insulin Correctional Sugar Inj) 0 unit SQ ACHS [facility]; Protocol Last Admin: 02/04/18 16:32 Dose: 7 unit Insulin Detemir (Levemir Inj) 10 unit SQ HS [facility] Lactulose (Lactulose Liq) 30 ml PO DAILY PRN PRN Reason: SEVERE CONSITIPATION Lisinopril (Prinivil) 20 mg PO DAILY [facility] Last Admin: 02/04/18 08:03 Dose: 20 mg Magnesium Oxide (Mag-Ox) 800 mg PO UNSCH PRN PRN Reason: For Magnesium 1.2 - 1.6 mg/dL Meloxicam (Mobic) 15 mg PO DAILY [facility] Last Admin: 02/04/18 08:05 Dose: 15 mg Morphine Sulfate (Morphine Inj) 2 mg IV.PUSH Q2H PRN PRN Reason: BREAKTHROUGH PAIN Ondansetron HCl (Zofran Inj) 4 mg IV.PUSH Q6H PRN PRN Reason: NAUSEA OR VOMITING Pantoprazole Sodium (Protonix) 40 mg PO DAILY [facility] Last Admin: 02/04/18 08:03 Dose: 40 mg Potassium Bicarb/Potassium Chloride (K-Lyte Cl Eff) 50 meq PO UNSCH PRN PRN Reason: For Potassium 3.3 - 3.5 mEq/L Potassium Phosphate (K-Phos Original) 2,000 mg PO UNSCH PRN PRN Reason: SEE LABEL COMMENTS Potassium Phosphate (K-Phos Original) 2,000 mg PO Q4H PRN PRN Reason: Phosphorus Less Than 2.5 mg/dL Senna/Docusate Sodium (Shwetha-Colace) 1 tab PO BID [facility] Last Admin: 02/04/18 08:03 Dose: 1 tab Sennosides (Senokot) 17.2 mg PO Q12H PRN PRN Reason: Moderate Constipation Sodium Chloride (Ns Flush) 2 ml IV.FLUSH BID [facility] Last Admin: 02/04/18 08:04 Dose: 2 ml Sodium Chloride (Ns Flush) 2 ml IV.FLUSH PRN PRN PRN Reason: FLUSH AFTER USING IV ACCESS Allergies Allergy/AdvReac Type Severity Reaction Status Date / Time No Known Allergies Allergy Unverified 01/21/18 10:55 Home Medications Medication Instructions Recorded Confirmed Type RX: amitriptyline 25 mg PO DAILY 01/21/18 02/03/18 History RX: gabapentin 300 mg PO DAILY 01/21/18 02/03/18 History RX: lisinopril [Prinivil] 20 mg PO DAILY 01/21/18 02/03/18 History RX: meloxicam 15 mg PO DAILY 01/21/18 02/03/18 History RX: aspirin 81 mg PO DAILY 02/03/18 02/03/18 History amlodipine [Norvasc] 10 mg PO DAILY 02/03/18 02/03/18 History budesonide-formoterol [Symbicort] 2 puff INH BID 02/03/18 02/03/18 History insulin detemir U-100 [Levemir 10 unit SUBCUT HS 02/03/18 02/03/18 History U-100 Insulin] ipratropium bromide [Atrovent HFA] 1 puff INHALATION Q6H 02/03/18 02/03/18 History Exam Vital signs: Vital Signs 02/03/18 18:30 02/03/18 19:38 02/03/18 19:54 Temperature Pulse Rate 79 Respiratory Rate Blood Pressure Pulse Oximetry 100 100 02/03/18 20:00 02/03/18 20:18 02/03/18 20:30 Temperature Pulse Rate 80 92 H 87 Respiratory Rate 27 H 31 H Blood Pressure 164/76 H Pulse Oximetry 100 99 02/03/18 20:47 02/03/18 20:54 02/03/18 21:00 Temperature Pulse Rate 89 86 75 Respiratory Rate 24 21 20 Blood Pressure 135/65 138/64 120/59 L Pulse Oximetry 99 99 99 02/03/18 21:15 02/03/18 21:30 02/03/18 21:45 Temperature Pulse Rate 79 76 70 Respiratory Rate 24 21 20 Blood Pressure 129/60 132/65 131/62 Pulse Oximetry 99 99 97 02/03/18 22:00 02/03/18 22:15 02/03/18 22:30 Temperature Pulse Rate 72 73 69 Respiratory Rate 23 28 H 19 Blood Pressure 132/66 138/73 135/63 Pulse Oximetry 98 98 98 02/03/18 22:45 02/03/18 23:00 02/03/18 23:15 Temperature Pulse Rate 75 75 68 Respiratory Rate 22 25 H 17 Blood Pressure 127/66 134/56 L 125/61 Pulse Oximetry 99 98 99 02/03/18 23:30 02/03/18 23:45 02/04/18 00:00 Temperature Pulse Rate 67 67 69 Respiratory Rate 18 18 17 Blood Pressure 117/60 122/58 L 113/57 L Pulse Oximetry 98 98 99 02/04/18 00:15 02/04/18 00:30 02/04/18 00:45 Temperature Pulse Rate 69 73 64 Respiratory Rate 18 17 17 Blood Pressure 115/60 128/61 122/58 L Pulse Oximetry 99 99 98 02/04/18 01:00 02/04/18 01:15 02/04/18 01:31 Temperature Pulse Rate 65 70 62 Respiratory Rate 17 20 17 Blood Pressure 123/59 L 125/61 114/54 L Pulse Oximetry 98 99 98 02/04/18 01:45 02/04/18 02:00 02/04/18 02:15 Temperature Pulse Rate 61 64 69 Respiratory Rate 17 17 15 Blood Pressure 113/59 L 124/61 118/55 L Pulse Oximetry 98 100 99 02/04/18 02:30 02/04/18 02:45 02/04/18 03:00 Temperature Pulse Rate 61 60 60 Respiratory Rate 15 16 17 Blood Pressure 113/58 L 118/59 L 112/54 L Pulse Oximetry 99 100 98 02/04/18 03:15 02/04/18 03:30 02/04/18 03:45 Temperature Pulse Rate 64 60 60 Respiratory Rate 4 L 12 15 Blood Pressure 112/58 L 115/57 L 115/59 L Pulse Oximetry 99 98 98 02/04/18 04:00 02/04/18 04:15 02/04/18 04:32 Temperature Pulse Rate 63 61 68 Respiratory Rate 16 8 L 23 Blood Pressure 116/55 L 114/58 L 136/64 Pulse Oximetry 98 98 98 02/04/18 04:45 02/04/18 05:00 02/04/18 05:15 Temperature Pulse Rate 61 61 62 Respiratory Rate 16 16 18 Blood Pressure 132/63 123/62 126/70 Pulse Oximetry 96 96 96 02/04/18 05:30 02/04/18 05:45 02/04/18 06:00 Temperature Pulse Rate 63 66 62 Respiratory Rate 16 13 13 Blood Pressure 124/64 132/70 117/59 L Pulse Oximetry 95 96 95 02/04/18 07:00 02/04/18 08:00 02/04/18 09:00 Temperature 98.0 F Pulse Rate 65 75 78 Respiratory Rate 12 20 19 Blood Pressure 129/64 124/72 125/61 Pulse Oximetry 96 98 100 02/04/18 10:00 02/04/18 11:00 02/04/18 11:51 Temperature 97.9 F Pulse Rate 76 70 Respiratory Rate 18 20 Blood Pressure 123/61 125/56 L Pulse Oximetry 98 98 98 02/04/18 12:00 02/04/18 13:00 Temperature Pulse Rate 71 75 Respiratory Rate 25 H 21 Blood Pressure 131/62 124/62 Pulse Oximetry 99 99 Intake & Output 02/03/18 02/04/18 02/04/18 18:59 06:59 18:59 Intake Total 250 / 250 Balance 250 / 250 Weight 73.5 kg Intake: Oral 250 / 250 Other: # Voids 2 Weight On Admission 74.5 kg - Constitutional no acute distress - Routine HEENT Exam Head: Present: normocephalic Eye: Present: EOMI, PERRL ENT: Present: mucous membranes moist - Routine Neck Exam Present: supple. Absent: JVD - Routine Chest/Breast/Axilla Exam Chest wall: Present: tenderness (to deep palpation) - Routine Respiratory Exam Present: wheezes - Routine Cardiovascular Exam Present: RRR, S1, S2 - Routine Abdominal Exam Present: soft, normoactive bowel sounds. Absent: tenderness - Routine Extremities Exam Absent: edema - Routine Neurological Exam Present: alert, oriented X3, CN II-XII intact - Routine Psychiatric Exam Present: normal affect Results 02/04/18 01:25 02/04/18 01:25 Cardiac Enzymes 02/03/18 02/04/18 02/04/18 Range/Units 19:40 01:25 08:21 AST 12 L (15-37) U/L Troponin I Less than 0.02 L Less than 0.02 L Less than 0.02 L (0.02-0.05) ng/mL CBC 02/04/18 Range/Units 01:25 WBC 9.5 (4.0-11.0) th/mm3 RBC 5.10 (4.00-5.30) mil/mm3 Hgb 14.9 (11.6-15.3) gm/dL Hct 43.2 (35.0-46.0) % Plt Count 152 (150-450) th/mm3 Neut # (Auto) 7.2 (1.8-7.7) th/mm3 Lymph # (Auto) 1.4 (1.0-4.8) th/mm3 Morris # (Auto) 0.8 (0.0-0.9) th/mm3 Eos # (Auto) 0.0 (0.0-0.4) th/mm3 Baso # (Auto) 0.1 (0.0-0.2) th/mm3 Comprehensive Metabolic Panel 02/04/18 Range/Units 01:25 Sodium 133 L (136-145) meq/L Potassium 4.4 (3.5-5.1) meq/L Chloride 100 (98-107) meq/L Carbon Dioxide 27.7 (21.0-32.0) meq/L BUN 25 H (7-18) mg/dL Creatinine 0.79 (0.50-1.00) mg/dL Calcium 8.5 (8.5-10.1) mg/dL AST 12 L (15-37) U/L ALT 46 (10-53) U/L Alkaline Phosphatase 73 (45-117) U/L Total Protein 6.2 L (6.4-8.2) g/dL Albumin 3.2 L (3.4-5.0) g/dL Intake and Output 02/04/18 02/04/18 02/04/18 06:59 14:59 22:59 Intake Total 250 / 250 Balance 250 / 250 Intake: Oral 250 / 250 Other: # Voids 2 Weight 73.5 kg - Imaging and Cardiology Imaging: Impressions Chest X-Ray 02/03/18 19:09 CONCLUSION: Minimal bibasilar atelectasis. EKG interpretations - Dysrhythmias Sinus rhythms and dysrhythmias: sinus rhythm Assessment and Plan - Plan Chest Pain- likely MSK in etiology. Trop negative x 2, no EKG changes. Additionally, there is a reproducible aspect to her pain. She had essentially normal TTE during her type 2 NSTEMI. Would not pursue further inpatient workup unless clinical course changes. Given her risk factors further risk stratification should be performed as an outpatient after she has recovered completed from her recent illness. She has a normal EF and currently does not appear to be volume up. HTN-BP better controlled currently. Continue current regimen. Recent CAP- she has completed her course of abx. No systemic signs of infections. Dm2- on insulin, BS high. Thank you for notifying me about Mrs. García, I will be available on a prn basis, feel free to contact me with any questions.
--- NOTE | 2018-02-04 17:50 | ECG ---
Date Performed: 02/03/2018 Time Performed: 21:17:02 PTAGE: 67 years EKG: Sinus rhythm Compared to previous tracing, QRS voltage is somewhat higher in the precordial leads, otherwise no s ignificant change NORMAL ECG PREVIOUS TRACING : 01/23/2018 22.51 DOCTOR: Cooper Strong Interpretating Date/Time 02/04/2018 17:49:32
--- NOTE | 2018-02-04 17:50 | ECG ---
Date Performed: 02/03/2018 Time Performed: 18:11:58 PTAGE: 67 years EKG: Sinus rhythm . Low precordial lead voltage Minor T wave changes are nonspecific Since the previous tracing, no sig nificant change noted Borderline ECG PREVIOUS TRACING : 01/23/2018 22.51 DOCTOR: Cooper Strong Interpretating Date/Time 02/04/2018 17:48:43
--- NOTE | 2018-02-04 17:50 | ECG ---
Date Performed: 02/04/2018 Time Performed: 01:36:34 PTAGE: 67 years EKG: Sinus rhythm with borderline 1st degree A-V block. Compared to previous tracing, RI interval is slightly longer, otherwise no significant change Borderline ECG PREVIOUS TRACING : 02/03/2018 21.17 DOCTOR: Cooper Strong Interpretating Date/Time 02/04/2018 17:50:01
--- NOTE | 2018-02-04 18:01 | P.PN ---
Subjective Interval history: The patient was seen earlier today, family at bedside Patient says she was anxious yesterday when she got moved and she felt lightheadedness, sob, palpitations, and experienced chest pain. Her BP was noted elevated. However she feels much better today. BP is better controlled. NO chest pain or sob , no palpitations, lightheadedness. No n/v/d/c. Eating well. Physical Exam Vital signs: Vital Signs 02/03/18 18:30 02/03/18 19:38 02/03/18 19:54 Temperature Pulse Rate 79 Respiratory Rate Blood Pressure Pulse Oximetry 100 100 02/03/18 20:00 02/03/18 20:18 02/03/18 20:30 Temperature Pulse Rate 80 92 H 87 Respiratory Rate 27 H 31 H Blood Pressure 164/76 H Pulse Oximetry 100 99 02/03/18 20:47 02/03/18 20:54 02/03/18 21:00 Temperature Pulse Rate 89 86 75 Respiratory Rate 24 21 20 Blood Pressure 135/65 138/64 120/59 L Pulse Oximetry 99 99 99 02/03/18 21:15 02/03/18 21:30 02/03/18 21:45 Temperature Pulse Rate 79 76 70 Respiratory Rate 24 21 20 Blood Pressure 129/60 132/65 131/62 Pulse Oximetry 99 99 97 02/03/18 22:00 02/03/18 22:15 02/03/18 22:30 Temperature Pulse Rate 72 73 69 Respiratory Rate 23 28 H 19 Blood Pressure 132/66 138/73 135/63 Pulse Oximetry 98 98 98 02/03/18 22:45 02/03/18 23:00 02/03/18 23:15 Temperature Pulse Rate 75 75 68 Respiratory Rate 22 25 H 17 Blood Pressure 127/66 134/56 L 125/61 Pulse Oximetry 99 98 99 02/03/18 23:30 02/03/18 23:45 02/04/18 00:00 Temperature Pulse Rate 67 67 69 Respiratory Rate 18 18 17 Blood Pressure 117/60 122/58 L 113/57 L Pulse Oximetry 98 98 99 02/04/18 00:15 02/04/18 00:30 02/04/18 00:45 Temperature Pulse Rate 69 73 64 Respiratory Rate 18 17 17 Blood Pressure 115/60 128/61 122/58 L Pulse Oximetry 99 99 98 02/04/18 01:00 02/04/18 01:15 02/04/18 01:31 Temperature Pulse Rate 65 70 62 Respiratory Rate 17 20 17 Blood Pressure 123/59 L 125/61 114/54 L Pulse Oximetry 98 99 98 02/04/18 01:45 02/04/18 02:00 02/04/18 02:15 Temperature Pulse Rate 61 64 69 Respiratory Rate 17 17 15 Blood Pressure 113/59 L 124/61 118/55 L Pulse Oximetry 98 100 99 02/04/18 02:30 02/04/18 02:45 02/04/18 03:00 Temperature Pulse Rate 61 60 60 Respiratory Rate 15 16 17 Blood Pressure 113/58 L 118/59 L 112/54 L Pulse Oximetry 99 100 98 02/04/18 03:15 02/04/18 03:30 02/04/18 03:45 Temperature Pulse Rate 64 60 60 Respiratory Rate 4 L 12 15 Blood Pressure 112/58 L 115/57 L 115/59 L Pulse Oximetry 99 98 98 02/04/18 04:00 02/04/18 04:15 02/04/18 04:32 Temperature Pulse Rate 63 61 68 Respiratory Rate 16 8 L 23 Blood Pressure 116/55 L 114/58 L 136/64 Pulse Oximetry 98 98 98 02/04/18 04:45 02/04/18 05:00 02/04/18 05:15 Temperature Pulse Rate 61 61 62 Respiratory Rate 16 16 18 Blood Pressure 132/63 123/62 126/70 Pulse Oximetry 96 96 96 02/04/18 05:30 02/04/18 05:45 02/04/18 06:00 Temperature Pulse Rate 63 66 62 Respiratory Rate 16 13 13 Blood Pressure 124/64 132/70 117/59 L Pulse Oximetry 95 96 95 02/04/18 07:00 02/04/18 08:00 02/04/18 09:00 Temperature 98.0 F Pulse Rate 65 75 78 Respiratory Rate 12 20 19 Blood Pressure 129/64 124/72 125/61 Pulse Oximetry 96 98 100 02/04/18 10:00 02/04/18 11:00 02/04/18 11:51 Temperature 97.9 F Pulse Rate 76 70 Respiratory Rate 18 20 Blood Pressure 123/61 125/56 L Pulse Oximetry 98 98 98 02/04/18 12:00 02/04/18 13:00 Temperature Pulse Rate 71 75 Respiratory Rate 25 H 21 Blood Pressure 131/62 124/62 Pulse Oximetry 99 99 Intake & Output 02/03/18 02/04/18 02/04/18 18:59 06:59 18:59 Intake Total 250 / 250 Balance 250 / 250 Weight 73.5 kg Intake: Oral 250 / 250 Other: # Voids 2 Weight On Admission 74.5 kg Narrative: GENERAL: Well-nourished, well-developed patient sitting up in [facility] bed, alert and conversant. CARDIOVASCULAR: Regular rate and rhythm. No murmurs rubs or gallops. RESPIRATORY: No accessory muscle use. Clear to auscultation. Breath sounds equal bilaterally. Chest is tender to palpation left peristernal region and lateral pecs. GASTROINTESTINAL: Abdomen soft, non-tender, nondistended. MUSCULOSKELETAL: Extremities without clubbing, cyanosis, or edema. No obvious deformities. No calf tenderness NEUROLOGICAL: Awake and alert. No obvious cranial nerve deficits. Strength 5/5 throughout right side. Results - Labs CBC & Chem 7: 02/04/18 01:25 02/04/18 01:25 Laboratory Results - last 24 hr 02/03/18 02/03/18 02/03/18 19:40 19:40 19:40 WBC RBC Hgb Hct MCV MCH MCHC RDW Plt Count MPV Neut % (Auto) Lymph % (Auto) Reeves % (Auto) Eos % (Auto) Baso % (Auto) Neut # (Auto) Lymph # (Auto) Reeves # (Auto) Eos # (Auto) Baso # (Auto) WBC Differential Differential Comment Sodium Potassium Chloride Carbon Dioxide Anion Gap BUN Creatinine Estimated GFR POC Glucose Random Glucose Calcium Phosphorus 2.6 Magnesium 1.9 Total Bilirubin AST ALT Alkaline Phosphatase Troponin I Less than 0.02 L Total Protein Albumin 02/03/18 02/04/18 02/04/18 20:59 01:25 01:25 WBC 9.5 RBC 5.10 Hgb 14.9 Hct 43.2 MCV 84.7 MCH 29.3 MCHC 34.6 RDW 13.1 Plt Count 152 MPV 9.1 Neut % (Auto) 75.6 H Lymph % (Auto) 15.1 Reeves % (Auto) 8.4 H Eos % (Auto) 0.2 Baso % (Auto) 0.7 Neut # (Auto) 7.2 Lymph # (Auto) 1.4 Reeves # (Auto) 0.8 Eos # (Auto) 0.0 Baso # (Auto) 0.1 WBC Differential . Differential Comment Auto diff final Sodium 133 L Potassium 4.4 Chloride 100 Carbon Dioxide 27.7 Anion Gap 5 BUN 25 H Creatinine 0.79 Estimated GFR 88 L POC Glucose 339 H Random Glucose 252 H D Calcium 8.5 Phosphorus Magnesium Total Bilirubin 0.8 AST 12 L ALT 46 Alkaline Phosphatase 73 Troponin I Less than 0.02 L Total Protein 6.2 L Albumin 3.2 L 02/04/18 02/04/18 02/04/18 08:01 08:21 13:09 WBC RBC Hgb Hct MCV MCH MCHC RDW Plt Count MPV Neut % (Auto) Lymph % (Auto) Reeves % (Auto) Eos % (Auto) Baso % (Auto) Neut # (Auto) Lymph # (Auto) Reeves # (Auto) Eos # (Auto) Baso # (Auto) WBC Differential Differential Comment Sodium Potassium Chloride Carbon Dioxide Anion Gap BUN Creatinine Estimated GFR POC Glucose 317 H 255 H Random Glucose Calcium Phosphorus Magnesium Total Bilirubin AST ALT Alkaline Phosphatase Troponin I Less than 0.02 L Total Protein Albumin 02/04/18 16:16 WBC RBC Hgb Hct MCV MCH MCHC RDW Plt Count MPV Neut % (Auto) Lymph % (Auto) Reeves % (Auto) Eos % (Auto) Baso % (Auto) Neut # (Auto) Lymph # (Auto) Reeves # (Auto) Eos # (Auto) Baso # (Auto) WBC Differential Differential Comment Sodium Potassium Chloride Carbon Dioxide Anion Gap BUN Creatinine Estimated GFR POC Glucose 295 H Random Glucose Calcium Phosphorus Magnesium Total Bilirubin AST ALT Alkaline Phosphatase Troponin I Total Protein Albumin - Imaging Impressions Chest X-Ray 02/03/18 19:09 CONCLUSION: Minimal bibasilar atelectasis. Assessment and Plan - Plan Very pleasant 67 yo F Ukrainian speaking who was [facility], she developed Chest pain, sob, had a panic attack and also her chest pain is reproducible. Trops neg and EKG no change seen by cardio. Patient was treated for PNA and finished course of abx, has a clear CXR and she did pass O2 sat walking test prior to DC however patient is weak and needs PT. Will transfer to same day surgery center floor . Patient might need to go home with home health when is safe of to [place]. Her insurance doesn't cover any SNF. Has a very supportive family. Hypertension Chest pain, likely musculoskeletal Her chest pain appears reproducible by palpation Trop negative x 2, no EKG changes. Seen by cardiology appreciate recommendations She had essentially normal TTE during her type 2 NSTEMI. Would not pursue further inpatient workup unless clinical course changes. Given her risk factors further risk stratification should be performed as an outpatient after she has recovered completed from her recent illness. She has a normal EF and currently does not appear to be volume up. D-dimer is negative. Continue lisinopril 20 mg p.o. daily. Continue Norvasc 10 mg p.o. daily. May need to add additional agent for hypertensive control. Continue Mobic 15 mg p.o. daily Given aspirin 324 mg p.o. x1. Continue aspirin 81 mg p.o. daily. BP is better controlled GI: 1800-calorie ADA diet Diabetes mellitus Continue Lantus 10 mg subcu nightly. Medium dose insulin sliding scale AC/hs. Peripheral neuropathy Continue Neurontin 300 mg p.o. daily. Continue amitriptyline 25 mg p.o. daily ? L hemiparesis - patient states since 01/23, had negative CT brain, CTA and MRI brain at that time. Prior tobacco abuse Recent pneumonia 2 L nasal cannula wean as tolerated She completed course of Rocephin and azithromycin. Of note sputum culture from 01/21 grew pansensitive Pseudomonas. At this point she feels clinically improved from the standpoint of her cough, is afebrile, has no leukocytosis, and has a clear chest x-ray. If it is felt that she was developing recurrent pneumonia would recommend empiric coverage to cover Pseudomonas however at this point will hold off on antibiotics since she appears improved. Continue Symbicort 2 puffs twice daily. Albuterol every 2 hours as needed. PROPH: SCD/Lovenox 40 mg subcu daily for DVT prophylaxis. Protonix 40 mg p.o. daily for stress ulcer prophylaxis. Transfer to med surg floor Discussed with the patient, family at bedside, nurse, ICU nurse Might DC home in 1-2 days if cleared by PT as safe DC. Note she passed O2 walk test.
[2018-02-04] MEDS: Insulin Detemir Inj 1,000 UNIT/10 ML Vial SQ SCH (22:02)
[2018-02-05] MEDS: Acetaminophen 325 MG Tablet PO PRN ×2 (00:29→21:55)
[2018-02-05] MEDS: Chlorhexidine Gluconate 2% 1 Pack (2 Cloths) TOPICAL SCH (07:52)
[2018-02-05] MEDS: Insulin NovoLOG Aspart Correctional Sugar Inj SQ SCH ×4 (08:06→20:27)
[2018-02-05] MEDS: Enoxaparin Inj 40 MG/0.4 ML Syringe SQ SCH (08:07)
[2018-02-05] MEDS: Budesonide-Formoterol 160/4.5 MCG 6 GM Inhaler INH SCH ×2 (08:07→20:30)
[2018-02-05] MEDS: Gabapentin 300 MG Capsule PO SCH (08:08)
[2018-02-05] MEDS: Meloxicam 15 MG Tablet PO SCH (08:08)
[2018-02-05] MEDS: amLODIPine 10 MG Tablet PO SCH (08:09)
[2018-02-05] MEDS: Lisinopril 20 MG Tablet PO SCH (08:09)
[2018-02-05] MEDS: Amitriptyline 25 MG Tablet PO SCH (08:09)
[2018-02-05] MEDS: Senna/Docusate Sodium 8.6/50 MG Tablet PO SCH ×2 (08:10→20:28)
[2018-02-05] MEDS: MethylPREDNISolone Sod Succinate Inj 125 MG/2 ML Vial IV.PUSH SCH ×2 (10:08→20:28)
--- NOTE | 2018-02-05 15:20 | P.PNIM ---
Subjective Interval history: 67-year-old female admitted for chest pain which is been deemed noncardiac per cardiology, they have signed off. Her chief complaint is that she is very tired , she is unsure why, she did have a cough at home which contributed to what seems to be pleuritic pain in her chest. Physical Exam Vital signs: Vital Signs 02/04/18 16:00 02/04/18 16:15 02/04/18 16:30 Temperature Pulse Rate 71 84 78 Respiratory Rate 19 24 21 Blood Pressure 121/60 152/70 H 139/61 Pulse Oximetry 96 99 99 02/04/18 16:45 02/04/18 17:00 02/04/18 17:15 Temperature Pulse Rate 74 71 68 Respiratory Rate 20 19 17 Blood Pressure 135/65 132/60 140/65 Pulse Oximetry 98 96 98 02/04/18 17:45 02/04/18 18:00 02/04/18 18:16 Temperature Pulse Rate 79 86 84 Respiratory Rate 18 25 H 26 H Blood Pressure 152/72 H 152/72 H 140/75 Pulse Oximetry 97 97 97 02/04/18 18:30 02/04/18 18:45 02/04/18 19:00 Temperature Pulse Rate 83 82 77 Respiratory Rate 25 H 27 H 32 H Blood Pressure 135/65 142/72 H 140/71 Pulse Oximetry 98 97 97 02/04/18 19:15 02/04/18 19:30 02/04/18 20:00 Temperature Pulse Rate 82 81 74 Respiratory Rate 21 25 H 23 Blood Pressure 152/70 H 167/81 H Pulse Oximetry 99 98 96 02/04/18 20:04 02/04/18 20:15 02/04/18 20:30 Temperature Pulse Rate 73 75 77 Respiratory Rate 22 22 21 Blood Pressure 116/55 L 131/60 132/63 Pulse Oximetry 94 L 94 L 94 L 02/04/18 20:45 02/04/18 21:00 02/04/18 21:16 Temperature Pulse Rate 74 75 79 Respiratory Rate 29 H 25 H 22 Blood Pressure 142/56 H 122/59 L 149/65 H Pulse Oximetry 96 96 97 02/04/18 21:30 02/04/18 21:45 02/04/18 22:00 Temperature Pulse Rate 73 72 74 Respiratory Rate 26 H 14 32 H Blood Pressure 132/61 130/52 L Pulse Oximetry 96 96 97 02/04/18 22:01 02/04/18 22:15 02/04/18 22:31 Temperature Pulse Rate 71 69 72 Respiratory Rate 23 19 21 Blood Pressure 132/58 L 116/58 L 152/64 H Pulse Oximetry 97 96 97 02/04/18 22:45 02/04/18 23:00 02/04/18 23:15 Temperature Pulse Rate 71 73 77 Respiratory Rate 28 H 21 19 Blood Pressure 119/55 L 141/65 H 138/67 Pulse Oximetry 98 98 98 02/04/18 23:30 02/05/18 00:00 02/05/18 00:11 Temperature 98.0 F Pulse Rate 75 89 86 Respiratory Rate 19 21 40 H Blood Pressure 122/59 L 131/64 Pulse Oximetry 97 98 02/05/18 00:15 02/05/18 00:30 02/05/18 00:45 Temperature Pulse Rate 76 67 61 Respiratory Rate 24 31 H 17 Blood Pressure 130/67 125/72 135/64 Pulse Oximetry 99 100 97 02/05/18 01:00 02/05/18 01:15 02/05/18 01:30 Temperature Pulse Rate 58 L 61 62 Respiratory Rate 17 21 19 Blood Pressure 122/56 L 121/58 L 125/61 Pulse Oximetry 99 98 98 02/05/18 01:45 02/05/18 02:00 02/05/18 02:15 Temperature Pulse Rate 62 61 60 Respiratory Rate 19 17 17 Blood Pressure 121/63 120/58 L 127/61 Pulse Oximetry 98 98 99 02/05/18 02:30 02/05/18 02:45 02/05/18 03:00 Temperature Pulse Rate 61 61 65 Respiratory Rate 17 17 18 Blood Pressure 121/62 127/65 128/69 Pulse Oximetry 99 99 98 02/05/18 03:15 02/05/18 03:30 02/05/18 03:45 Temperature Pulse Rate 63 59 L 61 Respiratory Rate 9 L 13 8 L Blood Pressure 138/71 132/66 131/64 Pulse Oximetry 99 99 98 02/05/18 04:00 02/05/18 04:15 02/05/18 04:30 Temperature 98.0 F Pulse Rate 61 64 63 Respiratory Rate 2 L 1 L 2 L Blood Pressure 132/60 128/62 129/63 Pulse Oximetry 99 99 99 02/05/18 04:45 02/05/18 05:00 02/05/18 05:15 Temperature Pulse Rate 64 63 65 Respiratory Rate 3 L 0 L 17 Blood Pressure 130/61 120/59 L 126/68 Pulse Oximetry 99 99 97 02/05/18 05:30 02/05/18 05:46 02/05/18 06:00 Temperature Pulse Rate 72 64 82 Respiratory Rate 18 17 18 Blood Pressure 130/72 117/58 L Pulse Oximetry 98 96 02/05/18 06:13 02/05/18 06:15 02/05/18 06:30 Temperature Pulse Rate 67 67 63 Respiratory Rate 16 19 16 Blood Pressure 126/60 124/59 L 125/60 Pulse Oximetry 95 92 L 94 L 02/05/18 06:45 02/05/18 07:00 02/05/18 07:15 Temperature Pulse Rate 64 66 67 Respiratory Rate 16 15 14 Blood Pressure 134/57 L 134/63 154/67 H Pulse Oximetry 94 L 96 95 02/05/18 07:30 02/05/18 07:45 02/05/18 08:00 Temperature 98.1 F Pulse Rate 66 66 71 Respiratory Rate 15 16 23 Blood Pressure 119/50 L 124/57 L 150/68 H Pulse Oximetry 93 L 95 97 02/05/18 08:01 02/05/18 08:15 02/05/18 08:30 Temperature Pulse Rate 67 66 64 Respiratory Rate 15 18 17 Blood Pressure 150/68 H 124/60 112/55 L Pulse Oximetry 93 L 93 L 95 02/05/18 08:42 02/05/18 08:45 02/05/18 09:00 Temperature Pulse Rate 65 66 Respiratory Rate 17 16 Blood Pressure 113/58 L 124/60 Pulse Oximetry 95 94 L 94 L 02/05/18 09:15 02/05/18 09:30 02/05/18 09:45 Temperature Pulse Rate 64 65 69 Respiratory Rate 2 L 16 8 L Blood Pressure 118/56 L 126/61 122/57 L Pulse Oximetry 95 96 94 L 02/05/18 10:00 02/05/18 10:15 02/05/18 10:30 Temperature Pulse Rate 71 72 75 Respiratory Rate 18 11 L 20 Blood Pressure 116/58 L 127/58 L 133/59 L Pulse Oximetry 94 L 93 L 94 L 02/05/18 10:45 02/05/18 10:59 02/05/18 11:00 Temperature Pulse Rate 71 100 H 104 H Respiratory Rate 18 20 33 H Blood Pressure 131/63 149/73 H 151/68 H Pulse Oximetry 95 96 97 02/05/18 12:00 Temperature 98.2 F Pulse Rate 83 Respiratory Rate 18 Blood Pressure 132/72 Pulse Oximetry 96 Intake & Output 02/04/18 02/05/18 02/05/18 18:59 06:59 18:59 Intake Total 1440 / 1440 720 / 720 Output Total 2099 / 2099 Balance 1440 / 1440 -1380 / -1380 Weight 71 kg Intake: Oral 1440 / 1440 720 / 720 Output: Urine 2099 / 2099 Other: # Voids 3 3 Date of Last Bowel Movement 02/05/18 02/05/18 # Bowel Movements 0 1 Narrative: GENERAL: AAOx3, no acute distress. lethargic SKIN: Warm and dry. No rashes HEAD: Atruamtic, normocephalic. EYES: No scleral icterus. No injection or drainage. ENT: Moist mucous membranes, patent nares, no erythema of oropharynx. NECK: Supple, trachea midline. No JVD or lymphadenopathy. Normal thyroid. CARDIOVASCULAR: Regular rate and rhythm. No murmurs, gallops, or rubs. RESPIRATORY: Breath sounds clear equal bilaterally. No crackles or wheezes. No accessory muscle use. GASTROINTESTINAL: Abdomen soft, non-tender, nondistended, normal active bowel sounds MUSCULOSKELETAL: No cyanosis, or edema. NEURO: CN II-XII grossly intact, no focal deficits, no slurring of speech Results - Labs CBC & Chem 7: 02/04/18 01:25 02/04/18 01:25 Laboratory Results - last 24 hr 02/04/18 02/04/18 02/05/18 16:16 21:53 00:13 POC Glucose 295 H 338 H 289 H 02/05/18 02/05/18 07:55 12:20 POC Glucose 250 H 248 H Assessment and Plan - Plan Very pleasant 67 yo F Urdu speaking who was sent to [facility] yesterday, she developed Chest pain, sob, had a panic attack and also her chest pain is reproducible. Trops neg and EKG no change seen by cardio. Patient was treated for PNA and finished course of abx, has a clear CXR and she did pass O2 sat walking test prior to DC however patient is weak and needs PT. Will transfer to med surg floor . Patient might need to go home with home health when is safe of to [place]. Her insurance doesn't cover any SNF. Has a very supportive family. Chest Pain STEMI ruled out, deemed non-cardiac per cardiology Solu-medrol was given this morning to address costochondritis vs. pleuritic pain. Her pain improved. Continue BID Solu-medrol Lethargy & Generalized Weakness Etiology is unclear. She did have recent PNA, but CXR on this admission shows only atelectasis Screening urinalysis ordered TSH, B-12 level ordered with a.m. labs. Hold Amitriptyline for now Continue working with PT Type 2 Diabetes Medium dose sliding scale coverage with accuchecks Continue Lantus 10 units HS Diabetic diet Recent Pneumonia Completed course of Rocephin/Azithro Pseudomonas grew out on follow up sputum culture, worth considering if cough returns Follow up CXR if no other etiology to explain her lethargy Follow CBC for leukocyte trend Peripheral Neuropathy Continue Neurontin Amitriptyline held for possible contribution to lethargy Patient claims left side weakness, but CT, CTA, MRI brain all normal DVT Prophylaxis Lovenox Discharge Planning Patient came from [place], back to [place] or home with [facility] when ready for home
[2018-02-05 17:39] LABS: Bilirubin,Urine Negative (Negative); Clarity,Urine Clear (Clear); Color,Urine Yellow (Yellw/Straw); Glucose,Urine (UA) 500 or Greater mg/dL (Negative); Leukocyte Esterase,Urine Trace (Negative); Mucus,Urine Few /lpf (Occasional); Nitrite,Urine Negative (Negative); Squamous Epithelial Cell,Urine <1 /hpf (0-5)
[2018-02-05] MEDS: Insulin Detemir Inj 1,000 UNIT/10 ML Vial SQ SCH (20:27)
[2018-02-06] MEDS: Chlorhexidine Gluconate 2% 1 Pack (2 Cloths) TOPICAL SCH (03:35)
[2018-02-06] MEDS: Insulin NovoLOG Aspart Correctional Sugar Inj SQ SCH ×4 (08:00→20:11)
[2018-02-06] MEDS: Meloxicam 15 MG Tablet PO SCH (08:28)
[2018-02-06] MEDS: MethylPREDNISolone Sod Succinate Inj 125 MG/2 ML Vial IV.PUSH SCH (08:28)
[2018-02-06] MEDS: amLODIPine 10 MG Tablet PO SCH (08:28)
[2018-02-06] MEDS: Senna/Docusate Sodium 8.6/50 MG Tablet PO SCH ×2 (08:28→20:10)
[2018-02-06] MEDS: Enoxaparin Inj 40 MG/0.4 ML Syringe SQ SCH (08:28)
[2018-02-06] MEDS: Lisinopril 20 MG Tablet PO SCH (08:28)
[2018-02-06] MEDS: Gabapentin 300 MG Capsule PO SCH (08:28)
[2018-02-06 08:40] LABS: Hematocrit 43.7 % (35.0-46.0); Hemoglobin 14.9 gm/dL (11.6-15.3); Mean Corpuscular Hemoglobin 29.4 pg (27.0-34.0); Mean Corpuscular Volume 86.4 fL (80.0-100.0); Mean Platelet Volume 9.7 fL (7.0-11.0); Platelet Count 145 th/mm3 (150-450); Red Blood Count 5.05 mil/mm3 (4.00-5.30); Red Cell Distribution Width 13.3 % (11.6-17.2); White Blood Count 9.2 th/mm3 (4.0-11.0)
[2018-02-06] MEDS: Budesonide-Formoterol 160/4.5 MCG 6 GM Inhaler INH SCH ×2 (09:00→20:10)
[2018-02-06 09:02] LABS: Anion Gap 10 meq/L (5-15); Blood Urea Nitrogen 24 mg/dL (7-18); Calcium 8.7 mg/dL (8.5-10.1); Carbon Dioxide 24.8 meq/L (21.0-32.0); Chloride 96 meq/L (98-107); Glomerular Filtration Rate Greater Than 89 mL/min (>89); Glucose,Random 296 mg/dL (74-106); Potassium 4.3 meq/L (3.5-5.1); Sodium 131 meq/L (136-145)
--- NOTE | 2018-02-06 12:12 | P.PN ---
Subjective Interval history: seen with family at bedside and Susy- interpreting for us no headahces, nausea or vomting complains of low back discomfort since 01/23 ocasionally radiating down to legs no chest pains or shortness of breath known diabetic Physical Exam Vital signs: Vital Signs 02/05/18 16:00 02/05/18 16:14 02/05/18 20:00 Temperature 99.1 F 97.7 F Pulse Rate 75 82 77 Respiratory Rate 18 16 Blood Pressure 125/60 173/95 H Pulse Oximetry 97 98 02/05/18 22:14 02/06/18 00:00 02/06/18 04:00 Temperature 98.5 F 97.5 F L Pulse Rate 79 73 Respiratory Rate 16 14 16 Blood Pressure 136/68 133/66 Pulse Oximetry 97 97 02/06/18 08:00 Temperature 98.7 F Pulse Rate 76 Respiratory Rate 18 Blood Pressure 132/64 Pulse Oximetry 94 L Intake & Output 02/05/18 02/06/18 02/06/18 18:59 06:59 18:59 Intake Total 1340 / 1340 Output Total 300 / 300 Balance -300 / -300 1340 / 1340 Weight 68.7 kg Intake: Oral 1340 / 1340 Output: Urine 300 / 300 Other: # Voids 1 2 Date of Last Bowel Movement 02/05/18 02/05/18 02/05/18 Narrative: GENERAL: AAOx3, no acute distress. lethargic SKIN: Warm and dry. No rashes HEAD: normocephalic. EYES: No scleral icterus. No injection or drainage. ENT: Moist mucous membranes, patent nares, no erythema of oropharynx. NECK: Supple, trachea midline. No JVD or lymphadenopathy. Normal thyroid. CARDIOVASCULAR: Regular rate and rhythm. No murmurs, gallops, or rubs. RESPIRATORY: Breath sounds clear equal bilaterally. No crackles or wheezes. No accessory muscle use. GASTROINTESTINAL: Abdomen soft, non-tender, nondistended, normal active bowel sounds MUSCULOSKELETAL: No cyanosis, or edema. NEURO: CN II-XII grossly intact, + mild left sided weakness- more of LE grossly no sensory deficits Results - Labs CBC & Chem 7: 02/06/18 08:15 02/06/18 08:15 Laboratory Results - last 24 hr 02/05/18 02/05/18 02/05/18 12:20 17:12 17:14 WBC RBC Hgb Hct MCV MCH MCHC RDW Plt Count MPV Sodium Potassium Chloride Carbon Dioxide Anion Gap BUN Creatinine Estimated GFR POC Glucose 248 H 402 H Random Glucose Calcium Vitamin B12 TSH Urine Color Yellow Urine Clarity Clear Urine pH 6.0 Ur Specific [place] 1.020 Urine Protein Negative Urine Glucose (UA) 500 or greater Urine Ketones Trace H Urine Occult Blood Negative Urine Nitrate Negative Urine Bilirubin Negative Urine Urobilinogen Less than 2 Ur Leukocyte Esterase Trace H Urine RBC 1 Urine WBC 8 H Ur Squamous Epith Cells <1 Urine Mucus Few H Micro UA Comment Culture not ind Ur Microscopic Review Not Reportable Urine Culture Comments Culture not ind 02/05/18 02/06/18 02/06/18 20:26 07:20 08:15 WBC RBC Hgb Hct MCV MCH MCHC RDW Plt Count MPV Sodium 131 L Potassium 4.3 Chloride 96 L Carbon Dioxide 24.8 Anion Gap 10 BUN 24 H Creatinine 0.67 Estimated GFR Greater than 89 POC Glucose 398 H 261 H Random Glucose 296 H Calcium 8.7 Vitamin B12 Greater than 2000 H TSH Less than 0.005 L Urine Color Urine Clarity Urine pH Ur Specific [place] Urine Protein Urine Glucose (UA) Urine Ketones Urine Occult Blood Urine Nitrate Urine Bilirubin Urine Urobilinogen Ur Leukocyte Esterase Urine RBC Urine WBC Ur Squamous Epith Cells Urine Mucus Micro UA Comment Ur Microscopic Review Urine Culture Comments 02/06/18 02/06/18 08:15 12:09 WBC 9.2 RBC 5.05 Hgb 14.9 Hct 43.7 MCV 86.4 MCH 29.4 MCHC 34.0 RDW 13.3 Plt Count 145 L MPV 9.7 Sodium Potassium Chloride Carbon Dioxide Anion Gap BUN Creatinine Estimated GFR POC Glucose 340 H Random Glucose Calcium Vitamin B12 TSH Urine Color Urine Clarity Urine pH Ur Specific [place] Urine Protein Urine Glucose (UA) Urine Ketones Urine Occult Blood Urine Nitrate Urine Bilirubin Urine Urobilinogen Ur Leukocyte Esterase Urine RBC Urine WBC Ur Squamous Epith Cells Urine Mucus Micro UA Comment Ur Microscopic Review Urine Culture Comments Assessment and Plan - Plan 67 years old Very pleasant 67 yo F Malay speaking who was sent to [place] [facility] yesterday, she developed Chest pain, sob, had a panic attack and also her chest pain is reproducible. Trops neg and EKG no change seen by cardio. Patient was treated for PNA and finished course of abx, has a clear CXR and she did pass O2 sat walking test prior to DC however patient is weak and needs PT. Will transfer to med surg floor . Patient might need to go home with home health when is safe of to [place]. Her insurance doesn't cover any SNF. Has a very supportive family. Chest Pain- non cardiac STEMI ruled out, deemed non-cardiac per cardiology Solu-medrol was given this morning to address costochondritis vs. pleuritic pain. Her pain improved. on BID Solu-medrol- will DC steroids Lethargy - MS improved Etiology is unclear. She did have recent PNA, but CXR on this admission shows only atelectasis Screening urinalysis ordered TSH, B-12 level ordered with a.m. labs. Hold Amitriptyline for now Continue working with PT Peripheral Neuropathy MIld left sided weakness on exam - states low back pain- Myelopathy Continue Neurontin Amitriptyline held for possible contribution to lethargy Patient claims left side weakness, but CT, CTA, MRI brain all normal get CT of the spines conrtinue PT Type 2 Diabetes A1C- 8.0 Medium dose sliding scale coverage with accuchecks Continue Lantus 10 units HS Diabetic diet DC steroids Recent Pneumonia Completed course of Rocephin/Azithro Pseudomonas grew out on follow up sputum culture, worth considering if cough returns Follow up CXR if no other etiology to explain her lethargy Follow CBC for leukocyte trend Suppressed TSH on labs - check free thryoid hormones level DVT Prophylaxis Lovenox Discharge Planning Patient came from [facility]- [facility]
[2018-02-06 16:18] LABS: Bacteria,Urine Rare /hpf; Bilirubin,Urine Negative (Negative); Clarity,Urine Clear (Clear); Color,Urine Yellow (Yellw/Straw); Glucose,Urine (UA) 500 or Greater mg/dL (Negative); Leukocyte Esterase,Urine Negative (Negative); Nitrite,Urine Negative (Negative); Specific Gravity,Urine 1.022 (1.002-1.035); Squamous Epithelial Cell,Urine <1 /hpf (0-5); Transitional Epi Cells,Urine <1 /hpf
--- NOTE | 2018-02-06 17:00 | CT ---
EXAM DATE: 02/06/2018 3:53 PM EDT AGE/SEX: 67 years / Female INDICATIONS: Neck pain CLINICAL DATA: This is the patient's initial encounter. Patient reports that signs and symptoms have been present for 1 day and indicates a pain score of 0/10. MEDICAL/SURGICAL HISTORY: Diabetes. Chronic obstructive pulmonary disease. Hypertension. Str patricia None. RADIATION DOSE: 42.36 CTDI (mGy) COMPARISON: No prior exams available for comparison. TECHNIQUE: Contiguous axial images were obtained using helical multirow detector technique. The vol umetric data was post-processed with multiplanar reconstruction in oblique axial, sagittal, and coron al planes. Using automated exposure control and adjustment of the mA and/or kV according to patient s ize, radiation dose was kept as low as reasonably achievable to obtain optimal diagnostic quality macario ges. DICOM format image data is available electronically for review and comparison. FINDINGS: There is no acute fracture or spondylolisthesis. Moderate degenerative disc disease is present especi ally at C5-6 where there is mild to moderate AP canal stenosis and moderate foraminal stenosis, worse on the left side. At C6-7 there is mild to moderate canal and foraminal stenosis as well. No solid or significant canal stenosis. CONCLUSION: 1. No acute findings. No fracture or spondylolisthesis or prevertebral soft tissue swelling. 2. At C5-6-7 there is degenerative disc disease with a mild to moderate canal and foraminal stenosis . Electronically signed by: Chavo Turner MD 02/06/2018 4:59 PM EDT
--- NOTE | 2018-02-06 17:04 | CT ---
EXAM DATE: 02/06/2018 3:53 PM EDT AGE/SEX: 67 years / Female INDICATIONS: Back pain CLINICAL DATA: This is the patient's initial encounter. Patient reports that signs and symptoms have been present for 1 day and indicates a pain score of 0/10. MEDICAL/SURGICAL HISTORY: Diabetes. Chronic obstructive pulmonary disease. Hypertension. Stroke None. RADIATION DOSE: 31.47 CTDI (mGy) ; Combined studies [place] [facility] [place] 02/06/2018. . TECHNIQUE: Contiguous axial images were acquired using a multirow detector CT scanner without contra st. Multiplanar reconstruction in the sagittal and coronal planes was performed. Using automated exp osure control and adjustment of the mA and/or kV according to patient size, radiation dose was kept a s low as reasonably achievable to obtain optimal diagnostic quality images. DICOM format image data is available electronically for review and comparison. FINDINGS: The vertebral bodies of the thoracic spine are in normal alignment. Vertebral body height is [place]. No fractures are seen. T1 - T2: Normal. T2 - T3: The thecal sac has a normal diameter. No evidence of disc bulge or protrusion. T3 - T4: Minimal diffuse disc bulge. No significant bony central canal or neural foraminal stenosis. T4 - T5: Minimal posterior disc osteophytes. No significant bony central canal or neural foraminal s tenosis. T5 - T6: Minimal posterior disc osteophytes. No significant bony central canal or neural foraminal s tenosis. T6 - T7: Central posterior disc osteophytes with mild effacement anterior thecal sac. No significant bony neural foraminal stenosis. T7 - T8: The thecal sac has a normal diameter. No evidence of disc bulge or protrusion. T8 - T9: The thecal sac has a normal diameter. No evidence of disc bulge or protrusion. T9 - T10: Central posterior disc osteophytes. No significant bony or neural foraminal stenosis. T10 - T11: Mild diffuse disc bulge and central posterior osteophyte. No significant bony central can al or neural foraminal stenosis. T11 - T12: Vacuum disc phenomenon. Diffuse disc bulge. Mild effacement anterior thecal sac. No signi ficant bony neural foraminal stenosis. T12 - L1: Mild diffuse disc bulge. Mild facet arthrosis. No significant neural foraminal stenosis. CONCLUSION: 1. No acute fracture. 2. Mild multilevel degenerative spondylosis of the thoracic spine without significant bony neural fo raminal or central canal stenosis. Electronically signed by: Torin Zaman MD 02/06/2018 5:03 PM EDT
--- NOTE | 2018-02-06 17:07 | CT ---
EXAM DATE: 02/06/2018 3:53 PM EDT AGE/SEX: 67 years / Female INDICATIONS: Back pain CLINICAL DATA: This is the patient's initial encounter. Patient reports that signs and symptoms have been present for 1 day and indicates a pain score of 0/10. MEDICAL/SURGICAL HISTORY: Diabetes. Chronic obstructive pulmonary disease. Hypertension. Stroke None. RADIATION DOSE: 31.47 CTDI (mGy) ; Combined studies COMPARISON: No prior exams available for comparison. TECHNIQUE: Contiguous axial images were acquired with a multirow detector CT scanner without contras t. Multiplanar reconstructions in the sagittal and coronal plane were also performed. Using automate d exposure control and adjustment of the mA and/or kV according to patient size, radiation dose was k ept as low as reasonably achievable to obtain optimal diagnostic quality images. DICOM format image data is available electronically for review and comparison. FINDINGS: At D20-H7-A0-F9 there is mild degenerative disc disease without significant canal or foraminal stenos is. At L3-4 there is a broad-based disc osteophyte complex and facet arthropathy with mild canal and late ral recess stenosis and mild bilateral foraminal encroachment. At L4-5 there is a broad-based posterior disc bulge and facet arthropathy with mild canal and lateral recess stenosis and mild foraminal encroachment. At L5-S1 there is a mild degenerative anterolisthesis with facet arthropathy. Mild lateral recess umang nosis and mild bilateral foraminal encroachment. CONCLUSION: 1. At L3-4-5 there is a posterior disc osteophyte complex resulting in mild canal and lateral recess stenosis and mild foraminal encroachment. 2. L5-S1 there is a minimal degenerative anterolisthesis with mild lateral recess encroachment. 3. No acute fracture. Electronically signed by: Chavo Turner MD 02/06/2018 5:05 PM EDT
[2018-02-06 18:30] LABS: Free T4 (Free Thyroxine) 1.76 ng/dL (0.76-1.46); Triiodothyronine (T3) Free 2.27 pg/mL (2.18-3.98)
[2018-02-06] MEDS: Insulin Detemir Inj 1,000 UNIT/10 ML Vial SQ SCH (20:10)
[2018-02-07] MEDS: Chlorhexidine Gluconate 2% 1 Pack (2 Cloths) TOPICAL SCH (03:00)
[2018-02-07] MEDS: Gabapentin 300 MG Capsule PO SCH (09:59)
[2018-02-07] MEDS: Lisinopril 20 MG Tablet PO SCH (09:59)
[2018-02-07] MEDS: Senna/Docusate Sodium 8.6/50 MG Tablet PO SCH ×2 (09:59→21:08)
[2018-02-07] MEDS: Meloxicam 15 MG Tablet PO SCH (10:00)
[2018-02-07] MEDS: Enoxaparin Inj 40 MG/0.4 ML Syringe SQ SCH (10:00)
[2018-02-07] MEDS: amLODIPine 10 MG Tablet PO SCH (10:00)
[2018-02-07] MEDS: Insulin NovoLOG Aspart Correctional Sugar Inj SQ SCH ×4 (10:01→21:07)
[2018-02-07] MEDS: Budesonide-Formoterol 160/4.5 MCG 6 GM Inhaler INH SCH ×2 (10:02→21:10)
--- NOTE | 2018-02-07 12:54 | P.PN ---
Subjective Interval history: awake and alert good po appetitie interactive no complains of pain/chest pain or shortness of breath Physical Exam Vital signs: Vital Signs 02/06/18 16:00 02/06/18 20:00 02/07/18 00:00 Temperature 98.7 F 97.9 F 97.8 F Pulse Rate 82 92 H 84 Respiratory Rate 18 16 16 Blood Pressure 133/63 141/66 H 130/62 Pulse Oximetry 94 L 97 98 02/07/18 04:00 02/07/18 08:00 02/07/18 12:00 Temperature 97.6 F 97.3 F L 97.8 F Pulse Rate 75 70 69 Respiratory Rate 16 17 16 Blood Pressure 122/70 138/68 120/61 Pulse Oximetry 98 97 96 Intake & Output 02/06/18 02/07/18 02/07/18 18:59 06:59 18:59 Intake Total 480 / 480 240 / 240 Balance 480 / 480 240 / 240 Weight 68.9 kg Intake: Oral 480 / 480 240 / 240 Other: # Voids 2 5 Date of Last Bowel Movement 02/05/18 Narrative: GENERAL: AAOx3, no acute distress. lethargic SKIN: Warm and dry. No rashes HEAD: normocephalic. EYES: No scleral icterus. No injection or drainage. ENT: Moist mucous membranes, NECK: Supple, trachea midline. No JVD or lymphadenopathy. Normal thyroid. CARDIOVASCULAR: Regular rate and rhythm. No murmurs, gallops, or rubs. RESPIRATORY: Breath sounds clear equal bilaterally. No crackles or wheezes. No accessory muscle use. GASTROINTESTINAL: Abdomen soft, non-tender, nondistended, normal active bowel sounds MUSCULOSKELETAL: No cyanosis, or edema. NEURO: CN II-XII grossly intact, + mild left sided weakness- more of LE grossly no sensory deficits Results - Labs CBC & Chem 7: 02/06/18 08:15 02/06/18 08:15 Laboratory Results - last 24 hr 02/06/18 02/06/18 02/06/18 08:15 15:30 17:36 POC Glucose 393 H Free T4 1.76 H Free T3 2.27 Urine Color Yellow Urine Clarity Clear Urine pH 6.0 Ur Specific [place] 1.022 Urine Protein Negative Urine Glucose (UA) 500 or greater Urine Ketones Trace H Urine Occult Blood Negative Urine Nitrate Negative Urine Bilirubin Negative Urine Urobilinogen Less than 2 Ur Leukocyte Esterase Negative Urine RBC 1 Urine WBC 4 Ur Squamous Epith Cells <1 Ur Transition Epith Cell <1 Urine Bacteria Rare H Micro UA Comment Culture not ind Ur Microscopic Review Not Reportable Urine Culture Comments Culture not ind 02/06/18 20:08 POC Glucose 424 H Free T4 Free T3 Urine Color Urine Clarity Urine pH Ur Specific [place] Urine Protein Urine Glucose (UA) Urine Ketones Urine Occult Blood Urine Nitrate Urine Bilirubin Urine Urobilinogen Ur Leukocyte Esterase Urine RBC Urine WBC Ur Squamous Epith Cells Ur Transition Epith Cell Urine Bacteria Micro UA Comment Ur Microscopic Review Urine Culture Comments - Imaging Impressions Cervical Spine CT 02/06/18 00:00 CONCLUSION: 1. No acute findings. No fracture or spondylolisthesis or prevertebral soft tissue swelling. 2. At C5-6-7 there is degenerative disc disease with a mild to moderate canal and foraminal stenosis. Lumbar Spine CT 02/06/18 00:00 CONCLUSION: 1. At L3-4-5 there is a posterior disc osteophyte complex resulting in mild canal and lateral recess stenosis and mild foraminal encroachment. 2. L5-S1 there is a minimal degenerative anterolisthesis with mild lateral recess encroachment. 3. No acute fracture. Thoracic Spine CT 02/06/18 00:00 CONCLUSION: 1. No acute fracture. 2. Mild multilevel degenerative spondylosis of the thoracic spine without significant bony neural foraminal or central canal stenosis. Assessment and Plan - Plan 67 years old Very pleasant 67 yo F Kazakh speaking who was sent to [facility] yesterday, she developed Chest pain, sob, had a panic attack and also her chest pain is reproducible. Trops neg and EKG no change seen by cardio. Patient was treated for PNA and finished course of abx, has a clear CXR and she did pass O2 sat walking test prior to DC however patient is weak and needs PT. Will transfer to [facility] surg floor . Patient might need to go home with home health when is safe of to [place]. Her insurance doesn't cover any SNF. Has a very supportive family. Chest Pain- non cardiac STEMI ruled out, deemed non-cardiac per cardiology Solu-medrol was given this morning to address costochondritis vs. pleuritic pain. Her pain improved. DC steroid 02/06 no complains Lethargy - MS improved Etiology is unclear. She did have recent PNA, but CXR on this admission shows only atelectasis Screening urinalysis ordered TSH, B-12 level ordered with a.m. labs. Hold Amitriptyline for now Continue working with PT Peripheral Neuropathy MIld left sided weakness on exam - states low back pain- Myelopathy Continue Neurontin Amitriptyline held for possible contribution to lethargy Patient claims left side weakness, but CT, CTA, MRI brain all normal get CT of the spines - no significant findings conrtinue PT Type 2 Diabetes A1C- 8.0 Medium dose sliding scale coverage with accuchecks Continue Lantus 10 units HS- increae to 15 units hs Diabetic diet DC steroids Recent Pneumonia Completed course of Rocephin/Azithro Pseudomonas grew out on follow up sputum culture, worth considering if cough returns Follow up CXR if no other etiology to explain her lethargy Follow CBC for leukocyte trend HYperthyroidism Suppressed TSH ,elevated FT4 start on Tapazole 5 mg tid recheck TFTs in 4 weeks DVT Prophylaxis Lovenox Discharge Planning Patient came from [facility] consult- [facility] consult transfer to [place] if accepted- awaiting [facility]
[2018-02-07] MEDS: methIMAzole 5 MG Tablet PO SCH ×2 (13:11→17:46)
[2018-02-07] MEDS ORDERED: Insulin Detemir Inj 1,000 UNIT/10 ML Vial SQ SCH (21:00)
[2018-02-08] MEDS: Chlorhexidine Gluconate 2% 1 Pack (2 Cloths) TOPICAL SCH (04:54)
[2018-02-08] MEDS: Enoxaparin Inj 40 MG/0.4 ML Syringe SQ SCH (08:25)
[2018-02-08] MEDS: Lisinopril 20 MG Tablet PO SCH (08:25)
[2018-02-08] MEDS: amLODIPine 10 MG Tablet PO SCH (08:26)
[2018-02-08] MEDS: Senna/Docusate Sodium 8.6/50 MG Tablet PO SCH (08:26)
[2018-02-08] MEDS: Meloxicam 15 MG Tablet PO SCH (08:26)
[2018-02-08] MEDS: Gabapentin 300 MG Capsule PO SCH (08:26)
[2018-02-08] MEDS: Budesonide-Formoterol 160/4.5 MCG 6 GM Inhaler INH SCH (08:27)
[2018-02-08] MEDS: methIMAzole 5 MG Tablet PO SCH ×2 (08:27→12:43)
[2018-02-08 08:36] VITALS: RESP 17; O2SAT 96
[2018-02-08] MEDS: Insulin NovoLOG Aspart Correctional Sugar Inj SQ SCH ×2 (08:36→12:44)
--- NOTE | 2018-02-08 08:50 | P.PN ---
Subjective Interval history: no complains- "Puerto Rican speaking" good po no problem voidig and BM reviewed BS with her - states as OP- uses "pastillas- sounds like Metformin and Glipizide" seen and discussed wth PT/ dragging her left leg when she walks Physical Exam Vital signs: Vital Signs 02/07/18 12:00 02/07/18 16:00 02/07/18 20:00 Temperature 97.8 F 97.8 F 97.7 F Pulse Rate 69 72 107 H Respiratory Rate 16 16 15 Blood Pressure 120/61 134/62 116/57 L Pulse Oximetry 96 95 95 02/08/18 00:00 02/08/18 04:00 02/08/18 08:00 Temperature 97.9 F 97.8 F 97.7 F Pulse Rate 71 67 71 Respiratory Rate 16 15 17 Blood Pressure 134/63 116/61 147/72 H Pulse Oximetry 97 95 96 Intake & Output 02/07/18 02/08/18 02/08/18 18:59 06:59 18:59 Intake Total 720 / 720 360 / 360 Output Total 3 / 3 Balance 717 / 717 360 / 360 Weight 69.9 kg Intake: Oral 720 / 720 360 / 360 Output: Urine 3 / 3 Other: # Voids 3 Date of Last Bowel Movement 02/07/18 02/07/18 # Bowel Movements 0 Narrative: GENERAL: AAOx3, no acute distress. oriented x 3- Puerto Rican speaking SKIN: Warm and dry. No rashes HEAD: normocephalic. EYES: No scleral icterus. No injection or drainage. ENT: Moist mucous membranes, NECK: Supple, trachea midline. No JVD or lymphadenopathy. Normal thyroid. CARDIOVASCULAR: Regular rate and rhythm. No murmurs, gallops, or rubs. RESPIRATORY: Breath sounds clear equal bilaterally. No crackles or wheezes. No accessory muscle use. GASTROINTESTINAL: Abdomen soft, non-tender, nondistended, normal active bowel sounds MUSCULOSKELETAL: No cyanosis, or edema. NEURO: CN II-XII grossly intact, + left sided weakness- more of the LEft lower extremities grossly no sensory deficits Results - Labs CBC & Chem 7: 02/06/18 08:15 02/06/18 08:15 Laboratory Results - last 24 hr 02/07/18 02/07/18 13:00 19:35 POC Glucose 441 H 398 H Assessment and Plan - Plan 67 years old Very pleasant 67 yo F Puerto Rican speaking who was [facility], she developed Chest pain, sob, had a panic attack and also her chest pain is reproducible. Trops neg and EKG no change seen by cardio. Patient was treated for PNA and finished course of abx, has a clear CXR and she did pass O2 sat walking test prior to DC however patient is weak and needs PT. Will transfer to [facility] floor . Patient might need to go home with home health when is safe of to [place]. Her insurance doesn't cover any SNF. Has a very supportive family. Chest Pain- non cardiac STEMI ruled out, deemed non-cardiac per cardiology Solu-medrol was given this morning to address costochondritis vs. pleuritic pain. Her pain improved. DC steroid 02/06 no complains Lethargy - MS improved Etiology is unclear. She did have recent PNA, but CXR on this admission shows only atelectasis Screening urinalysis ordered TSH, B-12 level ordered with a.m. labs. Hold Amitriptyline for now Continue working with PT Peripheral Neuropathy left sided weakness on exam more Left LE Continue Neurontin Amitriptyline held for possible contribution to lethargy left side weakness, but CT, CTA, MRI brain all normal get CT of the spines - no significant findings continue PT effort -good inpatient reahb candidate Type 2 Diabetes A1C- 8.0 Medium dose sliding scale coverage with accuchecks Continue Lantus 10 units HS- increase to 15 units bid Diabetic diet -continue to monitor- as OP was on metformin and glipize -will start her on Metormin 500 mg bid DC steroids 02/07 Recent Pneumonia Completed course of Rocephin/Azithro Pseudomonas grew out on follow up sputum culture, worth considering if cough returns Follow up CXR if no other etiology to explain her lethargy Follow CBC for leukocyte trend HYperthyroidism Suppressed TSH ,elevated FT4 started on Tapazole 5 mg tid 02.07 recheck TSH ,TFTs in 4 weeks DVT Prophylaxis Lovenox Discharge Planning Patient came from [place]- needs rehab CM consult- [place] consult transfer to [place] if accepted- awaiting [facility]
[2018-02-08] MEDS ORDERED: Insulin Detemir Inj 1,000 UNIT/10 ML Vial SQ SCH (09:00)
[2018-02-08 12:38] VITALS: BP 144/88; PULSE 67; TEMP 97.6
--- NOTE | 2018-02-08 14:15 | P.DS ---
Date of admission: 02/03/18 18:23 Primary care physician: UNKNOWN Anticipated date of discharge: 02/08/18 Brief History from admission: History of was obtained by discussion with patient and her daughter using video conference with battery container inspector #[id number] 67-year-old Haitian-speaking female with past medical history of hypertension, diabetes, TIA, peripheral neuropathy who was admitted to [facility] 01/21 after presenting with cough and congestion for several weeks despite outpatient antibiotics. She was treated with azithromycin and with rocephin 01/22-01/31. During her hospital stay, she had intermittently complained of chest pain and troponin peaked at 0.95. She was seen by cardiology and impression that it was NSTEMI secondary to pneumonia/sepsis with no further workup recommended. She also had L hemiparesis and had negative imaging workup (CT, CTA brain and neck and MRI brain) and evaluation by neurology. She was discharged to [place] [facility] 02/03 and then complained of chest pain and left chest tenderness. She was reportedly diaphoretic with SBP 180/7 and then 210, therefore she was transferred to [facility] and offset press assistant consult was placed. She received NTG 0.4 mg sublingual and BP decreased to 100/54 and patient states chest pain is gone. She demonstrates that she has reproducible pain when she presses on her left chest that she states has been sharp and intermittent since her admission for cough. States she overall feels her cough is improved and she is afebrile. Still occasional sputum production but it is now white/clear. Her initial EKG is unremarkable and troponin is negative. Ddimer also negative. Patient update on day of discharge: awake and alert motivated with PT sinus DS: Summary Hospital Course: 67 years old Very pleasant 67 yo F Haitian speaking who [facility], she developed Chest pain, sob, had a panic attack and also her chest pain is reproducible. Trops neg and EKG no change seen by cardio. Patient was treated for PNA and finished course of abx, has a clear CXR and she did pass O2 sat walking test prior to DC however patient is weak and needs PT. Will transfer to [facility] surg floor . Patient might need to go home with home health when is safe of to [place]. Her insurance doesn't cover any SNF. Has a very supportive family. Chest Pain- non cardiac STEMI ruled out, deemed non-cardiac per cardiology Solu-medrol costochondritis vs. pleuritic pain. Her pain improved. Steroids discontinued 02/06 no complains Lethargy - MS improved Etiology is unclear. She did have recent PNA, but CXR on this admission shows only atelectasis Screening urinalysis ordered TSH, B-12 level ordered with a.m. labs. Hold Amitriptyline Continue working with PT Peripheral Neuropathy left sided weakness on exam more Left LE Continue Neurontin Amitriptyline held for possible contribution to lethargy left side weakness, but CT, CTA, MRI brain all normal CT of the spines - no significant findings continue PT effort -good inpatient rehab candidate Type 2 Diabetes A1C- 8.0 Medium dose sliding scale coverage with accuchecks Continue Levemer- increase to 15 units bid Diabetic diet -continue to monitor- as OP was on metformin and glipize -will start her on Metormin 500 mg bid steroids were DC 02/06 Recent Pneumonia Completed course of Rocephin/Azithro Pseudomonas grew out on follow up sputum culture, worth considering if cough returns Follow CBC HYperthyroidism Suppressed TSH ,elevated FT4 started on Tapazole 5 mg tid 02/07 recheck TSH ,TFTs in 4 weeks DVT Prophylaxis Lovenox Discharge Planning Patient came from [place]- needs rehab CM consult- [place] consult transfer to [place] if accepted- awaiting [facility] - Time Spent with Patient Total time spent providing and/or coordinating discharge services: Greater than 30 minutes - Quality: VTE Deep Vein Thrombosis/Pulmonary Embolism Present on Admission: No Exam Vital signs: Vital Signs 02/07/18 16:00 02/07/18 20:00 02/08/18 00:00 Temperature 97.8 F 97.7 F 97.9 F Pulse Rate 72 107 H 71 Respiratory Rate 16 15 16 Blood Pressure 134/62 116/57 L 134/63 Pulse Oximetry 95 95 97 02/08/18 04:00 02/08/18 08:00 02/08/18 12:00 Temperature 97.8 F 97.7 F 97.6 F Pulse Rate 67 66 67 Respiratory Rate 15 17 17 Blood Pressure 116/61 147/72 H 144/88 H Pulse Oximetry 95 96 96 Intake & Output 02/07/18 02/08/18 02/08/18 18:59 06:59 18:59 Intake Total 720 / 720 360 / 360 Output Total 3 / 3 Balance 717 / 717 360 / 360 Weight 69.9 kg Intake: Oral 720 / 720 360 / 360 Output: Urine 3 / 3 Other: # Voids 3 Date of Last Bowel Movement 02/07/18 02/07/18 # Bowel Movements 0 Results Procedures completed during hospitalization: none Labs on day of discharge: Labs from last 24 hours 02/08/18 02/07/18 10:50 19:35 POC Glucose 266 H 398 H - Impressions ITS Impressions Chest X-Ray 02/03/18 19:09 CONCLUSION: Minimal bibasilar atelectasis. Cervical Spine CT 02/06/18 00:00 CONCLUSION: 1. No acute findings. No fracture or spondylolisthesis or prevertebral soft tissue swelling. 2. At C5-6-7 there is degenerative disc disease with a mild to moderate canal and foraminal stenosis. Lumbar Spine CT 02/06/18 00:00 CONCLUSION: 1. At L3-4-5 there is a posterior disc osteophyte complex resulting in mild canal and lateral recess stenosis and mild foraminal encroachment. 2. L5-S1 there is a minimal degenerative anterolisthesis with mild lateral recess encroachment. 3. No acute fracture. Thoracic Spine CT 02/06/18 00:00 CONCLUSION: 1. No acute fracture. 2. Mild multilevel degenerative spondylosis of the thoracic spine without significant bony neural foraminal or central canal stenosis. Discharge Plan - Discharge Disposition Patient Disposition: 63 Rehab Inpatient - Discharge Condition Condition: Stable - Discharge Order Discharge Orders: Discharge Order (Routine); Ordered 02/08/18 Ordered By: Kieran Shepherd - Discharge Details Anticipated Discharge Date: 02/08/18 - Physicians Team Primary Care Provider: UNKNOWN, Attending Provider: Kieran Shepherd - Rxs /Orders / Referrals /Forms Prescriptions: New acetaminophen 325 mg Tablet 650 mg PO Q6H PRN (Reason: Pain 1-10 And/Or Fever >101f) RF: 0 enoxaparin [Lovenox] 40 mg/0.4 mL Syringe 40 mg subcut DAILY RF: 0 glucagon (human recombinant) [GlucaGen Diagnostic Kit] 1 mg/mL Recon Soln 1 mg OTHER PRN PRN (Reason: for Hypoglycemia Protocol) RF: 0 insulin aspart U-100 [Novolog U-100 Insulin aspart] 100 unit/mL Solution 0 unit subcut ACHS RF: 0 insulin detemir U-100 [Levemir U-100 Insulin] 100 unit/mL Solution 15 unit subcut BID RF: 0 metformin [Glucophage] 500 mg Tablet 500 mg PO BIDPC RF: 0 methimazole [Tapazole] 5 mg Tablet 5 mg PO TID RF: 0 pantoprazole 40 mg Tablet,Delayed Release (Dr/Ec) 40 mg PO DAILY RF: 0 sennosides [Senna Lax] 8.6 mg Tablet 17.2 mg PO Q12H PRN (Reason: Moderate Constipation) RF: 0 Continue albuterol sulfate [Proventil HFA] 90 mcg/actuation Hfa Aerosol Inhaler 1 puff INHALATION Q4-6H PRN (Reason: sob/wheezing) 30 Days RF: 0 amlodipine [Norvasc] 10 mg tablet 10 mg PO DAILY aspirin 81 mg tablet,chewable 81 mg PO DAILY budesonide-formoterol [Symbicort] 160-4.5 mcg/actuation HFA aerosol inhaler 2 puff INH BID gabapentin 300 mg Capsule 300 mg PO DAILY ipratropium bromide [Atrovent HFA] 17 mcg/actuation HFA aerosol inhaler 1 puff INHALATION Q6H lisinopril [Prinivil] 20 mg Tablet 20 mg PO DAILY Discontinued amitriptyline 25 mg Tablet 25 mg PO DAILY insulin detemir U-100 [Levemir U-100 Insulin] 100 unit/mL solution 10 unit subcut HS meloxicam 15 mg Tablet 15 mg PO DAILY Ambulatory Orders / Order Sets / DME: Walker Swivel Wheels/5 AD (1 each) (Routine) Location: Determined by Patient Ordered By: Kieran Shepherd Referrals: UNKNOWN, [Primary Care Provider] - See Instructions
== END 2018-02-08 16:00 ==
LOC: HIMC 18:23 → N04 02-05 11:58
PROVIDERS: ADMIT Internal Medicine; ATTEND Internal Medicine